=== PATIENT | female | born 1975 | race Caucasian/White ===

== ENCOUNTER 2016-04-11 10:39 | Emergency (ER) | payer OTHER ==
[~2016-04-11] VITALS: Ht 162.6 cm; Wt 125.8 kg
[~2016-04-11 10:39] MED LIST: BUSP30TA2 PO; CYM30 PO; CYM60 PO; LRS10 PO; MELO15TA4 PO; MIRT45TA3 PO; RTL10 PO; TPM/50 PO; TPM100 PO
[2016-04-11 10:43] VITALS: TEMP 36.7; Ht 162.6 cm; Wt 125.8 kg
[2016-04-11] MEDS ORDERED: FLUO10CA48 PO (10:52)
[2016-04-11] MEDS ORDERED: FLUO20CA35 PO (10:52)
[2016-04-11] MEDS ORDERED: MIRT30TA2 PO (10:52)
[2016-04-11] MEDS ORDERED: HYDROCODONE/ACETAMOPHEN 5/325MG TAB PO STA (11:03)
[2016-04-11] MEDS ORDERED: KETOROLAC TROMETHAMINE 60 MG/2 ML VIAL IM STA (11:03)
--- NOTE | 2016-04-11 12:01 | EMERGENCY ROOM VISIT NOTE ---
ED Visit Note First contact with patient: 10:48 CHIEF COMPLAINT: Toothache HISTORY OF PRESENT ILLNESS: This 40-year-old female presents the ER with chief complaint of left upper molar tooth pain. She states the pain started to get very severe last evening. She thinks a portion of the tooth broke off. The patient denies any face or neck pain. The patient denies any fever. She has not contacted a dentist yet REVIEW OF SYSTEMS: 6 system review was performed and was negative unless stated otherwise in history of present illness. PMH: The patient is healthy; lithotripsy, panic attacks, kidney stones SOCIAL HISTORY: Patient lives with her son. The patient admits to tobacco use but denies any alcohol use. PHYSICAL EXAM: Vital Signs: Were reviewed Reviewed Nurse's notes. GEN.: 40-year -old white female appears uncomfortable secondary to tooth pain. MENTAL Status : Alert and oriented 3. MOUTH: Left upper molar with a portion of the tooth missing and diffuse decay. This is tender to palpation. Surrounding gingiva without erythema or edema noted. No palpable abscess. FACE: No erythema or edema noted. NECK: No cervical or submandibular lymphadenopathy. EMERGENCY COURSE: The patient was evaluated. The patient was given Toradol 60 mg IM and [place] 5/325 mg 2 tablets by mouth for pain. The patient was also given dental wax to use as directed. The patient is on a no narcotic prescription list from the emergency room therefore I cannot give her a prescription for pain meds. I told her she will have to contact her family physician. The patient verbalized understanding was discharged home in stable condition. DIAGNOSIS: Dentalgia, dental decay DISCHARGE INSTRUCTIONS & TREATMENT:Use dental wax as directed. Take the clindamycin as prescribed. Take naproxen as prescribed. May also take additional Tylenol as needed for pain. Call your dentist on Wednesday for definitive treatment. Also may contact her PCP for stronger prescription pain medication. Problem List Medical Problems: (1) Abdominal pain Status: Resolved (2) Anxiety Status: Chronic (3) Anxiety Status: Chronic (4) Anxiety disorder Status: Chronic (5) Arthritis Status: Chronic (6) Calculus of kidney and ureter Status: Resolved (7) Depression Status: Chronic (8) Fibromyalgia Status: Chronic (9) Heroin abuse Status: Resolved (10) Heroin abuse Status: Resolved (11) Heroin withdrawal Status: Resolved (12) Kidney stones Status: Chronic (13) Left ureteral calculus Status: Resolved (14) Pain, dental Status: Chronic (15) Renal colic Status: Resolved (16) Renal colic Status: Resolved (17) Suicidal ideation Status: Resolved (18) Suicidal ideation Status: Resolved (19) UTI (urinary tract infection) Status: Resolved Current/Historical Medications Scheduled Baclofen (Baclofen), 10 MG PO BID Buspirone Hcl (Buspirone Hcl), 15 MG PO Q6H Clindamycin Hcl (Cleocin), 300 MG PO QID Fluoxetine (Prozac), 10 MG PO DAILY Fluoxetine (Prozac), 20 MG PO DAILY Meloxicam (Meloxicam), 15 MG PO DAILY Methylphenidate HCl (Methylphenidate HCl), 10 MG PO BID Mirtazapine Soltab (Remeron Soltab), 30 MG PO HS Naproxen (Naprosyn), 500 MG PO BID Topiramate (Topamax), 50 MG PO QAM Topiramate (Topiramate), 100 MG PO QPM Allergies Coded Allergies: Penicillins (Verified Allergy, Mild, RASH TO AMOXIL, 04/11/16) Amoxicillin (Verified Allergy, Unknown, ., 04/11/16) Vital Signs Date Time Temp Pulse Resp B/P Pulse Ox O2 Delivery O2 Flow Rate FiO2 04/11/16 10:43 36.7 74 18 130/70 96 Room Air Medications Administered Medications (Trade) Dose Ordered Sig/Scout Route Start Time Stop Time Status Last Admin Dose Admin Ketorolac Tromethamine (Toradol Inj) 60 mg NOW STAT IM 04/11/16 11:03 04/11/16 11:04 DC 04/11/16 11:19 60 MG Acetaminophen/ Hydrocodone Bitart ([place] 5/325 Tab) 2 tab NOW STAT PO 04/11/16 11:03 04/11/16 11:04 DC 04/11/16 11:20 2 TAB Departure Information Prescriptions Clindamycin Hcl (CLEOCIN) 300 Mg Cap 300 MG PO QID for 7 Days, #28 CAP Prov: Kendy Goode PA-C 04/11/16 Naproxen (Naprosyn) 500 Mg Tab 500 MG PO BID, #30 TAB Prov: Kendy Gooed PA-C 04/11/16 Referrals No Doctor, Assigned (PCP) Patient Instructions [facility]
[2016-04-11] MEDS ORDERED: NAPR-1169 PO (12:04)
[2016-04-11] MEDS ORDERED: CLIN300C2 PO (12:04)
[2016-04-11 12:19] VITALS: BP 138/86; PULSE 89; O2SAT 96
== END 2016-04-11 12:10 | disposition home or self-care (01) ==
LOC: C.EDB 10:40 → C.EDD 12:10
DX: K08.89 Other specified disorders of teeth and supporting structures (principal); K02.9 Dental caries, unspecified; M19.90 Unspecified osteoarthritis, unspecified site; F32.9 Major depressive disorder, single episode, unspecified; F41.9 Anxiety disorder, unspecified; F17.200 Nicotine dependence, unspecified, uncomplicated; Z79.899 Other long term (current) drug therapy; Z79.1 Long term (current) use of non-steroidal anti-inflammatories (NSAID)

== ENCOUNTER 2016-08-09 14:52 | Emergency (ER) | payer OTHER ==
[~2016-08-09] VITALS: Ht 162.6 cm; Wt 129.8 kg
[~2016-08-09 14:52] MED LIST changes: -BUSP30TA2 PO; -CYM30 PO; -CYM60 PO; +FLUO10CA48 PO; +FLUO20CA35 PO; -LRS10 PO; -MELO15TA4 PO; +MIRT30TA2 PO; -MIRT45TA3 PO; +NAPR-1169 PO
[2016-08-09 14:55] VITALS: TEMP 36.6; Ht 162.6 cm; Wt 129.8 kg
[2016-08-09] MEDS ORDERED: LORAZEPAM 1 MG TAB PO STA ×2 (15:16→16:52)
[2016-08-09] MEDS ORDERED: SODIUM CHLORIDE 0.9% 1000ML 1,000 ML IV ONE (15:30)
[2016-08-09 15:55] LABS: URINE APPEARANCE CLOUDY (CLEAR); URINE BILIRUBIN NEG (NEG); URINE COLOR YELLOW; URINE EPITHELIAL CELL AUTO 20-30 /lpf (0-5); URINE NITRITE NEG (NEG); URINE SPECIFIC GRAVITY 1.019 (1.000-1.030); UROBILINOGEN NEG (NEG); ZZUR CULT IF INDIC CLEAN CATCH NO
[2016-08-09 15:58] LABS: MANUAL MICROSCOPIC REQUIRED? NO; REVIEW REQ? NO
[2016-08-09 16:21] LABS: BASO % 0.9 %; BASO ABS # 0.06 K/uL (0-0.2); COMPLETE YES; HEMATOCRIT 39.4 % (37-47); IG% 0.3 %; LYMPH % 49.1 %; MEAN CELL VOLUME 85.8 fL (80-100); MEAN CORPUSCULAR HEMOGLOBIN 26.4 pg (25-34); MEAN CORPUSCULAR HGB CONC 30.7 g/dl (32-36); MEAN PLATELET VOLUME 8.4 fL (7.4-10.4); MONO % 6.8 %; NEUT % 38.9 %; PLATELET COUNT 290 K/uL (130-400); RED BLOOD COUNT 4.59 M/uL (4.2-5.4); WHITE BLOOD COUNT 6.92 K/uL (4.8-10.8)
[2016-08-09 16:23] LABS: BENZODIAZEPINE, URINE NEG (NEG); COCAINE,URINE NEG (NEG); PHENCYCLIDINE, URINE NEG (NEG)
[2016-08-09 16:39] LABS: BUN/CREATININE RATIO 14.5 (10-20); CALCIUM 8.4 mg/dl (8.5-10.1); CREATININE 0.81 mg/dl (0.60-1.20); POTASSIUM 3.9 mmol/L (3.5-5.1)
[2016-08-09 16:49] LABS: ALB/GLOB RATIO 0.8 (0.9-2); THYROID STIMULATING HORMONE 2.7 uIu/ml (0.300-4.500)
--- NOTE | 2016-08-09 16:50 | DIAGNOSTIC IMAGING REPORT ---
ULTRASOUND VENOUS DOPPLER LWR EXT BILA CLINICAL HISTORY: Leg swelling COMPARISON STUDY: 07/18/2006 FINDINGS: Real-time and color flow Doppler imaging were performed. Flow was seen within the femoral, popliteal and calf veins with no intraluminal thrombus demonstrated. The saphenous vein is patent. IMPRESSION: No evidence of lower extremity DVT. Electronically signed by: Dixon Palacios M.D. 08/09/2016 4:49 PM Dictated Date/Time: 08/09/2016 4:48 PM
[2016-08-09] MEDS ORDERED: VST25HP PO (17:17)
[2016-08-09 17:31] VITALS: BP 138/88; PULSE 80; O2SAT 96
--- NOTE | 2016-08-09 21:48 | EMERGENCY ROOM VISIT NOTE ---
History First contact with patient: 15:06 Chief Complaint: ANXIETY Stated Complaint: NON STOP PANIC ATTACKS, ANXIETY ATTACKS History of Present Illness The patient is a 41 year old female who presents to the Emergency Room with complaints of persistent panic attacks for the past week. The patient states that she has had stress and anxiety are several years. She has an upcoming appointment with her psychiatrist in 4 days, and is requesting medication to help get her to that appointment. She states that she will take hydroxyzine twice daily, but this has not helped her. She has had difficulty sleeping. She is also complaining of swelling to her bilateral legs. She does not have chest pain, chest tightness, shortness of breath, or palpitations. No recent travel history. She is not on control. The patient rates her overall discomfort a 5/10. She is not suicidal or homicidal. Review of Systems More than 10 systems were reviewed and otherwise negative with the exception of history of present illness. Past Medical/Surgical History Medical Problems: (1) Abdominal pain (2) Anxiety (3) Anxiety (4) Anxiety disorder (5) Arthritis (6) Calculus of kidney and ureter (7) Depression (8) Drug overdose, intentional (9) Fibromyalgia (10) Heroin abuse (11) Heroin abuse (12) Heroin withdrawal (13) Kidney stones (14) Left ureteral calculus (15) Pain, dental (16) Renal colic (17) Renal colic (18) Suicidal ideation (19) Suicidal ideation (20) UTI (urinary tract infection) Family History Cancer Diabetes mellitus Gallbladder disease Hypertension Kidney stones Lung disease Social History Smoking Status: Current Every Day Smoker Alcohol Use: none Drug Use: none Marital Status: single Housing Status: lives with family Occupation Status: unemployed Current/Historical Medications Scheduled Baclofen (Baclofen), 10 MG PO BID Buspirone Hcl (Buspirone Hcl), 15 MG PO Q6H Fluoxetine (Prozac), 10 MG PO DAILY Fluoxetine (Prozac), 20 MG PO DAILY Meloxicam (Meloxicam), 15 MG PO DAILY Mirtazapine Soltab (Remeron Soltab), 30 MG PO HS Topiramate (Topamax), 50 MG PO QAM Topiramate (Topiramate), 100 MG PO QPM Scheduled PRN Hydroxyzine HCl (Hydroxyzine Pamoate), 25 MG PO BID PRN for Anxiety Allergies Coded Allergies: Penicillins (Verified Allergy, Mild, RASH TO AMOXIL, 04/11/16) Amoxicillin (Verified Allergy, Unknown, ., 04/11/16) Physical Exam Vital Signs Date Time Temp Pulse Resp B/P (MAP) Pulse Ox O2 Delivery O2 Flow Rate FiO2 08/09/16 17:31 80 16 138/88 96 08/09/16 16:53 81 16 152/90 95 Room Air 08/09/16 14:55 36.6 92 20 163/100 97 Room Air Pain Rating (0-10): 0 Physical Exam VITALS: Vitals are noted on the nurse's note and reviewed by myself. Vital signs with initial hypertension that improved under our care GENERAL: Well-developed, well-nourished, white female, who is in no acute distress and resting comfortably. Patient is cooperative with the examination. HEAD: Normocephalic atraumatic. EARS: External ear normal. External auditory canals clear, tympanic membranes pearly vela without erythema or effusion bilaterally. EYES: Pupils equal round and reactive to light and accommodation. Conjunctivae without injection, sclerae without icterus. Extraocular movements intact. NOSE: Patent, turbinates without inflammation or discharge. MOUTH: Mucous membranes moist. Tonsils are not enlarged. Pharynx without erythema, blood, or exudate. Uvula midline. Airway patent. NECK: Supple without nuchal rigidity. No lymphadenopathy. No thyromegaly. Cervical spine is nontender. HEART: Regular rate and rhythm without murmurs gallops or rubs. LUNGS: Clear to auscultation bilaterally without wheezes, rales or rhonchi. No retractions or accessory muscle use. MUSCULOSKELETAL: Mild bilateral lower extremity swelling, primarily along the anterior tibia and top of the feet. There is some reported tenderness along the posterior calf bilaterally with no palpable cord. NEURO: Patient was alert and oriented to person place and time. CN II through XII grossly intact. Medical Decision & Procedures ER Provider Diagnostic Interpretation: ULTRASOUND VENOUS DOPPLER LWR EXT BILA CLINICAL HISTORY: Leg swelling COMPARISON STUDY: 07/18/2006 FINDINGS: Real-time and color flow Doppler imaging were performed. Flow was seen within the femoral, popliteal and calf veins with no intraluminal thrombus demonstrated. The saphenous vein is patent. IMPRESSION: No evidence of lower extremity DVT. Laboratory Results 08/09/16 16:03 Red Blood Count 4.59, Mean Corpuscular Volume 85.8, Mean Corpuscular Hemoglobin 26.4, Mean Corpuscular Hemoglobin Concent 30.7, Mean Platelet Volume 8.4, Neutrophils (%) (Auto) 38.9, Lymphocytes (%) (Auto) 49.1, Monocytes (%) (Auto) 6.8, Eosinophils (%) (Auto) 4.0, Basophils (%) (Auto) 0.9, Neutrophils # (Auto) 2.69, Lymphocytes # (Auto) 3.40, Monocytes # (Auto) 0.47, Eosinophils # (Auto) 0.28, Basophils # (Auto) 0.06 08/09/16 16:03 Test 08/09/16 15:30 08/09/16 16:03 08/09/16 16:05 Urine Color YELLOW Urine Appearance CLOUDY (CLEAR) Urine pH 8.0 (4.5-7.5) Urine Specific [place] 1.019 (1.000-1.030) Urine Protein NEG (NEG) Urine Glucose (UA) NEG (NEG) Urine Ketones NEG (NEG) Urine Occult Blood NEG (NEG) Urine Nitrite NEG (NEG) Urine Bilirubin NEG (NEG) Urine Urobilinogen NEG (NEG) Urine Leukocyte Esterase NEG (NEG) Urine WBC (Auto) 1-5 /hpf (0-5) Urine RBC (Auto) 0-4 /hpf (0-4) Urine Hyaline Casts (Auto) 0 /lpf (0-5) Urine Epithelial Cells (Auto) 20-30 /lpf (0-5) Urine Bacteria (Auto) NEG (NEG) Urine Test NEG (NEG) Urine Opiates Screen NEG (NEG) Urine Methadone, Qualitative POS (NEG) Urine Barbiturates NEG (NEG) Urine Phencyclidine (PCP) Level NEG (NEG) Ur Amphetamine/Methamphetamine NEG (NEG) MDMA (Ecstasy) Screen NEG (NEG) Urine Benzodiazepines Screen NEG (NEG) Urine Cocaine Metabolite NEG (NEG) Urine Marijuana (THC) NEG (NEG) White Blood Count 6.92 K/uL (4.8-10.8) Red Blood Count 4.59 M/uL (4.2-5.4) Hemoglobin 12.1 g/dL (12.0-16.0) Hematocrit 39.4 % (37-47) Mean Corpuscular Volume 85.8 fL (80-100) Mean Corpuscular Hemoglobin 26.4 pg (25-34) Mean Corpuscular Hemoglobin Concent 30.7 g/dl (32-36) Platelet Count 290 K/uL (130-400) Mean Platelet Volume 8.4 fL (7.4-10.4) Neutrophils (%) (Auto) 38.9 % Lymphocytes (%) (Auto) 49.1 % Monocytes (%) (Auto) 6.8 % Eosinophils (%) (Auto) 4.0 % Basophils (%) (Auto) 0.9 % Neutrophils # (Auto) 2.69 K/uL (1.4-6.5) Lymphocytes # (Auto) 3.40 K/uL (1.2-3.4) Monocytes # (Auto) 0.47 K/uL (0.11-0.59) Eosinophils # (Auto) 0.28 K/uL (0-0.5) Basophils # (Auto) 0.06 K/uL (0-0.2) RDW Standard Deviation 47.0 fL (36.4-46.3) RDW Coefficient of Variation 15.0 % (11.5-14.5) Immature Granulocyte % (Auto) 0.3 % Immature Granulocyte # (Auto) 0.02 K/uL (0.00-0.02) Anion Gap 6.0 mmol/L (3-11) Est Creatinine Clear Calc Drug Dose 122.3 ml/min Estimated GFR () 104.6 Estimated GFR (Non- 90.2 BUN/Creatinine Ratio 14.5 (10-20) Calcium Level 8.4 mg/dl (8.5-10.1) Total Bilirubin 0.2 mg/dl (0.2-1) Aspartate Amino Transf (AST/SGOT) 22 U/L (15-37) Alanine Aminotransferase (ALT/SGPT) 24 U/L (12-78) Alkaline Phosphatase 89 U/L (45-117) Total Protein 7.4 gm/dl (6.4-8.2) Albumin 3.2 gm/dl (3.4-5.0) Globulin 4.2 gm/dl (2.5-4.0) Albumin/Globulin Ratio 0.8 (0.9-2) Thyroid Stimulating Hormone (TSH) 2.700 uIu/ml (0.300-4.500) Bedside Troponin I < 0.030 ng/ml (0-0.045) Medications Administered Medications (Trade) Dose Ordered Sig/Scout Route Start Time Stop Time Status Last Admin Dose Admin Lorazepam (Ativan Tab) 1 mg NOW STAT PO 08/09/16 15:16 08/09/16 15:20 DC 08/09/16 15:25 1 MG Lorazepam (Ativan Tab) 1 mg NOW STAT PO 08/09/16 16:52 08/09/16 16:53 DC 08/09/16 16:57 1 MG ED Course Physical exam and history were performed. Nursing notes and EMR were reviewed. Patient appears to have reports of anxiety and edema. IV access was established and labs were obtained. Ultrasound was ordered. I did medicate the patient here in the department with oral Ativan. The patient's blood work is as above and was reviewed. She does not have a significantly elevated white blood cell count, anemia, bandemia, or gross electrolyte imbalance. EKG was normal sinus rhythm at [address] elevation. The patient's urine is without obvious infection. Drug of abuse screen is positive for methadone, which is concerning as the patient is not prescribed this based on the data from the [place] drug monitoring profile. She certainly could be getting this on a daily basis from a methadone clinic, but she does not report this as one of her medications. The patient's ultrasound does not show evidence of DVT bilaterally. Overall the patient appears stable for discharge home. I do not appreciate an acute life-threatening process to explain her leg swelling. The patient is not having chest pain, chest tightness, shortness of breath, or palpitations, and I feel that a CT scan is not necessary considering that she has a negative ultrasound. The patient is not suicidal or homicidal, and does not wish to have a psychiatric evaluation here in the department. She does have appropriate outpatient resources, most importantly being an appointment with her psychiatrist in 4 days. The patient is to keep this appointment. The patient requested that I provide her a written prescription for Ativan. I explained that the patient was on a no prescription treatment plan at this facility, and I would not be providing her a written prescription for any controlled substances. The patient has hydroxyzine at home, which she should continue as prescribed. The patient was otherwise invited back to the ER with any new, worsening, or concerning symptoms. The chart was completed utilizing Dragon Speech Voice Recognition Software. Grammatical errors, random word insertions, pronoun errors, and incomplete sentences are an occasional consequence of this system due to software limitations, ambient noise, and hardware issues. Any formal questions or concerns about the content, text, or information contained within the body of this dictation should be directly addressed to the provider for clarification. . Medical Decision Differential diagnosis: Etiologies such as mood disorder, infection, hypoglycemia, electrolyte abnormalities, cardiac sources, intracerebral event, toxicologic, neurologic, as well as others were entertained. Impression Primary Impression: Anxiety Additional Impression: Extremity edema Departure Information Dispostion Home / Self-Care Condition GOOD Forms HOME CARE DOCUMENTATION FORM, IMPORTANT VISIT INFORMATION Patient Instructions My [facility] Additional Instructions You were seen and evaluated today on an emergency basis only. This is not a substitute for, or an effort to provide, complete comprehensive medical care. It is not possible to recognize and treat all injuries or illnesses in a single emergency department visit. For this reason it is recommended that you followup with your primary care physician and psychiatrist this week for ongoing care and evaluation. Continue your medications as previously prescribed. Elevate your legs to help reduce swelling. Consider compression stockings as this can also help. Decrease dietary salt. You are welcome to return to the emergency department anytime with new, worsening, or concerning symptoms. Problem Qualifiers
[2016-08-12 10:56] LABS: METHADONE METABOLITE 24600 NG/ML (CUTOFF=100); METHADONE VERIFIC 1410 NG/ML (CUTOFF=100)
[2017-01-21] MEDS ORDERED: HYDR50CA2 PO (16:51)
== END 2016-08-09 17:32 | disposition home or self-care (01) ==
LOC: C.EDB 14:54
DX: F41.9 Anxiety disorder, unspecified (principal); R60.0 Localized edema; M19.90 Unspecified osteoarthritis, unspecified site; N20.0 Calculus of kidney; N23 Unspecified renal colic; Z83.3 Family history of diabetes mellitus; Z82.49 Family history of ischemic heart disease and other diseases of the circulatory system; F17.200 Nicotine dependence, unspecified, uncomplicated

== ENCOUNTER 2016-09-22 16:28 | Emergency (ER) | payer OTHER ==
[~2016-09-22] VITALS: Ht 162.6 cm; Wt 137.8 kg
[~2016-09-22 16:28] MED LIST changes: +BUSP30TA2 PO; +LRS10 PO; +MELO15TA4 PO; -NAPR-1169 PO; -RTL10 PO; +VST25HP PO
[2016-09-22 16:31] VITALS: TEMP 36.9; Ht 162.6 cm; Wt 137.8 kg
[2016-09-22] MEDS ORDERED: ONDANSETRON INJ 2 MG/ML 2 ML VIAL IV STA (16:46)
[2016-09-22] MEDS ORDERED: DiphenhydrAMINE HCL 50 MG/ML VIAL IV STA (16:46)
[2016-09-22] MEDS ORDERED: KETOROLAC TROMETHAMINE 30 MG/ML VIAL IV STA (16:46)
[2016-09-22] MEDS ORDERED: HYDR50CA2 PO (16:51)
[2016-09-22] MEDS ORDERED: PRZ/40 PO (16:51)
[2016-09-22] MEDS ORDERED: PROP20TA67 PO (16:51)
[2016-09-22] MEDS ORDERED: NRN100 PO (16:51)
[2016-09-22] MEDS ORDERED: DEXAMETHASONE SOD INJ 10 MG/ML VIAL IV ONE (17:00)
[2016-09-22 17:12] LABS: HEMATOCRIT 38.3 % (37-47); MEAN CELL VOLUME 85.5 fL (80-100); MEAN CORPUSCULAR HGB CONC 31.6 g/dl (32-36); MEAN PLATELET VOLUME 8.2 fL (7.4-10.4); PLATELET COUNT 280 K/uL (130-400); RED BLOOD COUNT 4.48 M/uL (4.2-5.4); WHITE BLOOD COUNT 6.82 K/uL (4.8-10.8)
--- NOTE | 2016-09-22 17:25 | DIAGNOSTIC IMAGING REPORT ---
CHEST 2 VIEWS ROUTINE CLINICAL HISTORY: 41 years-old Female presenting with peripheral edema. TECHNIQUE: PA and lateral views of the chest were obtained. COMPARISON: 09/18/2015. FINDINGS: Cardiomediastinal silhouette normal. Apparent opacity at the cardiac apex likely represents a prominent pericardial fat pad. Lungs and pleural spaces clear. Osseous structures and upper abdomen normal. IMPRESSION: 1. No acute cardiopulmonary disease. Electronically signed by: John Bellamy M.D. 09/22/2016 5:23 PM Dictated Date/Time: 09/22/2016 5:22 PM
[2016-09-22 17:41] LABS: BUN/CREATININE RATIO 10.4 (10-20); CALCIUM 8.6 mg/dl (8.5-10.1); CREATININE 0.96 mg/dl (0.60-1.20); POTASSIUM 3.7 mmol/L (3.5-5.1)
[2016-09-22] MEDS ORDERED: ACETAMINOPHEN 500 MG TAB PO STA (17:51)
--- NOTE | 2016-09-22 17:57 | EMERGENCY ROOM VISIT NOTE ---
History First contact with patient: 16:35 Chief Complaint: HEADACHE Stated Complaint: SEVERE MIGRAINE - SEVERE KNEE PAIN - SWOLLEN FEET History of Present Illness The patient is a 41 year old female who presents to the Emergency Room with multiple complaints. First complaint is that she started with a headache at 10: 30 this morning. The patient states that the back of her head in both temporal region and in both her jaws. The patient denies any associated visual changes or dizziness. The patient does not have a history of migraine headaches. The patient admits to some nausea but denies any vomiting. The patient denies any recent URI symptoms. The patient denies any seasonal allergies or any chronic sinusitis. The patient took 600 mg of Advil at 1:45 PM without any relief of her headaches. The patient also is complaining of having pain in both knees for the last few days that makes it difficult to walk. The patient states she has had this in the past. She also states that she has swelling of both her feet. She denies any associated redness. The patient states that she has had this one time in the past. She recently had an echocardiogram done which was normal. The patient currently denies any chest pain or shortness of breath. Patient denies any arm pain. Review of Systems 10 system review was performed and was negative unless stated otherwise history of present illness. Past Medical/Surgical History Medical Problems: (1) Abdominal pain (2) Anxiety (3) Anxiety (4) Anxiety disorder (5) Arthritis (6) Calculus of kidney and ureter (7) Depression (8) Drug overdose, intentional (9) Fibromyalgia (10) Heroin abuse (11) Heroin abuse (12) Heroin withdrawal (13) Kidney stones (14) Left ureteral calculus (15) Pain, dental (16) Renal colic (17) Renal colic (18) Suicidal ideation (19) Suicidal ideation (20) UTI (urinary tract infection) Family History Cancer Diabetes mellitus Gallbladder disease Hypertension Kidney stones Lung disease Social History Smoking Status: Current Every Day Smoker Alcohol Use: none Drug Use: none Marital Status: single Housing Status: lives with family Occupation Status: unemployed Current/Historical Medications Scheduled Baclofen (Baclofen), 10 MG PO BID Buspirone Hcl (Buspirone Hcl), 15 MG PO Q6H Fluoxetine Hcl (Prozac), 40 MG PO QAM Gabapentin (Gabapentin), 100 MG PO BID Hydroxyzine Pamoate (Vistaril), 50 MG PO BID Meloxicam (Meloxicam), 15 MG PO DAILY Mirtazapine Soltab (Remeron Soltab), 30 MG PO HS Propranolol (Inderal), 20 MG PO DAILY Topiramate (Topamax), 50 MG PO QAM Topiramate (Topiramate), 100 MG PO QPM Physical Exam Vital Signs Date Time Temp Pulse Resp B/P (MAP) Pulse Ox O2 Delivery O2 Flow Rate FiO2 09/22/16 16:31 36.9 84 20 151/88 97 Room Air Physical Exam GENERAL: Obese 41-year-old female appears in no acute distress. MENTAL Status: Alert and oriented 3. HEAD: Atraumatic, nontender to palpation. EYES: PERRLA. EOMs intact. EARS: Canals clear. TMs without fluid level noted. NOSE: Nasal mucosa with erythema and engorgement. PHARYNX: No erythema or edema noted. Airway is adequate. NECK: Supple, no lymphadenopathy noted. No carotid bruits noted. LUNGS: Patient has scattered rhonchi throughout both lung victor with partial clearing with cough. Good air exchange noted. CARDIAC: Regular rate and rhythm without murmur pulses is full and equal throughout. ABDOMEN: Positive bowel sounds all 4 quadrants. Soft, nontender to palpation without organomegaly or masses. NEURO:Cranial nerves two through 12 intact. Cerebellar function intact with [id number]. Fine motor intact with alternating finger motions. BILATERAL LOWER EXTREMITIES: The patient has 1-2 bilateral pitting edema of the lower leg as well as the dorsal aspect of the feet. There is no erythema. Calves are nontender. Negative Homans bilaterally. BILATERAL KNEES: No gross bony deformity noted. No erythema or edema noted. Full range of motion of both knees. No ligament instability noted bilaterally. Medical Decision & Procedures ER Provider Diagnostic Interpretation: CHEST 2 VIEWS ROUTINE CLINICAL HISTORY: 41 years-old Female presenting with peripheral edema. TECHNIQUE: PA and lateral views of the chest were obtained. COMPARISON: 09/18/2015. FINDINGS: Cardiomediastinal silhouette normal. Apparent opacity at the cardiac apex likely represents a prominent pericardial fat pad. Lungs and pleural spaces clear. Osseous structures and upper abdomen normal. IMPRESSION: 1. No acute cardiopulmonary disease. Electronically signed by: John Bellamy M.D. 09/22/2016 5:23 PM Dictated Date/Time: 09/22/2016 5:22 PM Laboratory Results 09/22/16 16:55 Red Blood Count 4.48, Mean Corpuscular Volume 85.5, Mean Corpuscular Hemoglobin 27.0, Mean Corpuscular Hemoglobin Concent 31.6, Mean Platelet Volume 8.2 09/22/16 16:55 Test 09/22/16 16:55 09/22/16 17:03 White Blood Count 6.82 K/uL (4.8-10.8) Red Blood Count 4.48 M/uL (4.2-5.4) Hemoglobin 12.1 g/dL (12.0-16.0) Hematocrit 38.3 % (37-47) Mean Corpuscular Volume 85.5 fL (80-100) Mean Corpuscular Hemoglobin 27.0 pg (25-34) Mean Corpuscular Hemoglobin Concent 31.6 g/dl (32-36) Platelet Count 280 K/uL (130-400) Mean Platelet Volume 8.2 fL (7.4-10.4) RDW Standard Deviation 47.0 fL (36.4-46.3) RDW Coefficient of Variation 15.0 % (11.5-14.5) Anion Gap 5.0 mmol/L (3-11) Est Creatinine Clear Calc Drug Dose 107.1 ml/min Estimated GFR () 85.1 Estimated GFR (Non- 73.5 BUN/Creatinine Ratio 10.4 (10-20) Calcium Level 8.6 mg/dl (8.5-10.1) GF-Mfg-A-Type Natriuretic Peptide 332 pg/ml (0-450) Medications Administered Medications (Trade) Dose Ordered Sig/Scout Route Start Time Stop Time Status Last Admin Dose Admin Dexamethasone Sodium Phosphate (Decadron Inj) 10 mg NOW ONCE IV 09/22/16 17:00 09/22/16 17:01 DC 09/22/16 16:59 10 MG Diphenhydramine HCl (Benadryl Inj) 25 mg NOW STAT IV 09/22/16 16:46 09/22/16 16:50 DC 09/22/16 16:59 25 MG Ketorolac Tromethamine (Toradol Inj) 30 mg NOW STAT IV 09/22/16 16:46 09/22/16 16:50 DC 09/22/16 16:59 30 MG Ondansetron HCl (Zofran Inj) 4 mg NOW STAT IV 09/22/16 16:46 09/22/16 16:50 DC 09/22/16 16:59 4 MG ED Course The patient was evaluated. IV access was obtained. The patient's EMR medication list were reviewed. I also reviewed her x-rays from January 2016 which revealed mild degenerative arthritis. I will check with the patient to see if she followed up with Dr. Esquivel as instructed. The patient was given Benadryl 25 mg IV, Decadron 10 mg IV, Zofran 4 mg IV push and Toradol 30 mg IV for her headache. Chest x-ray was ordered to evaluate for CHF. CBC and differential renal profile was ordered. BNP was ordered. I spoke with the patient and she never followed up with Dr. Esquivel. She states she followed up with her family doctor and he did not feel was necessary to be referred to orthopedics. I also reviewed the patient's ER noted from 08/09/2016. At that time she did have the peripheral edema which is similar today's findings. She was instructed to wear compression socks and elevate feet and reduce dietary salt intake. It is also concern at that point she had a drug screen and was positive for methadone. The patient when she received her above medications for headaches was questioning the nurse why she was not receiving any narcotics for her headaches. Due to this review of her EMR she will not be obtaining any narcotics in the ER visit today. The patient's chest x-ray was reviewed as above without any acute cardiopulmonary findings. Labs are reviewed and were unremarkable. The patient was informed of all findings. The patient reevaluated was still complaining of a headache. I discussed with the patient and we will no longer be giving narcotics for migraine headaches and the definite not be giving narcotics for atypical headache. The patient verbalized understanding she was given additional 1 g of Tylenol by mouth for her headache. The patient was also instructed to follow with her family doctor for elevated blood pressure reading as well as her peripheral edema and also referral to orthopedics for her bilateral knee pain. The patient was discharged home in stable condition. Medical Decision Differential diagnosis include bronchitis, pneumonia, CHF Differential includes: Acute intracranial bleed, trauma, meningitis, encephalitis, increased intracranial pressure, mass or mass effect, facial or dental infection, temporal arteritis, CVA, TIA, acute hypertensive emergency, sinusitis, carbon monoxide exposure. I do not think that it is necessary to obtain repeat x-rays of the patient's needs at this time. Medication Reconcilliation Current Medication List: was personally reviewed by me Blood Pressure Screening Patient's blood pressure: Elevated blood pressure Blood pressure disposition: Referred to PCP Impression Primary Impression: Headache Additional Impressions: Peripheral edema Knee pain, bilateral Elevated blood pressure reading Departure Information Dispostion Home / Self-Care Condition GOOD Referrals Jhon Erazo M.D. (PCP) Forms HOME CARE DOCUMENTATION FORM, IMPORTANT VISIT INFORMATION Patient Instructions [facility] Additional Instructions For your peripheral edema: Recommend keeping her legs elevated whenever possible. Limit dietary salt intake, compression stockings which may be prescribed by your family physician. Follow with your family physician in 2 days for reevaluation Elevated blood pressure. Follow with family doctor in 2 days for recheck when you're there for recheck of your peripheral edema. Bilateral knee pain. Recommend follow-up with Dr. Esquivel for further evaluation Headaches: Recommend [id number] ibuprofen and Tylenol as needed for headaches. If you're headaches persist recommend follow with your family doctor for further evaluation. Problem Qualifiers Primary Impression: Headache Headache type: unspecified Headache chronicity pattern: acute headache Intractability: intractable Qualified Codes: R51 - Headache Additional Impressions: Knee pain, bilateral Chronicity: chronic Qualified Codes: M25.561 - Pain in right knee; M25.562 - Pain in left knee; G89.29 - Other chronic pain
[2016-09-22 18:00] VITALS: BP 135/65; PULSE 60; O2SAT 96
[2016-09-22 18:03] LABS: BASO % 0.7 %; BASO ABS # 0.05 K/uL (0-0.2); COMPLETE YES; EOS % 2.9 %; IG% 0.1 %; LYMPH % 52.9 %; LYMPH ABS # 3.61 K/uL (1.2-3.4); NEUT % 37.4 %
== END 2016-09-22 18:00 | disposition home or self-care (01) ==
LOC: C.EDB 16:29
DX: R51 Headache (principal); R60.9 Edema, unspecified; M25.561 Pain in right knee; M25.562 Pain in left knee; R03.0 Elevated blood-pressure reading, without diagnosis of hypertension; F41.9 Anxiety disorder, unspecified; F32.9 Major depressive disorder, single episode, unspecified; M79.7 Fibromyalgia; F11.20 Opioid dependence, uncomplicated; Z83.3 Family history of diabetes mellitus; Z82.49 Family history of ischemic heart disease and other diseases of the circulatory system; F17.200 Nicotine dependence, unspecified, uncomplicated

== ENCOUNTER 2017-01-21 17:20 | Emergency (ER) | payer OTHER ==
[~2017-01-21] VITALS: Ht 162.6 cm; Wt 124.5 kg
[~2017-01-21 17:20] MED LIST changes: -BUSP30TA2 PO; -FLUO10CA48 PO; -FLUO20CA35 PO; +HYDR50CA2 PO; -LRS10 PO; -MELO15TA4 PO; +NRN100 PO; +PROP20TA67 PO; +PRZ/40 PO; -VST25HP PO
[2017-01-21 17:27] VITALS: TEMP 36.6; Ht 162.6 cm; Wt 124.5 kg
--- NOTE | 2017-01-21 17:46 | EMERGENCY ROOM VISIT NOTE ---
History First contact with patient: 17:25 Chief Complaint: FLANK PAIN Stated Complaint: ABD PAIN/HEMATURIA History of Present Illness The patient is a 41 year old female who presents to the Emergency Room with complaints of LLQ which began 2 weeks ago and has been getting progressively worse. She rates the pain at 10/10, constant. The pain radiates to her groin and down the back of her leg, which she reports as being constant, and does not think she can weight bear on her left side due to the pain down the back of her leg. She has vomited "several times" today. Also reports one episode of hematuria this morning. No dysuria, no frequency of urination, no suprapubic pain. She has had kidney stones in the past and states this is a similar pain; also reports PMH of ovarian cysts. She reports no trauma and no hx of back pain. Review of Systems Constitutional: + weakness, No fever, No chills, No sweats, No weight loss, No fatigue, No problem reported Respiratory: + shortness of breath, No cough, No sputum, No wheezing, No dyspnea on exertion, No dyspnea at rest, No hemoptysis, No problem reported Cardiovascular: No chest pain, No orthopnea, No PND, No edema, No claudication, No palpitations, No problem reported Abdomen: + pain (LLQ), + nausea, + vomiting, No diarrhea, No constipation, No GI bleeding, No problem reported Musculoskeletal: + joint pain, + muscle pain Genitourinary - Female: + hematuria, No dysuria, No urinary frequency, No urinary urgency, No urinary incontinence, No urinary retention, No dysmenorrhea , No menorrhagia, No metrorrhagia, No rash, No vaginal bleeding, No vaginal discharge, No vaginal itching, No vulvodynia, No , No problem reported Past Medical/Surgical History Medical Problems: (1) Abdominal pain (2) Anxiety (3) Anxiety (4) Anxiety disorder (5) Arthritis (6) Calculus of kidney and ureter (7) Depression (8) Drug overdose, intentional (9) Fibromyalgia (10) Heroin abuse (11) Heroin abuse (12) Heroin withdrawal (13) Kidney stones (14) Left ureteral calculus (15) Pain, dental (16) Renal colic (17) Renal colic (18) Suicidal ideation (19) Suicidal ideation (20) UTI (urinary tract infection) Family History Cancer Diabetes mellitus Gallbladder disease Hypertension Kidney stones Lung disease Social History Smoking Status: Current Every Day Smoker Alcohol Use: none Drug Use: none Marital Status: single Housing Status: lives with family Occupation Status: unemployed Current/Historical Medications Scheduled Buspirone Hcl (Buspirone Hcl), 15 MG PO Q6H Diclofenac (Voltaren), 75 MG PO BID Duloxetine HCl (Cymbalta), 30 MG PO QAM Folic Acid (Folvite), 1 MG PO DAILY Gabapentin (Neurontin), 600 MG PO TID Hydroxyzine Pamoate (Vistaril), 50 MG PO BID Lisinopril (Zestril), 20 MG PO DAILY Meloxicam (Meloxicam), 15 MG PO DAILY Mirtazapine (Remeron), 30 MG PO HS Multivitamins/Minerals (Mvi With Minerals), 1 TAB PO DAILY Scheduled PRN Albuterol (Ventolin Hfa), 2 PUFFS INH Q4H PRN for Wheezing Amitriptyline Hcl (Elavil), 25 MG PO HS PRN for Sleep Baclofen (Baclofen), 10 MG PO BID PRN for Muscle Spasm Clonazepam (Klonopin), 1 MG PO TID PRN for Anxiety Trazodone Hcl (Trazodone), 75 MG PO HS PRN for Sleep Physical Exam Vital Signs Date Time Temp Pulse Resp B/P (MAP) Pulse Ox O2 Delivery O2 Flow Rate FiO2 01/21/17 20:00 88 18 117/67 95 01/21/17 18:54 113 18 116/76 96 Room Air 01/21/17 17:27 36.6 103 18 110/77 96 Room Air Physical Exam General Appearance: WD/WN, no apparent distress Head: normocephalic, atraumatic Eyes: normal inspection, EOMI ENT: hearing grossly normal Neck: supple, thyroid normal, no JVD Respiratory/Chest: chest non-tender, lungs clear, normal breath sounds, no respiratory distress, no accessory muscle use Cardiovascular: regular rate, rhythm, no edema, no gallop, no JVD, no murmur , normal peripheral pulses Abdomen / GI: normal bowel sounds, soft, + tenderness (LLQ and with balotting of kidneys) Back: normal inspection, + left CVA tenderness Extremities: normal inspection, no calf tenderness, no pedal edema, normal range of motion, non-tender, pelvis stable 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, no motor/sensory deficits, alert , normal mood/affect, normal reflexes, oriented x 3 Medical Decision & Procedures Laboratory Results 01/21/17 17:50 Red Blood Count 4.50, Mean Corpuscular Volume 87.1, Mean Corpuscular Hemoglobin 28.7, Mean Corpuscular Hemoglobin Concent 32.9, Mean Platelet Volume 9.0, Neutrophils (%) (Auto) 79.2, Lymphocytes (%) (Auto) 15.5, Monocytes (%) (Auto) 4.9, Eosinophils (%) (Auto) 0.0, Basophils (%) (Auto) 0.1, Neutrophils # (Auto) 15.16, Lymphocytes # (Auto) 2.96, Monocytes # (Auto) 0.93, Eosinophils # (Auto) 0.00, Basophils # (Auto) 0.01 01/21/17 17:50 Test 01/21/17 17:50 01/21/17 19:03 White Blood Count 19.11 K/uL (4.8-10.8) Red Blood Count 4.50 M/uL (4.2-5.4) Hemoglobin 12.9 g/dL (12.0-16.0) Hematocrit 39.2 % (37-47) Mean Corpuscular Volume 87.1 fL (80-100) Mean Corpuscular Hemoglobin 28.7 pg (25-34) Mean Corpuscular Hemoglobin Concent 32.9 g/dl (32-36) Platelet Count 348 K/uL (130-400) Mean Platelet Volume 9.0 fL (7.4-10.4) Neutrophils (%) (Auto) 79.2 % Lymphocytes (%) (Auto) 15.5 % Monocytes (%) (Auto) 4.9 % Eosinophils (%) (Auto) 0.0 % Basophils (%) (Auto) 0.1 % Neutrophils # (Auto) 15.16 K/uL (1.4-6.5) Lymphocytes # (Auto) 2.96 K/uL (1.2-3.4) Monocytes # (Auto) 0.93 K/uL (0.11-0.59) Eosinophils # (Auto) 0.00 K/uL (0-0.5) Basophils # (Auto) 0.01 K/uL (0-0.2) RDW Standard Deviation 52.0 fL (36.4-46.3) RDW Coefficient of Variation 16.3 % (11.5-14.5) Immature Granulocyte % (Auto) 0.3 % Immature Granulocyte # (Auto) 0.05 K/uL (0.00-0.02) Anion Gap 9.0 mmol/L (3-11) Est Creatinine Clear Calc Drug Dose 102.8 ml/min Estimated GFR () 87.3 Estimated GFR (Non- 75.4 BUN/Creatinine Ratio 19.8 (10-20) Calcium Level 9.6 mg/dl (8.5-10.1) Total Bilirubin 0.2 mg/dl (0.2-1) Direct Bilirubin < 0.1 mg/dl (0-0.2) Aspartate Amino Transf (AST/SGOT) 18 U/L (15-37) Alanine Aminotransferase (ALT/SGPT) 37 U/L (12-78) Alkaline Phosphatase 106 U/L (45-117) Total Protein 7.7 gm/dl (6.4-8.2) Albumin 3.5 gm/dl (3.4-5.0) Lipase 229 U/L (73-393) Human Chorionic Gonadotropin, Qual NEG (NEG) Human Chorionic Gonadotropin, Quant < 1 mIU/mL Urine Color YELLOW Urine Appearance CLOUDY (CLEAR) Urine pH 6.0 (4.5-7.5) Urine Specific Delta 1.017 (1.000-1.030) Urine Protein NEG (NEG) Urine Glucose (UA) NEG (NEG) Urine Ketones NEG (NEG) Urine Occult Blood NEG (NEG) Urine Nitrite NEG (NEG) Urine Bilirubin NEG (NEG) Urine Urobilinogen NEG (NEG) Urine Leukocyte Esterase TRACE (NEG) Urine Test NEG (NEG) Medications Administered Medications (Trade) Dose Ordered Sig/Scout Route Start Time Stop Time Status Last Admin Dose Admin Ketorolac Tromethamine (Toradol Inj) 10 mg NOW STAT IV 01/21/17 17:53 01/21/17 17:54 DC 01/21/17 18:01 10 MG Hydromorphone HCl (Dilaudid Inj) 1 mg NOW STAT IV 01/21/17 18:26 11/23/17 18:27 DC 01/21/17 18:32 1 MG ED Course 1720: full h&p obtained 1740: H&P obtained by Dr. Rodriguez; ordered CBC, BMP, UA, UPreg, Lipase, and LFTs. Will send for CTAP non-contrast when upreg is reported negative 184: patient's serum test is negative. Ordered CT non contrast abdo/ pelvis for stone and lumbar spine CT non contrast. 1929: Patient's scans return with normal results. Considering elevated WBC, performed pelvic exam with GC/Chlamydia, trichomonas, genital culture and gram stain 1944: UA returned back clean. Patient reassessed and pain is much improved at 2/ 10. She is amenable to discharge and follow up with PCP Medical Decision Prior records/ancillary studies reviewed. Triage Nursing notes reviewed. Additional history obtained from the patient. The patient's history was concerning for abdominal pain. Differential diagnosis: Etiologies such as appendicitis, diverticulitis, PUD, biliary pathology, UTI, pancreatitis, obstruction, mesenteric ischemia, aortic pathology, infections, inflammatory bowel disease, renal colic, as well as others were entertained. Physical examination findings: As above. ER treatment provided: 10 mg toradol 1 mg dilauded On reassessment the patient felt better. Diagnostics interpreted by me: The labs revealed WBC 19, negative quant bHCG, normal lipase of 227. Imaging studies: CT SCAN OF THE ABDOMEN AND PELVIS WITHOUT CONTRAST CLINICAL HISTORY: Left lower quadrant abdominal pain HISTORY OF KIDNEY STONES COMPARISON STUDY: CT scan dated 09/28/2014 TECHNIQUE: CT scan of the abdomen and pelvis was performed from the lung bases to the proximal femurs. Images are reviewed in the axial, sagittal, and coronal planes. IV contrast was not administered for this examination. A dose lowering technique was utilized adhering to the principles of ALARA. FINDINGS: Lower chest: There are minimal dependent atelectatic changes Liver: There is hepatic steatosis. There is stable 17 mm hypodensity within the lateral aspect of the left lobe. This approaches water attenuation and is in all likelihood benign Gallbladder: Unremarkable. Spleen: Normal in size and attenuation. Pancreas: Unremarkable. Adrenal glands: Unremarkable. Kidneys: No renal, ureteral, or bladder calculi are visualized. Bowel: There are no transition zones indicate bowel obstruction. The appendix appears normal. There is no acute diverticulitis. Peritoneum: There is no intraperitoneal free air or abdominal ascites. A fat-containing ringlike density with in the left lower quadrant adjacent the left ovary remains unchanged from the prior August 2014 study. This likely represents an old focus of fat necrosis Vasculature: The abdominal aorta is normal in course and caliber. Adenopathy: None. Pelvic viscera: The bladder, and pelvic viscera are unremarkable. Skeletal structures: No destructive osseous lesions are seen. IMPRESSION: 1. No acute intra-abdominal or pelvic findings 2. No renal, ureteral, or bladder calculi identified 3. No evidence of bowel obstruction. No evidence of free air 4. No evidence of acute appendicitis. No evidence of acute diverticulitis. CT LUMBAR SPINE WITHOUT CT DOSE: 2218.83 mGy.cm CLINICAL HISTORY: Left lower quadrant pain with left leg radiculopathy TECHNIQUE: Helical images were acquired in transverse plane. Reformatted sagittal and coronal images were reviewed. A dose lowering technique was utilized adhering to the principles of ALARA. CONTRAST: No contrast was administered COMPARISON STUDY: None. FINDINGS: L1-2 level: There is no evidence of significant disc bulge or focal herniation. There is no evidence of spinal or foraminal stenosis. L2-3 level: There is no evidence of significant disc bulge or focal herniation. There is no evidence of spinal or foraminal stenosis. L3-4 level: There is a circumferential disc bulge with mild spinal canal narrowing. There is no significant foraminal stenosis L4-5 level: There is no evidence of significant disc bulge or focal herniation. There is no evidence of spinal or foraminal stenosis. L5-S1 level: There is no evidence of significant disc bulge or focal herniation. There is no evidence of spinal or foraminal stenosis. No fractures or subluxations are visualized. No destructive lesions are evident. IMPRESSION: 1. No fractures or subluxations identified 2. Disc bulge and mild spinal canal narrowing at the L3-4 level. By the evaluation outlined above emergent etiologies such as appendicitis, diverticulitis, PUD, biliary pathology, UTI, pancreatitis, obstruction, mesenteric ischemia, aortic pathology, infections, inflammatory bowel disease, renal colic, as well as others were deemed relatively unlikely. The patient was informed about the findings as listed above. All questions were answered and she is pleased with the treatment. Return instructions were outlined and the patient was discharged in stable condition. Referral: The patient was referred back to their primary care physician for follow-up in 2 to 3 days for a recheck of the current condition. Blood Pressure Screening Patient's blood pressure: Normal blood pressure Impression Primary Impression: Left lower quadrant pain Departure Information Dispostion Home / Self-Care Condition GOOD Referrals John Erazo M.D. (PCP) Patient Instructions ED Flank Pain Uncertain Cause, My Devin Linares, White Cell Count Additional Instructions ABDOMINAL PAIN INSTRUCTIONS: DO NOT drive, drink alcohol, operate machinery, or perform dangerous activities today. You were given medications in the ER that can affect your ability to safely function or operate a vehicle. Ibuprofen(Motrin, Advil) may be used for fever or pain. Use 600mg every six hours as needed. Take with food. Avoid using more than 2400mg in a 24 hour period. Do not use 2400mg per day for more than three consecutive days without physician direction. Prolonged inappropriate use can lead to stomach upset or ulcers. This is available over the counter and typically comes in 200mg tablets. (AND/OR) Acetaminophen(Tylenol) may be used for fever or pain. Use 1000mg every eight hours as needed. Avoid using more than 3000mg in a 24 hour period. This is available over the counter. Read all the package inserts or medication information paperwork provided. If you have any questions or concerns call your primary provider, pharmacist or the ER for assistance. Rest and drink plenty of fluids as tolerated. Slow sips of water or sports drinks are recommended instead of large amounts all at once. Continue current medications. Once your stomach is settled start with a clear liquid diet (jello, soup broth, etc.) and then advance as tolerated. You should avoid full, heavy meals for about 24 hrs from the time your symptoms resolved. Return to the ER immediately for worsening or persistent abdominal pain, vomiting, fevers, chest pains, difficulty breathing, black or bloody stools, worsening of your condition, or as needed. Return to the ER or follow up with your primary provider in 8-12 hours for a recheck of your current condition. Follow up with your primary physician in 1-2 days for a recheck of your current condition. Resident Tracking Resident Involvement: Resident Care Provided Care Provided: Adult ED
[2017-01-21] MEDS ORDERED: MIRT30TA3 PO (17:52)
[2017-01-21] MEDS ORDERED: AMIT25TA9 PO (17:52)
[2017-01-21] MEDS ORDERED: TRAZ50TA35 PO (17:52)
[2017-01-21] MEDS ORDERED: PRVHFAIN INH (17:52)
[2017-01-21] MEDS ORDERED: DICL-201 PO (17:52)
[2017-01-21] MEDS ORDERED: GABA600T PO (17:52)
[2017-01-21] MEDS ORDERED: CLON1TAB3 PO (17:52)
[2017-01-21] MEDS ORDERED: CYM/30 PO (17:52)
[2017-01-21] MEDS ORDERED: FOLI1TAB7 PO (17:52)
[2017-01-21] MEDS ORDERED: MULT-513 PO (17:52)
[2017-01-21] MEDS ORDERED: LISI-725 PO (17:52)
[2017-01-21] MEDS ORDERED: KETOROLAC TROMETHAMINE 30 MG/ML VIAL IV STA (17:53)
[2017-01-21 17:59] LABS: BASO % 0.1 %; BASO ABS # 0.01 K/uL (0-0.2); COMPLETE YES; HEMATOCRIT 39.2 % (37-47); IG% 0.3 %; LYMPH % 15.5 %; LYMPH ABS # 2.96 K/uL (1.2-3.4); MEAN CELL VOLUME 87.1 fL (80-100); MEAN CORPUSCULAR HEMOGLOBIN 28.7 pg (25-34); MEAN CORPUSCULAR HGB CONC 32.9 g/dl (32-36); MONO % 4.9 %; NEUT % 79.2 %; PLATELET COUNT 348 K/uL (130-400); WHITE BLOOD COUNT 19.11 K/uL (4.8-10.8)
[2017-01-21 18:17] LABS: ALT/SGPT 37 U/L (12-78); BLOOD UREA NITROGEN 19 mg/dl (7-18); BUN/CREATININE RATIO 19.8 (10-20); CALCIUM 9.6 mg/dl (8.5-10.1); CARBON DIOXIDE 24 mmol/L (21-32); CHLORIDE 104 mmol/L (98-107); CREATININE 0.94 mg/dl (0.60-1.20); GLUCOSE 154 mg/dl (70-99); POTASSIUM 4.6 mmol/L (3.5-5.1); SODIUM 137 mmol/L (136-145)
[2017-01-21 18:20] LABS: ALKALINE PHOSPHATASE 106 U/L (45-117); AST/SGOT 18 U/L (15-37)
[2017-01-21] MEDS ORDERED: HYDROmorphone INJ 1 MG/ML SYR IV STA (18:26)
[2017-01-21 18:39] LABS: PREG INTERNAL NEGATIVE QC NEG CLEAR BACKGROUND; PREG INTERNAL POSITIVE QC POS CONTROL LINE
--- NOTE | 2017-01-21 19:16 | DIAGNOSTIC IMAGING REPORT ---
CT SCAN OF THE ABDOMEN AND PELVIS WITHOUT CONTRAST CLINICAL HISTORY: Left lower quadrant abdominal pain HISTORY OF KIDNEY STONES COMPARISON STUDY: CT scan dated 09/28/2014 TECHNIQUE: CT scan of the abdomen and pelvis was performed from the lung bases to the proximal femurs. Images are reviewed in the axial, sagittal, and coronal planes. IV contrast was not administered for this examination. A dose lowering technique was utilized adhering to the principles of ALARA. CT DOSE: FINDINGS: Lower chest: There are minimal dependent atelectatic changes Liver: There is hepatic steatosis. There is stable 17 mm hypodensity within the lateral aspect of the left lobe. This approaches water attenuation and is in all likelihood benign Gallbladder: Unremarkable. Spleen: Normal in size and attenuation. Pancreas: Unremarkable. Adrenal glands: Unremarkable. Kidneys: No renal, ureteral, or bladder calculi are visualized. Bowel: There are no transition zones indicate bowel obstruction. The appendix appears normal. There is no acute diverticulitis. Peritoneum: There is no intraperitoneal free air or abdominal ascites. A fat-containing ringlike density with in the left lower quadrant adjacent the left ovary remains unchanged from the prior August 2014 study. This likely represents an old focus of fat necrosis Vasculature: The abdominal aorta is normal in course and caliber. Adenopathy: None. Pelvic viscera: The bladder, and pelvic viscera are unremarkable. Skeletal structures: No destructive osseous lesions are seen. IMPRESSION: 1. No acute intra-abdominal or pelvic findings 2. No renal, ureteral, or bladder calculi identified 3. No evidence of bowel obstruction. No evidence of free air 4. No evidence of acute appendicitis. No evidence of acute diverticulitis. Electronically signed by: Dixon Palacios M.D. 01/21/2017 7:15 PM Dictated Date/Time: 01/21/2017 7:09 PM
--- NOTE | 2017-01-21 19:18 | DIAGNOSTIC IMAGING REPORT ---
CT LUMBAR SPINE WITHOUT CT DOSE: 2218.83 mGy.cm CLINICAL HISTORY: Left lower quadrant pain with left leg radiculopathy TECHNIQUE: Helical images were acquired in transverse plane. Reformatted sagittal and coronal images were reviewed. A dose lowering technique was utilized adhering to the principles of ALARA. CONTRAST: No contrast was administered COMPARISON STUDY: None. FINDINGS: L1-2 level: There is no evidence of significant disc bulge or focal herniation. There is no evidence of spinal or foraminal stenosis. L2-3 level: There is no evidence of significant disc bulge or focal herniation. There is no evidence of spinal or foraminal stenosis. L3-4 level: There is a circumferential disc bulge with mild spinal canal narrowing. There is no significant foraminal stenosis L4-5 level: There is no evidence of significant disc bulge or focal herniation. There is no evidence of spinal or foraminal stenosis. L5-S1 level: There is no evidence of significant disc bulge or focal herniation. There is no evidence of spinal or foraminal stenosis. No fractures or subluxations are visualized. No destructive lesions are evident. IMPRESSION: 1. No fractures or subluxations identified 2. Disc bulge and mild spinal canal narrowing at the L3-4 level. Electronically signed by: Dixon Palacios M.D. 01/21/2017 7:17 PM Dictated Date/Time: 01/21/2017 7:15 PM
[2017-01-21 20:00] VITALS: BP 117/67; PULSE 88; O2SAT 95
[2017-01-21 20:02] LABS: URINE APPEARANCE CLOUDY (CLEAR); URINE BILIRUBIN NEG (NEG); URINE COLOR YELLOW; URINE EPITHELIAL CELL AUTO >30 /lpf (0-5); URINE NITRITE NEG (NEG); URINE SPECIFIC GRAVITY 1.017 (1.000-1.030); UROBILINOGEN NEG (NEG)
[2017-01-21 20:03] LABS: MANUAL MICROSCOPIC REQUIRED? NO; REVIEW REQ? YES
--- NOTE | 2017-01-21 20:08 | EMERGENCY ROOM VISIT NOTE ---
History Report prepared by Patricio: Claudia Mack Under the Supervision of: Dr. Hector Rodriguez M.D. First contact with patient: 17:21 Chief Complaint: FLANK PAIN Stated Complaint: ABD PAIN/HEMATURIA History of Present Illness The patient is a 41 year old female who presents to the Emergency Room with complaints of worsening left lower back pain beginning 2 weeks ago. Presently, the patient rates her pain as a 10/10. She also reports groin pain which shoots down her left leg into her calf. The patient denies any recent trauma or falls. She reports that she vomited this morning. She denies any numbness, weakness, or incontinence. She denies any swelling to the leg. The patient has a history of kidney stones and ovarian cysts. She states that her pain feels like when she had kidney stones. The patient had blood in urine this morning but has since urinated and it has been without blood. The patient's last methadone use was on December 29. She denies any other opioid uses. She did undergo detox. Source of History: patient Onset: 2 weeks ago Position: back Symptom Intensity: 10/10 Quality: sharp Timing: worsening Associated Symptoms: + vomiting, No weakness, No numbness Note: The patient reports groin pain which shoots down her left leg to her calf. Review of Systems See HPI for pertinent positives & negatives. A total of 10 systems reviewed and were otherwise negative. Past Medical & Surgical Medical Problems: (1) Abdominal pain (2) Anxiety (3) Anxiety (4) Anxiety disorder (5) Arthritis (6) Calculus of kidney and ureter (7) Depression (8) Drug overdose, intentional (9) Fibromyalgia (10) Heroin abuse (11) Heroin abuse (12) Heroin withdrawal (13) Kidney stones (14) Left ureteral calculus (15) Pain, dental (16) Renal colic (17) Renal colic (18) Suicidal ideation (19) Suicidal ideation (20) UTI (urinary tract infection) Family History Cancer Diabetes mellitus Gallbladder disease Hypertension Kidney stones Lung disease Social History Smoking Status: Current Every Day Smoker Alcohol Use: none Drug Use: none Marital Status: single Housing Status: lives with family Occupation Status: unemployed Current/Historical Medications Scheduled Buspirone Hcl (Buspirone Hcl), 15 MG PO Q6H Diclofenac (Voltaren), 75 MG PO BID Duloxetine HCl (Cymbalta), 30 MG PO QAM Folic Acid (Folvite), 1 MG PO DAILY Gabapentin (Neurontin), 600 MG PO TID Hydroxyzine Pamoate (Vistaril), 50 MG PO BID Lisinopril (Zestril), 20 MG PO DAILY Meloxicam (Meloxicam), 15 MG PO DAILY Mirtazapine (Remeron), 30 MG PO HS Multivitamins/Minerals (Mvi With Minerals), 1 TAB PO DAILY Scheduled PRN Albuterol (Ventolin Hfa), 2 PUFFS INH Q4H PRN for Wheezing Amitriptyline Hcl (Elavil), 25 MG PO HS PRN for Sleep Baclofen (Baclofen), 10 MG PO BID PRN for Muscle Spasm Clonazepam (Klonopin), 1 MG PO TID PRN for Anxiety Trazodone Hcl (Trazodone), 75 MG PO HS PRN for Sleep Allergies Coded Allergies: Penicillins (Verified Allergy, Mild, RASH TO AMOXIL, 09/22/16) Amoxicillin (Verified Allergy, Unknown, ., 09/22/16) Physical Exam Vital Signs Date Time Temp Pulse Resp B/P (MAP) Pulse Ox O2 Delivery O2 Flow Rate FiO2 01/21/17 20:00 88 18 117/67 95 01/21/17 18:54 113 18 116/76 96 Room Air 01/21/17 17:27 36.6 103 18 110/77 96 Room Air Physical Exam Constitutional: Vital signs reviewed. Eyes: Pupils are equal round reactive to light. Conjunctiva are noninjected. ENT: Pharynx is clear without erythema or exudate. Mucous membranes are moist. Neck supple without meningeal signs. Respiratory: Clear to auscultation bilaterally. Breath sounds are equal bilaterally. Cardiovascular: Regular rate and rhythm. No rubs or gallops. GI: Soft, nondistended and nontender. Bowel sounds are present. Musculoskeletal: No peripheral edema. No lower extremity tenderness. Integumentary: No cyanosis. Neurological: The patient is awake and alert. No focal deficits. Psychiatric: Normal affect. Medical Decision & Procedures ER Provider Diagnostic Interpretation: Radiology results as stated below per my review and the radiologist's interpretation: CT SCAN OF THE ABDOMEN AND PELVIS WITHOUT CONTRAST CLINICAL HISTORY: Left lower quadrant abdominal pain HISTORY OF KIDNEY STONES COMPARISON STUDY: CT scan dated 09/28/2014 TECHNIQUE: CT scan of the abdomen and pelvis was performed from the lung bases to the proximal femurs. Images are reviewed in the axial, sagittal, and coronal planes. IV contrast was not administered for this examination. A dose lowering technique was utilized adhering to the principles of ALARA. CT DOSE: FINDINGS: Lower chest: There are minimal dependent atelectatic changes Liver: There is hepatic steatosis. There is stable 17 mm hypodensity within the lateral aspect of the left lobe. This approaches water attenuation and is in all likelihood benign Gallbladder: Unremarkable. Spleen: Normal in size and attenuation. Pancreas: Unremarkable. Adrenal glands: Unremarkable. Kidneys: No renal, ureteral, or bladder calculi are visualized. Bowel: There are no transition zones indicate bowel obstruction. The appendix appears normal. There is no acute diverticulitis. Peritoneum: There is no intraperitoneal free air or abdominal ascites. A fat-containing ringlike density with in the left lower quadrant adjacent the left ovary remains unchanged from the prior August 2014 study. This likely represents an old focus of fat necrosis Vasculature: The abdominal aorta is normal in course and caliber. Adenopathy: None. Pelvic viscera: The bladder, and pelvic viscera are unremarkable. Skeletal structures: No destructive osseous lesions are seen. IMPRESSION: 1. No acute intra-abdominal or pelvic findings 2. No renal, ureteral, or bladder calculi identified 3. No evidence of bowel obstruction. No evidence of free air 4. No evidence of acute appendicitis. No evidence of acute diverticulitis. Electronically signed by: Dixon Palacios M.D. CT LUMBAR SPINE WITHOUT CT DOSE: 2218.83 mGy.cm CLINICAL HISTORY: Left lower quadrant pain with left leg radiculopathy TECHNIQUE: Helical images were acquired in transverse plane. Reformatted sagittal and coronal images were reviewed. A dose lowering technique was utilized adhering to the principles of ALARA. CONTRAST: No contrast was administered COMPARISON STUDY: None. FINDINGS: L1-2 level: There is no evidence of significant disc bulge or focal herniation. There is no evidence of spinal or foraminal stenosis. L2-3 level: There is no evidence of significant disc bulge or focal herniation. There is no evidence of spinal or foraminal stenosis. L3-4 level: There is a circumferential disc bulge with mild spinal canal narrowing. There is no significant foraminal stenosis L4-5 level: There is no evidence of significant disc bulge or focal herniation. There is no evidence of spinal or foraminal stenosis. L5-S1 level: There is no evidence of significant disc bulge or focal herniation. There is no evidence of spinal or foraminal stenosis. No fractures or subluxations are visualized. No destructive lesions are evident. IMPRESSION: 1. No fractures or subluxations identified 2. Disc bulge and mild spinal canal narrowing at the L3-4 level. Electronically signed by: Dixon Palacios M.D. Laboratory Results 01/21/17 17:50 Red Blood Count 4.50, Mean Corpuscular Volume 87.1, Mean Corpuscular Hemoglobin 28.7, Mean Corpuscular Hemoglobin Concent 32.9, Mean Platelet Volume 9.0, Neutrophils (%) (Auto) 79.2, Lymphocytes (%) (Auto) 15.5, Monocytes (%) (Auto) 4.9, Eosinophils (%) (Auto) 0.0, Basophils (%) (Auto) 0.1, Neutrophils # (Auto) 15.16, Lymphocytes # (Auto) 2.96, Monocytes # (Auto) 0.93, Eosinophils # (Auto) 0.00, Basophils # (Auto) 0.01 01/21/17 17:50 Test 01/21/17 17:50 01/21/17 19:03 White Blood Count 19.11 K/uL (4.8-10.8) Red Blood Count 4.50 M/uL (4.2-5.4) Hemoglobin 12.9 g/dL (12.0-16.0) Hematocrit 39.2 % (37-47) Mean Corpuscular Volume 87.1 fL (80-100) Mean Corpuscular Hemoglobin 28.7 pg (25-34) Mean Corpuscular Hemoglobin Concent 32.9 g/dl (32-36) Platelet Count 348 K/uL (130-400) Mean Platelet Volume 9.0 fL (7.4-10.4) Neutrophils (%) (Auto) 79.2 % Lymphocytes (%) (Auto) 15.5 % Monocytes (%) (Auto) 4.9 % Eosinophils (%) (Auto) 0.0 % Basophils (%) (Auto) 0.1 % Neutrophils # (Auto) 15.16 K/uL (1.4-6.5) Lymphocytes # (Auto) 2.96 K/uL (1.2-3.4) Monocytes # (Auto) 0.93 K/uL (0.11-0.59) Eosinophils # (Auto) 0.00 K/uL (0-0.5) Basophils # (Auto) 0.01 K/uL (0-0.2) RDW Standard Deviation 52.0 fL (36.4-46.3) RDW Coefficient of Variation 16.3 % (11.5-14.5) Immature Granulocyte % (Auto) 0.3 % Immature Granulocyte # (Auto) 0.05 K/uL (0.00-0.02) Anion Gap 9.0 mmol/L (3-11) Est Creatinine Clear Calc Drug Dose 102.8 ml/min Estimated GFR () 87.3 Estimated GFR (Non- 75.4 BUN/Creatinine Ratio 19.8 (10-20) Calcium Level 9.6 mg/dl (8.5-10.1) Total Bilirubin 0.2 mg/dl (0.2-1) Direct Bilirubin < 0.1 mg/dl (0-0.2) Aspartate Amino Transf (AST/SGOT) 18 U/L (15-37) Alanine Aminotransferase (ALT/SGPT) 37 U/L (12-78) Alkaline Phosphatase 106 U/L (45-117) Total Protein 7.7 gm/dl (6.4-8.2) Albumin 3.5 gm/dl (3.4-5.0) Lipase 229 U/L (73-393) Human Chorionic Gonadotropin, Qual NEG (NEG) Human Chorionic Gonadotropin, Quant < 1 mIU/mL Urine Color YELLOW Urine Appearance CLOUDY (CLEAR) Urine pH 6.0 (4.5-7.5) Urine Specific [place] 1.017 (1.000-1.030) Urine Protein NEG (NEG) Urine Glucose (UA) NEG (NEG) Urine Ketones NEG (NEG) Urine Occult Blood NEG (NEG) Urine Nitrite NEG (NEG) Urine Bilirubin NEG (NEG) Urine Urobilinogen NEG (NEG) Urine Leukocyte Esterase TRACE (NEG) Urine Test NEG (NEG) Laboratory results as reviewed by me. Medications Administered Medications (Trade) Dose Ordered Sig/Scout Route Start Time Stop Time Status Last Admin Dose Admin Ketorolac Tromethamine (Toradol Inj) 10 mg NOW STAT IV 01/21/17 17:53 01/21/17 17:54 DC 01/21/17 18:01 10 MG Hydromorphone HCl (Dilaudid Inj) 1 mg NOW STAT IV 01/21/17 18:26 01/21/17 18:27 DC 01/21/17 18:32 1 MG ED Course 173: The patient was evaluated in room C9. A complete history and physical exam was performed. 175: Ordered Toradol 10 mg IV. 1825: Ordered Dilaudid Inj 1 mg IV. 1931: The patients pain is now 2/10. I discussed test results with her and her urine dip is negative. Pelvic exam per resident is unremarkable. 1949: Upon reevaluation, the patient appeared to have improvement of her symptoms. I discussed mauricio's findings with the patient. She verbalized agreement of the treatment plan. The patient was discharged home. Medical Decision This is a 41-year-old female presents with left flank pain. Differential diagnosis includes kidney stone, hydronephrosis, UTI, ectopic , ovarian cyst, lumbar radiculopathy. I did perform a limited focused review of portions of the patient's old chart on the electronic medical record. The patient has had no recent pertinent visits to this hospital. I did provide prehospital medical command report patient. She was given Zofran and morphine prior to arrival. I did evaluate the patient as noted above. She had continued pain and was given IV Toradol. This did not control her pain and she was given IV Dilaudid. I did order and personally review the patient's urinalysis as described above. I did order and review the patient's blood work as noted in the electronic medical record. Her white blood cell count is elevated. I did order a CT of the abdomen and pelvis and lumbosacral spine. I did review the images myself as well as the radiology report as described above. There is no evidence of acute intra-abdominal process. She does have degenerative changes in the lumbar spine. Pelvic examination was performed by the resident. This was unremarkable. Cultures and GC testing were sent. On reevaluation patient is feeling much better. Her test results were discussed with her and she does have an appointment to see her doctor tomorrow. She was discharged in good condition. Resident Physician Supervision Note: I did evaluate and examine this patient myself. I did guide management for the patient. I agree with the resident's (Dr. eTresa Cortez) assessment as discussed. Please see the resident's dictation for further details. [place] Drug Monitoring Program Search Results: patient reviewed within database Drug Monitoring Findings: The patient was Vinnieonopin on January 07 Blood Pressure Screening Patient's blood pressure: Normal blood pressure Impression Primary Impression: Left flank pain Additional Impression: Leukocytosis Scribe Attestation The scribe's documentation has been prepared under my direct and personally reviewed by me in its entirety. I confirm that the note above accurately reflects all work, treatment, procedures, and medical decision making performed by me. Departure Information Dispostion Home / Self-Care Referrals John Erazo M.D. (PCP) Forms HOME CARE DOCUMENTATION FORM, IMPORTANT VISIT INFORMATION Patient Instructions ED Flank Pain Uncertain Cause, My [facility] Additional Instructions You have been examined and treated today on an emergency basis only. This is not a substitute for, or an effort to provide, complete comprehensive medical care. It is impossible to recognize and treat all injuries or illnesses in a single emergency department visit. It is therefore important that you follow up closely with your physician. Call as soon as possible for an appointment. Return for worsening symptoms or if you develop fever, vomiting, loss of control of your bowel or bladder, numbness or weakness to your legs, numbness to your private area, difficulty urinating, or any other concerning symptoms. Problem Qualifiers Additional Impression: Leukocytosis Leukocytosis type: unspecified Qualified Codes: D72.829 - Elevated white blood cell count, unspecified
[2017-01-21] MEDS ORDERED: LRS10 PO (22:26)
[2017-01-21] MEDS ORDERED: MELO15TA4 PO (22:26)
[2017-01-21] MEDS ORDERED: BUSP30TA2 PO (22:33)
== END 2017-01-21 20:00 | disposition home or self-care (01) ==
LOC: EDBD 17:20 → C.EDC 17:21
DX: R10.9 Unspecified abdominal pain (principal); D72.829 Elevated white blood cell count, unspecified; F41.9 Anxiety disorder, unspecified; M19.90 Unspecified osteoarthritis, unspecified site; M79.7 Fibromyalgia; F11.20 Opioid dependence, uncomplicated; Z83.3 Family history of diabetes mellitus; Z82.49 Family history of ischemic heart disease and other diseases of the circulatory system; F17.200 Nicotine dependence, unspecified, uncomplicated

== ENCOUNTER 2017-01-25 14:48 | Emergency (ER) | payer OTHER ==
[~2017-01-25] VITALS: Ht 162.6 cm; Wt 125.1 kg
[~2017-01-25 14:48] MED LIST changes: +AMIT25TA9 PO; +BUSP30TA2 PO; +CLON1TAB3 PO; +CYM/30 PO; +DICL-201 PO; +FOLI1TAB7 PO; +GABA600T PO; +LISI-725 PO; +LRS10 PO; +MELO15TA4 PO; -MIRT30TA2 PO; +MIRT30TA3 PO; +MULT-513 PO; -NRN100 PO; -PROP20TA67 PO; +PRVHFAIN INH; -PRZ/40 PO; -TPM/50 PO; -TPM100 PO; +TRAZ50TA35 PO
[2017-01-25 14:57] VITALS: TEMP 36.4; Ht 162.6 cm; Wt 125.1 kg
[2017-01-25] MEDS ORDERED: KETOROLAC TROMETHAMINE 30 MG/ML VIAL IV PRN (15:30)
[2017-01-25 15:44] LABS: HEMATOCRIT 43.5 % (37-47); MEAN CELL VOLUME 86.8 fL (80-100); MEAN CORPUSCULAR HEMOGLOBIN 29.1 pg (25-34); MEAN CORPUSCULAR HGB CONC 33.6 g/dl (32-36); MEAN PLATELET VOLUME 8.9 fL (7.4-10.4); PLATELET COUNT 394 K/uL (130-400); RED BLOOD COUNT 5.01 M/uL (4.2-5.4)
[2017-01-25 15:44] LABS: URINE APPEARANCE CLOUDY (CLEAR); URINE BILIRUBIN NEG (NEG); URINE COLOR YELLOW; URINE EPITHELIAL CELL AUTO >30 /lpf (0-5); URINE NITRITE NEG (NEG); URINE SPECIFIC GRAVITY 1.016 (1.000-1.030); UROBILINOGEN NEG (NEG); ZZUR CULT IF INDIC CLEAN CATCH YES
[2017-01-25 15:57] LABS: MANUAL MICROSCOPIC REQUIRED? NO; REVIEW REQ? NO
[2017-01-25 16:24] LABS: ALT/SGPT 35 U/L (12-78); CALCIUM 9.6 mg/dl (8.5-10.1); CARBON DIOXIDE 26 mmol/L (21-32); CHLORIDE 103 mmol/L (98-107); CREATININE 0.91 mg/dl (0.60-1.20); GLUCOSE 135 mg/dl (70-99)
[2017-01-25 16:25] LABS: ALKALINE PHOSPHATASE 117 U/L (45-117); AST/SGOT 17 U/L (15-37); BLOOD UREA NITROGEN 24 mg/dl (7-18); BUN/CREATININE RATIO 26.6 (10-20); POTASSIUM 4.2 mmol/L (3.5-5.1); SODIUM 138 mmol/L (136-145)
[2017-01-25 16:40] LABS: COMPLETE YES; EOSINOPHIL % 0.9 %; HYPERSEGMENTED POLYS 1+; LYMPH ABS # 5.89 K/uL (1.2-3.4); LYMPHOCYTE % 44.6 %; NEUTROPHILS % 38.4 %; VACUOLIZATION 1+; VARIANT LYM ABS # 1.89 K/uL; VARIANT LYMPHOCYTE % 14.3 %
--- NOTE | 2017-01-25 17:13 | EMERGENCY ROOM VISIT NOTE ---
History First contact with patient: 15:01 Chief Complaint: ABDOMINAL PAIN Stated Complaint: FLANK PAIN Nursing Triage Summary: Pt presents from home via ALS for left groin pain radiating into her back and leg x1 month. Pt verbalizes that she was seen here in the ED on Thanksgiving and was told that she has a bulging disc at L3/L4, but she does not feel that the pain she is experiencing is related to that. Pt verbalizes hx of ovarian cysts and kidney stones and feels that the pain is similar to that. Pt reports left groing pain 12/08. History of Present Illness The patient is a 41 year old female who presents to the Emergency Room with complaints of left lower abdominal pain for 1 month which radiates around her back. She was here on Thanksgiving (4 days ago) with same issue, was evaluated for kidney stones and lumbar pain, given some pain meds, felt great, and DCd home. She describes the pain as knife-like, stabbing pain which is constant. During her last visit, she stated that it felt exactly like a kidney stone. Today she states it feels exactly like her ovarian cyst did. Has tried nothing but tylenol at home which didn't help her pain. Denies nausea, vomiting, fever, dysuria, constipation or diarrhea. PMHx of ovarian cysts and fibroids, has had atypical cells on pap smear with colposcopy/cone biopsy, for which she was told she would need a hysterectomy, but never went through with it. At her previous visit 4 days ago, she had on CT scan which showed no evidence of a kidney stone, and was found to have mildly bulging L3-4 disc which we did not feel was related to her current pain. Review of Systems See HPI for pertinent positives and negatives. A total of ten systems were reviewed and were otherwise negative. Past Medical/Surgical History Medical Problems: (1) Abdominal pain (2) Anxiety (3) Anxiety (4) Anxiety disorder (5) Arthritis (6) Calculus of kidney and ureter (7) Depression (8) Drug overdose, intentional (9) Fibromyalgia (10) Heroin abuse (11) Heroin abuse (12) Heroin withdrawal (13) Kidney stones (14) Left ureteral calculus (15) Pain, dental (16) Renal colic (17) Renal colic (18) Suicidal ideation (19) Suicidal ideation (20) UTI (urinary tract infection) Family History Cancer Diabetes mellitus Gallbladder disease Hypertension Kidney stones Lung disease Social History Smoking Status: Current Every Day Smoker Alcohol Use: none Drug Use: none Marital Status: single Housing Status: lives with family Occupation Status: unemployed Current/Historical Medications Scheduled Buspirone Hcl (Buspirone Hcl), 15 MG PO Q6H Diclofenac (Voltaren), 75 MG PO BID Duloxetine HCl (Cymbalta), 30 MG PO QAM Folic Acid (Folvite), 1 MG PO DAILY Gabapentin (Neurontin), 600 MG PO TID Hydroxyzine Pamoate (Vistaril), 50 MG PO BID Lisinopril (Zestril), 20 MG PO DAILY Meloxicam (Meloxicam), 15 MG PO DAILY Mirtazapine (Remeron), 30 MG PO HS Multivitamins/Minerals (Mvi With Minerals), 1 TAB PO DAILY Scheduled PRN Albuterol (Ventolin Hfa), 2 PUFFS INH Q4H PRN for Wheezing Amitriptyline Hcl (Elavil), 25 MG PO HS PRN for Sleep Baclofen (Baclofen), 10 MG PO BID PRN for Muscle Spasm Clonazepam (Klonopin), 1 MG PO TID PRN for Anxiety Trazodone Hcl (Trazodone), 75 MG PO HS PRN for Sleep Allergies Coded Allergies: Penicillins (Verified Allergy, Mild, RASH TO AMOXIL, 09/22/16) Amoxicillin (Verified Allergy, Unknown, ., 09/22/16) Physical Exam Vital Signs Date Time Temp Pulse Resp B/P (MAP) Pulse Ox O2 Delivery O2 Flow Rate FiO2 01/25/17 18:41 86 20 111/78 96 01/25/17 17:30 88 20 132/75 99 Room Air 01/25/17 14:57 36.4 93 18 137/89 96 Room Air Pain Rating (0-10): 10 Physical Exam GENERAL: Awake, alert, well-appearing, in mild distress HENT: Normocephalic, atraumatic. Oropharynx unremarkable. EYES: Normal conjunctiva. Sclera non-icteric. NECK: Supple. No nuchal rigidity. FROM. No JVD. RESPIRATORY: Clear to auscultation. CARDIAC: Regular rate, normal rhythm. Extremities warm and well perfused. Pulses equal. ABDOMEN: Soft, non-distended. Tenderness to palpation in LLQ although with distraction pain is not evident. No rebound or guarding. No masses. RECTAL: Deferred. MUSCULOSKELETAL: Chest examination reveals no tenderness. The back is symmetrical on inspection without obvious abnormality. There is no CVA tenderness to palpation. No joint edema. LOWER EXTREMITIES: Calves are equal size bilaterally and non-tender. No edema. No discoloration. NEURO: Normal sensorium. No sensory or motor deficits noted. SKIN: No rash or jaundice noted. Medical Decision & Procedures ER Provider Diagnostic Interpretation: TVUS/Pelvic US IMPRESSION: 1. No evidence of left ovarian torsion. 2. The clinical history suggests a postmenopausal state. Therefore, endometrial thickening measuring 13 mm would be unexpected. This could represent endometrial hyperplasia, however, gynecologic consultation for possible endometrial biopsy suggested given the concern for neoplasm. 3. Subcentimeter cystic change can be seen in the setting of adenomyosis or tamoxifen therapy. Correlate clinically. This is of doubtful clinical significance. The report will be called/faxed according to standard departmental protocol. ABDOMEN AND PELVIS CT WITHOUT CONTRAST CT DOSE: 1775.05 mGy.cm HISTORY: Severe left flank pain. TECHNIQUE: Multiaxial CT images of the abdomen and pelvis were performed without the use of intravenous and oral contrast according to the standard department stone protocol. A dose lowering technique was utilized adhering to the principles of ALARA. COMPARISON STUDY: Abdomen and pelvis CT 01/21/2017. FINDINGS: The lung bases are clear. No fractures within the visualized osseous structures. Stable 17 mm hypodense lesion within the left hepatic lobe. This likely represents a cyst. Mild hepatic steatosis. The unenhanced spleen, adrenal glands, pancreas, and gallbladder are unremarkable. No retroperitoneal lymphadenopathy. A left circumaortic renal vein. No renal or ureteral calculi. No hydronephrosis. Punctate calcifications in the deep pelvis are consistent with phleboliths. The bladder, uterus, and ovaries unremarkable. Suboptimal evaluation for bowel pathology due to the lack of intravenous and oral contrast. However, there is no definite bowel wall thickening or obstruction. Normal appendix. IMPRESSION: 1. No renal or ureteral stones. No hydronephrosis. 2. No bowel wall thickening or obstruction. 3. Normal appendix. Laboratory Results 01/25/17 15:10 Red Blood Count 5.01, Mean Corpuscular Volume 86.8, Mean Corpuscular Hemoglobin 29.1, Mean Corpuscular Hemoglobin Concent 33.6, Mean Platelet Volume 8.9 01/25/17 15:10 Test 01/25/17 15:10 01/25/17 15:14 01/25/17 15:20 White Blood Count 13.20 K/uL (4.8-10.8) Red Blood Count 5.01 M/uL (4.2-5.4) Hemoglobin 14.6 g/dL (12.0-16.0) Hematocrit 43.5 % (37-47) Mean Corpuscular Volume 86.8 fL (80-100) Mean Corpuscular Hemoglobin 29.1 pg (25-34) Mean Corpuscular Hemoglobin Concent 33.6 g/dl (32-36) Platelet Count 394 K/uL (130-400) Mean Platelet Volume 8.9 fL (7.4-10.4) RDW Standard Deviation 51.3 fL (36.4-46.3) RDW Coefficient of Variation 16.1 % (11.5-14.5) Neutrophils % (Manual) 38.4 % Lymphocytes % (Manual) 44.6 % Variant Lymphocytes % (manual) 14.3 % Monocytes % (Manual) 1.8 % Eosinophils % (Manual) 0.9 % Neutrophils # (Manual) 5.07 K/uL (1.4-6.5) Total Absolute Neutrophils 5.07 K/uL (1.4-6.5) Lymphocytes # (Manual) 5.89 K/uL (1.2-3.4) Absolute Variant Lymphocytes 1.89 K/uL Total Absolute Lymphocytes 7.77 K/uL (1.2-3.4) Monocytes # (Manual) 0.24 K/uL (0.11-0.59) Eosinophils # (Manual) 0.12 K/uL (0-0.5) Hypersegmented Polys 1+ Toxic Vacuolation 1+ Anion Gap 8.0 mmol/L (3-11) Est Creatinine Clear Calc Drug Dose 106.4 ml/min Estimated GFR () 90.8 Estimated GFR (Non- 78.4 BUN/Creatinine Ratio 26.6 (10-20) Calcium Level 9.6 mg/dl (8.5-10.1) Total Bilirubin 0.1 mg/dl (0.2-1) Direct Bilirubin < 0.1 mg/dl (0-0.2) Aspartate Amino Transf (AST/SGOT) 17 U/L (15-37) Alanine Aminotransferase (ALT/SGPT) 35 U/L (12-78) Alkaline Phosphatase 117 U/L (45-117) Total Protein 8.1 gm/dl (6.4-8.2) Albumin 3.7 gm/dl (3.4-5.0) Lipase 389 U/L (73-393) Urine Color YELLOW Urine Appearance CLOUDY (CLEAR) Urine pH 6.0 (4.5-7.5) Urine Specific [place] 1.016 (1.000-1.030) Urine Protein NEG (NEG) Urine Glucose (UA) NEG (NEG) Urine Ketones NEG (NEG) Urine Occult Blood NEG (NEG) Urine Nitrite NEG (NEG) Urine Bilirubin NEG (NEG) Urine Urobilinogen NEG (NEG) Urine Leukocyte Esterase NEG (NEG) Urine WBC (Auto) 1-5 /hpf (0-5) Urine RBC (Auto) 5-10 /hpf (0-4) Urine Hyaline Casts (Auto) 1-5 /lpf (0-5) Urine Epithelial Cells (Auto) >30 /lpf (0-5) Urine Bacteria (Auto) 1+ (NEG) Urine Test NEG (NEG) Lactic Acid Level 1.8 mmol/L (0.4-2.0) Medications Administered Medications (Trade) Dose Ordered Sig/Scout Route Start Time Stop Time Status Last Admin Dose Admin Ketorolac Tromethamine (Toradol Inj) 30 mg Q6H PRN IV 01/25/17 15:30 01/25/17 19:08 DC 01/25/17 15:31 30 MG Acetaminophen (Tylenol Tab) 1,000 mg NOW STAT PO 01/25/17 17:35 01/25/17 17:36 DC 01/25/17 17:56 1,000 MG ED Course 1510: full h&p obtained from patient 1520: discussed case w/ Dr. Waters, who obtained full h&p, ordered pelvis US and TVUS. 1530: Ordered Toradol Inj 30 mg IV 1700: patient reassessed after Ultrasound; still complains of pain 12/08 1734: The patient will receive CT scan for evaluation of ?kidney stones. She also notes that she has a history of atypical cervical cells. 1800: Dr. Waters spoke with Dr. Mabry of OBGYN, who recommends having the patient follow up with her as an outpatient. 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 [facility] [place] spoke maker 182: Upon reevaluation, the patient is resting. We discussed findings at length with the patient and she understands and agrees with the treatment plan. Medical Decision Prior records/ancillary studies reviewed. Triage Nursing notes reviewed. Additional history obtained from patient. The patient's history was concerning for abdominal pain. Differential diagnosis: Etiologies such as appendicitis, diverticulitis, PUD, biliary pathology, UTI, pancreatitis, obstruction, mesenteric ischemia, aortic pathology, infections, inflammatory bowel disease, renal colic, as well as others were entertained. Physical examination findings: As above. ER treatment provided: 30 mg toradol On reassessment the patient felt no better, and she expresses wish for stronger medication. Diagnostics interpreted by me: The labs revealed WCC 13, normal UA Imaging studies: As above Consultation: A consultation was placed with the [facility] Dr. Mabry. The case was discussed and diagnostics were reviewed. The patient will be evaluated as an outpatient By the evaluation outlined above emergent etiologies such as appendicitis, diverticulitis, PUD, biliary pathology, UTI, pancreatitis, obstruction, mesenteric ischemia, aortic pathology, infections, inflammatory bowel disease, renal colic, as well as others were deemed relatively unlikely. The patient and family were informed about the findings as listed above. All questions were answered and they were pleased with the treatment. Return instructions were outlined and the patient was discharged in stable condition. Referral: The patient was referred back to their primary care physician for follow-up in 2 to 3 days for a recheck of the current condition. Recommend follow up with Gynecology for thickened endometrial stripe Impression Primary Impression: Left lower quadrant pain Departure Information Dispostion Home / Self-Care Condition FAIR Referrals John Erazo M.D. (PCP) Alexander Callahan ., DO Patient Instructions Abdominal Pain - [facility] Additional Instructions Please call Dr. Sindy Zavaleta, for follow up for endometrial thickening. Resident Tracking Resident Involvement: Resident Care Provided Care Provided: Adult ED
[2017-01-25] MEDS ORDERED: ACETAMINOPHEN 500 MG TAB PO STA (17:35)
--- NOTE | 2017-01-25 17:40 | DIAGNOSTIC IMAGING REPORT ---
PELVIC COMPLETE NON OB, TRANSVAG-FEMALE PELVIS CLINICAL HISTORY: 41 years-old Female presenting with LLQ pain for 1 month, now worsened, hx of ovarian cyst, last menstrual period over 3 years ago, no abnormal bleeding. TECHNIQUE: Real-time grayscale and color and spectral Doppler ultrasound imaging of the pelvis was performed first using a transabdominal probe and subsequently transvaginal for better characterization. COMPARISON: Ultrasound from 09/28/[address] from 01/21/2017. FINDINGS: Uterus: Normal. Anteverted. The uterus measures 7.8 x 4.2 x 5.5 cm. Endometrial stripe measures 13 mm in thickness. Endometrium demonstrates subendometrial cystic change in the lower uterine segment but is otherwise normal in appearance. Cervix likely contains a few nabothian cysts. Right adnexa: Right ovary not visualized. Left adnexa: Left ovary normal. Left ovary measures 2.9 x 2.0 x 2.4 cm. Normal color Doppler flow and arterial and venous waveforms within the ovarian parenchyma. Other: No free fluid. IMPRESSION: 1. No evidence of left ovarian torsion. 2. The clinical history suggests a postmenopausal state. Therefore, endometrial thickening measuring 13 mm would be unexpected. This could represent endometrial hyperplasia, however, gynecologic consultation for possible endometrial biopsy suggested given the concern for neoplasm. 3. Subcentimeter cystic change can be seen in the setting of adenomyosis or tamoxifen therapy. Correlate clinically. This is of doubtful clinical significance. The report will be called/faxed according to standard departmental protocol. Electronically signed by: John Bellamy M.D. 01/25/2017 5:39 PM Dictated Date/Time: 01/25/2017 5:34 PM
--- NOTE | 2017-01-25 18:17 | DIAGNOSTIC IMAGING REPORT ---
ABDOMEN AND PELVIS CT WITHOUT CONTRAST CT DOSE: 1775.05 mGy.cm HISTORY: Severe left flank pain. TECHNIQUE: Multiaxial CT images of the abdomen and pelvis were performed without the use of intravenous and oral contrast according to the standard department stone protocol. A dose lowering technique was utilized adhering to the principles of ALARA. COMPARISON STUDY: Abdomen and pelvis CT 01/21/2017. FINDINGS: The lung bases are clear. No fractures within the visualized osseous structures. Stable 17 mm hypodense lesion within the left hepatic lobe. This likely represents a cyst. Mild hepatic steatosis. The unenhanced spleen, adrenal glands, pancreas, and gallbladder are unremarkable. No retroperitoneal lymphadenopathy. A left circumaortic renal vein. No renal or ureteral calculi. No hydronephrosis. Punctate calcifications in the deep pelvis are consistent with phleboliths. The bladder, uterus, and ovaries unremarkable. Suboptimal evaluation for bowel pathology due to the lack of intravenous and oral contrast. However, there is no definite bowel wall thickening or obstruction. Normal appendix. IMPRESSION: 1. No renal or ureteral stones. No hydronephrosis. 2. No bowel wall thickening or obstruction. 3. Normal appendix. Electronically signed by: Hubert Galicia M.D. 01/25/2017 6:16 PM Dictated Date/Time: 01/25/2017 6:09 PM
[2017-01-25 18:41] VITALS: BP 111/78; PULSE 86; O2SAT 96
--- NOTE | 2017-01-25 18:57 | EMERGENCY ROOM VISIT NOTE ---
History Report prepared by Patricio: Louis Llanes Under the Supervision of: Dr. Felipe Waters D.O. First contact with patient: 15:00 Chief Complaint: ABDOMINAL PAIN Stated Complaint: FLANK PAIN Nursing Triage Summary: Pt presents from home via ALS for left groin pain radiating into her back and leg x1 month. Pt verbalizes that she was seen here in the ED on and was told that she has a bulging disc at L3/L4, but she does not feel that the pain she is experiencing is related to that. Pt verbalizes hx of ovarian cysts and kidney stones and feels that the pain is similar to that. Pt reports left groing pain 12/08. History of Present Illness The patient is a 41 year old female who presents to the Emergency Room via ALS with complaints of severe constant sharp LLQ abdominal pain that began 1 month ago, but worsened recently. She states her pain is radiating into her back and leg as well. She was recently seen in the ED last week for the same symptoms. She was discharged with a bulging disc at her L3/L4. She believes her pain is unrelated to her back pain. She has a history of ovarian cysts and kidney stones which she believes that she may have. She has been experiencing nausea and vomiting. Pt denies headache, change in vision, fevers, chest pain, shortness of breath, diarrhea, pain with urination, vaginal discharge, hematochezia, and melena. She still has all her organs. She states that she does not have menstrual cycles anymore, but is unsure as to why. No weakness or numbness in the legs. Source of History: patient Onset: 1 month ago Position: abdomen (LLQ) Symptom Intensity: severe Quality: sharp Timing: constant Associated Symptoms: + back pain, No fevers, No headache, No cough, No chest pain, No SOB, No nausea, No vomiting, No melena, No hematochezia, No diarrhea, No urinary symptoms Review of Systems See HPI for pertinent positives & negatives. A total of 10 systems reviewed and were otherwise negative. Past Medical & Surgical Medical Problems: (1) Abdominal pain (2) Anxiety (3) Anxiety (4) Anxiety disorder (5) Arthritis (6) Calculus of kidney and ureter (7) Depression (8) Drug overdose, intentional (9) Fibromyalgia (10) Heroin abuse (11) Heroin abuse (12) Heroin withdrawal (13) Kidney stones (14) Left ureteral calculus (15) Pain, dental (16) Renal colic (17) Renal colic (18) Suicidal ideation (19) Suicidal ideation (20) UTI (urinary tract infection) Family History Cancer Diabetes mellitus Gallbladder disease Hypertension Kidney stones Lung disease Social History Smoking Status: Current Every Day Smoker Alcohol Use: none Drug Use: none Marital Status: single Housing Status: lives with family Occupation Status: unemployed Current/Historical Medications Scheduled Buspirone Hcl (Buspirone Hcl), 15 MG PO Q6H Diclofenac (Voltaren), 75 MG PO BID Duloxetine HCl (Cymbalta), 30 MG PO QAM Folic Acid (Folvite), 1 MG PO DAILY Gabapentin (Neurontin), 600 MG PO TID Hydroxyzine Pamoate (Vistaril), 50 MG PO BID Lisinopril (Zestril), 20 MG PO DAILY Meloxicam (Meloxicam), 15 MG PO DAILY Mirtazapine (Remeron), 30 MG PO HS Multivitamins/Minerals (Mvi With Minerals), 1 TAB PO DAILY Scheduled PRN Albuterol (Ventolin Hfa), 2 PUFFS INH Q4H PRN for Wheezing Amitriptyline Hcl (Elavil), 25 MG PO HS PRN for Sleep Baclofen (Baclofen), 10 MG PO BID PRN for Muscle Spasm Clonazepam (Klonopin), 1 MG PO TID PRN for Anxiety Trazodone Hcl (Trazodone), 75 MG PO HS PRN for Sleep Allergies Coded Allergies: Penicillins (Verified Allergy, Mild, RASH TO AMOXIL, 09/22/16) Amoxicillin (Verified Allergy, Unknown, ., 09/22/16) Physical Exam Vital Signs Date Time Temp Pulse Resp B/P (MAP) Pulse Ox O2 Delivery O2 Flow Rate FiO2 01/25/17 18:41 86 20 111/78 96 01/25/17 17:30 88 20 132/75 99 Room Air 01/25/17 14:57 36.4 93 18 137/89 96 Room Air Physical Exam GENERAL: Sitting up in bed holding LLQ, alert, well appearing, well nourished, minimal distress, non-toxic EYE EXAM: normal conjunctiva. OROPHARYNX: no exudate, no erythema, lips, buccal mucosa, and tongue normal and mucous membranes are moist NECK: supple, no nuchal rigidity, no adenopathy, non-tender LUNGS: Clear to auscultation. Normal chest wall mechanics HEART: no murmurs, S1 normal and S2 normal ABDOMEN: abdomen soft, no abdominal pain when distracted, normo-active bowel sounds, no masses, no rebound or guarding. BACK: Back is symmetrical on inspection and there is no deformity, no midline tenderness, no CVA tenderness. SKIN: no rashes and no bruising UPPER EXTREMITIES: upper extremities are grossly normal. LOWER EXTREMITIES: No pitting edema. NEURO EXAM: Normal sensorium, cranial nerves II-XII grossly intact, normal speech, no gross weakness of arms, no gross weakness of legs. Medical Decision & Procedures ER Provider Diagnostic Interpretation: Radiology results as stated below per my review and the radiologist's interpretation: PELVIC COMPLETE NON OB, TRANSVAG-FEMALE PELVIS CLINICAL HISTORY: 41 years-old Female presenting with LLQ pain for 1 month, now worsened, hx of ovarian cyst, last menstrual period over 3 years ago, no abnormal bleeding. TECHNIQUE: Real-time grayscale and color and spectral Doppler ultrasound imaging of the pelvis was performed first using a transabdominal probe and subsequently transvaginal for better characterization. COMPARISON: Ultrasound from 09/28/[address] from 01/21/2017. FINDINGS: Uterus: Normal. Anteverted. The uterus measures 7.8 x 4.2 x 5.5 cm. Endometrial stripe measures 13 mm in thickness. Endometrium demonstrates subendometrial cystic change in the lower uterine segment but is otherwise normal in appearance. Cervix likely contains a few nabothian cysts. Right adnexa: Right ovary not visualized. Left adnexa: Left ovary normal. Left ovary measures 2.9 x 2.0 x 2.4 cm. Normal color Doppler flow and arterial and venous waveforms within the ovarian parenchyma. Other: No free fluid. IMPRESSION: 1. No evidence of left ovarian torsion. 2. The clinical history suggests a postmenopausal state. Therefore, endometrial thickening measuring 13 mm would be unexpected. This could represent endometrial hyperplasia, however, gynecologic consultation for possible endometrial biopsy suggested given the concern for neoplasm. 3. Subcentimeter cystic change can be seen in the setting of adenomyosis or tamoxifen therapy. Correlate clinically. This is of doubtful clinical significance. The report will be called/faxed according to standard departmental protocol. Electronically signed by: John Bellamy M.D. 01/25/2017 5:39 PM Dictated Date/Time: 01/25/2017 5:34 PM PELVIC COMPLETE NON OB, TRANSVAG-FEMALE PELVIS CLINICAL HISTORY: 41 years-old Female presenting with LLQ pain for 1 month, now worsened, hx of ovarian cyst, last menstrual period over 3 years ago, no abnormal bleeding. TECHNIQUE: Real-time grayscale and color and spectral Doppler ultrasound imaging of the pelvis was performed first using a transabdominal probe and subsequently transvaginal for better characterization. COMPARISON: Ultrasound from 09/28/[address] from 01/21/2017. FINDINGS: Uterus: Normal. Anteverted. The uterus measures 7.8 x 4.2 x 5.5 cm. Endometrial stripe measures 13 mm in thickness. Endometrium demonstrates subendometrial cystic change in the lower uterine segment but is otherwise normal in appearance. Cervix likely contains a few nabothian cysts. Right adnexa: Right ovary not visualized. Left adnexa: Left ovary normal. Left ovary measures 2.9 x 2.0 x 2.4 cm. Normal color Doppler flow and arterial and venous waveforms within the ovarian parenchyma. Other: No free fluid. IMPRESSION: 1. No evidence of left ovarian torsion. 2. The clinical history suggests a postmenopausal state. Therefore, endometrial thickening measuring 13 mm would be unexpected. This could represent endometrial hyperplasia, however, gynecologic consultation for possible endometrial biopsy suggested given the concern for neoplasm. 3. Subcentimeter cystic change can be seen in the setting of adenomyosis or tamoxifen therapy. Correlate clinically. This is of doubtful clinical significance. The report will be called/faxed according to standard departmental protocol. Electronically signed by: John Bellamy M.D. 01/25/2017 5:39 PM Dictated Date/Time: 01/25/2017 5:34 PM Laboratory Results 01/25/17 15:10 Red Blood Count 5.01, Mean Corpuscular Volume 86.8, Mean Corpuscular Hemoglobin 29.1, Mean Corpuscular Hemoglobin Concent 33.6, Mean Platelet Volume 8.9 01/25/17 15:10 Test 01/25/17 15:10 01/25/17 15:14 01/25/17 15:20 White Blood Count 13.20 K/uL (4.8-10.8) Red Blood Count 5.01 M/uL (4.2-5.4) Hemoglobin 14.6 g/dL (12.0-16.0) Hematocrit 43.5 % (37-47) Mean Corpuscular Volume 86.8 fL (80-100) Mean Corpuscular Hemoglobin 29.1 pg (25-34) Mean Corpuscular Hemoglobin Concent 33.6 g/dl (32-36) Platelet Count 394 K/uL (130-400) Mean Platelet Volume 8.9 fL (7.4-10.4) RDW Standard Deviation 51.3 fL (36.4-46.3) RDW Coefficient of Variation 16.1 % (11.5-14.5) Neutrophils % (Manual) 38.4 % Lymphocytes % (Manual) 44.6 % Variant Lymphocytes % (manual) 14.3 % Monocytes % (Manual) 1.8 % Eosinophils % (Manual) 0.9 % Neutrophils # (Manual) 5.07 K/uL (1.4-6.5) Total Absolute Neutrophils 5.07 K/uL (1.4-6.5) Lymphocytes # (Manual) 5.89 K/uL (1.2-3.4) Absolute Variant Lymphocytes 1.89 K/uL Total Absolute Lymphocytes 7.77 K/uL (1.2-3.4) Monocytes # (Manual) 0.24 K/uL (0.11-0.59) Eosinophils # (Manual) 0.12 K/uL (0-0.5) Hypersegmented Polys 1+ Toxic Vacuolation 1+ Anion Gap 8.0 mmol/L (3-11) Est Creatinine Clear Calc Drug Dose 106.4 ml/min Estimated GFR () 90.8 Estimated GFR (Non- 78.4 BUN/Creatinine Ratio 26.6 (10-20) Calcium Level 9.6 mg/dl (8.5-10.1) Total Bilirubin 0.1 mg/dl (0.2-1) Direct Bilirubin < 0.1 mg/dl (0-0.2) Aspartate Amino Transf (AST/SGOT) 17 U/L (15-37) Alanine Aminotransferase (ALT/SGPT) 35 U/L (12-78) Alkaline Phosphatase 117 U/L (45-117) Total Protein 8.1 gm/dl (6.4-8.2) Albumin 3.7 gm/dl (3.4-5.0) Lipase 389 U/L (73-393) Urine Color YELLOW Urine Appearance CLOUDY (CLEAR) Urine pH 6.0 (4.5-7.5) Urine Specific Hutchinson 1.016 (1.000-1.030) Urine Protein NEG (NEG) Urine Glucose (UA) NEG (NEG) Urine Ketones NEG (NEG) Urine Occult Blood NEG (NEG) Urine Nitrite NEG (NEG) Urine Bilirubin NEG (NEG) Urine Urobilinogen NEG (NEG) Urine Leukocyte Esterase NEG (NEG) Urine WBC (Auto) 1-5 /hpf (0-5) Urine RBC (Auto) 5-10 /hpf (0-4) Urine Hyaline Casts (Auto) 1-5 /lpf (0-5) Urine Epithelial Cells (Auto) >30 /lpf (0-5) Urine Bacteria (Auto) 1+ (NEG) Urine Test NEG (NEG) Lactic Acid Level 1.8 mmol/L (0.4-2.0) Laboratory results per my review. Medications Administered Medications (Trade) Dose Ordered Sig/Scout Route Start Time Stop Time Status Last Admin Dose Admin Ketorolac Tromethamine (Toradol Inj) 30 mg Q6H PRN IV 01/25/17 15:30 01/30/17 15:29 01/25/17 15:31 30 MG Acetaminophen (Tylenol Tab) 1,000 mg NOW STAT PO 01/25/17 17:35 01/25/17 17:36 DC 01/25/17 17:56 1,000 MG ED Course ED COURSE: Vital signs were reviewed and showed hypertension. The patients medical record was reviewed The above diagnostic studies were performed and reviewed. ED treatments and interventions as stated above. 1500: The patient was evaluated in room A11B. A complete history and physical examination was performed. 1530: Ordered Toradol Inj 30 mg IV 1734: The patient is experiencing increased pain. She will receive a CT scan. I offered her Tylenol, but she refused. She also notes that she has a history of atypical cervical cells. 1800: I spoke with Dr. Mabry of [facility] at this time. She recommends having the patient follow up with her as an outpatient. 1825: Upon reevaluation, the patient is resting. I discussed my findings at length with the patient and she understands and agrees with the treatment plan. Based on the patients age, coexisting illnesses, exam and lab findings the decision to treat as an outpatient was made. The patient remained stable while under my care. The patient appeared well at the time of discharge. Medical Decision Differential diagnoses includes but is not limited to gastritis, peptic ulcer disease, GERD, gallbladder disease, pancreatitis, small bowel obstruction, acute coronary syndrome, pericarditis, ischemic bowel, irritable bowel disease, irritable bowel syndrome, appendicitis, diverticulitis, malignancy, hernia, urinary tract infection, torsion, /ectopic , perforation, trauma, infectious. Patient is a 41-year-old female who presents to ER for left lower quadrant abdominal pain which has been present for the past month. Patient notes that the pain has been worsening but is in the same location and unchanged. No weakness or numbness in the legs. No signs of cauda equina. CBC shows an improving leukocytosis of 13,000. BMP all LFTs, bilirubin and lipase is unremarkable. Lactate was 1.8. UA was negative with exception of epithelial cells from a contaminant. was negative. On reevaluation by nursing staff patient was actually sleeping and when she awoke started crying holding her left lower quadrant requesting additional pain meds/narcotics. Patient was here previously for Thanksgiving and imaging was reviewed and CTs were negative. She continually states that the doctor previously fixed her but today we're not helping her as we are not giving her any narcotics. I felt uncomfortable doing this as she is on no narcotics list and she is resting in the bed comfortably/sleeping when you walk by the room but complaining of severe pain when he went to the room. Repeat CT was performed as she was concerned/complaining of severe pain stating this is a kidney stone. This was again negative. Pain did improve with IV Toradol. She eventually accepted oral Tylenol. Lactate not suggesting ischemic bowel. No signs of kidney stones. No obstruction. No obvious signs of infection. No signs of appendicitis. No signs of diverticulitis. No signs of ovarian torsion on ultrasound of the pelvis. Hypertrophy of the endometrium. Discussed with OB. They recommend follow-up as an outpatient. This does not explain her symptoms. Family member was updated at length at bedside. Patient was updated at bedside and stressed importance of following up on the endometrial thickening. She'll follow-up with her PCP for left lower quadrant abdominal pain. Discussed with Pt concerning signs and symptoms to watch out for. Pt was instructed to follow up with their PCP and discussed with the patient their option to return to the ED at anytime for persistent or worsening symptoms. The appropriate anticipatory guidance and out-patient management, including indications for return to the emergency department, were explained at length to the patient and understood. OB later called back and noted that she has been dismissed from their practice and urology's practice. I notified the patient and she'll have follow-up with [facility]. Medication Reconcilliation Current Medication List: was personally reviewed by me Blood Pressure Screening Patient's blood pressure: Elevated blood pressure Blood pressure disposition: Elevated BP felt to be situational Consults Time Called: 1755 Consulting Physician: Dr. Mabry - [employer] Returned Call: 1800 She recommended having the patient follow up with her as an outpatient. Impression Primary Impression: Left lower quadrant pain Additional Impression: Endometrial thickening on ultra sound Scribe Attestation The scribe's documentation has been prepared under my direction and personally reviewed by me in its entirety. I confirm that the note above accurately reflects all work, treatment, procedures, and medical decision making performed by me. Departure Information Dispostion Home / Self-Care Referrals John Erazo M.D. (PCP) Terra Mabry, D.O. Forms Call Back Authorization, HOME CARE DOCUMENTATION FORM, IMPORTANT VISIT INFORMATION Patient Instructions Abdominal Pain - [facility], [facility] [place] Additional Instructions Please follow up with your primary care doctor with in the next 24 hours. Any worsening of your symptoms, please return to the ED immediately. This includes any fevers greater than 100.4, worsening pain, chest pain, shortness breath, persistent nausea, vomiting, unable to eat or drink, or any other concerning signs or symptoms from your standpoint. Please take Motrin or Tylenol as needed for pain. Please follow up with your OB as you have endometrial thickening. Problem Qualifiers
== END 2017-01-25 18:44 | disposition home or self-care (01) ==
LOC: EDBD 14:48 → C.EDA 14:51
DX: R10.31 Right lower quadrant pain (principal); R93.8 Abnormal findings on diagnostic imaging of other specified body structures; F41.9 Anxiety disorder, unspecified; F32.9 Major depressive disorder, single episode, unspecified; M19.90 Unspecified osteoarthritis, unspecified site; F17.200 Nicotine dependence, unspecified, uncomplicated; Z87.440 Personal history of urinary (tract) infections; Z87.442 Personal history of urinary calculi; Z79.899 Other long term (current) drug therapy; Z88.0 Allergy status to penicillin; Z88.1 Allergy status to other antibiotic agents; Z80.9 Family history of malignant neoplasm, unspecified; Z83.3 Family history of diabetes mellitus; Z83.79 Family history of other diseases of the digestive system; Z82.49 Family history of ischemic heart disease and other diseases of the circulatory system; Z84.1 Family history of disorders of kidney and ureter

== ENCOUNTER → 2017-04-09 | Day surgery (SDC) | payer OTHER ==
[2017-04-02 10:19] VITALS: Ht 162.6 cm; Wt 126.9 kg
--- NOTE | 2017-04-02 10:53 | PAT Medication Instructions ---
Service Date Apr 02, 2017. Current Home Medication List Amitriptyline Hcl (Elavil), 30 MG PO HS Baclofen (Baclofen), 10 MG PO BID Clonazepam (Klonopin), 1 MG PO TID Duloxetine HCl (Cymbalta), 90 MG PO QAM Gabapentin (Neurontin), 800 MG PO TID Lisinopril (Zestril), 20 MG PO QAM Meloxicam (Meloxicam), 15 MG PO QAM Mirtazapine (Remeron), 30 MG PO HS Multivitamins/Minerals (Mvi With Minerals), 1 TAB PO HS [Magnesium], 250 MG PO HS [Potassium], 99 MG PO HS Medication Instructions For Your Scheduled Surgery - Check with surgeon for instructions: Meloxicam (Meloxicam), 15 MG PO QAM - Hold the following medications the morning of surgery: Baclofen (Baclofen), 10 MG PO BID Lisinopril (Zestril), 20 MG PO QAM - Take the following medications the morning of surgery with a sip of water: Duloxetine HCl (Cymbalta), 90 MG PO QAM Gabapentin (Neurontin), 800 MG PO TID Clonazepam (Klonopin), 1 MG PO TID - Take the following medications as scheduled the night before surgery: [Magnesium], 250 MG PO HS [Potassium], 99 MG PO HS Mirtazapine (Remeron), 30 MG PO HS Multivitamins/Minerals (Mvi With Minerals), 1 TAB PO HS Gabapentin (Neurontin), 800 MG PO TID Clonazepam (Klonopin), 1 MG PO TID Amitriptyline Hcl (Elavil), 30 MG PO HS Baclofen (Baclofen), 10 MG PO BID If you have any questions please call us at [phone] or [phone] or [phone]
[2017-04-02 11:31] LABS: BASO % 0.4 %; BASO ABS # 0.04 K/uL (0-0.2); EOS % 0.9 %; EOS ABS # 0.09 K/uL (0-0.5); IG# 0.01 K/uL (0.00-0.02); LYMPH % 44.1 %; LYMPH ABS # 4.42 K/uL (1.2-3.4); MEAN CELL VOLUME 88.2 fL (80-100); MEAN CORPUSCULAR HEMOGLOBIN 29.4 pg (25-34); MEAN CORPUSCULAR HGB CONC 33.3 g/dl (32-36); MEAN PLATELET VOLUME 8.8 fL (7.4-10.4); MONO % 5.2 %; MONO ABS # 0.52 K/uL (0.11-0.59); NEUT % 49.3 %; NEUT ABS # 4.95 K/uL (1.4-6.5); PLATELET COUNT 369 K/uL (130-400); RED CELL DISTRIBUTION WIDTH CV 14.3 % (11.5-14.5); RED CELL DISTRIBUTION WIDTH SD 46.6 fL (36.4-46.3); WHITE BLOOD COUNT 10.03 K/uL (4.8-10.8)
[2017-04-02 11:42] LABS: CALCIUM 9.1 mg/dl (8.5-10.1); CREATININE 0.86 mg/dl (0.60-1.20); POTASSIUM 4.2 mmol/L (3.5-5.1)
[~2017-04-09] VITALS: Ht 162.6 cm; Wt 126.9 kg
[~2017-04-09] MED LIST changes: +ATROPINE SULFATE 0.1 MG/ML 5ML SYR IV PRN; +BUPIVACAINE 0.5 % 5 MG/1 ML MPF 30ML VIAL ONE; +BUPIVACAINE/EPINEPHRINE 0.5% MPF 1:200,000 30 ML VIAL ONE; -BUSP30TA2 PO; +DEXAMETHASONE SOD INJ 4 MG/ML VIAL ONE; -DICL-201 PO; +EpHEDrine SULFATE INJ 50 MG/ML AMP ONE; +FENTANYL CITRATE INJ 50 MCG/1 ML 2 ML VIAL ONE; -FOLI1TAB7 PO; +GLYCOPYRROLATE INJ 0.2 MG/ML VIAL ONE; -HYDR50CA2 PO; +IBUP-1427 PO; +IBUPROFEN 600 MG TAB PO PRN; +KETOROLAC TROMETHAMINE 30 MG/ML VIAL IV. PRN; +LACTATED RINGER'S 1000ML 1,000 ML IV SCH; +LIDOCAINE HCL 2% 2 ML VIAL (20MG/ML) ONE; +MAGNESIUM PO; +MIDAZOLAM HCL 1 MG/ML 2ML VIAL ONE; +NEOSTIGMINE METHYLSULFATE 5 MG/5 ML SYR ONE; +ONDANSETRON INJ 2 MG/ML 2 ML VIAL IV PRN; +ONDANSETRON INJ 2 MG/ML 2 ML VIAL ONE; +OXYCODONE/ACETAMINOPHEN 5-325 TAB PO PRN; +PHENYLEPHRINE HCL INJ 10 MG/ML VIAL ONE; +POTASSIUM PO; +PROMETHAZINE HCL INJ 12.5 MG in SODIUM CHLORIDE 0.9% 50ML 50 ML IV PRN; +PROPOFOL IV EMULSION 10 MG/ML 20 ML VIAL IV ONE; -PRVHFAIN INH; +SODIUM CHLORIDE 0.9% 1000ML 1,000 ML IV SCH; +SUCCINYLCHOLINE CHLORIDE 20 MG/ML 10 ML VIAL IV ONE; +TRAM-10 PO; -TRAZ50TA35 PO
[2017-04-09 05:33] VITALS: BP 183/83; PULSE 102; TEMP 38; O2SAT 98
--- NOTE | 2017-04-09 06:45 | History & Physical Bridge Note ---
H&P Re-Evaluation Bridge Note: I have examined the patient, reviewed the History & Physical and in the interval since the performance of the History & Physical I have noted the following changes of clinical significance: No changes noted
--- NOTE | 2017-04-09 07:52 | Discharge Instructions ---
Discharge Instructions Date of Service Apr 09, 2017. Visit Reason for Visit: Pelvic Pain Discharge Discharge Diagnosis / Problem: Pelvic Pain, s/p Dx Lap Discharge Goals Goal(s): Decrease discomfort Activity Recommendations Activity Limitations: per Instructions/Follow-up section Anesthesia . Post Anesthesia Instructions: If you have had General Anesthesia or IV Sedation: * Do not drive today. * Resume driving when surgeon permits. * Do not make important decisions or sign legal documents today. * Call surgeon for: 1. Temperature elevations greater than 101 degrees F. 2. Uncontrollable pain. 3. Excessive bleeding. 4. Persistent nausea and vomiting. 5. Medication intolerance (nausea, vomiting or rash). * For nausea and vomiting use only clear liquids such as: tea, soda, bouillon until nausea subsides, then gradually increase diet as tolerated. * If you have any concerns or questions, call your surgeon's office. If physician is unavailable and it is an emergency, call 911 or go to the nearest emergency room. . Instructions / Follow-Up Instructions / Follow-Up SPECIAL CARE INSTRUCTIONS: * Check temperature twice daily for one week. Report any elevation over 100.4 degrees Fahrenheit (38.0 degrees Celsius). * Call office in the next few days for return appointment. * You may experience some vaginal spotting and/or bleeding, this is normal for one or two weeks and should not alarm you. * Post-operative discomfort may consist of a sore throat, a "bloated" feeling and pain in the shoulders. These are normal symptoms which usually only last for two or three days. FOLLOW UP VISIT: Keep any scheduled doctor appointments. Diet Recommendations Recommended Home Diet: resume previous diet Procedures Procedures Performed: Diagnostic Laparoscopy Pending Studies Studies pending at discharge: no Medical Emergencies . Who to Call and When: Medical Emergencies: If at any time you feel your situation is an emergency, please call 911 immediately. . Non-Emergent Contact Non-Emergency issues call your: Specialist . . "Provider Documentation" section prepared by Genny Monique. .
--- NOTE | 2017-04-09 07:53 | [facility] Post Operative Brief Note ---
Immediate Operative Summary Operative Date Apr 09, 2017. Pre-Operative Diagnosis Pelivc pain Post-Operative Diagnosis pelvic pain Procedure(s) Performed Diagnostic Laparoscopy Surgeon Dr. Genny Wild [employer] Surgeon(s) Dr. Alexander Callahan and Dr. Jeremiah Castellanos Estimated Blood Loss 5 ml Findings Consistent with Post-Op Diagnosis Fluids (cc crystalloids) 800 ml Specimens No specimens per surgeon Drains None Anesthesia Type General Complication(s) none Disposition Disposition: Recovery Room / PACU
[2017-04-09] MEDS: FENTANYL CITRATE INJ 50 MCG/1 ML 2 ML VIAL IV PRN ×7 (08:06→08:44)
[2017-04-09 09:10] VITALS: BP 153/73; PULSE 95; TEMP 37.3; O2SAT 96
[2017-04-09 09:40] VITALS: BP 163/74; PULSE 95; O2SAT 97
[2017-04-09 10:15] VITALS: BP 168/81; PULSE 88; TEMP 37.1; O2SAT 95
--- NOTE | 2017-04-09 10:48 | Anesthesiology Progress Note ---
Anesthesia Post Op Note Date & Time Apr 09, 2017 at 10:48 Vital Signs Pain Intensity: 3.5 Vital Signs Past 12 Hours Date Time Temp Pulse Resp B/P (MAP) Pulse Ox O2 Delivery O2 Flow Rate FiO2 04/09/17 10:15 37.1 88 18 168/81 95 Room Air 04/09/17 09:40 95 18 163/74 97 Room Air 04/09/17 09:10 37.3 95 18 153/73 96 Room Air 04/09/17 09:02 37.1 04/09/17 09:01 157/95 04/09/17 08:59 96 23 04/09/17 08:59 94 23 95 04/09/17 08:56 134/93 04/09/17 08:54 92 18 04/09/17 08:54 93 18 94 04/09/17 08:53 90 25 94 04/09/17 08:53 90 25 04/09/17 08:48 93 17 04/09/17 08:48 93 17 95 04/09/17 08:47 95 25 04/09/17 08:47 107 25 94 04/09/17 08:46 155/89 04/09/17 08:42 86 21 95 04/09/17 08:42 85 21 04/09/17 08:41 139/93 04/09/17 08:39 99 16 04/09/17 08:39 102 16 94 04/09/17 08:36 162/69 04/09/17 08:34 83 24 04/09/17 08:34 84 24 93 04/09/17 08:31 141/86 04/09/17 08:29 88 16 95 04/09/17 08:29 87 16 04/09/17 08:26 154/91 04/09/17 08:24 85 23 04/09/17 08:24 83 23 94 04/09/17 08:23 94 16 99 04/09/17 08:23 94 16 04/09/17 08:21 149/88 04/09/17 08:18 90 20 99 04/09/17 08:18 91 20 04/09/17 08:16 147/86 04/09/17 08:13 93 18 99 04/09/17 08:13 94 18 04/09/17 08:11 162/94 04/09/17 08:08 95 19 04/09/17 08:08 95 19 100 04/09/17 08:06 160/95 04/09/17 08:04 177/99 04/09/17 08:03 36.0 102 16 177/99 100 Oxymask 10 04/09/17 05:33 38 102 20 183/83 (116) 98 Room Air Notes Mental Status: alert / awake / arousable, participated in evaluation Pt Amnestic to Procedure: Yes Nausea / Vomiting: adequately controlled Pain: adequately controlled Airway Patency, RR, SpO2: stable & adequate BP & HR: stable & adequate Hydration State: stable & adequate Anesthetic Complications: no major complications apparent
--- NOTE | 2017-04-09 11:56 | [facility] Operative Report ---
Operative Report Operative Date Apr 09, 2017. Pre-Operative Diagnosis Pelivc pain Post-Operative Diagnosis pelvic pain Procedure(s) Performed Diagnostic Laparoscopy Surgeon Dr. Genny Wild Spares Scheduler Surgeon(s) Dr. Alexander Callahan and Dr. Jeremiah Castellanos Estimated Blood Loss 5 ml Findings Enlarged boggy anteverted uterus. Normal appearing fallopian tubes. Normal appearing ovaries. Anterior and posterior cul-de sac were free of lesions or endometrial implants. Normal appearing appendix and liver edge. Fluids 800 ml Specimens No specimens per surgeon Drains None Anesthesia Type General Complication(s) none Disposition Recovery Room / PACU Description of Procedure After obtaining informed consent, the patient was taken to the operating room where general endotracheal anesthesia was administered. The patient was placed in the dorsal-lithotomy position and prepped and draped in the usual sterile fashion, an acorn uterine manipulator was applied without difficulty. Attention was then turned to the patient's abdomen. .25% marcaine solution was injected into the umbilicus. A 5-mm incision was made in the inferior portion of the umbilicus. The 5-mm trocar and sleeve were then advanced in to the intraabdominal cavity and access was confirmed with the laparoscope. Pneumoperitoneum was then formed with CO2 gas. An additional 5-mm skin incision was made in the right lower quadrant. The abdomen and pelvis were surveyed with the above-noted findings. No active bleeding was noted. No evidence of endometriosis or lesions were noted. The instruments were removed from the abdomen under good visualization with good hemostasis noted. The acorn uterine manipulator was removed from the vagina. The patient tolerated the procedure well and was taken to the recovery room in stable condition. I attest to the content of the Intraoperative Record and any orders documented therein. Any exceptions are noted below.
== END | disposition home or self-care (01) ==
LOC: C.ACU 04:57
PROVIDERS: ATTEND Obstetrics & Gynecology Obstetrics
DX: R10.2 Pelvic and perineal pain (principal); M79.7 Fibromyalgia; F32.9 Major depressive disorder, single episode, unspecified; Z83.3 Family history of diabetes mellitus; Z82.49 Family history of ischemic heart disease and other diseases of the circulatory system; Z83.6 Family history of other diseases of the respiratory system; Z84.1 Family history of disorders of kidney and ureter

== ENCOUNTER 2017-04-15 10:06 | Emergency (ER) | payer OTHER ==
[~2017-04-15] VITALS: Ht 162.6 cm; Wt 124.9 kg
[~2017-04-15 10:06] MED LIST changes: -ATROPINE SULFATE 0.1 MG/ML 5ML SYR IV PRN; -BUPIVACAINE 0.5 % 5 MG/1 ML MPF 30ML VIAL ONE; -BUPIVACAINE/EPINEPHRINE 0.5% MPF 1:200,000 30 ML VIAL ONE; -DEXAMETHASONE SOD INJ 4 MG/ML VIAL ONE; -EpHEDrine SULFATE INJ 50 MG/ML AMP ONE; -FENTANYL CITRATE INJ 50 MCG/1 ML 2 ML VIAL ONE; -GLYCOPYRROLATE INJ 0.2 MG/ML VIAL ONE; -IBUPROFEN 600 MG TAB PO PRN; -KETOROLAC TROMETHAMINE 30 MG/ML VIAL IV. PRN; -LACTATED RINGER'S 1000ML 1,000 ML IV SCH; -LIDOCAINE HCL 2% 2 ML VIAL (20MG/ML) ONE; +MELO-83 PO; -MELO15TA4 PO; -MIDAZOLAM HCL 1 MG/ML 2ML VIAL ONE; -NEOSTIGMINE METHYLSULFATE 5 MG/5 ML SYR ONE; -ONDANSETRON INJ 2 MG/ML 2 ML VIAL IV PRN; -ONDANSETRON INJ 2 MG/ML 2 ML VIAL ONE; -OXYCODONE/ACETAMINOPHEN 5-325 TAB PO PRN; -PHENYLEPHRINE HCL INJ 10 MG/ML VIAL ONE; -PROMETHAZINE HCL INJ 12.5 MG in SODIUM CHLORIDE 0.9% 50ML 50 ML IV PRN; -PROPOFOL IV EMULSION 10 MG/ML 20 ML VIAL IV ONE; -SODIUM CHLORIDE 0.9% 1000ML 1,000 ML IV SCH; -SUCCINYLCHOLINE CHLORIDE 20 MG/ML 10 ML VIAL IV ONE
[2017-04-15 10:32] VITALS: TEMP 36.9
[2017-04-15 11:19] LABS: BASO % 0.4 %; BASO ABS # 0.03 K/uL (0-0.2); EOS % 1.6 %; EOS ABS # 0.12 K/uL (0-0.5); HEMATOCRIT 39.9 % (37-47); HEMOGLOBIN 13.6 g/dL (12.0-16.0); IG# 0.01 K/uL (0.00-0.02); LYMPH % 23.5 %; LYMPH ABS # 1.73 K/uL (1.2-3.4); MEAN CELL VOLUME 85.1 fL (80-100); MEAN CORPUSCULAR HGB CONC 34.1 g/dl (32-36); MEAN PLATELET VOLUME 8.5 fL (7.4-10.4); MONO % 4.8 %; MONO ABS # 0.35 K/uL (0.11-0.59); NEUT % 69.6 %; NEUT ABS # 5.12 K/uL (1.4-6.5); PLATELET COUNT 367 K/uL (130-400); RED CELL DISTRIBUTION WIDTH CV 14.2 % (11.5-14.5); RED CELL DISTRIBUTION WIDTH SD 43.7 fL (36.4-46.3); WHITE BLOOD COUNT 7.36 K/uL (4.8-10.8)
[2017-04-15 11:35] LABS: ALBUMIN 3.6 gm/dl (3.4-5.0); CALCIUM 9.4 mg/dl (8.5-10.1); CREATININE 0.83 mg/dl (0.60-1.20); POTASSIUM 3.8 mmol/L (3.5-5.1)
[2017-04-15] MEDS ORDERED: KETOROLAC TROMETHAMINE 30 MG/ML VIAL IV STA (11:37)
[2017-04-15] MEDS ORDERED: SODIUM CHLORIDE 0.9% 1000ML 1,000 ML IV STA (11:37)
[2017-04-15] MEDS ORDERED: HYDROmorphone INJ 1 MG/ML SYR IV STA ×2 (11:37→12:23)
[2017-04-15 11:38] LABS: TOTAL PROTEIN 8.3 gm/dl (6.4-8.2)
--- NOTE | 2017-04-15 11:48 | EMERGENCY ROOM VISIT NOTE ---
History Report prepared by Patricio: Zack Simon Under the Supervision of: Dr. Sandro Lemus M.D. First contact with patient: 11:08 Chief Complaint: ABDOMINAL PAIN Stated Complaint: SEVERE ABD PAIN,VAG BLEEDING,WEAKNESS,ANXIETY Nursing Triage Summary: patient had a laperscopic procedures last wednesday to evaluate pelvic pain. states she is having severe abdominal pain and bleeding and has not had a period in 7 years. states her doctor told her to come to the ER for evaluation. states she has been having diarrhea and is seeing stars when she stands up History of Present Illness The patient is a 41 year old female who presents to the Emergency Room with complaints of severe and constant lower abdominal pain that began on Wednesday, 3 days ago. The patient states that her OBGYN performed a laparoscopy procedure 6 days ago for persistent pain in her right lower abdominal quadrant and right flank. Her OBGYN stated that she had an enlarged prostate which may be the source of her pain. On Wednesday she developed significant vaginal bleeding and lower abdominal cramping. Her OBGYN instructed her to come to the ED, but she could not get a ride here until today. She notes that she is now saturating a pad in under an hour. She has not had a period in the past 7 years. 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 A total of 10 systems reviewed and were otherwise negative. Past Medical & Surgical Medical Problems: (1) Abdominal pain (2) Anxiety (3) Anxiety (4) Anxiety disorder (5) Arthritis (6) Calculus of kidney and ureter (7) Depression (8) Drug overdose, intentional (9) Fibromyalgia (10) Heroin abuse (11) Heroin abuse (12) Heroin withdrawal (13) Kidney stones (14) Left ureteral calculus (15) Pain, dental (16) Renal colic (17) Renal colic (18) Suicidal ideation (19) Suicidal ideation (20) UTI (urinary tract infection) Family History Cancer Diabetes mellitus Gallbladder disease Hypertension Kidney stones Lung disease Social History Smoking Status: Current Every Day Smoker Alcohol Use: none Drug Use: none Marital Status: single Housing Status: lives with family Occupation Status: unemployed Current/Historical Medications Scheduled Amitriptyline Hcl (Elavil), 30 MG PO HS Baclofen (Baclofen), 10 MG PO BID Clonazepam (Klonopin), 1 MG PO TID Dicyclomine Hcl (Bentyl), 10 MG PO TID Duloxetine HCl (Cymbalta), 90 MG PO QAM Gabapentin (Neurontin), 800 MG PO TID Lisinopril (Zestril), 20 MG PO QAM Meloxicam (Meloxicam), 15 MG PO QAM Mirtazapine (Remeron), 30 MG PO HS Multivitamins/Minerals (Mvi With Minerals), 1 TAB PO HS [Magnesium], 250 MG PO HS [Potassium], 99 MG PO HS Scheduled PRN Ibuprofen Tab (Motrin), 600 MG PO Q6H PRN for Pain Allergies Coded Allergies: Amoxicillin (Verified Allergy, Intermediate, RASH, 04/15/17) Penicillins (Verified Allergy, Intermediate, RASH TO AMOXIL, 04/15/17) Physical Exam Vital Signs Date Time Temp Pulse Resp B/P (MAP) Pulse Ox O2 Delivery O2 Flow Rate FiO2 04/15/17 14:56 83 16 145/90 97 04/15/17 12:34 87 16 142/86 95 Room Air 04/15/17 10:32 36.9 69 20 139/73 97 Room Air Physical Exam GENERAL: Patient is a healthy-appearing well-nourished female HEAD: Normocephalic atraumatic EYES: Ocular movements intact pupils equal and react to light OROPHARYNX mucous membranes are moist no exudates present no erythema or edema present NECK: Supple no nuchal rigidity CHEST: Good equal expansion LUNGS: Clear and equal to auscultation CARDIAC: Normal S1 and S2 ABDOMEN: Soft nontender no guarding BACK: No CVA tenderness EXTREMITIES: No pain upon palpation normal muscle strength in all groups no clubbing cyanosis or edema NEURO: Patient is following commands and answering questions appropriately. Alert and oriented x3 Cranial Nerves 2-12 grossly intact Medical Decision & Procedures ER Provider Diagnostic Interpretation: Radiology results as stated below per my review and radiologist interpretation: ABD/PELVIS IV CONTRAST ONLY CLINICAL HISTORY: 41 years-old Female presenting with Pt c/o RLQ and LLQ cramping, severe abdominal pain, weakness. TECHNIQUE: Multidetector CT of the abdomen and pelvis was performed after the administration of intravenous contrast. IV contrast: 93 mL of Optiray 320. A dose lowering technique was used consistent with the principles of ALARA (as low as reasonably achievable). COMPARISON: 01/25/2017. CT DOSE (mGy.cm): The estimated cumulative dose is 1719.32 mGy.cm. 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 Lung bases: Minimal basilar opacities, likely atelectasis. Normal heart size. No pericardial or pleural effusion. Liver: Normal morphology. Well-defined hypodensity in the lateral left hepatic lobe indeterminate but likely hepatic cyst. No other focal lesion. Patent hepatic vasculature. Biliary: No intrahepatic or extrahepatic biliary ductal dilatation. Normal gallbladder. Pancreas: Normal. Spleen: Normal. Adrenal glands: Normal. Kidneys and ureters: Normal. No hydronephrosis. Bladder: Incompletely evaluated secondary to underdistention. Pelvic organs: Uterus and ovaries normal. Gas noted in the vagina. No gas in the uterus. Bowel: Normal appendix. No bowel obstruction. No bowel wall thickening or inflammatory change. Peritoneal cavity: No free fluid. Free gas is noted in the anterior superior pelvis (series 3 image 328) as well as in the right lower quadrant. This appears to track to the right fallopian tube and cluster of right lower quadrant small bowel. Lymph nodes: No enlarged lymph nodes in the abdomen or pelvis. Vasculature: Aorta and IVC patent and normal in caliber. Abdominal wall: Small fat-containing umbilical hernia. Focus of gas in the right paramedian abdominal wall superficial to the peritoneum and immediately medial to the right rectus abdominis (series 3 image 314), indeterminant in etiology. Musculoskeletal: Normal. IMPRESSION: 1. Free intraperitoneal gas in the right lower quadrant and minimally in the superior pelvis. The free gas appears to track towards the right fallopian tube and right lower quadrant small bowel. No evidence of small bowel inflammatory change or findings to suggest a perforated hollow viscus. Incidentally, gas is also noted in the vagina. As there is no other evidence to suggest a perforated hollow viscus, findings raise concern for gas via a vaginal route. Electronically signed by: John Bellamy M.D. 04/15/2017 12:25 PM Dictated Date/Time: 04/15/2017 12:16 PM Laboratory Results 04/15/17 11:00 Red Blood Count 4.69, Mean Corpuscular Volume 85.1, Mean Corpuscular Hemoglobin 29.0, Mean Corpuscular Hemoglobin Concent 34.1, Mean Platelet Volume 8.5, Neutrophils (%) (Auto) 69.6, Lymphocytes (%) (Auto) 23.5, Monocytes (%) (Auto) 4.8, Eosinophils (%) (Auto) 1.6, Basophils (%) (Auto) 0.4, Neutrophils # (Auto) 5.12, Lymphocytes # (Auto) 1.73, Monocytes # (Auto) 0.35, Eosinophils # (Auto) 0.12, Basophils # (Auto) 0.03 04/15/17 11:51 Test 04/15/17 11:00 04/15/17 11:51 White Blood Count 7.36 K/uL (4.8-10.8) Red Blood Count 4.69 M/uL (4.2-5.4) Hemoglobin 13.6 g/dL (12.0-16.0) Hematocrit 39.9 % (37-47) Mean Corpuscular Volume 85.1 fL (80-100) Mean Corpuscular Hemoglobin 29.0 pg (25-34) Mean Corpuscular Hemoglobin Concent 34.1 g/dl (32-36) Platelet Count 367 K/uL (130-400) Mean Platelet Volume 8.5 fL (7.4-10.4) Neutrophils (%) (Auto) 69.6 % Lymphocytes (%) (Auto) 23.5 % Monocytes (%) (Auto) 4.8 % Eosinophils (%) (Auto) 1.6 % Basophils (%) (Auto) 0.4 % Neutrophils # (Auto) 5.12 K/uL (1.4-6.5) Lymphocytes # (Auto) 1.73 K/uL (1.2-3.4) Monocytes # (Auto) 0.35 K/uL (0.11-0.59) Eosinophils # (Auto) 0.12 K/uL (0-0.5) Basophils # (Auto) 0.03 K/uL (0-0.2) RDW Standard Deviation 43.7 fL (36.4-46.3) RDW Coefficient of Variation 14.2 % (11.5-14.5) Immature Granulocyte % (Auto) 0.1 % Immature Granulocyte # (Auto) 0.01 K/uL (0.00-0.02) Urine Color ORANGE Urine Appearance TURBID (CLEAR) Urine pH 5.5 (4.5-7.5) Urine Specific [place] 1.025 (1.000-1.030) Urine Protein 2+ (NEG) Urine Glucose (UA) NEG (NEG) Urine Ketones TRACE (NEG) Urine Occult Blood 3+ (NEG) Urine Nitrite NEG (NEG) Urine Bilirubin NEG (NEG) Urine Urobilinogen NEG (NEG) Urine Leukocyte Esterase SMALL (NEG) Urine WBC (Auto) 10-30 /hpf (0-5) Urine RBC (Auto) >30 /hpf (0-4) Urine Hyaline Casts (Auto) 1-5 /lpf (0-5) Urine Epithelial Cells (Auto) >30 /lpf (0-5) Urine Bacteria (Auto) NEG (NEG) Urine Pathogenic Casts /lpf (0) Urine Test NEG (NEG) Total Bilirubin 0.4 mg/dl (0.2-1) Aspartate Amino Transf (AST/SGOT) 25 U/L (15-37) Alanine Aminotransferase (ALT/SGPT) 25 U/L (12-78) Alkaline Phosphatase 101 U/L (45-117) Total Protein 8.3 gm/dl (6.4-8.2) Albumin 3.6 gm/dl (3.4-5.0) Globulin 4.7 gm/dl (2.5-4.0) Albumin/Globulin Ratio 0.8 (0.9-2) Lipase 182 U/L (73-393) Prothrombin Time 9.8 SECONDS (9.0-12.0) Prothromb Time International Ratio 0.9 (0.9-1.1) Activated Partial Thromboplast Time 23.5 SECONDS (21.0-31.0) Partial Thromboplastin Ratio 0.9 Anion Gap 8.0 mmol/L (3-11) Est Creatinine Clear Calc Drug Dose 124.1 ml/min Estimated GFR () 109.4 Estimated GFR (Non- 94.4 BUN/Creatinine Ratio 20.0 (10-20) Calcium Level 9.1 mg/dl (8.5-10.1) Date/Time Source Procedure Growth Status 04/15/17 11:00 Urine , Clean Catch Urine Culture - Final THREE TYPES OF ORGANISMS PRESENT, ALL... Complete Labs reviewed by ED physician. Medications Administered Medications (Trade) Dose Ordered Sig/Scout Route Start Time Stop Time Status Last Admin Dose Admin Sodium Chloride 1,000 ml @ 999 mls/hr Q1H1M STAT IV 04/15/17 11:37 04/15/17 12:37 DC 04/15/17 11:59 999 MLS/HR Ketorolac Tromethamine (Toradol Inj) 30 mg NOW STAT IV 04/15/17 11:37 04/15/17 11:40 DC 04/15/17 11:59 30 MG Hydromorphone HCl (Dilaudid Inj) 1 mg NOW STAT IV 04/15/17 11:37 04/15/17 11:40 DC 04/15/17 11:59 1 MG Hydromorphone HCl (Dilaudid Inj) 1 mg NOW STAT IV 04/15/17 12:23 04/15/17 12:24 DC 04/15/17 12:38 1 MG Metoclopramide HCl (Reglan Inj) 10 mg NOW STAT IV 04/15/17 13:19 04/15/17 13:20 DC 04/15/17 13:36 10 MG ED Course 1135: Past medical records reviewed. The patient was evaluated in room C4. A complete history and physical examination was performed. 1137: Ordered Dilaudid 1 mg IV, Toradol 30 mg IV, Sodium Chloride 1000 mL @ 999 mL/hr IV. 1223: Ordered Dilaudid HCl 1 mg IV. Medical Decision Differential diagnosis: Etiologies such as appendicitis, diverticulitis, PUD, biliary pathology, UTI, pancreatitis, obstruction, mesenteric ischemia, aortic pathology, infections, inflammatory bowel disease, renal colic, as well as others were entertained. This is a 41-year-old female who presents she department complaining of right- sided pelvic pain. The patient recently had a biopsy performed by her toe former stitchdowns. The patient has a benign abdomen on examination. She was sent for CAT scan and pelvis which was concerning for free air consistent with recent instrumentation. Patient was also sent for pelvic ultrasound. I will note that the patient's hemoglobin is x-ray higher than it normally is and I feel that the patient can be safely discharged home for follow-up with the toe former stitchdowns. Patient was in agreement with the treatment plan. Medication Reconcilliation Current Medication List: was personally reviewed by me Blood Pressure Screening Patient's blood pressure: Elevated blood pressure Blood pressure disposition: Referred to PCP Impression Primary Impression: Abdominal pain Scribe Attestation The scribe's documentation has been prepared under my direction and personally reviewed by me in its entirety. I confirm that the note above accurately reflects all work, treatment, procedures, and medical decision making performed by me. Departure Information Dispostion Home / Self-Care Prescriptions Dicyclomine Hcl (BENTYL) 10 Mg Cap 10 MG PO TID, #30 CAP Prov: Snadro Lemus MD 04/15/17 Referrals John Erazo M.D. (PCP) Patient Instructions My [facility]
[2017-04-15] MEDS ORDERED: OPTIRAY 320 IV PRN (12:00)
[2017-04-15 12:02] VITALS: Ht 162.6 cm; Wt 124.9 kg
[2017-04-15 12:13] LABS: INR 0.9 (0.9-1.1); PTT PATIENT 23.5 SECONDS (21.0-31.0)
[2017-04-15 12:24] LABS: CALCIUM 9.1 mg/dl (8.5-10.1); CREATININE 0.78 mg/dl (0.60-1.20); POTASSIUM 3.7 mmol/L (3.5-5.1)
--- NOTE | 2017-04-15 12:26 | DIAGNOSTIC IMAGING REPORT ---
ABD/PELVIS IV CONTRAST ONLY CLINICAL HISTORY: 41 years-old Female presenting with Pt c/o RLQ and LLQ cramping, severe abdominal pain, weakness. TECHNIQUE: Multidetector CT of the abdomen and pelvis was performed after the administration of intravenous contrast. IV contrast: 93 mL of Optiray 320. A dose lowering technique was used consistent with the principles of ALARA (as low as reasonably achievable). COMPARISON: 01/25/2017. CT DOSE (mGy.cm): The estimated cumulative dose is 1719.32 mGy.cm. 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 Lung bases: Minimal basilar opacities, likely atelectasis. Normal heart size. No pericardial or pleural effusion. Liver: Normal morphology. Well-defined hypodensity in the lateral left hepatic lobe indeterminate but likely hepatic cyst. No other focal lesion. Patent hepatic vasculature. Biliary: No intrahepatic or extrahepatic biliary ductal dilatation. Normal gallbladder. Pancreas: Normal. Spleen: Normal. Adrenal glands: Normal. Kidneys and ureters: Normal. No hydronephrosis. Bladder: Incompletely evaluated secondary to underdistention. Pelvic organs: Uterus and ovaries normal. Gas noted in the vagina. No gas in the uterus. Bowel: Normal appendix. No bowel obstruction. No bowel wall thickening or inflammatory change. Peritoneal cavity: No free fluid. Free gas is noted in the anterior superior pelvis (series 3 image 328) as well as in the right lower quadrant. This appears to track to the right fallopian tube and cluster of right lower quadrant small bowel. Lymph nodes: No enlarged lymph nodes in the abdomen or pelvis. Vasculature: Aorta and IVC patent and normal in caliber. Abdominal wall: Small fat-containing umbilical hernia. Focus of gas in the right paramedian abdominal wall superficial to the peritoneum and immediately medial to the right rectus abdominis (series 3 image 314), indeterminant in etiology. Musculoskeletal: Normal. IMPRESSION: 1. Free intraperitoneal gas in the right lower quadrant and minimally in the superior pelvis. The free gas appears to track towards the right fallopian tube and right lower quadrant small bowel. No evidence of small bowel inflammatory change or findings to suggest a perforated hollow viscus. Incidentally, gas is also noted in the vagina. As there is no other evidence to suggest a perforated hollow viscus, findings raise concern for gas via a vaginal route. Electronically signed by: John Bellamy M.D. 04/15/2017 12:25 PM Dictated Date/Time: 04/15/2017 12:16 PM
[2017-04-15] MEDS ORDERED: METOCLOPRAMIDE HCL INJ 5 MG/ML 2 ML VIAL IV STA (13:19)
--- NOTE | 2017-04-15 14:32 | DIAGNOSTIC IMAGING REPORT ---
PELVIC COMPLETE NON OB CLINICAL HISTORY: 41 years-old Female presenting with Pt c/o heavy vag bleeding, last menstrual period 7 years ago, bleeding started on 04/11/2017, history of laparoscopic surgery on 04/09/2017, severe pelvic pain and vaginal bleeding. TECHNIQUE: Real-time grayscale and color and spectral Doppler ultrasound imaging of the pelvis was performed using a transabdominal probe. The patient declined transvaginal exam. COMPARISON: Ultrasound from 01/25/[address] from 04/15/2017. FINDINGS: Uterus: Normal. Anteverted. The uterus measures 8.1 x 4.9 x 3.5 cm. Endometrial stripe measures 6 mm in thickness. Endometrium poorly visualized. Cervix poorly visualized. Right adnexa: Right ovary not visualized. Left adnexa: Left ovary not visualized. Other: No free fluid. IMPRESSION: 1. As mentioned on prior ultrasound from 01/25/2017, abnormal endometrial thickening. Gynecologic consultation recommended for endometrial biopsy if not yet performed. This could represent endometrial hyperplasia, however, the primary differential consideration is endometrial neoplasm. 2. Given clinical history of laparoscopic surgery recently, the previously described free intraperitoneal gas likely is postsurgical. The report will be called/faxed according to standard departmental protocol. Electronically signed by: John Bellamy M.D. 04/15/2017 2:30 PM Dictated Date/Time: 04/15/2017 2:24 PM
[2017-04-15] MEDS ORDERED: DICY10CA55 PO (14:49)
[2017-04-15 14:56] VITALS: BP 145/90; PULSE 83; O2SAT 97
== END 2017-04-15 15:20 | disposition home or self-care (01) ==
LOC: C.EDB 10:08 → C.EDC 15:20
DX: R10.31 Right lower quadrant pain (principal); N93.9 Abnormal uterine and vaginal bleeding, unspecified; Z98.890 Other specified postprocedural states; F32.9 Major depressive disorder, single episode, unspecified; F41.9 Anxiety disorder, unspecified; M79.7 Fibromyalgia; F17.200 Nicotine dependence, unspecified, uncomplicated; Z79.1 Long term (current) use of non-steroidal anti-inflammatories (NSAID); Z88.0 Allergy status to penicillin; Z80.9 Family history of malignant neoplasm, unspecified; Z83.3 Family history of diabetes mellitus; Z83.79 Family history of other diseases of the digestive system; Z82.49 Family history of ischemic heart disease and other diseases of the circulatory system; Z84.1 Family history of disorders of kidney and ureter

== ENCOUNTER 2020-09-07 08:10 | Inpatient (IN) ==
[2020-09-07] MEDS ORDERED: NALOXONE HCL 0.4 MG/1 ML VIAL/CARP ONE (08:14)
[2020-09-07] MEDS ORDERED: RAPID SEQUENCE INDUCTION BAG ONE (08:20)
[2020-09-07] MEDS ORDERED: SODIUM CHLORIDE 0.9% 1000ML 1,000 ML IV ONE ×2 (08:29→08:35)
[2020-09-07] MEDS ORDERED: NALOXONE HCL 0.4 MG/1 ML VIAL/CARP IV STA ×2 (08:30→14:19)
[2020-09-07] MEDS ORDERED: ALBUT/IPRATROP 3MG/0.5MG NEB 3 ML VIAL NEB STA (08:32)
[2020-09-07] MEDS ORDERED: ROCURONIUM BROMIDE 10 MG/ML 5 ML VIAL IV STA (08:32)
[2020-09-07 08:37] LABS: iSTAT Creatinine 3.2 mg/dl (0.6-1.3); iSTAT Hemoglobin 14.6 g/dl (12.0-16.0); iSTAT Ionized Calcium 1.26 mmol/l (1.12-1.32); iSTAT Potassium 4.6 mmol/L (3.3-5.0)
--- NOTE | 2020-09-07 08:45 | Emergency Department Note ---
Impression & Plan Unresponsive state, Acidosis, Acute hyperglycemia, DEANGELO (acute kidney injury), Pneumonia, Hypothermia ED Provider Note NAME: PATRICIA JAIMES AGE: 45 SEX: F : 1975 ARRIVES VIA: Ambulance INFORMANT: [ems] ED PROVIDER(S): [Juanito Cabello MD] CHIEF COMPLAINT: Unresponsive HISTORY OF PRESENT ILLNESS: The patient is a 45-year-old female who was found unresponsive this morning on the couch by her family. They could not wake her up. EMS was summoned. The patient had minimal response to a sternal rub. Her O2 saturation was adequate but she had snoring respirations and her pupils were dilated bilaterally. Her blood sugar was around 400. Her blood pressure was low in the 70s to 90s systolic. She was brought for evaluation. No further history is obtainable given her mental state. I was able to review old records. She was seen here 6 days ago for some flank discomfort. She was hyperglycemic at that time. She was thought possibly to have a UTI. She was felt stable for discharge home. REVIEW OF SYSTEMS: Unobtainable given the mental state PMHx/PSHx: See Below SOCIAL HISTORY: See Below. PHYSICAL EXAM: GENERAL: Unresponsive, snoring respirations. HEENT: No acute trauma, normocephalic atraumatic, mucous membranes moist, no nasal congestion, no scleral icterus. Pupils are equal bilaterally at 2 mm and responsive to light. There is no gag reflex. NECK: No stridor, no adenopathy, no meningismus, trachea is midline. LUNGS: Snoring respirations, wheezing bilaterally, decreased respiratory rate. HEART: Without murmurs gallops or rubs, regular rate and rhythm. ABDOMEN: Soft, nontender, bowel sounds positive, no hernias, no peritonitis. EXTREMITIES: No cyanosis or edema, full range of motion of all the joints without pain or difficulty, no signs for acute trauma. NEUROLOGIC: Responds minimally to a sternal rub. She has no gag. She is breathing spontaneously although her rate is low. Pupils equal and reactive to light. SKIN: No rash, no jaundice, no diaphoresis. DIFFERENTIAL DIAGNOSIS: Infection, dehydration, metabolic abnormality, DKA, intracranial bleeding, sepsis, urinary obstruction, medication abuse, drug overdose, hypo/hyperglycemia, electrolyte disturbance, anemia, hypoxia, cardiac sources, intracerebral event, toxicologic issues, stroke, TIA, as well as other pathologies. EMERGENCY DEPARTMENT COURSE/PROCEDURES: ECG: Indication was altered mental state. The ECG shows a normal sinus rhythm with a rate of 65. There is no ST elevation, no PVCs. The QTc is 445. Continuous Cardiac Monitoring: An order was placed for continuous cardiac monitoring. The monitor shows a rate of 78 with normal sinus rhythm. Critical Care Note: I have personally spent 66 minutes of critical care time in the direct management of this patient. This includes bedside care, interpretation of diagnostic studies, and testing, discussion with consultants, patient, and family members, and other required patient management activities. This 66 minutes is in excess of all separately billable procedures. Intubation: This procedure was performed by me. Patient received 70 mg of rocuronium IV. The patient was hyper oxygenated. Using rapid technique, the patient was intubated with a Perez two blade. Some suction was required. No complication. The endotracheal tube was placed at 24 centimeters at the the lips. Good O2 saturation noted afterwards. Good CO2 color change. Breath sounds somewhat diminished on the left. Wheezing was heard. Post intubation chest x-ray demonstrated the tube to be heading into the right mainstem. The tube was pulled back a centimeter and equal breath sounds were heard afterwards. MEDICAL DECISION MAKING: There is no leukocytosis or concerning anemia. There is a normal platelet count. Initial ABG showed an acidosis with a pH of about 7.2. There was no hypoxia. The CO2 was 18. Repeat ABG showed some improvement in the acidosis. Renal panel testing showed acute kidney injury with a creatinine of around 3. The potassium was normal. Sodium somewhat low at 134. Glucose was high at over 400. Lactic acid level was not elevated making sepsis less likely. There was no concerning liver enzyme elevation. Total creatinine kinase was not elevated making rhabdomyolysis unlikely. Patient appeared to be in a euthyroid state. Urinalysis showed glucose, no obvious infection. Urine tox was positive for marijuana. Alcohol level was undetectable. Covid testing returned negative. Brain CT showed no acute bleed or mass-effect. Abdominal and pelvis CT did not show any urinary or ureteral obstruction. A left lower lung pneumonia was suspected. Chest x-ray showed the endotracheal tube to be slightly deep on the right. There was no obvious focal infiltrate. After ET tube adjustment, repeat chest x-ray showed improvement of the endotracheal tube placement. The patient had presented unresponsive. She had a low blood pressure. She had snoring respirations and no gag reflex. She was intubated as noted above for airway protection. No complications with the procedure. The patient received 2 L of IV saline. Given the patients BMI >30, IBW was used to calculate the 30ml/kg fluid bolus. An NG tube and Coe catheter was placed. The patient was placed on an insulin drip. Patient was given a bolus dose of IV sodium bicarbonate. Patient was placed on a propofol drip to help with sedation. We did attempt a dose of IV Narcan prior to intubation, there was no response with the Narcan. Patient was given IV ceftriaxone as empiric antibiotic coverage. She was given a DuoNeb. A rupal hugger was applied because of the hypothermia. The patient has remained basically unresponsive. She is really not becoming more awake or alert despite the above treatment. I did speak with the ICU attending--he recommended increasing the respiratory rate to 24, this was done. I spoke with the on-call hospitalist. Case management has been involved. I spoke with the patient's family. Apparently, last evening, the patient did not feel well and had some nausea and vomiting. The cause of this presentation is unclear but I suspect, multifactorial. She is acidotic and hyperglycemic. She has acute kidney injury. There is a pneumonia present. I am concerned the patient may have taken some of her medications in excess. The patient is clearly in need of a hospital stay, further work-up and care is required. Past Med/Surg History Medical History Anxiety Chronic back pain Depression Diabetes mellitus, type 2 Fibromyalgia Heroin abuse ?? per pt she "tried it once and freaked out and came to the ER" Hyperlipidemia Hypertension Kidney stones Morbid obesity with BMI of 45.0-49.9, adult Narcolepsy Narcolepsy Osteoarthritis Surgical History H/O lithotripsy x3 History of colonoscopy History of laparoscopy History of tooth extraction all teeth removed Family History Father Family history of diabetes mellitus Diabetes Cancer Mother Family hx colonic polyps Hypertension Grandmother Hypertension Other No family history of adverse response to anesthesia Social History Smoking Status: Current every day smoker Tobacco Type: Cigarettes Cigarettes Per Day: 1ppd; Second Hand Exposure: Yes (parents smoked); Hx Alcohol Use: No Hx Substance Use: Yes (was addicted to painkillers but nothing for 2 yrs) Last Used Substance Other:: went to rehab 2 yrs ago on methadone--has not been on anything for 2 yrs Substance Use Type Other:: "tried heroin once and then went to the ER" Preferred Language: Argentine Communication Ability: Effective Fitter Up Required: No Beliefs That Will Affect Care: None marital status: Single Current Living Situation: Parent and Family Current Living Situation Comment: Lives with mom and 11 yr old son Feels Safe at Home: Yes Assistive Devices: Cane, Denture - Upper, Denture - Lower and Glasses Allergies Allergies Allergy/AdvReac Type Severity Reaction Status Date / Time amoxicillin Allergy Intermediate RASH Verified 09/01/20 20:26 Penicillins Allergy Intermediate RASH TO Verified 09/01/20 20:26 AMOXIL Home Meds Home Medications Medication Instructions Recorded Confirmed amitriptyline 50 mg PO HS 12/12/17 09/07/20 buspirone 10 mg PO BID 12/12/17 09/07/20 clonazepam 1 mg PO TID PRN 12/12/17 09/07/20 lisinopril 20 mg PO QAM 12/12/17 09/07/20 magnesium 250 mg PO HS 12/12/17 09/01/20 meloxicam 15 mg PO DAILY PRN 12/12/17 09/07/20 mirtazapine 30 mg PO HS 12/12/17 09/07/20 potassium 99 mg PO QPM 12/12/17 09/01/20 acetaminophen [Tylenol Extra 1,000 mg PO Q6H PRN 09/30/18 09/01/20 Strength] ibuprofen [Advil] 200 - 400 mg PO UD PRN 10/09/18 09/01/20 baclofen 10 mg PO BID PRN 10/15/18 09/07/20 metformin 500 mg PO BID 10/15/18 09/01/20 gabapentin 300 mg capsule 300 mg PO TID 01/19/19 09/07/20 propranolol 10 mg PO TID 01/09/20 09/07/20 albuterol sulfate 2 puff INHALATION Q4 PRN 09/01/20 09/07/20 galcanezumab-gnlm [Emgality Pen] 120 mg SUBCUT MONTHLY 09/01/20 09/07/20 hydroxyzine pamoate 25 mg PO BID PRN 09/01/20 09/07/20 ondansetron 4 mg PO Q8 PRN 09/01/20 09/07/20 vortioxetine [Trintellix] 50 mg PO DAILY 09/01/20 09/01/20 Cbd Medic Active Sport Pain Relief 0 applic TOPICAL UD 09/07/20 09/07/20 Deep Muscle Rub Previous Rx's Medication Instructions Recorded methylphenidate HCl 10 mg tablet 10 mg PO BID #60 tab 08/26/20 sulfamethoxazole-trimethoprim 1 tab PO Q12H 7 Days #14 tab 09/01/20 [Bactrim DS] Results & Data (ED) Vital Signs Vital Signs - 24 hr 09/07/20 08:03 09/07/20 08:14 09/07/20 08:30 Temperature Temperature Source Pulse Rate 98 H 66 Pulse Rate [Apical] Pulse Rate from SpO2 Sensor 67 Respiratory Rate 10 L 11 L Respiratory Effort / Characteristics Non-Labored Respiratory Depth Normal Respiratory Pattern Irregular Blood Pressure 95/43 L 97/41 L Blood Pressure Mean 60 59 Blood Pressure Position Lying Pulse Oximetry 94 94 100 Oxygen Delivery Method Room Air Mechanical Vent Fraction of Inspired Oxygen Sepsis Recent Fever Within 48 Hours No Sepsis New/Unexplained Change in Mental Status No Sepsis Action Taken by Nursing No Action Required End-Tidal CO2 09/07/20 08:31 09/07/20 08:39 09/07/20 08:40 Temperature Temperature Source Pulse Rate 94 H 98 H 96 H Pulse Rate [Apical] Pulse Rate from SpO2 Sensor 94 H 97 H Respiratory Rate 20 Respiratory Effort / Characteristics Respiratory Depth Respiratory Pattern Blood Pressure 128/78 124/87 Blood Pressure Mean 94 99 Blood Pressure Position Pulse Oximetry 100 100 100 Oxygen Delivery Method Fraction of Inspired Oxygen 40 Sepsis Recent Fever Within 48 Hours Sepsis New/Unexplained Change in Mental Status Sepsis Action Taken by Nursing End-Tidal CO2 32 25 09/07/20 08:50 09/07/20 08:56 09/07/20 09:00 Temperature Temperature Source Pulse Rate 90 101 H Pulse Rate [Apical] 98 H Pulse Rate from SpO2 Sensor 91 H 99 H Respiratory Rate 20 Respiratory Effort / Characteristics Spontaneous Respiratory Depth Respiratory Pattern Blood Pressure 136/82 142/80 H Blood Pressure Mean 100 100 Blood Pressure Position Pulse Oximetry 98 100 98 Oxygen Delivery Method Mechanical Vent Fraction of Inspired Oxygen 40 Sepsis Recent Fever Within 48 Hours Sepsis New/Unexplained Change in Mental Status Sepsis Action Taken by Nursing End-Tidal CO2 31 27 09/07/20 09:30 09/07/20 09:40 09/07/20 09:50 Temperature Temperature Source Pulse Rate 85 81 70 Pulse Rate [Apical] Pulse Rate from SpO2 Sensor 87 83 70 Respiratory Rate Respiratory Effort / Characteristics Respiratory Depth Respiratory Pattern Blood Pressure 135/61 Blood Pressure Mean 85 Blood Pressure Position Pulse Oximetry 98 100 100 Oxygen Delivery Method Fraction of Inspired Oxygen Sepsis Recent Fever Within 48 Hours Sepsis New/Unexplained Change in Mental Status Sepsis Action Taken by Nursing End-Tidal CO2 29 26 28 09/07/20 10:01 09/07/20 10:10 09/07/20 10:40 Temperature 35.4 C L Temperature Source Pulse Rate 68 65 94 H Pulse Rate [Apical] Pulse Rate from SpO2 Sensor 68 65 Respiratory Rate 24 Respiratory Effort / Characteristics Respiratory Depth Respiratory Pattern Blood Pressure 132/73 120/64 Blood Pressure Mean 92 82 Blood Pressure Position Pulse Oximetry 100 100 100 Oxygen Delivery Method Fraction of Inspired Oxygen 40 Sepsis Recent Fever Within 48 Hours Sepsis New/Unexplained Change in Mental Status Sepsis Action Taken by Nursing End-Tidal CO2 28 27 26 09/07/20 12:04 Temperature 35.8 C L Temperature Source Temporal Artery Scan Pulse Rate Pulse Rate [Apical] Pulse Rate from SpO2 Sensor Respiratory Rate Respiratory Effort / Characteristics Respiratory Depth Respiratory Pattern Blood Pressure Blood Pressure Mean Blood Pressure Position Pulse Oximetry Oxygen Delivery Method Fraction of Inspired Oxygen Sepsis Recent Fever Within 48 Hours Sepsis New/Unexplained Change in Mental Status Sepsis Action Taken by Nursing End-Tidal CO2 Home Medications Current Medication List: was personally reviewed by me Laboratory Data Attestation: I reviewed the patient's lab results. Result diagrams: 09/07/20 08:20 09/07/20 08:20 Lab Results 09/07/20 09/07/20 09/07/20 Range/Units 08:20 08:20 08:20 WBC 8.26 (4.8-10.8) K/uL RBC 4.77 (4.2-5.4) M/uL Hgb 14.5 (12.0-16.0) g/dL POC Hgb (12.0-16.0) g/dl Hct 43.4 (37-47) % POC Hct (37-47) % MCV 91.0 (80-100) fL MCH 30.4 (25-34) pg MCHC 33.4 (32-36) g/dL RDW Std Deviation 49.6 H (36.4-46.3) fL RDW Coeff of Derrick 14.6 H (11.5-14.5) % Plt Count 282 (130-400) K/uL MPV 10.1 (7.4-10.4) fL Immature Gran % (Auto) 0.2 % Neut % (Auto) 48.6 % Lymph % (Auto) 42.7 % [place] % (Auto) 6.4 % Eos % (Auto) 1.9 % Baso % (Auto) 0.2 % Neut # (Auto) 4.00 (1.4-6.5) K/uL Lymph # (Auto) 3.53 H (1.2-3.4) K/uL [place] # (Auto) 0.53 (0.11-0.59) K/uL Eos # (Auto) 0.16 (0-0.5) K/uL Baso # (Auto) 0.02 (0-0.2) K/uL Immature Gran # (Auto) 0.02 (0.00-0.02) K/uL POC pH (7.35-7.45) POC pCO2 (35-46) mmHg POC pO2 (80-95) mmHg POC HCO3 (19-24) angela/L POC Base Excess (-9-1.8) angela/L POC ABG O2 Sat (90-95) % POC Sodium (135-144) mmol/L Sodium 134 L (136-145) mmol/L POC Potassium (3.3-5.0) mmol/L Potassium 4.5 (3.5-5.1) mmol/L POC Chloride (101-112) mmol/L Chloride 106 (98-107) mmol/L Carbon Dioxide 18 L (21-32) mmol/L POC Total CO2 (24-31) mmol/L Anion Gap 10.0 (3-11) POC Anion Gap (16-25) mmol/L POC BUN (7-18) mg/dl BUN 33 H (7-18) mg/dl Creatinine 2.99 H (0.6-1.2) mg/dl POC Creatinine (0.6-1.3) mg/dl Est Cr Clr Drug Dosing 32.7 ml/min Est GFR ( Amer) 21.0 ml/min Est GFR (Non-Af Amer) 18.1 ml/min BUN/Creatinine Ratio 10.9 (10-20) Glucose 395 H* (70-99) mg/dl POC Glucose (70-99) mg/dl POC Glucose (other) (70-99) mg/dl Osmolality (280-300) mOsm/kg Lactate (0.4-2.0) mmol/L Calcium 9.4 (8.5-10.1) mg/dl POC Ioniz Calcium Mamie (1.12-1.32) mmol/l Magnesium 2.0 (1.8-2.4) mg/dl Total Bilirubin 0.2 (0.2-1) mg/dl AST 17 (15-37) U/L ALT 34 (12-78) U/L Alkaline Phosphatase 106 (45-117) U/L Ammonia (11-32) umol/L Total Creatine Kinase 114 (26-192) U/L Total Protein 7.1 (6.4-8.2) gm/dl Albumin 3.4 (3.4-5.0) gm/dl Globulin 3.7 (2.5-4.0) gm/dl Albumin/Globulin Ratio 0.9 (0.9-2) Beta-Hydroxybutyric Acd (0.2-2.81) mg/dl Procalcitonin < 0.05 (0-0.5) ng/ml TSH 1.540 (0.300-4.500) uIu/ml Specimen Hemolysis Urine Color Urine Appearance (Clear) Urine pH (4.5-7.5) Ur Specific [place] (1.000-1.030) Urine Protein (Negative) Urine Glucose (UA) (Negative) Urine Ketones (Negative) Urine Blood (Negative) Urine Nitrite (Negative) Urine Bilirubin (Negative) Urine Urobilinogen (Negative) Ur Leukocyte Esterase (Negative) Urine WBC (Auto) (0-5) /hpf Urine RBC (Auto) (0-4) /hpf U Hyaline Cast (Auto) (0-5) /lpf U Epithel Cells (Auto) (0-5) /lpf Urine Bacteria (Auto) (Negative) Urine Crystals Calcium Oxalate Crystal (None Prsent) Urine Mucus (None Prsent) Urine Opiates Screen (Neg) Ur Methadone, Qual (Neg) Urine Barbiturates (Neg) Ur Phencyclidine (PCP) (Neg) U Amphetamin/Meth Scrn (Neg) MDMA (Ecstasy) Screen (Neg) U Benzodiazepines Scrn (Neg) Ur Cocaine Metabolite (Neg) U Marijuana (THC) Screen (Neg) Ethyl Alcohol mg/dL (0-3) mg/dl COVID-19 Eval Order SARS-CoV-2 (PCR) (Negative) 09/07/20 09/07/20 09/07/20 Range/Units 08:25 08:40 08:45 WBC (4.8-10.8) K/uL RBC (4.2-5.4) M/uL Hgb (12.0-16.0) g/dL POC Hgb 14.6 (12.0-16.0) g/dl Hct (37-47) % POC Hct 43 (37-47) % MCV (80-100) fL MCH (25-34) pg MCHC (32-36) g/dL RDW Std Deviation (36.4-46.3) fL RDW Coeff of Derrick (11.5-14.5) % Plt Count (130-400) K/uL MPV (7.4-10.4) fL Immature Gran % (Auto) % Neut % (Auto) % Lymph % (Auto) % [place] % (Auto) % Eos % (Auto) % Baso % (Auto) % Neut # (Auto) (1.4-6.5) K/uL Lymph # (Auto) (1.2-3.4) K/uL [place] # (Auto) (0.11-0.59) K/uL Eos # (Auto) (0-0.5) K/uL Baso # (Auto) (0-0.2) K/uL Immature Gran # (Auto) (0.00-0.02) K/uL POC pH 7.20 L (7.35-7.45) POC pCO2 45 (35-46) mmHg POC pO2 222 H (80-95) mmHg POC HCO3 18 L (19-24) angela/L POC Base Excess -11.0 L (-9-1.8) angela/L POC ABG O2 Sat 100.0 H (90-95) % POC Sodium 135 (135-144) mmol/L Sodium (136-145) mmol/L POC Potassium 4.6 (3.3-5.0) mmol/L Potassium (3.5-5.1) mmol/L POC Chloride 106 (101-112) mmol/L Chloride (98-107) mmol/L Carbon Dioxide (21-32) mmol/L POC Total CO2 19 L 19 L (24-31) mmol/L Anion Gap (3-11) POC Anion Gap 16.0 (16-25) mmol/L POC BUN 32 H (7-18) mg/dl BUN (7-18) mg/dl Creatinine (0.6-1.2) mg/dl POC Creatinine 3.2 H (0.6-1.3) mg/dl Est Cr Clr Drug Dosing ml/min Est GFR ( Amer) ml/min Est GFR (Non-Af Amer) ml/min BUN/Creatinine Ratio (10-20) Glucose (70-99) mg/dl POC Glucose (70-99) mg/dl POC Glucose (other) 426 H* (70-99) mg/dl Osmolality (280-300) mOsm/kg Lactate (0.4-2.0) mmol/L Calcium (8.5-10.1) mg/dl POC Ioniz Calcium Mamie 1.26 (1.12-1.32) mmol/l Magnesium (1.8-2.4) mg/dl Total Bilirubin (0.2-1) mg/dl AST (15-37) U/L ALT (12-78) U/L Alkaline Phosphatase (45-117) U/L Ammonia (11-32) umol/L Total Creatine Kinase (26-192) U/L Total Protein (6.4-8.2) gm/dl Albumin (3.4-5.0) gm/dl Globulin (2.5-4.0) gm/dl Albumin/Globulin Ratio (0.9-2) Beta-Hydroxybutyric Acd (0.2-2.81) mg/dl Procalcitonin (0-0.5) ng/ml TSH (0.300-4.500) uIu/ml Specimen Hemolysis Urine Color Dark Yellow Urine Appearance Cloudy A (Clear) Urine pH 5.0 (4.5-7.5) Ur Specific [place] 1.023 (1.000-1.030) Urine Protein 1+ H (Negative) Urine Glucose (UA) 3+ H (Negative) Urine Ketones 1+ H (Negative) Urine Blood Negative (Negative) Urine Nitrite Negative (Negative) Urine Bilirubin 2+ H (Negative) Urine Urobilinogen Negative (Negative) Ur Leukocyte Esterase Negative (Negative) Urine WBC (Auto) 1-5 (0-5) /hpf Urine RBC (Auto) 0-4 (0-4) /hpf U Hyaline Cast (Auto) 5-10 H (0-5) /lpf U Epithel Cells (Auto) >30 H (0-5) /lpf Urine Bacteria (Auto) 1+ H (Negative) Urine Crystals Not Reportable Calcium Oxalate Crystal Present A (None Prsent) Urine Mucus Present A (None Prsent) Urine Opiates Screen (Neg) Ur Methadone, Qual (Neg) Urine Barbiturates (Neg) Ur Phencyclidine (PCP) (Neg) U Amphetamin/Meth Scrn (Neg) MDMA (Ecstasy) Screen (Neg) U Benzodiazepines Scrn (Neg) Ur Cocaine Metabolite (Neg) U Marijuana (THC) Screen (Neg) Ethyl Alcohol mg/dL (0-3) mg/dl COVID-19 Eval Order SARS-CoV-2 (PCR) (Negative) 09/07/20 09/07/20 09/07/20 Range/Units 08:45 09:42 09:47 WBC (4.8-10.8) K/uL RBC (4.2-5.4) M/uL Hgb (12.0-16.0) g/dL POC Hgb (12.0-16.0) g/dl Hct (37-47) % POC Hct (37-47) % MCV (80-100) fL MCH (25-34) pg MCHC (32-36) g/dL RDW Std Deviation (36.4-46.3) fL RDW Coeff of Derrick (11.5-14.5) % Plt Count (130-400) K/uL MPV (7.4-10.4) fL Immature Gran % (Auto) % Neut % (Auto) % Lymph % (Auto) % [place] % (Auto) % Eos % (Auto) % Baso % (Auto) % Neut # (Auto) (1.4-6.5) K/uL Lymph # (Auto) (1.2-3.4) K/uL [place] # (Auto) (0.11-0.59) K/uL Eos # (Auto) (0-0.5) K/uL Baso # (Auto) (0-0.2) K/uL Immature Gran # (Auto) (0.00-0.02) K/uL POC pH (7.35-7.45) POC pCO2 (35-46) mmHg POC pO2 (80-95) mmHg POC HCO3 (19-24) angela/L POC Base Excess (-9-1.8) angela/L POC ABG O2 Sat (90-95) % POC Sodium (135-144) mmol/L Sodium (136-145) mmol/L POC Potassium (3.3-5.0) mmol/L Potassium (3.5-5.1) mmol/L POC Chloride (101-112) mmol/L Chloride (98-107) mmol/L Carbon Dioxide (21-32) mmol/L POC Total CO2 (24-31) mmol/L Anion Gap (3-11) POC Anion Gap (16-25) mmol/L POC BUN (7-18) mg/dl BUN (7-18) mg/dl Creatinine (0.6-1.2) mg/dl POC Creatinine (0.6-1.3) mg/dl Est Cr Clr Drug Dosing ml/min Est GFR ( Amer) ml/min Est GFR (Non-Af Amer) ml/min BUN/Creatinine Ratio (10-20) Glucose (70-99) mg/dl POC Glucose 394 H* (70-99) mg/dl POC Glucose (other) (70-99) mg/dl Osmolality (280-300) mOsm/kg Lactate (0.4-2.0) mmol/L Calcium (8.5-10.1) mg/dl POC Ioniz Calcium Mamie (1.12-1.32) mmol/l Magnesium (1.8-2.4) mg/dl Total Bilirubin (0.2-1) mg/dl AST (15-37) U/L ALT (12-78) U/L Alkaline Phosphatase (45-117) U/L Ammonia 28.0 (11-32) umol/L Total Creatine Kinase (26-192) U/L Total Protein (6.4-8.2) gm/dl Albumin (3.4-5.0) gm/dl Globulin (2.5-4.0) gm/dl Albumin/Globulin Ratio (0.9-2) Beta-Hydroxybutyric Acd (0.2-2.81) mg/dl Procalcitonin (0-0.5) ng/ml TSH (0.300-4.500) uIu/ml Specimen Hemolysis Urine Color Urine Appearance (Clear) Urine pH (4.5-7.5) Ur Specific [place] (1.000-1.030) Urine Protein (Negative) Urine Glucose (UA) (Negative) Urine Ketones (Negative) Urine Blood (Negative) Urine Nitrite (Negative) Urine Bilirubin (Negative) Urine Urobilinogen (Negative) Ur Leukocyte Esterase (Negative) Urine WBC (Auto) (0-5) /hpf Urine RBC (Auto) (0-4) /hpf U Hyaline Cast (Auto) (0-5) /lpf U Epithel Cells (Auto) (0-5) /lpf Urine Bacteria (Auto) (Negative) Urine Crystals Calcium Oxalate Crystal (None Prsent) Urine Mucus (None Prsent) Urine Opiates Screen Neg (Neg) Ur Methadone, Qual Neg (Neg) Urine Barbiturates Neg (Neg) Ur Phencyclidine (PCP) Neg (Neg) U Amphetamin/Meth Scrn Neg (Neg) MDMA (Ecstasy) Screen Neg (Neg) U Benzodiazepines Scrn Neg (Neg) Ur Cocaine Metabolite Neg (Neg) U Marijuana (THC) Screen Pos H (Neg) Ethyl Alcohol mg/dL (0-3) mg/dl COVID-19 Eval Order SARS-CoV-2 (PCR) (Negative) 09/07/20 09/07/20 09/07/20 Range/Units 09:48 09:49 10:09 WBC (4.8-10.8) K/uL RBC (4.2-5.4) M/uL Hgb (12.0-16.0) g/dL POC Hgb (12.0-16.0) g/dl Hct (37-47) % POC Hct (37-47) % MCV (80-100) fL MCH (25-34) pg MCHC (32-36) g/dL RDW Std Deviation (36.4-46.3) fL RDW Coeff of Derrick (11.5-14.5) % Plt Count (130-400) K/uL MPV (7.4-10.4) fL Immature Gran % (Auto) % Neut % (Auto) % Lymph % (Auto) % [place] % (Auto) % Eos % (Auto) % Baso % (Auto) % Neut # (Auto) (1.4-6.5) K/uL Lymph # (Auto) (1.2-3.4) K/uL [place] # (Auto) (0.11-0.59) K/uL Eos # (Auto) (0-0.5) K/uL Baso # (Auto) (0-0.2) K/uL Immature Gran # (Auto) (0.00-0.02) K/uL POC pH (7.35-7.45) POC pCO2 (35-46) mmHg POC pO2 (80-95) mmHg POC HCO3 (19-24) angela/L POC Base Excess (-9-1.8) angela/L POC ABG O2 Sat (90-95) % POC Sodium (135-144) mmol/L Sodium (136-145) mmol/L POC Potassium (3.3-5.0) mmol/L Potassium (3.5-5.1) mmol/L POC Chloride (101-112) mmol/L Chloride (98-107) mmol/L Carbon Dioxide (21-32) mmol/L POC Total CO2 (24-31) mmol/L Anion Gap (3-11) POC Anion Gap (16-25) mmol/L POC BUN (7-18) mg/dl BUN (7-18) mg/dl Creatinine (0.6-1.2) mg/dl POC Creatinine (0.6-1.3) mg/dl Est Cr Clr Drug Dosing ml/min Est GFR ( Amer) ml/min Est GFR (Non-Af Amer) ml/min BUN/Creatinine Ratio (10-20) Glucose (70-99) mg/dl POC Glucose (70-99) mg/dl POC Glucose (other) (70-99) mg/dl Osmolality (280-300) mOsm/kg Lactate 0.3 L (0.4-2.0) mmol/L Calcium (8.5-10.1) mg/dl POC Ioniz Calcium Mamie (1.12-1.32) mmol/l Magnesium (1.8-2.4) mg/dl Total Bilirubin (0.2-1) mg/dl AST (15-37) U/L ALT (12-78) U/L Alkaline Phosphatase (45-117) U/L Ammonia (11-32) umol/L Total Creatine Kinase (26-192) U/L Total Protein (6.4-8.2) gm/dl Albumin (3.4-5.0) gm/dl Globulin (2.5-4.0) gm/dl Albumin/Globulin Ratio (0.9-2) Beta-Hydroxybutyric Acd 10.00 H (0.2-2.81) mg/dl Procalcitonin (0-0.5) ng/ml TSH (0.300-4.500) uIu/ml Specimen Hemolysis Urine Color Urine Appearance (Clear) Urine pH (4.5-7.5) Ur Specific [place] (1.000-1.030) Urine Protein (Negative) Urine Glucose (UA) (Negative) Urine Ketones (Negative) Urine Blood (Negative) Urine Nitrite (Negative) Urine Bilirubin (Negative) Urine Urobilinogen (Negative) Ur Leukocyte Esterase (Negative) Urine WBC (Auto) (0-5) /hpf Urine RBC (Auto) (0-4) /hpf U Hyaline Cast (Auto) (0-5) /lpf U Epithel Cells (Auto) (0-5) /lpf Urine Bacteria (Auto) (Negative) Urine Crystals Calcium Oxalate Crystal (None Prsent) Urine Mucus (None Prsent) Urine Opiates Screen (Neg) Ur Methadone, Qual (Neg) Urine Barbiturates (Neg) Ur Phencyclidine (PCP) (Neg) U Amphetamin/Meth Scrn (Neg) MDMA (Ecstasy) Screen (Neg) U Benzodiazepines Scrn (Neg) Ur Cocaine Metabolite (Neg) U Marijuana (THC) Screen (Neg) Ethyl Alcohol mg/dL < 3.0 (0-3) mg/dl COVID-19 Eval Order SARS-CoV-2 (PCR) (Negative) 0709/07/20 09/07/20 Range/Units 10:10 10:33 10:46 WBC (4.8-10.8) K/uL RBC (4.2-5.4) M/uL Hgb (12.0-16.0) g/dL POC Hgb (12.0-16.0) g/dl Hct (37-47) % POC Hct (37-47) % MCV (80-100) fL MCH (25-34) pg MCHC (32-36) g/dL RDW Std Deviation (36.4-46.3) fL RDW Coeff of Derrick (11.5-14.5) % Plt Count (130-400) K/uL MPV (7.4-10.4) fL Immature Gran % (Auto) % Neut % (Auto) % Lymph % (Auto) % [place] % (Auto) % Eos % (Auto) % Baso % (Auto) % Neut # (Auto) (1.4-6.5) K/uL Lymph # (Auto) (1.2-3.4) K/uL [place] # (Auto) (0.11-0.59) K/uL Eos # (Auto) (0-0.5) K/uL Baso # (Auto) (0-0.2) K/uL Immature Gran # (Auto) (0.00-0.02) K/uL POC pH 7.23 L (7.35-7.45) POC pCO2 33 L (35-46) mmHg POC pO2 101 H (80-95) mmHg POC HCO3 14 L (19-24) angela/L POC Base Excess -14.0 L (-9-1.8) angela/L POC ABG O2 Sat 97.0 H (90-95) % POC Sodium (135-144) mmol/L Sodium (136-145) mmol/L POC Potassium (3.3-5.0) mmol/L Potassium (3.5-5.1) mmol/L POC Chloride (101-112) mmol/L Chloride (98-107) mmol/L Carbon Dioxide (21-32) mmol/L POC Total CO2 15 L (24-31) mmol/L Anion Gap (3-11) POC Anion Gap (16-25) mmol/L POC BUN (7-18) mg/dl BUN (7-18) mg/dl Creatinine (0.6-1.2) mg/dl POC Creatinine (0.6-1.3) mg/dl Est Cr Clr Drug Dosing ml/min Est GFR ( Amer) ml/min Est GFR (Non-Af Amer) ml/min BUN/Creatinine Ratio (10-20) Glucose (70-99) mg/dl POC Glucose 329 H* (70-99) mg/dl POC Glucose (other) (70-99) mg/dl Osmolality 311 H (280-300) mOsm/kg Lactate (0.4-2.0) mmol/L Calcium (8.5-10.1) mg/dl POC Ioniz Calcium Mamie (1.12-1.32) mmol/l Magnesium (1.8-2.4) mg/dl Total Bilirubin (0.2-1) mg/dl AST (15-37) U/L ALT (12-78) U/L Alkaline Phosphatase (45-117) U/L Ammonia (11-32) umol/L Total Creatine Kinase (26-192) U/L Total Protein (6.4-8.2) gm/dl Albumin (3.4-5.0) gm/dl Globulin (2.5-4.0) gm/dl Albumin/Globulin Ratio (0.9-2) Beta-Hydroxybutyric Acd (0.2-2.81) mg/dl Procalcitonin (0-0.5) ng/ml TSH (0.300-4.500) uIu/ml Specimen Hemolysis Urine Color Urine Appearance (Clear) Urine pH (4.5-7.5) Ur Specific [place] (1.000-1.030) Urine Protein (Negative) Urine Glucose (UA) (Negative) Urine Ketones (Negative) Urine Blood (Negative) Urine Nitrite (Negative) Urine Bilirubin (Negative) Urine Urobilinogen (Negative) Ur Leukocyte Esterase (Negative) Urine WBC (Auto) (0-5) /hpf Urine RBC (Auto) (0-4) /hpf U Hyaline Cast (Auto) (0-5) /lpf U Epithel Cells (Auto) (0-5) /lpf Urine Bacteria (Auto) (Negative) Urine Crystals Calcium Oxalate Crystal (None Prsent) Urine Mucus (None Prsent) Urine Opiates Screen (Neg) Ur Methadone, Qual (Neg) Urine Barbiturates (Neg) Ur Phencyclidine (PCP) (Neg) U Amphetamin/Meth Scrn (Neg) MDMA (Ecstasy) Screen (Neg) U Benzodiazepines Scrn (Neg) Ur Cocaine Metabolite (Neg) U Marijuana (THC) Screen (Neg) Ethyl Alcohol mg/dL (0-3) mg/dl COVID-19 Eval Order SARS-CoV-2 (PCR) (Negative) 09/07/20 09/07/20 09/07/20 Range/Units 10:55 10:55 11:43 WBC (4.8-10.8) K/uL RBC (4.2-5.4) M/uL Hgb (12.0-16.0) g/dL POC Hgb (12.0-16.0) g/dl Hct (37-47) % POC Hct (37-47) % MCV (80-100) fL MCH (25-34) pg MCHC (32-36) g/dL RDW Std Deviation (36.4-46.3) fL RDW Coeff of Derrick (11.5-14.5) % Plt Count (130-400) K/uL MPV (7.4-10.4) fL Immature Gran % (Auto) % Neut % (Auto) % Lymph % (Auto) % [place] % (Auto) % Eos % (Auto) % Baso % (Auto) % Neut # (Auto) (1.4-6.5) K/uL Lymph # (Auto) (1.2-3.4) K/uL [place] # (Auto) (0.11-0.59) K/uL Eos # (Auto) (0-0.5) K/uL Baso # (Auto) (0-0.2) K/uL Immature Gran # (Auto) (0.00-0.02) K/uL POC pH (7.35-7.45) POC pCO2 (35-46) mmHg POC pO2 (80-95) mmHg POC HCO3 (19-24) angela/L POC Base Excess (-9-1.8) angela/L POC ABG O2 Sat (90-95) % POC Sodium (135-144) mmol/L Sodium (136-145) mmol/L POC Potassium (3.3-5.0) mmol/L Potassium (3.5-5.1) mmol/L POC Chloride (101-112) mmol/L Chloride (98-107) mmol/L Carbon Dioxide (21-32) mmol/L POC Total CO2 (24-31) mmol/L Anion Gap (3-11) POC Anion Gap (16-25) mmol/L POC BUN (7-18) mg/dl BUN (7-18) mg/dl Creatinine (0.6-1.2) mg/dl POC Creatinine (0.6-1.3) mg/dl Est Cr Clr Drug Dosing ml/min Est GFR ( Amer) ml/min Est GFR (Non-Af Amer) ml/min BUN/Creatinine Ratio (10-20) Glucose (70-99) mg/dl POC Glucose 290 H (70-99) mg/dl POC Glucose (other) (70-99) mg/dl Osmolality (280-300) mOsm/kg Lactate (0.4-2.0) mmol/L Calcium (8.5-10.1) mg/dl POC Ioniz Calcium Mamie (1.12-1.32) mmol/l Magnesium (1.8-2.4) mg/dl Total Bilirubin (0.2-1) mg/dl AST (15-37) U/L ALT (12-78) U/L Alkaline Phosphatase (45-117) U/L Ammonia (11-32) umol/L Total Creatine Kinase (26-192) U/L Total Protein (6.4-8.2) gm/dl Albumin (3.4-5.0) gm/dl Globulin (2.5-4.0) gm/dl Albumin/Globulin Ratio (0.9-2) Beta-Hydroxybutyric Acd (0.2-2.81) mg/dl Procalcitonin (0-0.5) ng/ml TSH (0.300-4.500) uIu/ml Specimen Hemolysis Urine Color Urine Appearance (Clear) Urine pH (4.5-7.5) Ur Specific [place] (1.000-1.030) Urine Protein (Negative) Urine Glucose (UA) (Negative) Urine Ketones (Negative) Urine Blood (Negative) Urine Nitrite (Negative) Urine Bilirubin (Negative) Urine Urobilinogen (Negative) Ur Leukocyte Esterase (Negative) Urine WBC (Auto) (0-5) /hpf Urine RBC (Auto) (0-4) /hpf U Hyaline Cast (Auto) (0-5) /lpf U Epithel Cells (Auto) (0-5) /lpf Urine Bacteria (Auto) (Negative) Urine Crystals Calcium Oxalate Crystal (None Prsent) Urine Mucus (None Prsent) Urine Opiates Screen (Neg) Ur Methadone, Qual (Neg) Urine Barbiturates (Neg) Ur Phencyclidine (PCP) (Neg) U Amphetamin/Meth Scrn (Neg) MDMA (Ecstasy) Screen (Neg) U Benzodiazepines Scrn (Neg) Ur Cocaine Metabolite (Neg) U Marijuana (THC) Screen (Neg) Ethyl Alcohol mg/dL (0-3) mg/dl COVID-19 Eval Order Covid19 at [facility] SARS-CoV-2 (PCR) NEGATIVE (Negative) Administered Medications Insulin Human Regular 250 (units/ Sodium Chloride) 250 mls @ 8 mls/hr IV .Q24H [facility]; Protocol Stop: 10/07/20 08:59 Last Titration: 09/07/20 10:44 Dose: 8 units/hr, 8 mls/hr Documented by: [id number] Cosigned by: [id number] Admin: 09/07/20 09:44 Dose: 10 units/hr, 10 mls/hr Documented by: [id number] Cosigned by: [id number] Propofol (Diprivan) 1,000 mg in 100 mls @ 14.676 mls/hr IV .Q6H49M [facility]; Protocol Stop: 09/10/20 09:14 Last Titration: 09/07/20 11:15 Dose: 20 mcg/kg/min, 14.7 mls/hr Documented by: [id number] Titration: 09/07/20 09:50 Dose: 15 mcg/kg/min, 11 mls/hr Documented by: [id number] Titration: 09/07/20 09:35 Dose: 10 mcg/kg/min, 7.3 mls/hr Documented by: [id number] Admin: 09/07/20 09:20 Dose: 5 mcg/kg/min, 3.7 mls/hr Documented by: [id number] Cosigned by: [id number] Discontinued Medications Albuterol (Albut/Ipratrop 3mg/0.5mg Neb 3 Ml Vial) 3 ml NEB NOW STA Stop: 09/07/20 08:33 Last Admin: 09/07/20 08:42 Dose: 3 ml Documented by: [id number] Sodium Chloride (Nss 1000ml) 1,000 mls @ 999 mls/hr IV .Q1H1M ONE Stop: 09/07/20 09:29 Last Infusion: 09/07/20 09:55 Dose: 0 mls/hr Documented by: [id number] Admin: 09/07/20 08:51 Dose: 999 mls/hr Documented by: [id number] Sodium Chloride (Nss 1000ml) 1,000 mls @ 999 mls/hr IV .Q1H1M ONE Stop: 09/07/20 09:35 Last Infusion: 09/07/20 09:55 Dose: 0 mls/hr Documented by: [id number] Admin: 09/07/20 08:51 Dose: 999 mls/hr Documented by: [id number] Ceftriaxone Sodium (Rocephin) 2,000 mg in 70 mls @ 140 mls/hr IV NOW STA Stop: 09/07/20 10:30 Last Infusion: 09/07/20 11:08 Dose: 0 mls/hr Documented by: [id number] Admin: 09/07/20 10:38 Dose: 140 mls/hr Documented by: [id number] Insulin Human Regular (Novolin-R Bolus From Bag) 10 units IV ONE ONE Stop: 09/07/20 09:00 Last Admin: 09/07/20 09:44 Dose: 10 units Documented by: [id number] Cosigned by: [id number] Miscellaneous (Rapid Sequence Induction Bag) Confirm Administered Dose 1 ea .ROUTE .STK-MED ONE Stop: 09/07/20 08:21 Last Admin: 09/07/20 08:53 Dose: 1 ea Documented by: [id number] Naloxone HCl (Naloxone Hcl 0.4 Mg/1 Ml Vial/Carp) Confirm Administered Dose 0.4 mg .ROUTE .STK-MED ONE Stop: 09/07/20 08:15 Last Admin: 09/07/20 08:14 Dose: 0.4 mg Documented by: [id number] Naloxone HCl (Naloxone Hcl 0.4 Mg/1 Ml Vial/Carp) 0.4 mg IV NOW STA Stop: 09/07/20 08:31 Last Admin: 09/07/20 08:52 Dose: Not Given Documented by: [id number] Rocuronium [place] (Rocuronium [place] 10 Mg/Ml 5 Ml Vial) 70 mg IV NOW STA Stop: 09/07/20 08:33 Last Admin: 09/07/20 08:52 Dose: 70 mg Documented by: [id number] Cosigned by: [id number] Sodium Bicarbonate (Sodium Bicarb 8.4% Inj 50 Meq/50 Ml Syr) 50 meq IV NOW STA Stop: 09/07/20 10:37 Last Admin: 09/07/20 11:02 Dose: 50 meq Documented by: [id number] Imaging Data Radiologist's Impression: Chest X-Ray 09/07/20 08:28 XR chest 1V portable CLINICAL HISTORY: intubation COMPARISON STUDY: No previous studies for comparison. FINDINGS: No pneumothorax. No pleural effusion. Lung volumes are decreased with crowded lung markings. No large infiltrates or consolidative lesions are seen. Cardiomediastinal silhouette is prominent. No significant pulmonary vascular congestion.. Osseous structures: Degenerative changes of the spine. Interval placement of endotracheal tube with tip seen at the level of francesco. IMPRESSION: 1. Endotracheal tube tip is at the level of francesco. Pull back approximately 3 cm is recommended. Findings were sent to the patient's unit at the time of this dictation. ACT 112: Negative or not required by law. The above report was generated using voice recognition software. It may contain grammatical, syntax or spelling errors. Electronically signed by: Maria De Jesus Anderson DO 09/07/2020 8:[address] 09/07/20 08:30 CT head/brain wo con CLINICAL HISTORY: altered COMPARISON STUDY: February 05, 2018. TECHNIQUE: Axial CT of the brain is performed from the vertex to the skull base. IV contrast was not administered for this examination. A dose lowering technique was utilized adhering to the principles of ALARA. CT DOSE: FINDINGS: No acute intracranial hemorrhage, no midline shift or space occupying lesions. Munoz-white matter differentiation is preserved. Stable focal lacunar infarct is seen within the right basal ganglia which is unchanged since prior study in 2018. Ventricles are midline, of normal size and configuration. No acute depressed skull fracture seen. Visualized paranasal sinuses and mastoid air cells are patent and well-aerated. IMPRESSION: 1. No acute intracranial hemorrhage, no midline shift or space occupying lesions. 2. Stable old lacunar infarct within the right basal ganglia. ACT 112: Negative or not required by law. The above report was generated using voice recognition software. It may contain grammatical, syntax or spelling errors. Electronically signed by: Maria De Jesus Anderson DO 09/07/2020 9:45 AM Abdomen/Pelvis CT 09/07/20 08:33 CT SCAN OF THE ABDOMEN AND PELVIS WITHOUT CONTRAST CLINICAL HISTORY: poss hydro COMPARISON STUDY: September 01, 2020 TECHNIQUE: CT scan of the abdomen and pelvis was performed from the lung bases to the proximal femurs. Images are reviewed in the axial, sagittal, and coronal planes. IV contrast was not administered for this examination. A dose lowering technique was utilized adhering to the principles of ALARA. CT DOSE: 2730.30 mGy.cm FINDINGS: Lower chest: Interval worsening of atelectasis at dependent portions of bilateral lower lobe. Possible new infiltrates /pneumonia within left lower lobe. Liver: Diffuse decrease in attenuation of liver parenchyma is seen without evidence of focal lesions or intrahepatic biliary dilatation. Previously seen hypoattenuating lesion within left lobe of the liver is not visualized on current exam likely due to lack of IV contrast. Overall evaluation is limited due to beam hardening artifact from overlying patient's arm and patient body habitus. Gallbladder: Unremarkable. Spleen: Normal in size and attenuation. Pancreas: Unremarkable. Adrenal glands: Unremarkable. Kidneys: The unenhanced kidneys are normal in size without hydronephrosis. Stable small left renal cyst is unchanged since prior study performed 2 days ago. No renal calculi are identified. Bowel: The small bowel and colon are normal in course and caliber. Gastric tube is seen with tip terminating within stomach lumen. Appendix is not well seen. Collapsed distal large bowel. There is minimal fat stranding is seen surrounding colonic loop within splenic flexure (5/125) which might represent developing colitis. Peritoneum: There is no intraperitoneal free air or abdominal ascites. Vasculature: The abdominal aorta is normal in course and caliber. Adenopathy: None. Pelvic viscera: Urinary bladder is partially decompressed with Coe balloon within its lumen. Uterus is normal in size with mild fluid prominence of its cavity. Skeletal structures: Minimal degenerative changes of the spine. IMPRESSION: 1. Possible new infiltrate within left lower lobe which might represent pneumonia. Please correlate above-mentioned findings with clinical presentation of pulmonary infectious process. Findings were called to patient's unit at the time of this dictation. 2. Mild fat stranding surrounding focal loop of large bowel within splenic flexure which might represent developing colitis. 3. No hydronephrosis or nephrolithiasis. 4. Hepatic steatosis. ACT 112: Negative or not required by law. The above report was generated using voice recognition software. It may contain grammatical, syntax or spelling errors. Electronically signed by: Maria De Jesus Anderson DO 09/07/2020 9:58 AM Chest X-Ray 09/07/20 08:54 XR chest 1V portable CLINICAL HISTORY: s/p tube adjustment COMPARISON STUDY: September 07, 2020 at 18:15 hours FINDINGS: Tip of endotracheal tube projecting 0.7 cm above francesco. Interval placement of gastric tube, tip and fenestrated side-port is not included in field of view and appear to be below level of the left hemidiaphragm. The rest of findings aren't changed since recent prior. IMPRESSION: 1. Tip of endotracheal tube is projecting 0.7 cm above francesco. Please note that ideal position of ET tube is 3 to 5 cm above francesco. 2. Interval placement of gastric tube, tip and fenestrated side-port are not visualized and appear to be below level of the left hemidiaphragm. 3. The rest of findings aren't changed since recent prior study performed 20 minutes prior. ACT 112: Negative or not required by law. The above report was generated using voice recognition software. It may contain grammatical, syntax or spelling errors. Electronically signed by: Maria De Jesus Anderson DO 09/07/2020 9:09 AM Discharge Plan Visit Data Chief Complaint: Unresponsive Stated Complaint: UNRESPONSIVE ED Provider: Juanito Cabello Discharge Problem: Unresponsive state, Acidosis, Acute hyperglycemia, DEANGELO (acute kidney injury), Pneumonia, Hypothermia Patient Disposition: Admitted As Inpatient Condition: Serious Forms Stand Alone Forms: My Digital [employer] Prescriptions Prescriptions: No Action methylphenidate HCl 10 mg tablet 10 mg PO BID Qty: 60 RF: 0 gabapentin 300 mg capsule 300 mg PO TID RF: 0 clonazepam 1 mg tablet 1 mg PO TID PRN (Reason: Anxiety) RF: 0 amitriptyline 25 mg tablet 50 mg PO HS RF: 0 buspirone 10 mg tablet 10 mg PO BID RF: 0 meloxicam 15 mg tablet 15 mg PO DAILY PRN (Reason: Pain) RF: 0 lisinopril 20 mg tablet 20 mg PO QAM RF: 0 potassium 99 mg Tablet 99 mg PO QPM RF: 0 mirtazapine 30 mg tablet 30 mg PO HS RF: 0 magnesium 250 mg Tablet 250 mg PO HS RF: 0 acetaminophen [Tylenol Extra Strength] 500 mg Tablet 1,000 mg PO Q6H PRN (Reason: Pain) RF: 0 baclofen 10 mg tablet 10 mg PO BID PRN (Reason: Muscle Spasm) RF: 0 propranolol 10 mg tablet 10 mg PO TID RF: 0 ibuprofen [Advil] 200 mg Tablet 200 - 400 mg PO UD PRN (Reason: Pain) RF: 0 metformin 500 mg tablet extended release 24 hr 500 mg PO BID RF: 0 Cbd Medic Active Sport Pain Relief Deep Muscle Rub 0 applic topical UD RF: 0 hydroxyzine pamoate 25 mg capsule 25 mg PO BID PRN (Reason: Anxiety) RF: 0 Emgality Pen 120 mg/mL pen injector 120 mg SUBCUT MONTHLY RF: 0 ondansetron 4 mg tablet,disintegrating 4 mg PO Q8 PRN (Reason: nausea and vomiting) RF: 0 albuterol sulfate 90 mcg/actuation HFA aerosol inhaler 2 puff INHALATION Q4 PRN (Reason: cough/wheeze) RF: 0 Trintellix 20 mg Tablet 50 mg PO DAILY RF: 0 sulfamethoxazole-trimethoprim [Bactrim DS] 800-160 mg tablet 1 tab PO Q12H 7 Days Qty: 14 RF: 0 Referrals Referrals: John Erazo MD [Primary Care Provider] - Discharge Problem: Pneumonia Qualifiers: Pneumonia type: due to unspecified organism Laterality: left Lung location: lower lobe of lung Qualified Code(s): J18.9 - Pneumonia, unspecified organism Hypothermia Qualifiers: Encounter type: initial encounter Qualified Code(s): T68.XXXA - Hypothermia, initial encounter
[2020-09-07 08:47] LABS: Basophils # (auto) 0.02 K/uL (0-0.2); Basophils % (auto) 0.2 %; Eosinophils # (auto) 0.16 K/uL (0-0.5); Eosinophils % (auto) 1.9 %; Hematocrit (blood only) 43.4 % (37-47); Hemoglobin 14.5 g/dL (12.0-16.0); Immature Granulocytes # (auto) 0.02 K/uL (0.00-0.02); Immature Granulocytes % (auto) 0.2 %; Lymphocytes # (auto) 3.53 K/uL (1.2-3.4); Lymphocytes % (auto) 42.7 %; Mean Corpuscular Hemoglobin 30.4 pg (25-34); Mean Corpuscular Hgb Conc 33.4 g/dL (32-36); Mean Platelet Volume 10.1 fL (7.4-10.4); Monocytes # (auto) 0.53 K/uL (0.11-0.59); Monocytes % (auto) 6.4 %; Neutrophils % (auto) 48.6 %; Platelet Count 282 K/uL (130-400); RDW Coefficient of Variation 14.6 % (11.5-14.5); RDW Standard Deviation 49.6 fL (36.4-46.3); Red Blood Count 4.77 M/uL (4.2-5.4); White Blood Count 8.26 K/uL (4.8-10.8)
[2020-09-07] MEDS ORDERED: CARBOHYDRATES FOR HYPOGLYCEMIA PO PRN (08:52)
[2020-09-07] MEDS ORDERED: HHS GOAL RANGE 250-350 mg/dl ONE (08:52)
[2020-09-07] MEDS ORDERED: DEXTROSE 50% 50 ML SYRINGE IV PRN (08:52)
[2020-09-07] MEDS ORDERED: STAT IV Infusion **Titration per Protocol STA ×2 (08:52→20:27)
[2020-09-07] MEDS ORDERED: GLUCAGON FOR INJ 1 MG VIAL SQ PRN (08:52)
[2020-09-07] MEDS ORDERED: GLUCOSE 40% GEL 15 GM TUBE PO PRN (08:52)
[2020-09-07] MEDS ORDERED: GLUCOSE 10 TABS/TUBE PO PRN (08:52)
[2020-09-07 08:55] LABS: iSTAT Arterial Blood Gas HCO3 18 meg/L (19-24); iSTAT Arterial Blood Gas pCO2 45 mmHg (35-46); iSTAT Arterial Blood Gas pO2 222 mmHg (80-95); iSTAT Carbon Dioxide 19 mmol/L (24-31)
[2020-09-07] MEDS ORDERED: NovoLIN-R BOLUS FROM BAG IV ONE (08:59)
[2020-09-07] MEDS ORDERED: INSULIN REGULAR 250 UNITS in SODIUM CHLORIDE 0.9% 247.5 ML IV SCH ×2 (09:00→13:38)
--- NOTE | 2020-09-07 09:10 | XRay Report ---
XR chest 1V portable CLINICAL HISTORY: s/p tube adjustment COMPARISON STUDY: September 07, 2020 at 18:15 hours FINDINGS: Tip of endotracheal tube projecting 0.7 cm above francesco. Interval placement of gastric tube, tip and fenestrated side-port is not included in field of view an d appear to be below level of the left hemidiaphragm. The rest of findings aren't changed since recent prior. IMPRESSION: 1. Tip of endotracheal tube is projecting 0.7 cm above francesco. Please note that ideal position of ET tube is 3 to 5 cm above francesco. 2. Interval placement of gastric tube, tip and fenestrated side-port are not visualized and appear t o be below level of the left hemidiaphragm. 3. The rest of findings aren't changed since recent prior study performed 20 minutes prior. ACT 112: Negative or not required by law. The above report was generated using voice recognition software. It may contain grammatical, syntax o r spelling errors. Electronically signed by: Maria De Jesus Anderson DO 09/07/2020 9:09 AM
[2020-09-07 09:19] LABS: Albumin Level 3.4 gm/dl (3.4-5.0); BUN Creatinine Ratio 10.9 (10-20); Calcium 9.4 mg/dl (8.5-10.1); Creatinine Clr Calc Pharmacy 32.7 ml/min; Est GFR (Non-African American) 18.1 ml/min; Potassium 4.5 mmol/L (3.5-5.1)
[2020-09-07] MEDS: propofoL 1,000 MG/100 ML VIAL IV SCH ×4 (09:20→23:51)
[2020-09-07 09:22] LABS: Appearance Urine Cloudy (Clear); Blood Urine Negative (Negative); Color Urine Dark Yellow; Epithelial Cell Urine Auto >30 /lpf (0-5); Glucose Urine UA 3+ (Negative); Ketones Urine 1+ (Negative); Leukocyte Esterase Urine Negative (Negative); Nitrite Urine Negative (Negative); Protein Urine 1+ (Negative); RBC Urine Automated 0-4 /hpf (0-4); Specific Gravity Urine 1.023 (1.000-1.030); Urobilinogen Urine Negative (Negative)
[2020-09-07 09:34] LABS: Bilirubin Urine 2+ (Negative)
[2020-09-07 09:38] LABS: Albumin Globulin Ratio 0.9 (0.9-2); Bilirubin,Total 0.2 mg/dl (0.2-1); Globulin 3.7 gm/dl (2.5-4.0); Thyroid Stimulating Hormone 1.54 uIu/ml (0.300-4.500); Total Protein 7.1 gm/dl (6.4-8.2)
[2020-09-07 09:39] LABS: Amphetamines+Metham, Urine Neg (Neg); Barbiturates, Urine Neg (Neg); Benzodiazepine, Urine Neg (Neg); Cocaine, Urine Neg (Neg); MDMA (Ecstacy), Urine Neg (Neg); Methadone, Urine Neg (Neg); Opiate, Urine Neg (Neg); Phencyclidine, Urine Neg (Neg)
[2020-09-07 09:42] LABS: Mucus Urine Present (None Prsent)
[2020-09-07 09:43] LABS: Bacteria Urine Automated 1+ (Negative); Calcium Oxalate Crystals Urine Present (None Prsent)
--- NOTE | 2020-09-07 09:46 | CT Scan Report ---
CT head/brain wo con CLINICAL HISTORY: altered COMPARISON STUDY: February 05, 2018. TECHNIQUE: Axial CT of the brain is performed from the vertex to the skull base. IV contrast was not administered for this examination. A dose lowering technique was utilized adhering to the principles of ALARA. CT DOSE: FINDINGS: No acute intracranial hemorrhage, no midline shift or space occupying lesions. Munoz-white matter differentiation is preserved. Stable focal lacunar infarct is seen within the right basal ganglia which is unchanged since prior st udy in 2018. Ventricles are midline, of normal size and configuration. No acute depressed skull fracture seen. Visualized paranasal sinuses and mastoid air cells are patent and well-aerated. IMPRESSION: 1. No acute intracranial hemorrhage, no midline shift or space occupying lesions. 2. Stable old lacunar infarct within the right basal ganglia. ACT 112: Negative or not required by law. The above report was generated using voice recognition software. It may contain grammatical, syntax o r spelling errors. Electronically signed by: Maria De Jesus Anderson DO 09/07/2020 9:45 AM
--- NOTE | 2020-09-07 09:59 | CT Scan Report ---
CT SCAN OF THE ABDOMEN AND PELVIS WITHOUT CONTRAST CLINICAL HISTORY: poss hydro COMPARISON STUDY: September 01, 2020 TECHNIQUE: CT scan of the abdomen and pelvis was performed from the lung bases to the proximal femurs . Images are reviewed in the axial, sagittal, and coronal planes. IV contrast was not administered fo r this examination. A dose lowering technique was utilized adhering to the principles of ALARA. CT DOSE: 2730.30 mGy.cm FINDINGS: Lower chest: Interval worsening of atelectasis at dependent portions of bilateral lower lobe. Possibl e new infiltrates /pneumonia within left lower lobe. Liver: Diffuse decrease in attenuation of liver parenchyma is seen without evidence of focal lesions or intrahepatic biliary dilatation. Previously seen hypoattenuating lesion within left lobe of the liver is not visualized on current exa m likely due to lack of IV contrast. Overall evaluation is limited due to beam hardening artifact from overlying patient's arm and patient body habitus. Gallbladder: Unremarkable. Spleen: Normal in size and attenuation. Pancreas: Unremarkable. Adrenal glands: Unremarkable. Kidneys: The unenhanced kidneys are normal in size without hydronephrosis. Stable small left renal cyst is unchanged since prior study performed 2 days ago. No renal calculi ar e identified. Bowel: The small bowel and colon are normal in course and caliber. Gastric tube is seen with tip term inating within stomach lumen. Appendix is not well seen. Collapsed distal large bowel. There is minim al fat stranding is seen surrounding colonic loop within splenic flexure (5/125) which might represen t developing colitis. Peritoneum: There is no intraperitoneal free air or abdominal ascites. Vasculature: The abdominal aorta is normal in course and caliber. Adenopathy: None. Pelvic viscera: Urinary bladder is partially decompressed with Coe balloon within its lumen. Uterus is normal in size with mild fluid prominence of its cavity. Skeletal structures: Minimal degenerative changes of the spine. IMPRESSION: 1. Possible new infiltrate within left lower lobe which might represent pneumonia. Please correlate above-mentioned findings with clinical presentation of pulmonary infectious process. Findings were ca lled to patient's unit at the time of this dictation. 2. Mild fat stranding surrounding focal loop of large bowel within splenic flexure which might repre sent developing colitis. 3. No hydronephrosis or nephrolithiasis. 4. Hepatic steatosis. ACT 112: Negative or not required by law. The above report was generated using voice recognition software. It may contain grammatical, syntax o r spelling errors. Electronically signed by: Maria De Jesus Anderson DO 09/07/2020 9:58 AM
[2020-09-07] MEDS ORDERED: cefTRIAXone SODIUM 2,000 MG/70 ML BAG IV STA (10:01)
--- NOTE | 2020-09-07 10:26 | History & Physical Report ---
Date of Service September 07, 2020 Assessment & Plan (1) Unresponsive state: (2) DEANGELO (acute kidney injury): (3) Pneumonia: (4) Acute hyperglycemia: (5) Hypothermia: (6) Diabetes mellitus, type 2: (7) Hypertension: (8) Depression: (9) Anxiety: Pt intubated and to ICU See Dr Bradley Addendum for Assessment and Plan History of Present Illness Chief Complaint: unresponsive Primary Care Provider: John Erazo MD Pt is 45 y/o F with PMH DM II, HTN, HLD, depression, anxiety, fibromyalgia, narcolepsy, h/o kidney stone, tobacco use presented to ER as was found unresponsive this morning by mother. Pt lives with mother. History obtained from patient's mother and chart review. Mother reports that patient with underlying anxiety however the past week has been increasingly anxious, worried about her BSG's. Patient with history ER visit 09/01/2020 for polyuria, polydipsia, flank pain. Was found to have hyperglycemia. During the ER visit no leukocytosis, BSG 510 and was started on IV insulin, negative troponin, UA negative, had CTA negative for PE, CT abdomen pelvis without stone or obstruction. Patient was discharged home on Bactrim for possible UTI/pyelonephritis. Patient's mother reports that patient stopped drinking soda. Patient's sister reports that she had noted that she was not eating well because she was worried about raising her blood sugars, however past several days did resume eating. Other reports last night patient reported she was not feeling well and ate dinner and vomited after dinner. She also reports that she had diarrhea. Patient with history of overdose in the past. Mother is concerned that she may have taken too many medications, but is uncertain as patient manages her own medications. Mother is unaware if patient using recreational drugs or alcohol. When EMS arrived patient was found to have dilated pupils, not responding to sternal rub, snoring respirations, oxygen saturations reported okay, SBP 70s- 90s, BSG 400s and patient was transferred to ER. In ER patient was unresponsive with snoring respirations and minimally responsive to sternal rub and patient was intubated. CT abdomen pelvis with possible new infiltrate within left lower lobe and mild fat stranding surrounding focal loop of large bowel within splenic flexure which might represent developing colitis. No leukocytosis, ABG: pH: 7.2, pCO2: 45, pO2: 222, HCO3: 18. Glucose: 395, BUN: 33, Cr: 2.99 urine drug tox positive marijuana. Negative COVID-19 PCR. In ER was given to dudley PEREA, Rocephin 2 g IV, started on insulin drip. Allergies Allergy/AdvReac Type Severity Reaction Status Date / Time amoxicillin Allergy Intermediate RASH Verified 09/01/20 20:26 Penicillins Allergy Intermediate RASH TO Verified 09/01/20 20:26 AMOXIL Home Medications Medication Instructions Recorded Confirmed Type amitriptyline 50 mg PO HS 12/12/17 09/07/20 History buspirone 10 mg PO BID 12/12/17 09/07/20 History clonazepam 1 mg PO TID PRN 12/12/17 09/07/20 History lisinopril 20 mg PO QAM 12/12/17 09/07/20 History magnesium 250 mg PO HS 12/12/17 09/01/20 History meloxicam 15 mg PO DAILY PRN 12/12/17 09/07/20 History mirtazapine 30 mg PO HS 12/12/17 09/07/20 History potassium 99 mg PO QPM 12/12/17 09/01/20 History acetaminophen [Tylenol Extra 1,000 mg PO Q6H PRN 09/30/18 09/01/20 History Strength] ibuprofen [Advil] 200 - 400 mg PO UD PRN 10/09/18 09/01/20 History baclofen 10 mg PO BID PRN 10/15/18 09/07/20 History metformin 500 mg PO BID 10/15/18 09/01/20 History gabapentin 300 mg capsule 300 mg PO TID 01/19/19 09/07/20 History propranolol 10 mg PO TID 01/09/20 09/07/20 History methylphenidate HCl 10 mg tablet 10 mg PO BID #60 tab 08/26/20 09/07/20 Rx albuterol sulfate 2 puff INHALATION Q4 PRN 09/01/20 09/07/20 History galcanezumab-gnlm [Emgality Pen] 120 mg SUBCUT MONTHLY 09/01/20 09/07/20 History hydroxyzine pamoate 25 mg PO BID PRN 09/01/20 09/07/20 History ondansetron 4 mg PO Q8 PRN 09/01/20 09/07/20 History sulfamethoxazole-trimethoprim 1 tab PO Q12H 7 Days #14 tab 09/01/20 09/07/20 Rx [Bactrim DS] vortioxetine [Trintellix] 50 mg PO DAILY 09/01/20 09/01/20 History Cbd Medic Active Sport Pain Relief 0 applic TOPICAL UD 09/07/20 09/07/20 History Deep Muscle Rub Past Med/Surg History Medical History (Updated 09/07/20 @ 12:31 by Torrie Tomlinson PA-C) Anxiety Chronic back pain Depression Diabetes mellitus, type 2 Fibromyalgia Heroin abuse ?? per pt she "tried it once and freaked out and came to the ER" Hyperlipidemia Hypertension Kidney stones Morbid obesity with BMI of 45.0-49.9, adult Narcolepsy Narcolepsy Osteoarthritis Surgical History H/O lithotripsy x3 History of colonoscopy History of laparoscopy History of tooth extraction all teeth removed Family History Father Family history of diabetes mellitus Diabetes Cancer Mother Family hx colonic polyps Hypertension Grandmother Hypertension Other No family history of adverse response to anesthesia Social History Smoking Status: Current every day smoker Tobacco Type: Cigarettes Cigarettes Per Day: 1ppd; Second Hand Exposure: Yes (parents smoked); Hx Alcohol Use: No Hx Substance Use: Yes (was addicted to painkillers but nothing for 2 yrs) Last Used Substance Other:: went to rehab 2 yrs ago on methadone--has not been on anything for 2 yrs Substance Use Type Other:: "tried heroin once and then went to the ER" Preferred Language: Montserratian Communication Ability: Effective First Beater Required: No Beliefs That Will Affect Care: None marital status: Single Current Living Situation: Parent and Family Current Living Situation Comment: Lives with mom and 11 yr old son Feels Safe at Home: Yes Assistive Devices: Cane, Denture - Upper, Denture - Lower and Glasses Review of Systems Review of Systems: Unobtainable due to endotracheal tube Physical Exam Physical Exam: General: +intubated, on propofol, not responsive; obese female Head: normocephalic, atraumatic Eyes: pupils minimally responsive to light, conjunctiva non-injected, anicteric ENT: normal inspection external ears, nose, mucous membranes dry Neck: supple, trachea midline Lungs: +intubated, appears clear to anterior auscultation CV: bradycardia P: 56, regular rhythm no murmur, no pretibial edema Abd: protuberant, normal BS, soft, unable to assess if tenderness to palpation Ext: no cyanosis, no erythema Neuro: Currently intubated and not responsive Skin: warm, dry Results & Data Results & Data ([facility]) Vital Signs (Past 12 Hours) Vital Signs Temp Pulse Pulse Resp BP Pulse Ox 09/07/20 10:10 65 120/64 100 09/07/20 10:01 35.4 C L 68 132/73 100 09/07/20 09:50 70 135/61 100 09/07/20 09:40 81 100 09/07/20 09:30 85 98 09/07/20 09:00 101 H 142/80 H 98 09/07/20 08:56 98 H 20 100 09/07/20 08:50 90 136/82 98 09/07/20 08:40 96 H 124/87 100 09/07/20 08:39 98 H 20 100 09/07/20 08:31 94 H 128/78 100 09/07/20 08:30 100 09/07/20 08:14 66 11 L 97/41 L 94 09/07/20 08:03 98 H 10 L 95/43 L 94 Laboratory Results Short CBC 09/07/20 Range/Units 08:20 WBC 8.26 (4.8-10.8) K/uL Hgb 14.5 (12.0-16.0) g/dL Hct 43.4 (37-47) % Plt Count 282 (130-400) K/uL BMP 09/07/20 08:20 Sodium 134 L Potassium 4.5 Chloride 106 Carbon Dioxide 18 L BUN 33 H Creatinine 2.99 H Glucose 395 H* Calcium 9.4 Cardiac Enzymes 09/07/20 Range/Units 08:20 Total Creatine Kinase 114 (26-192) U/L Liver Function 09/07/20 Range/Units 08:20 Total Bilirubin 0.2 (0.2-1) mg/dl AST 17 (15-37) U/L ALT 34 (12-78) U/L Alkaline Phosphatase 106 (45-117) U/L Albumin 3.4 (3.4-5.0) gm/dl Urine 09/07/20 Range/Units 08:45 Urine Color Dark Yellow Urine Appearance Cloudy A (Clear) Urine pH 5.0 (4.5-7.5) Ur Specific Nelson 1.023 (1.000-1.030) Urine Protein 1+ H (Negative) Urine Glucose (UA) 3+ H (Negative) Diagnostic Findings Chest X-Ray 09/07/20 08:28 XR chest 1V portable CLINICAL HISTORY: intubation COMPARISON STUDY: No previous studies for comparison. FINDINGS: No pneumothorax. No pleural effusion. Lung volumes are decreased with crowded lung markings. No large infiltrates or consolidative lesions are seen. Cardiomediastinal silhouette is prominent. No significant pulmonary vascular congestion.. Osseous structures: Degenerative changes of the spine. Interval placement of endotracheal tube with tip seen at the level of francesco. IMPRESSION: 1. Endotracheal tube tip is at the level of francesco. Pull back approximately 3 cm is recommended. Findings were sent to the patient's unit at the time of this dictation. ACT 112: Negative or not required by law. The above report was generated using voice recognition software. It may contain grammatical, syntax or spelling errors. Electronically signed by: Maria De Jesus Anderson DO 09/07/2020 8:[address] 09/07/20 08:30 CT head/brain wo con CLINICAL HISTORY: altered COMPARISON STUDY: February 05, 2018. TECHNIQUE: Axial CT of the brain is performed from the vertex to the skull base. IV contrast was not administered for this examination. A dose lowering technique was utilized adhering to the principles of ALARA. CT DOSE: FINDINGS: No acute intracranial hemorrhage, no midline shift or space occupying lesions. Munoz-white matter differentiation is preserved. Stable focal lacunar infarct is seen within the right basal ganglia which is unchanged since prior study in 2018. Ventricles are midline, of normal size and configuration. No acute depressed skull fracture seen. Visualized paranasal sinuses and mastoid air cells are patent and well-aerated. IMPRESSION: 1. No acute intracranial hemorrhage, no midline shift or space occupying lesions. 2. Stable old lacunar infarct within the right basal ganglia. ACT 112: Negative or not required by law. The above report was generated using voice recognition software. It may contain grammatical, syntax or spelling errors. Electronically signed by: Maria De Jesus Anderson DO 09/07/2020 9:45 AM Abdomen/Pelvis CT 09/07/20 08:33 CT SCAN OF THE ABDOMEN AND PELVIS WITHOUT CONTRAST CLINICAL HISTORY: poss hydro COMPARISON STUDY: September 01, 2020 TECHNIQUE: CT scan of the abdomen and pelvis was performed from the lung bases to the proximal femurs. Images are reviewed in the axial, sagittal, and coronal planes. IV contrast was not administered for this examination. A dose lowering technique was utilized adhering to the principles of ALARA. CT DOSE: 2730.30 mGy.cm FINDINGS: Lower chest: Interval worsening of atelectasis at dependent portions of bilateral lower lobe. Possible new infiltrates /pneumonia within left lower lobe. Liver: Diffuse decrease in attenuation of liver parenchyma is seen without evidence of focal lesions or intrahepatic biliary dilatation. Previously seen hypoattenuating lesion within left lobe of the liver is not visualized on current exam likely due to lack of IV contrast. Overall evaluation is limited due to beam hardening artifact from overlying patient's arm and patient body habitus. Gallbladder: Unremarkable. Spleen: Normal in size and attenuation. Pancreas: Unremarkable. Adrenal glands: Unremarkable. Kidneys: The unenhanced kidneys are normal in size without hydronephrosis. Stable small left renal cyst is unchanged since prior study performed 2 days ago. No renal calculi are identified. Bowel: The small bowel and colon are normal in course and caliber. Gastric tube is seen with tip terminating within stomach lumen. Appendix is not well seen. Collapsed distal large bowel. There is minimal fat stranding is seen surrounding colonic loop within splenic flexure (5/125) which might represent developing colitis. Peritoneum: There is no intraperitoneal free air or abdominal ascites. Vasculature: The abdominal aorta is normal in course and caliber. Adenopathy: None. Pelvic viscera: Urinary bladder is partially decompressed with Coe balloon within its lumen. Uterus is normal in size with mild fluid prominence of its cavity. Skeletal structures: Minimal degenerative changes of the spine. IMPRESSION: 1. Possible new infiltrate within left lower lobe which might represent pneumonia. Please correlate above-mentioned findings with clinical presentation of pulmonary infectious process. Findings were called to patient's unit at the time of this dictation. 2. Mild fat stranding surrounding focal loop of large bowel within splenic flexure which might represent developing colitis. 3. No hydronephrosis or nephrolithiasis. 4. Hepatic steatosis. ACT 112: Negative or not required by law. The above report was generated using voice recognition software. It may contain grammatical, syntax or spelling errors. Electronically signed by: Maria De Jesus Anderson DO 09/07/2020 9:58 AM Chest X-Ray 09/07/20 08:54 XR chest 1V portable CLINICAL HISTORY: s/p tube adjustment COMPARISON STUDY: September 07, 2020 at 18:15 hours FINDINGS: Tip of endotracheal tube projecting 0.7 cm above francesco. Interval placement of gastric tube, tip and fenestrated side-port is not included in field of view and appear to be below level of the left hemidiaphragm. The rest of findings aren't changed since recent prior. IMPRESSION: 1. Tip of endotracheal tube is projecting 0.7 cm above francesco. Please note that ideal position of ET tube is 3 to 5 cm above francesco. 2. Interval placement of gastric tube, tip and fenestrated side-port are not visualized and appear to be below level of the left hemidiaphragm. 3. The rest of findings aren't changed since recent prior study performed 20 minutes prior. ACT 112: Negative or not required by law. The above report was generated using voice recognition software. It may contain grammatical, syntax or spelling errors. Electronically signed by: Maria De Jesus Anderson DO 09/07/2020 9:09 AM Supervising Physician Co-Signing Physician Notes Date of Service: September 07, 2020 Attending addendum: Patient seen and examined, care coordinated with Isis Tomlinson PA-C This is a 45-year-old female with history of diabetes, anxiety disorder, prior history of substance abuse, history of drug overdose in the past. Was found unresponsive on the couch this morning by her mother, EMS was called,. Per EMS documentation, patient was unresponsive pupils were dilated, had a slow shallow breathing, hypotensive Patient intubated in ER for airway protection. Initial ABG showed metabolic acidosis with pH of 7.2 PO2 222 Bicarb 18 After 2 hours on vent, repeat ABG shows pH of 7.23/bicarb 14/ Suggestive of metabolic acidosis. Patient labs shows hyperglycemia with blood sugar more than 500, with negative anion gap. Normal white count, Acute renal failure with creatinine 2.9 Patient's mother, patient has been reporting increased thirst, polyuria, fatigue, poor appetite for past few days, Was recently seen at [facility] ER on 01 September for UTI, was di scharged home with Bactrim, patient also received contrast for CT chest to rule out PE Yesterday evening her blood sugar was significantly elevated 600?, Patient felt very ill, was nauseous, slept on the couch, this morning her mother try to arouse her to check her blood sugar, found her unresponsive, 9 1 was called Physical exam: General, obese female, intubated, unresponsive on vent HEENT, pupils minimally reactive Lungs: Diminished, with rales at the base Abdomen: Soft Extremity: No lower extremity edema or rash noted. Assessment and plan: Acute hypoxemic respiratory failure: Intubated for airway protection, patient was found comatose sedated, Rule out aspiration, Will be admitted to ICU Poorly controlled type 2 diabetes with hyperglycemia Was on Metformin, has been kept on hold for few days because of the contrast exposure Insulin drip will be continued, order for hemoglobin A1c, ICU glycemic protocol Possible UTI: UA positive Started on Rocephin in ER, patient is allergic to penicillin given rash Will be continued blood and urine culture Metabolic acidosis Multifactorial, hyperglycemia poorly controlled diabetes/dehydration volume depletion Patient was also recently treated with Bactrim, recent contrast exposure on 09/01/2020 For IV fluids, insulin drip Follow BMP closely, Acute renal failure Possible combination to above, recent lab on 09/01/2020 showed creatinine 1.31 Worsening of creatinine today 2.9 Baseline creatinine approximately 0.8 Continue IV fluids, nephrology consult if appropriate by critical care Follow labs, avoid NSAIDs and contrast studies History of drug abuse, urine tox positive for marijuana History of severe depression/anxiety, prior history of overdose Per family, patient's has been dealing with severe anxiety, possible utilizing m levi for that, Once patient's medically stable extubated, Prior to discharge, will have psych consult to address underlying anxiety, and medication adjustment if needed Full code DVT prophylaxis, subcu heparin Disposition patient is getting admitted to ICU Plan of care discussed with patient's family, mother and daughter present at bedside, (1) Hypothermia Encounter type: initial encounter Qualified Code(s): T68.XXXA - Hypothermia, initial encounter (2) Pneumonia Laterality: left Lung location: lower lobe of lung Pneumonia type: due to unspecified organism Qualified Code(s): J18.9 - Pneumonia, unspecified organism
--- NOTE | 2020-09-07 10:27 | Electrocardiogram Report ---
Test Reason : Blood Pressure : / mmHG Vent. Rate : 065 BPM Atrial Rate : 065 BPM P-R Int : 154 ms QRS Dur : 082 ms QT Int : 428 ms P-R-T Axes : 059 031 058 degrees QTc Int : 445 ms Normal sinus rhythm Low voltage QRS Borderline ECG When compared with ECG of 01-SEP-2020 19:44, Vent. rate has decreased BY 35 BPM Confirmed by Chaitanya Brumfield ([id number]) on 09/07/2020 10:26:53 AM Referred By: Confirmed By:Zeb Brumfield
[2020-09-07] MEDS ORDERED: SODIUM BICARB 8.4% INJ 50 MEQ/50 ML SYR IV STA (10:36)
[2020-09-07 10:45] LABS: iSTAT Arterial Blood Gas HCO3 14 meg/L (19-24); iSTAT Arterial Blood Gas pCO2 33 mmHg (35-46); iSTAT Arterial Blood Gas pH 7.23 (7.35-7.45); iSTAT Arterial Blood Gas pO2 101 mmHg (80-95); iSTAT Carbon Dioxide 15 mmol/L (24-31)
[2020-09-07] MEDS ORDERED: ICU PROTOCOL FOR HYPERGLYCEMIA PRN (10:45)
[2020-09-07] MEDS ORDERED: PHARMACY GLYCEMIC MGMT CONSULT STA (10:51)
--- NOTE | 2020-09-07 10:57 | Critical Care Consultation ---
Date of Consultation September 07, 2020 Assessment & Plan (1) Hyperglycemia due to type 2 diabetes mellitus: Reason Critically Ill: Anita is a 45-year-old female with a history of T2DM on Metformin, anxiety, depression, fibromyalgia, HLD, HTN, nephrolithiasis, narcolepsy, osteoarthritis, and reported h/o heroin use who presented to [facility] ER unresponsive, hypotensive, and hyperglycemic. She received emergent intubation in the ED and was subsequently transferred to the ICU for intensive hemodynamic monitoring and support. Neuro - Sedation: Propofol in setting of mechanical ventilation Analgesia: None. Encephalopathy * In setting of hyperglycemia, acidemia, and hypotension. There are no major electrolyte disturbances other than her BSG. Her UDS was notable for THC, otherwise negative. Head CT demonstrating old R BG infarct, but no acute processes. * Suspect etiology is likely metabolic in origin in setting of uncontrolled hyperglycemia, anorexia / decreased PO intake (w/ DEANGELO supportive of this) -- but also possibly contributing: - Possibly metabolic - nongap metabolic acidosis with concomitant respiratory acidosis - Possibly infectious - Splenic flexure stranding on CTAP noted * Continue mechanical ventilation * Consider LP if no improvement despite ongoing glycemic correction, ABX * Continue other treatments as below Cardiac - Hypotension * Apparently patient had SBPs 80-90s when found unresponsive by EMS -- on arrival 90/40s * In setting of DEANGELO, hyperglycemia, ?colitis (no hx available on this other than imaging findings at present) could possibly be due to hypovolemic shock? * Now resolved s/p 2L NSS -- did not require pressors. * Continue IVF in setting of resolving hyperglycemia -- Maintain Mg > 2, Phos > 3, K > 4 Respiratory - Ventilator-Dependent Respiratory Failure * Patient unable to protect airway upon arrival with unresponsive MS, subsequen tly intubated * ABG, lytes suggestive of nongap metabolic acidosis with concomitant respiratory acidosis (on arrival) * Already demonstrating signs of improvement on repeat ABG with increased pH and pCO2 -- by Winter's formula, patient is now within appreciable range for adequate respiratory compensation * Continue mechanical ventilation for now GI - * NG tube in place * Diet: NPO * See endocrine below RENAL/LYTES - Non-anion gap Metabolic Acidosis * On arrival, ABG demonstratin.20 / pCO2 45 / HCO3 18. AG 10. Albumin 3.4. BSG > 500. * This is suggestive of a non-anion gap metabolic acidosis and concomitant respiratory acidosis. * We will test urine lytes for further characterization of renal vs. GI etiology * Test: BHB, acetaminophen, salicylate, methanol, ethylene glycol * Demonstrating compensatory improvement on rABG -- 7.23 / pCO2 33 / HCO3 14 / sat 97% * Continue mechanical ventilation Acute Kidney Injury * Review of patient's chart demonstrating normalcy in kidney function through 2019 * Arrival BUN / Cr at 33 / 2.99 (ratio 10.9) * In setting of hyperglycemia, previous visit for polydipsia/polyuria on 09/01, HoTN on arrival, ?colitis, certainly could be sec to hypovolemia * Urine lytes, as above, for further evaluation of possible intrinsic cause too * No evidence of obstruction of pathology on CT-A/P involving urinary system * Continue IVF * Avoid nephrotoxic medications - * No acute needs at this time ENDO - Hyperglycemia in setting of known Type 2 Diabetes * BSG on arrival at >500, no AG, BHB level pending * Continue insulin gtt with q4h BMP checks * Continue intensive fluid management * A1c pending * Otherwise see renal and neurologic above HEME - * Morales H&H - will monitor ID - Radiologic Colitis * Mild splenic flexure fat stranding noted on CT-A/P, possibly suggestive of developing colitis * Unclear history of present -- will need to gather more information to see if there have been any symptoms over the preceding few days. Does seem to demonstrate +TTP on abdominal exam in L abdominal quadrants * Will cover for intraabdominal infections in the interim -- CFTX + Flagyl given PCN allergy No leukocytosis, fever noted on arrival. UA with +bacteria, but no WBCs, no LE/nitrites. +many epithelial cells. History of polyuria taken into account. Will await BCX. Await BCX Procal negative INTEGUMENTARY - No acute needs LINES/IV ACCESS - PIVs intact. ETT with MV DVT PROPHYLAXIS - Hep SQ Thank you for allowing us to be part of this patient's care. Please refer to Dr. Flores's documentation for any further recommendations. (2) Dehydration: (3) Acute UTI: (4) Acute right flank pain: (5) Degenerative arthritis of knee, bilateral: (6) Depression with anxiety: (7) Encounter for pre-operative examination: (8) Back pain: (9) Drug overdose, intentional: (10) Fibromyalgia: (11) Kidney stones: (12) Anxiety: Supervising Physician Co-Signing Physician Notes Dr. Peralta was the resident-physician during care of patient. I separately evaluated patient for davis portions of the history and the exam. I was present during the critical portion of medical decision making, and I discussed the case with the resident. I generally agree with the findings and plan except for any additions/exceptions noted. 45-year-old female with history of anxiety, depression, diabetes on Metformin, nephrolithiasis, narcolepsy diagnosed 1994, following up with Dr. Hoff.. History of heroin abuse presented to the hospital unresponsive and hypotensive. In the ED patient was found to have dilated pupils not responding to sternal rub, blood pressure systolic in the 70-90s, blood sugar in the 400s. Initial pH 7.2/45/222. Patient was subsequently intubated for airway protection. At the time of examination patient systolic blood pressure was in the 130. She was moving all extremities to pain. No purposeful movement Constitutional: No acute distress HEENT: Pupils dilated 6 mm, sluggish response Respiratory system: Decreased antibiotic, no wheeze, no rhonchi, mild crackles bilateral lower lobe CVS: S1-S2 positive, no murmurs or gallops Abdomen: Soft, nontender, nondistended, positive bowel sounds x4 Extremities: +2 pulses bilaterally radialis/ dorsalis pedis, no cyanosis, no edema Neuro: GCS 6 T, sluggish pupillary and corneal response positive gag Psych: Unable to assess G/U: Positive Coe Bedside Ultrasound: Lung: B-lines appreciated on the right side anteriorly and posteriorly, B-lines appreciated posteriorly on the left side. No pleural effusion Heart: Poor view, good EF, RVOT normal in size, no pericardial effusion. Abdomen: No ascites --Prophylaxis VTE: Heparin GI: Pepcid Lines: Peripheral Diet: N.p.o. Plan: Add anaerobic coverage with Rocephin given the very fat stranding at the spleen. No leukocytosis Continue with insulin Will give a dose of Narcan Follow-up urine osmolality, urine gap negative. Normal gap metabolic acidosis likely from diarrhea. We will send for stool culture Alcohol level negative Measured serum osmolality 311, calculated serum osmolality 302. No osmolar gap. Avoid nephrotoxic medications. Continue with patient's home methylphenidate for narcolepsy Patient's condition and status was discussed with patient's sister who was at bedside. I have personally spent 68 minutes of critical care time in the direct m anagement of this patient. This is a life/limb threatening event. This includes time spent evaluating patient, direct bedside care, chart review, placing orders, interpretation of diagnostic studies, discussion with consultants, patient, and/or family members regarding treatment decisions, as well as other required patient management activities. This time is exclusive of all separately billable procedures, and teaching time and separate from and in addition to any other critical care service time. History of Present Illness Attending Physician: Dr. Flores History of Present Illness Anita is a 45-year-old female with a history of anxiety, depression, T2DM on Metformin, fibromyalgia, HLD, HTN, nephrolithiasis, narcolepsy, osteoarthritis, and reported h/o heroin use who presented to [facility] unresponsive and hypotensive. Per chart review -- mother reported increased thirst, polyuria, fatigue, anorexia for last few days. Last night, patient felt ill and was nauseous, slept on couch. Unarousable this morning. EMS was called and found her to have snoring respirations, dilated pupils, and minimal response to pain. BSG approx. 400, HoTN 70-90s SBP. On review of her chart, she was here on 09/01 in the ER for +polydipsia and +polyuria. She was found to have BSG > 600. In ER also reported R flank pain and tenderness. Placed on IV insulin and fluids with good response. CT-A/P negative at the time for any sort of infectious source, e.g., pyelo or obstructing stone (patient has h/o nephrolithiasis) and, based on appearance at the time, did not seem to be a leading concern. Symptoms thought to be secondary to poorly controlled Type 2 DM, but was also discharged with short course of Bactrim to cover possible urinary infection, too. In ER: * Patient found to be unresponsive and with BSG 512 on arrival. Minimum T at 35.4C. Initial ABG demonstrating nongap metabolic acidosis w/ concurrent respiratory acidosis -- 7.20 / CO2 45 / HCO3 18. BMP with AG 10, DEANGELO (Cr 3/BUN 33). // No leukocytosis. Lactate 0.3. Procal 0.3. // BHB unobtainable initially d/t hemolysis. // UA with 1+ ketonuria, 1+ bacteria, no WBCs. // UDS +THC, otherwise negative. * CTH neg other than for old lacunar infarct in R BG / CT-A/P demonstrating LLL infiltrate, mild fat stranding around splenic flexure c/f colitis radiologically Therapeutically: * NSS bolus x 2 * naloxone x 1 * CFTX x 1 * Intubated sec to inability to protect airway, poor respiratory effort resulting in resp acidosis * placed on insulin gtt Upon arrival to ICU: Patient is obtunded an unable to respond to questions. She does not arouse to tactile or painful stimuli. HR 70s, BP 130s/70s. SpO2 100% on the vent. Otherwise as below. Allergies Allergy/AdvReac Type Severity Reaction Status Date / Time amoxicillin Allergy Intermediate RASH Verified 09/01/20 20:26 Penicillins Allergy Intermediate RASH TO Verified 09/01/20 20:26 AMOXIL Home Medications Medication Instructions Recorded Confirmed Type amitriptyline 50 mg PO HS 12/12/17 09/07/20 History buspirone 10 mg PO BID 12/12/17 09/07/20 History clonazepam 1 mg PO TID PRN 12/12/17 09/07/20 History lisinopril 20 mg PO QAM 12/12/17 09/07/20 History magnesium 250 mg PO HS 12/12/17 09/01/20 History meloxicam 15 mg PO DAILY PRN 12/12/17 09/07/20 History mirtazapine 30 mg PO HS 12/12/17 09/07/20 History potassium 99 mg PO QPM 12/12/17 09/01/20 History acetaminophen [Tylenol Extra 1,000 mg PO Q6H PRN 09/30/18 09/01/20 History Strength] ibuprofen [Advil] 200 - 400 mg PO UD PRN 10/09/18 09/01/20 History baclofen 10 mg PO BID PRN 10/15/18 09/07/20 History metformin 500 mg PO BID 10/15/18 09/01/20 History gabapentin 300 mg capsule 300 mg PO TID 01/19/19 09/07/20 History propranolol 10 mg PO TID 01/09/20 09/07/20 History methylphenidate HCl 10 mg tablet 10 mg PO BID #60 tab 08/26/20 09/07/20 Rx albuterol sulfate 2 puff INHALATION Q4 PRN 09/01/20 09/07/20 History galcanezumab-gnlm [Emgality Pen] 120 mg SUBCUT MONTHLY 09/01/20 09/07/20 History hydroxyzine pamoate 25 mg PO BID PRN 09/01/20 09/07/20 History ondansetron 4 mg PO Q8 PRN 09/01/20 09/07/20 History sulfamethoxazole-trimethoprim 1 tab PO Q12H 7 Days #14 tab 09/01/20 09/07/20 Rx [Bactrim DS] vortioxetine [Trintellix] 50 mg PO DAILY 09/01/20 09/01/20 History Cbd Medic Active Sport Pain Relief 0 applic TOPICAL UD 09/07/20 09/07/20 History Deep Muscle Rub Patient History Medical History (Updated 09/07/20 @ 12:31 by Torrie Tomlinson PA-C) Anxiety Chronic back pain Depression Diabetes mellitus, type 2 Fibromyalgia Heroin abuse ?? per pt she "tried it once and freaked out and came to the ER" Hyperlipidemia Hypertension Kidney stones Morbid obesity with BMI of 45.0-49.9, adult Narcolepsy Narcolepsy Osteoarthritis Surgical History H/O lithotripsy x3 History of colonoscopy History of laparoscopy History of tooth extraction all teeth removed Family History Father Family history of diabetes mellitus Diabetes Cancer Mother Family hx colonic polyps Hypertension Grandmother Hypertension Other No family history of adverse response to anesthesia Social History Smoking Status: Current every day smoker Tobacco Type: Cigarettes Cigarettes Per Day: 1ppd; Second Hand Exposure: Yes (parents smoked); Hx Alcohol Use: No Hx Substance Use: Yes Last Used Substance Other:: went to rehab 2 yrs ago on methadone--has not been on anything for 2 yrs Substance Use Type Other:: "tried heroin once and then went to the ER" Preferred Language: Palauan Communication Ability: Effective Novelty Dipper Required: Yes Beliefs That Will Affect Care: None marital status: Single Current Living Situation: Family Current Living Situation Comment: Lives with mom and 11 yr old son Feels Safe at Home: Yes Assistive Devices: Cane, Denture - Upper, Denture - Lower and Glasses Review of Systems Review of Systems: Unobtainable due to endotracheal tube and Unobtainable due to reduced consciousness Physical Exam Constitutional: + ill appearing, + diaphoretic and + mechanically ventilated obtunded Eyes: Pupils 6mm and non-reactive to light. Corneal reflex absent. Oculo- cephalic reflex absent. ENMT: Intubated. NG tube in place. Respiratory: Mechanically ventilated. Auscultation to the anterior chest is CTAB. Cardiovascular: NRRR, heart sounds distant. S1 and S2 present without significant m/r/g. Gastrointestinal (Abdomen): NABS. Does seem like patient withdrew to pain when palpating in the LUQ-LLQ, not on the right. No involuntary guarding. Skin: No observable rashes Neurologic: Does seem to respond to painful stimuli in abdomen - as above Absent pupillary, corneal, oculo-cephalic reflex, as above. Intermittent biting on ETT Muscles flaccid Results & Data Results & Data ([facility]) Vital Signs (Past 12 Hours) Vital Signs Temp Pulse Pulse Resp BP Pulse Ox 09/07/20 10:10 65 120/64 100 09/07/20 10:01 35.4 C L 68 132/73 100 09/07/20 09:50 70 135/61 100 09/07/20 09:40 81 100 09/07/20 09:30 85 98 09/07/20 09:00 101 H 142/80 H 98 09/07/20 08:56 98 H 20 100 09/07/20 08:50 90 136/82 98 09/07/20 08:40 96 H 124/87 100 09/07/20 08:39 98 H 20 100 09/07/20 08:31 94 H 128/78 100 09/07/20 08:30 100 09/07/20 08:14 66 11 L 97/41 L 94 09/07/20 08:03 98 H 10 L 95/43 L 94 09/07/20 08:20 Resident Activity Tracking Resident Involvement: Resident Care Provided Care Provided: Adult Hospital Medicine (1) Hyperglycemia due to type 2 diabetes mellitus Diabetes mellitus custodial insulin use: without custodial use Qualified Code(s): E11.65 - Type 2 diabetes mellitus with hyperglycemia
[2020-09-07] MEDS ORDERED: PHARMACY GLYCEMIC MGMT CONSULT SCH (11:15)
--- NOTE | 2020-09-07 11:32 | Communication Note ---
Date of Service: September 07, 2020 Attending addendum: Patient seen and examined, care coordinated with Isis Tomlinson PA-C This is a 45-year-old female with history of diabetes, anxiety disorder, prior history of substance abuse, history of drug overdose in the past. Was found unresponsive on the couch this morning by her mother, EMS was called,. Per EMS documentation, patient was unresponsive pupils were dilated, had a slow shallow breathing, hypotensive Patient intubated in ER for airway protection. Initial ABG showed metabolic acidosis with pH of 7.2 PO2 222 Bicarb 18 After 2 hours on vent, repeat ABG shows pH of 7.23/bicarb 14/ Suggestive of metabolic acidosis. Patient labs shows hyperglycemia with blood sugar more than 500, with negative anion gap. Normal white count, Acute renal failure with creatinine 2.9 Patient's mother, patient has been reporting increased thirst, polyuria, fatigu e, poor appetite for past few days, Was recently seen at [facility] ER on 01 September for UTI, was discharged home with Bactrim, patient also received contrast for CT chest to rule out PE Yesterday evening her blood sugar was significantly elevated 600?, Patient felt very ill, was nauseous, slept on the couch, this morning her mother try to arouse her to check her blood sugar, found her unresponsive, 9 1 was called Physical exam: General, obese female, intubated, unresponsive on vent HEENT, pupils minimally reactive Lungs: Diminished, with rales at the base Abdomen: Soft Extremity: No lower extremity edema or rash noted. Assessment and plan: Acute hypoxemic respiratory failure: Intubated for airway protection, patient was found comatose sedated, Rule out aspiration, Will be admitted to ICU Poorly controlled type 2 diabetes with hyperglycemia Was on Metformin, has been kept on hold for few days because of the contrast exposure Insulin drip will be continued, order for hemoglobin A1c, ICU glycemic protocol Possible UTI: UA positive Started on Rocephin in ER, patient is allergic to penicillin given rash Will be continued blood and urine culture Metabolic acidosis Multifactorial, hyperglycemia poorly controlled diabetes/dehydration volume depletion Patient was also recently treated with Bactrim, recent contrast exposure on 09/01/2020 For IV fluids, insulin drip Follow BMP closely, Acute renal failure Possible combination to above, recent lab on 09/01/2020 showed creatinine 1.31 Worsening of creatinine today 2.9 Baseline creatinine approximately 0.8 Continue IV fluids, nephrology consult if appropriate by critical care Follow labs, avoid NSAIDs and contrast studies History of drug abuse, urine tox positive for marijuana History of severe depression/anxiety, prior history of overdose Per family, patient's has been dealing with severe anxiety, possible utilizing marijuana for that, Once patient's medically stable extubated, Prior to discharge, will have psych consult to address underlying anxiety, and medication adjustment if needed Full code DVT prophylaxis, subcu heparin Disposition patient is getting admitted to ICU Plan of care discussed with patient's family, mother and daughter present at bedside,
[2020-09-07] MEDS ORDERED: PHARMACY GLYCEMIC MGMT CONSULT PRN (13:03)
--- NOTE | 2020-09-07 13:21 | Pharmacy Report ---
Pharmacy Glycemic Short Note 2 - Date of Service September 07, 2020 - Glycemic Short BSG Results (Last 24 hours): 09/07/20 09/07/20 09/07/20 08:20 08:25 09:42 Glucose 395 H* POC Glucose 394 H* POC Glucose (other) 426 H* 09/07/20 09/07/20 10:46 11:43 Glucose POC Glucose 329 H* 290 H POC Glucose (other) OUTPATIENT ANTIDIABETIC REGIMEN: * metformin 500 mg BID * HbA1C- ordered ASSESSMENT: * Ms Manjarrez is a 45 y/o F found unresponsive. * Patient currently critically ill, NPO, and hyperglycemic. * Patient started on insulin infusion in ED; will continue this as inpatient. PLAN FOR INPATIENT GLYCEMIC CONTROL: * Hold outpatient oral diabetes medications * IV insulin infusion * goal range 250- 350 mg/dL (will adjust as appropriate) PLAN FOR DISCHARGE: * TBD
[2020-09-07] MEDS ORDERED: INSULIN PROTOCOL GOAL RANGE ONE (13:38)
[2020-09-07] MEDS ORDERED: INSULIN ASPART 100 UNITS/ML 3 ML PEN SC SCH (13:38)
[2020-09-07] MEDS ORDERED: SEVERE STRESS LEVEL ONE (13:38)
[2020-09-07] MEDS ORDERED: LACTATED RINGER'S 1,000 ML IV SCH (13:38)
[2020-09-07] MEDS: D5W AND 1/2NSS 1,000 ML IV SCH ×2 (13:56→20:46)
[2020-09-07] MEDS: metroNIDAZOLE 500 MG/100 ML BAG IV SCH ×2 (13:57→22:38)
[2020-09-07] MEDS ORDERED: cefTRIAXone SODIUM 2,000 MG in DEXTROSE 5% 50 ML IV SCH (14:00)
--- NOTE | 2020-09-07 14:26 | XRay Report ---
SINGLE VIEW CHEST CLINICAL HISTORY: Endotracheal tube repositioning. FINDINGS: An AP, portable, upright chest radiograph is compared to study dated 09/07/2020 and correlat ed with chest CT dated 09/01/2020. The examination is degraded by portable technique and patient rotati on. An endotracheal tube has been repositioned. The tip projects 3 cm above the francesco. Enteric tube is unchanged in position. The cardiomediastinal silhouette is unremarkable. There is mild elevation o f the right hemidiaphragm and bibasilar atelectasis. No airspace consolidation or large pleural effus ion is identified. No pneumothorax is seen. The skeletal structures are osteopenic. The bony thorax i s grossly intact. IMPRESSION: 1. The endotracheal tube has been repositioned as above. 2. No airspace consolidation or large pleural effusion is identified. ACT 112: Negative or not required by law. Electronically signed by: Juanito Brunner M.D. 09/07/2020 2:24 PM
[2020-09-07 14:40] LABS: Salicylate 4.3 mg/dl (2.8-20)
[2020-09-07 14:42] LABS: BUN Creatinine Ratio 14.9 (10-20); Calcium 9.1 mg/dl (8.5-10.1); Creatinine Clr Calc Pharmacy 56.2 ml/min; Est GFR (African American) 40.3 ml/min; Est GFR (Non-African American) 34.8 ml/min; Magnesium 1.8 mg/dl (1.8-2.4); Phosphorus 1.6 mg/dl (2.5-4.9); Potassium 3.8 mmol/L (3.5-5.1)
[2020-09-07] MEDS: HEPARIN SOD 5,000 UNIT/0.5 ML VIAL SQ SCH ×2 (14:42→20:25)
[2020-09-07] MEDS ORDERED: ROCURONIUM BROMIDE 10 MG/ML 5 ML VIAL IV ONE ×2 (14:58→16:47)
[2020-09-07] MEDS: INSULIN ASPART 100 UNITS/ML 3 ML PEN SC SCH ×3 (15:01→19:48)
[2020-09-07 15:06] LABS: Acetaminophen < 2 ug/ml (10-30)
--- NOTE | 2020-09-07 15:09 | Billing Data ---
Date of Service September 07, 2020 Coding Level of Care Code Critical Care 1st 30-74 mins Time Spent (min) 68
[2020-09-07 15:18] LABS: Lyme Ab IgG w/WB Rflx Negative (Negative)
[2020-09-07 15:28] LABS: Lyme Ab IgM w/WB Rflx Equivocal (Negative)
[2020-09-07 16:18] LABS: Creatinine Urine Random 59.3 mg/dl; Potassium Random Urine 8.4 mmol/L; Uric Acid Urine Random 53.6 mg/dl
[2020-09-07 18:02] LABS: BUN Creatinine Ratio 16.2 (10-20); Calcium 9.1 mg/dl (8.5-10.1); Creatinine Clr Calc Pharmacy 68.3 ml/min; Est GFR (African American) 51.1 ml/min; Est GFR (Non-African American) 44.1 ml/min; Magnesium 1.7 mg/dl (1.8-2.4); Potassium 4.1 mmol/L (3.5-5.1)
[2020-09-07 18:15] LABS: Phosphorus 1.3 mg/dl (2.5-4.9)
[2020-09-07] MEDS ORDERED: POTASSIUM PHOS 3 MMOL/1 ML INFUSION IV STA (19:12)
[2020-09-07] MEDS ORDERED: POTASSIUM PHOSPHATE 15 MMOL in SODIUM CHLORIDE 0.9% 250 ML IV ONE (19:30)
[2020-09-07] MEDS ORDERED: propofoL 1,000 MG/100 ML VIAL IV SCH (20:30)
[2020-09-07] MEDS: METHYLPHENIDATE HCL 10 MG TABLET PO SCH (21:27)
[2020-09-07 22:27] LABS: BUN Creatinine Ratio 17.2 (10-20); Calcium 8.7 mg/dl (8.5-10.1); Creatinine Clr Calc Pharmacy 83.5 ml/min; Est GFR (African American) 65.2 ml/min; Est GFR (Non-African American) 56.2 ml/min; Magnesium 1.5 mg/dl (1.8-2.4); Phosphorus 2.2 mg/dl (2.5-4.9); Potassium 3.7 mmol/L (3.5-5.1)
[2020-09-08] MEDS: propofoL 1,000 MG/100 ML VIAL IV SCH ×5 (02:58→15:27)
[2020-09-08] MEDS: D5W AND 1/2NSS 1,000 ML IV SCH ×3 (03:36→16:28)
[2020-09-08] MEDS: PROPOFOL BOLUS FROM BAG IV PRN ×2 (03:37→04:35)
[2020-09-08 04:30] LABS: Basophils # (auto) 0.02 K/uL (0-0.2); Basophils % (auto) 0.2 %; Eosinophils # (auto) 0.12 K/uL (0-0.5); Eosinophils % (auto) 1.2 %; Hematocrit (blood only) 38.5 % (37-47); Hemoglobin 13.4 g/dL (12.0-16.0); Immature Granulocytes # (auto) 0.02 K/uL (0.00-0.02); Immature Granulocytes % (auto) 0.2 %; Lymphocytes # (auto) 4.74 K/uL (1.2-3.4); Lymphocytes % (auto) 48.7 %; Mean Corpuscular Hemoglobin 30.4 pg (25-34); Mean Corpuscular Hgb Conc 34.8 g/dL (32-36); Mean Corpuscular Volume 87.3 fL (80-100); Mean Platelet Volume 9.7 fL (7.4-10.4); Monocytes # (auto) 0.61 K/uL (0.11-0.59); Monocytes % (auto) 6.3 %; Neutrophils # (auto) 4.23 K/uL (1.4-6.5); Neutrophils % (auto) 43.4 %; Platelet Count 270 K/uL (130-400); RDW Coefficient of Variation 14.7 % (11.5-14.5); RDW Standard Deviation 47.1 fL (36.4-46.3); Red Blood Count 4.41 M/uL (4.2-5.4); White Blood Count 9.74 K/uL (4.8-10.8)
[2020-09-08 05:12] LABS: Albumin Globulin Ratio 0.8 (0.9-2); Albumin Level 2.9 gm/dl (3.4-5.0); BUN Creatinine Ratio 16.7 (10-20); Bilirubin,Total 0.2 mg/dl (0.2-1); Calcium 8.2 mg/dl (8.5-10.1); Creatinine Clr Calc Pharmacy 86.5 ml/min; Est GFR (Non-African American) 58.6 ml/min; Globulin 3.5 gm/dl (2.5-4.0); Magnesium 1.4 mg/dl (1.8-2.4); Phosphorus 2.1 mg/dl (2.5-4.9); Total Protein 6.4 gm/dl (6.4-8.2)
[2020-09-08] MEDS: metroNIDAZOLE 500 MG/100 ML BAG IV SCH ×3 (05:24→21:04)
[2020-09-08 06:06] LABS: iSTAT Allen Test Pass; iSTAT Arterial Blood Gas HCO3 17 meg/L (19-24); iSTAT Arterial Blood Gas pCO2 30 mmHg (35-46); iSTAT Arterial Blood Gas pH 7.37 (7.35-7.45); iSTAT Arterial Blood Gas pO2 82 mmHg (80-95); iSTAT Carbon Dioxide 18 mmol/L (24-31); iSTAT FiO2 30 %; iSTAT Site L Radial
[2020-09-08 06:11] LABS: Potassium 2.9 mmol/L (3.5-5.1)
[2020-09-08] MEDS ORDERED: POTASSIUM PHOS 3 MMOL/1 ML INFUSION IV STA (06:16)
[2020-09-08] MEDS: POTASSIUM CHLORIDE / WTR 10 MEQ/100 ML PLCT IV SCH ×4 (06:41→10:22)
[2020-09-08] MEDS: HEPARIN SOD 5,000 UNIT/0.5 ML VIAL SQ SCH ×3 (06:49→21:04)
[2020-09-08] MEDS ORDERED: INSULIN GLARGINE SOLOSTAR 100 UNITS/ML 3 ML PEN SC ONE (08:00)
[2020-09-08] MEDS ORDERED: POTASSIUM PHOSPHATE 15 MMOL in SODIUM CHLORIDE 0.9% 250 ML IV ONE (09:00)
--- NOTE | 2020-09-08 09:17 | Hospitalist Progress Note ---
Date of Service September 08, 2020 Assessment & Plan (1) Unresponsive state: Patient found unresponsive, at home, was intubated for airway protection/admitted to ICU Successfully extubated today, Appreciate input from critical care Poorly controlled type 2 diabetes with hyperglycemia Diagnosed on type 2 diabetes recently was on Metformin Admitted with metabolic acidosis, hyperglycemia. Patient was started on IV insulin drip, in ICU, appreciate input from pharmacy for glycemic management Blood sugar has improved, none today transition to subcu basal insulin and sliding scale We will follow hemoglobin A1c, ordered for roping tender Diverticulitis of large colon Noted in CT abdomen pelvis Currently on IV Rocephin and Flagyl. Metabolic acidosis Metabolic acidosis has resolved, bicarb 21 Multifactorial, hyperglycemia poorly controlled diabetes/dehydration volume depletion/acute renal failure Acute renal failure Possible combination to above, recent lab on 09/01/2020 showed creatinine 1.31 Worsening of creatinine on admission 2.9 Renal function improved creatinine 1.13 with adequate urine output Continue to monitor avoid NSAIDs Electrolyte derangement: Low potassium: Possible secondary insulin drip, corrected Low mag/low Phos, corrected by ICU team History of drug abuse, urine tox positive for marijuana History of severe depression/anxiety, prior history of overdose Per family, patient's has been dealing with severe anxiety, possible utilizing marijuana for that, As patient is extubated, once out of ICU will have psychiatry consult to assess mental health needs and antidepressant /anxiolytics management Full code DVT prophylaxis, subcu heparin Disposition: Likely doing well, extubated, remains in ICU for observation Update given to mother over phone Admission and Anticipated Discharge Date Admission Date: September 07, 2020 Subjective Follow-up visit for speedy failure recurring for clinical ventilation/hyperglycemia due to type 2 diabetes: Patient seen in ICU room 105 Sedation taking off, patient is alert, following commands, pointing to take ET tube out Did well with weaning trial, extubated today successfully Overnight patient's vitals been stable, remained afebrile Review of Systems Review of Systems: Unobtainable due to endotracheal tube Physical Exam Constitutional: WD/WN, vitals as above + obese Eyes: + anicteric sclerae ENMT: Patient had ET tube this morning during my interview, was extubated later Neck: normal visual inspection Respiratory: Auscultation: + diminished lung sounds; no crackles and no rales Cardiovascular: Rate/Rhythm: regular rate and regular rhythm Extremities: no edema Gastrointestinal (Abdomen): Percussion/Palpation: abdomen soft; abdomen nontender Musculoskeletal: Moving all extremities, Neurologic: awake From sedation, on weaning trial to extubate, following commands squeezes hands when asked, opens eyes, Results & Data Results & Data ([facility]) Vital Signs (Past 12 Hours) Vital Signs Temp Pulse Resp BP Pulse Ox 09/08/20 07:22 113 H 30 H 96 09/08/20 07:15 37.0 C 99 H 137/89 95 09/08/20 06:15 36.9 C 97 H 155/95 H 96 09/08/20 05:15 37.0 C 98 H 151/82 H 95 09/08/20 05:11 98 H 24 96 09/08/20 04:15 36.9 C 97 H 133/83 97 09/08/20 03:15 36.9 C 90 127/78 96 09/08/20 02:15 37.0 C 79 98/61 L 96 09/08/20 01:59 78 24 96 09/08/20 01:15 37.1 C 77 101/67 97 09/08/20 00:15 37.0 C 80 122/71 96 09/08/20 00:00 72 09/07/20 23:15 37.0 C 72 104/69 97 09/07/20 22:58 73 24 98 09/07/20 22:15 37.0 C 71 116/74 99
--- NOTE | 2020-09-08 09:56 | XRay Report ---
XR chest 1V portable CLINICAL HISTORY: f/u COMPARISON STUDY: September 07, 2020 at 1:54 hours FINDINGS: No pneumothorax. No definite pleural effusion is seen however left lung base is poorly evaluated due to overlying wire s. Lung volumes are decreased with crowded lung markings. Possible atelectasis or infiltrate is seen wit hin left retrocardiac region. Cardiomediastinal silhouette is prominent which could be due to low inspiratory effort and portable t echnique. No significant pulmonary vascular congestion.. Osseous structures: unremarkable Tip of endotracheal tube is seen projecting 4.0 cm above francesco. Stable position of gastric tube. IMPRESSION: 1. Tip of endotracheal tube is seen projecting 4.0 cm above francesco. 2. Low lung volumes with crowded lung markings. Atelectasis or infiltrate within left retrocardiac r egion. 3. The rest of findings as detailed above. ACT 112: Negative or not required by law. The above report was generated using voice recognition software. It may contain grammatical, syntax o r spelling errors. Electronically signed by: Maria De Jesus Anderson DO 09/08/2020 9:54 AM
[2020-09-08] MEDS ORDERED: cefTRIAXone SODIUM 2,000 MG in DEXTROSE 5% 50 ML IV SCH (10:00)
[2020-09-08] MEDS: INSULIN ASPART 100 UNITS/ML 3 ML PEN SC SCH ×5 (10:14→20:10)
[2020-09-08] MEDS: METHYLPHENIDATE HCL 10 MG TABLET PO SCH ×2 (10:21→20:11)
[2020-09-08] MEDS: MAGNESIUM SULFATE / D5W 1 GM/100 ML BAG IV SCH ×2 (10:21→11:41)
--- NOTE | 2020-09-08 11:40 | Pharmacy Report ---
Pharmacy Glycemic Short Note 2 - Date of Service September 08, 2020 - Glycemic Short BSG Results (Last 24 hours): 09/07/20 09/07/20 09/07/20 11:43 13:27 14:08 Glucose 197 H POC Glucose 290 H 247 H 09/07/20 09/07/20 09/07/20 14:36 15:29 16:32 Glucose POC Glucose 182 H 230 H 229 H 09/07/20 09/07/20 09/07/20 17:33 17:37 19:34 Glucose 220 H POC Glucose 222 H 205 H 09/07/20 09/07/20 09/07/20 21:29 21:39 23:23 Glucose 217 H POC Glucose 187 H 186 H 09/08/20 09/08/20 09/08/20 03:39 04:12 04:32 Glucose 154 H POC Glucose 144 H 138 H 09/08/20 09/08/20 09/08/20 05:27 06:28 07:33 Glucose POC Glucose 157 H 176 H 215 H 09/08/20 09:39 Glucose POC Glucose 228 H OUTPATIENT ANTIDIABETIC REGIMEN: * metformin 500 mg BID * HbA1C- ordered ASSESSMENT: 09/08/20 * Patient was continued on insulin infusion throughout the night and stabilized at 3 units/hr. * Potassium this morning was 2.8 mEq/L so discontinued insulin infusion as patient stabilizing. * Order Lantus 25 units x 1 (weight-based stress of 3 half dose). Scale for tonight 0-15 units. Weight-based dosing for tomorrow. * Weight-based stress of 3 Novolog as less Lantus given. BACKGROUND * Ms Manjarrez is a 45 y/o F found unresponsive. * Patient currently critically ill, NPO, and hyperglycemic. * Patient started on insulin infusion in ED; will continue this as inpatient. PLAN FOR INPATIENT GLYCEMIC CONTROL: * Oral Agents * Continue to hold outpatient oral diabetes medications. * Basal insulin * Lantus 25 units SQ x 1 * Lantus 0-15 units tonight based upon scale * Lantus 10-25 units tomorrow morning * Bolus insulin * NovoLog per scale ACHS or Q4hrs while NPO * Goal Range: Low 110 mg/dL - High 140 mg/dL * Correction Factor: 15 mg/dL/unit * Nutritional / Prandial insulin per carb ratio of 1 unit per 5 grams CHO consumed * Please note that the plan above was derived based on current level of insulin resistance and hospital stress. These recommendations are appropriate for inpatient admission only. Plan of care upon discharge will need to be reassessed to avoid potential outpatient hypo/hyperglycemia. Thank you.
[2020-09-08] MEDS: busPIRone 5 MG TAB PO SCH ×2 (13:00→20:10)
[2020-09-08] MEDS ORDERED: clonazePAM 1 MG TAB PO PRN (13:37)
--- NOTE | 2020-09-08 13:40 | Critical Care Progress Note ---
Date of Service September 08, 2020 Assessment & Plan (1) Hyperglycemia due to type 2 diabetes mellitus: 45-year-old female with history of anxiety, depression, diabetes on Metformin, nephrolithiasis, narcolepsy diagnosed 1994, following up with Dr. Hoff.. History of heroin abuse presented to the hospital unresponsive and hypotensive. In the ED patient was found to have dilated pupils not responding to sternal rub, blood pressure systolic in the 70-90s, blood sugar in the 400s. Initial pH 7.2/45/222. Patient was subsequently intubated for airway protection. -- VDRF Secondary to metabolic encephalopathy likely combination of DKA plus marijuana use Continue with ventilatory support Keep RASS -1 Daily sedation holidays and SBT's Chlorhexidine mouthwash --Colitis Continue with Rocephin and Flagyl Follow-up stool culture Blood culture negative to date -- S/p NAGMA Likely from diarrhea Urinary gap negative Ketoacidosis improving Measured serum osmolality 311, calculated serum osmolality 302. No osmolar gap. Salicylate and Tylenol level negative --S/p DEANGELO Improving likely prerenal Monitor BUNs/creatinine Medication --History of narcolepsy On methylphenidate Continue with the same --History of anxiety with history of abuse On Klonopin at home As well as buspirone --Prophylaxis VTE: Heparin GI: Pepcid Lines: Peripheral Diet: N.p.o. Plan: In/out: +1.2 L, urine output 4150 Patient is following commands. Trial of extubation today. We will extubate to BiPAP. Hypokalemia, hypomagnesemia as well as hypophosphatemia being replaced I have personally spent 35 minutes of critical care time in the direct management of this patient. This is a life/limb threatening event. This includes time spent evaluating patient, direct bedside care, chart review, placing orders, interpretation of diagnostic studies, discussion with consultants, patient, and/or family members regarding treatment decisions, as well as other required patient management activities. This time is exclusive of all separately billable procedures, and teaching time and separate from and in addition to any other critical care service time. (2) Dehydration: (3) Acute UTI: (4) Acute right flank pain: (5) Degenerative arthritis of knee, bilateral: (6) Depression with anxiety: (7) Encounter for pre-operative examination: (8) Back pain: (9) Drug overdose, intentional: (10) Fibromyalgia: (11) Kidney stones: (12) Anxiety: Admission and Anticipated Discharge Date Admission Date: September 07, 2020 Subjective Patient seen and examined at bedside. No acute distress, no adverse events overnight Overnight patient was starting to get little bit restless her propofol was increased. Patient was on propofol 15 at the time of examination She was following commands. Denied any headache, no chest pain, no blurry vision. Did complain of some abdominal pain. Review of Systems Review of Systems: All systems reviewed & are unremarkable except as noted in Subjective Physical Exam Physical Exam: Constitutional: No acute distress HEENT: Pupils dilated 5 mm, responsive to light Respiratory system: Decreased antibiotic, no wheeze, no rhonchi, mild crackles bilateral lower lobe CVS: S1-S2 positive, no murmurs or gallops Abdomen: Soft, nontender, nondistended, positive bowel sounds x4, obese Extremities: +2 pulses bilaterally radialis/ dorsalis pedis, no cyanosis, no edema Neuro: RASS -1, following simple commands, moving all extremities, breathing over the vent Psych: Unable to assess G/U: Positive Ceo Skin: no rashes, warm and dry Lymphatic: no cervical or axillary lymphadenopathy Results & Data Results & Data ([place]) Vital Signs (Past 12 Hours) Vital Signs Temp Pulse Resp BP Pulse Ox 09/08/20 11:34 106 H 24 98 09/08/20 09:20 109 H 20 99 09/08/20 07:22 113 H 30 H 96 09/08/20 07:15 37.0 C 99 H 137/89 95 09/08/20 06:15 36.9 C 97 H 155/95 H 96 09/08/20 05:15 37.0 C 98 H 151/82 H 95 09/08/20 05:11 98 H 24 96 09/08/20 04:15 36.9 C 97 H 133/83 97 09/08/20 03:15 36.9 C 90 127/78 96 09/08/20 02:15 37.0 C 79 98/61 L 96 09/08/20 01:59 78 24 96 09/08/20 04:12 09/08/20 04:12 Coding Level of Care Code Critical Care 1st 30-74 mins Diagnoses Hyperglycemia due to type 2 diabetes mellitus E11.65 Diabetes mellitus prison insulin use: without prison use Dehydration E86.0 Acute UTI N39.0 Acute right flank pain R10.9 Degenerative arthritis of knee, bilateral M17.0 Depression with anxiety F41.8 Encounter for pre-operative examination Z01.818 Back pain M54.9 Drug overdose, intentional T50.902A Fibromyalgia M79.7 Kidney stones N20.0 Anxiety F41.9 Time Spent (min) 35 (1) Hyperglycemia due to type 2 diabetes mellitus Diabetes mellitus prison insulin use: without prison use Qualified C ode(s): E11.65 - Type 2 diabetes mellitus with hyperglycemia
[2020-09-08] MEDS: clonazePAM 1 MG TAB PO PRN ×2 (13:56→22:04)
[2020-09-08] MEDS ORDERED: ACETAMINOPHEN 1000 MG/100 ML IV IV PRN (15:39)
[2020-09-08] MEDS: ACETAMINOPHEN 1,000 MG/100 ML VIAL IV PRN (15:59)
[2020-09-08] MEDS: MoRPHine SULFATE 2 MG/ML CARP IV PRN ×2 (16:44→21:05)
[2020-09-08] MEDS ORDERED: OPTIRAY 320 100ml IV ONE (17:14)
--- NOTE | 2020-09-08 18:18 | CT Scan Report ---
ABDOMEN AND PELVIS CT WITH IV CONTRAST CT DOSE: 1056.70 mGycm HISTORY: Acute right-sided flank pain Right flank pain. TECHNIQUE: Multiaxial CT images of the abdomen and pelvis were performed following the IV administrat ion of 94 cc of Optiray, A dose lowering technique was utilized adhering to the principles of ALARA. COMPARISON STUDY: CT abdomen and pelvis 09/07/2020, 10/09/2018, CT abdomen 05/22/2007. FINDINGS: The imaged inferior cardiac chambers are unremarkable. Improved aeration of the lung bases with mild subsegmental linear bibasilar atelectasis. No pneumatosis or pneumoperitoneum. Unremarkable spleen, pancreas, gallbladder and adrenal glands. Hepatomegaly with hepatic steatosis. Left lateral hepatic lobe cyst measures 1.7 cm. 1.3 cm right hepatic lobe is redemonstrated which is similar to mi ldly increased in size from 2019. Patency of the hepatic and portal veins. There is a 10 mm lesion of the inferior pole left kidney which is partially exophytic with Hounsfield unit of 73. This lesion measured 6 mm in 2007. Coe catheter noted within a decompressed urinary bl adder. Anteflexed uterus. No adnexal mass lesion. No aortic aneurysm or adenopathy. No bowel obstruction or bowel wall thickening. Normal appendix. No ascites or mesenteric inflammation . Unremarkable soft tissues. There is no acute fracture. Degenerative changes of the spine. IMPRESSION: No bowel obstruction or bowel wall thickening. 2. Improved aeration of the lungs with minimal subsegmental bibasilar atelectasis. 3. Hepatomegaly with hepatic steatosis. 4. Intermediate density 10 mm lesion of the inferior pole left kidney has mildly increased in size fr om 2007. A complex cyst is favored over a solid lesion. This could be correlated with a follow-up rose mary al ultrasound. 5. Normal appendix. ACT 112: Negative or not required by law. The above report was generated using voice recognition software. It may contain grammatical, syntax o r spelling errors. Electronically signed by: Ramiro Vivar M.D. 09/08/2020 6:16 PM
[2020-09-08] MEDS ORDERED: INSULIN GLARGINE SOLOSTAR 100 UNITS/ML 3 ML PEN SC SCH (21:00)
[2020-09-09] MEDS: INSULIN ASPART 100 UNITS/ML 3 ML PEN SC SCH ×6 (00:52→22:06)
[2020-09-09 05:32] LABS: Basophils # (auto) 0.03 K/uL (0-0.2); Basophils % (auto) 0.4 %; Eosinophils # (auto) 0.15 K/uL (0-0.5); Eosinophils % (auto) 2.2 %; Hematocrit (blood only) 34.2 % (37-47); Hemoglobin 11.4 g/dL (12.0-16.0); Immature Granulocytes # (auto) 0.01 K/uL (0.00-0.02); Immature Granulocytes % (auto) 0.1 %; Lymphocytes # (auto) 3.31 K/uL (1.2-3.4); Lymphocytes % (auto) 47.9 %; Mean Corpuscular Hemoglobin 30.1 pg (25-34); Mean Corpuscular Hgb Conc 33.3 g/dL (32-36); Mean Corpuscular Volume 90.2 fL (80-100); Mean Platelet Volume 9.4 fL (7.4-10.4); Monocytes # (auto) 0.54 K/uL (0.11-0.59); Monocytes % (auto) 7.8 %; Neutrophils # (auto) 2.87 K/uL (1.4-6.5); Neutrophils % (auto) 41.6 %; Platelet Count 234 K/uL (130-400); RDW Coefficient of Variation 14.6 % (11.5-14.5); RDW Standard Deviation 48.3 fL (36.4-46.3); Red Blood Count 3.79 M/uL (4.2-5.4); White Blood Count 6.91 K/uL (4.8-10.8)
[2020-09-09 06:00] LABS: Albumin Globulin Ratio 0.8 (0.9-2); Albumin Level 2.6 gm/dl (3.4-5.0); BUN Creatinine Ratio 12.5 (10-20); Bilirubin,Total 0.3 mg/dl (0.2-1); Calcium 7.9 mg/dl (8.5-10.1); Creatinine Clr Calc Pharmacy 114.2 ml/min; Est GFR (African American) 109.8 ml/min; Est GFR (Non-African American) 94.7 ml/min; Globulin 3.1 gm/dl (2.5-4.0); Magnesium 1.3 mg/dl (1.8-2.4); Potassium 3.5 mmol/L (3.5-5.1); Total Protein 5.7 gm/dl (6.4-8.2)
[2020-09-09] MEDS: metroNIDAZOLE 500 MG/100 ML BAG IV SCH (06:02)
[2020-09-09] MEDS: HEPARIN SOD 5,000 UNIT/0.5 ML VIAL SQ SCH ×3 (06:03→20:22)
[2020-09-09] MEDS: ACETAMINOPHEN 1,000 MG/100 ML VIAL IV PRN (06:19)
[2020-09-09] MEDS ORDERED: POTASSIUM PHOS 3 MMOL/1 ML INFUSION IV STA (06:22)
[2020-09-09] MEDS: MAGNESIUM SULFATE / D5W 1 GM/100 ML BAG IV SCH ×3 (06:33→10:41)
[2020-09-09] MEDS ORDERED: POTASSIUM PHOSPHATE 15 MMOL in SODIUM CHLORIDE 0.9% 250 ML IV ONE (06:45)
[2020-09-09 07:07] LABS: Estimated Average Glucose 398 mg/dl; Hemoglobin A1C 15.5 % (4.5-5.6)
--- NOTE | 2020-09-09 07:30 | Critical Care Progress Note ---
Date of Service September 09, 2020 Assessment & Plan (1) Hyperglycemia due to type 2 diabetes mellitus: Reason Critically Ill: Anita is a 45-year-old female with a history of T2DM on Metformin, anxiety with h/o abuse, depression, fibromyalgia, HLD, HTN, nephrolithiasis, narcolepsy - follows with Dr. Hoff, osteoarthritis, and reported h/o heroin use who presented to [facility] unresponsive, hypotensive, and hyperglycemic. She received emergent intubation in the ED and was subsequently transferred to the ICU for intensive hemodynamic monitoring and support. Since that time, she has been weened back to RA and mentation has significantly improved. Her presentation is thought to be due to hypovolemia from dehydration in setting of significant hyperglycemia and mild colitis. Neuro - Sedation: None. Analgesia: PRN Metabolic Encephalopathy - Resolved * Resolved - suspect secondary to NAGMA, hypovolemia from uncontrolled hyperglycemia (BSG>600 on arrival) and colitis/diarrhea, also +THC use * Note -- CT-H significant for old R BG infarct, no other acute processes * Following commands today. Alert and oriented throughout our discussion. Cardiac - Hypotension - Resolved * Patient had SBPs 80-90s when found unresponsive by EMS -- on arrival 90/40s * Was in setting of DEANGELO, hyperglycemia, colitis - suspect this was due to hypovolemia * Did not require pressors throughout course * Demonstrating normotension * Continue to encourage PO intake * Continue to hold BP agents: ACEI, propranolol -- Maintain Mg > 2, Phos > 3, K > 4 Respiratory - Ventilator-Dependent Respiratory Failure - Resolved * Need was sec to metabolic encephalopathy, as above, and failure to protect airway * Now stable on room air, no supplemental oxygen requirement, protecting airway GI - * Carb consisent (DM2) diet * Otherwise, as per endocrine and ID below RENAL/LYTES - Non-anion gap Metabolic Acidosis -- Resolved * On arrival, ABG demonstratin.20 / pCO2 45 / HCO3 18. AG 10. Albumin 3.4. BSG > 500 -- s/o NAGMA with concomitant respiratory acidosis * BHB level elevated to 10 -- s/o mild DKA * Salicylate, acetaminophen levels negative * Urinary gap negative * No osmolar gap * Bicarb and AG within normal limits this AM * Believe NAGMA was likely secondary to GI losses with component of mild DKA too Acute Kidney Injury -- Resolved * Arrival BUN / Cr at 33 / 2.99 (ratio 10.9) * Suspect this was sec to hypovolemia - colitis, hyperglycemia * Resolved on this AM's labs * Continue to encourage PO intake L Kidney Lesion * CT-A/P demonstrating 10mm lesion of inferior pole of L kidney that has increased in size from 2008 -- radiologically appearing more-so as a complex c yst rather than solid lesion * Will order US Kidney for further characterization -- replete lytes Mg, K - * No acute needs at this time ENDO - Hyperglycemia, mild DKA (resolved) - in setting of known T2DM * BSG on arrival at >500, no AG, BHB ~10 * A1c 15.5% on this admission * SSI, Glargine while here * Patient will require intensive outpatient glycemic management going forward, alongside diabetes education * CC diet, as above. HEME - * [facility] H&H - will monitor ID - Colitis * Patient reporting diarrhea, nausea prior to admission * Mild splenic flexure fat stranding noted on admission CT-A/P, possibly suggestive of colitis * Discontinue CFTX, Flagyl * No symptoms this AM or last night. No leukocytosis. T 99.8 noted from last night, none thereafter. * BCX negative to date. INTEGUMENTARY - No acute needs LINES/IV ACCESS - PIVs intact DVT PROPHYLAXIS - Hep SQ Thank you for allowing us to be part of this patient's care. Please refer to Dr. Flores's documentation for any further recommendations. (2) Dehydration: (3) Acute UTI: (4) Acute right flank pain: (5) Degenerative arthritis of knee, bilateral: (6) Depression with anxiety: (7) Encounter for pre-operative examination: (8) Back pain: (9) Drug overdose, intentional: (10) Fibromyalgia: (11) Kidney stones: (12) Anxiety: Admission and Anticipated Discharge Date Admission Date: September 07, 2020 Supervising Physician Co-Signing Physician Notes Dr Peralta was resident physician during care of patient. I separately evaluated patient for davis portions of the history and the exam. I was present during the critical portion of medical decision making, and I discussed the case with the resident. I generally agree with the findings and plan. Glycemic control improved off insulin infusion, obtaining renal ultrasound to further up lesion which is increased will require outpatient follow-up. Stable for downgrade out of ICU to medicine service. Yvette Howard does report having a headache this morning, but otherwise feeling OK. Notes she feels very anxious being here in the ICU, but happy she is getting better. Denies any chest pain, palpitations, shortness of breath. No diarrhea at present. Urinating OK. Eating, drinking OK. Review of Systems Review of Systems: as per HPI Physical Exam Physical Exam: General: Tired-appearing 45 year old female who is lying back in her hospital bed, awake, upon my arrival. She appears with a constricted affect. She is fully alert, oriented throughout our conversation. NAD. HEENT: NCAT. Eyes - Sclera are white, anicteric, and without injection. PERRL. EOMs display full ROM bilaterally. Mouth - MMM with no tonsillar edema or exudates. Cardiac: Normal rate and regular rhythm; S1 and S2 present with no murmurs, rubs, or gallops. Pulmonary: Good respiratory effort with symmetric expansion of the chest. No use of accessory muscles. Lungs were clear to auscultation bilaterally with no crackles or wheezes. Abdominal: Normoactive bowel sounds. Abdomen was soft, nontender, and non-tender to palpation. Extremities: Upper and lower extremities are warm and well perfused. Capillary refill assessed in UE was < 3 sec. Psych: Well-developed, well-nourished, appropriately dressed for occasion. Behavior is cooperative and appropriate. Affect is mildly constricted. Insight about HPI seems limited. Results & Data Results & Data ([facility]) Vital Signs (Past 12 Hours) Vital Signs Temp Pulse Resp BP Pulse Ox 09/09/20 06:21 36.2 C L 73 13 137/73 97 09/09/20 05:21 36.2 C L 71 18 135/83 95 09/09/20 04:21 36.4 C L 80 23 140/72 93 09/09/20 03:21 36.5 C 83 17 115/70 96 09/09/20 02:21 36.5 C 80 24 110/74 95 09/09/20 01:21 36.6 C 82 22 124/86 95 09/09/20 00:21 36.8 C 86 23 128/72 95 09/09/20 00:00 90 09/08/20 23:22 37.2 C 95 H 18 125/69 94 09/08/20 22:22 37.5 C 106 H 14 140/82 97 09/08/20 21:22 37.5 C 89 16 141/81 H 97 09/08/20 20:22 37.4 C 88 16 134/93 98 09/08/20 19:22 37.4 C 82 13 140/81 96 Resident Activity Tracking Resident Involvement: Resident Care Provided Care Provided: Adult Hospital Medicine (1) Hyperglycemia due to type 2 diabetes mellitus Diabetes mellitus fpc insulin use: without supervisor drying use Qualified Code(s): E11.65 - Type 2 diabetes mellitus with hyperglycemia
[2020-09-09] MEDS ORDERED: KETOROLAC TROMETHAMINE 15 MG/ML VIAL IV ONE (07:43)
[2020-09-09] MEDS: busPIRone 5 MG TAB PO SCH ×2 (07:57→20:23)
[2020-09-09] MEDS ORDERED: PROMETHAZINE HCL 25 MG TAB PO STA (08:44)
[2020-09-09] MEDS: METHYLPHENIDATE HCL 10 MG TABLET PO SCH ×2 (08:55→17:11)
[2020-09-09] MEDS ORDERED: INSULIN GLARGINE SOLOSTAR 100 UNITS/ML 3 ML PEN SC SCH (09:00)
--- NOTE | 2020-09-09 09:57 | Billing Data ---
Date of Service September 09, 2020 Coding Level of Care Code 88834 Subseq Hosp Care Lvl 3
[2020-09-09] MEDS ORDERED: ACETAMINOPHEN 500 MG TAB PO PRN (10:17)
[2020-09-09] MEDS ORDERED: PROCHLORPERAZINE 5 MG/ML 2 ML VIAL IV STA (10:25)
[2020-09-09] MEDS ORDERED: PROCHLORPERAZINE 10 MG in SYRINGE 8 ML IV ONE (10:45)
--- NOTE | 2020-09-09 11:59 | Pharmacy Report ---
Pharmacy Glycemic Short Note 2 - Date of Service September 09, 2020 - Glycemic Short BSG Results (Last 24 hours): 09/08/20 09/08/20 09/08/20 12:53 16:05 20:05 Glucose POC Glucose 217 H 221 H 119 H 09/09/20 09/09/20 09/09/20 00:49 03:29 05:13 Glucose 177 H POC Glucose 193 H 166 H 09/09/20 07:22 Glucose POC Glucose 202 H OUTPATIENT ANTIDIABETIC REGIMEN: * metformin 500 mg BID * HbA1C- 15.5% 09/07/20 ASSESSMENT: 09/09 * 54 units SQ insulin administered over last 24 hrs while patient essentially NPO * Fasting BSG 166-202 this AM with 25 units basal on board and after receiving 6 units correctional insulin overnight * Patient has not yet tolerated a diet, despite being ordered. Current Novolog CF/CR seem reasonable to continue 09/08 * Patient was continued on insulin infusion throughout the night and stabilized at 3 units/hr. * Potassium this morning was 2.8 mEq/L so discontinued insulin infusion as patient stabilizing. * Order Lantus 25 units x 1 (weight-based stress of 3 half dose). Scale for tonight 0-15 units. Weight-based dosing for tomorrow. * Weight-based stress of 3 Novolog as less Lantus given. PLAN FOR INPATIENT GLYCEMIC CONTROL: * Oral Agents * Continue to hold outpatient oral diabetes medications. * Basal insulin * Lantus 25 units SQ x 1 this AM * Continue Lantus BID however dose per scale: 0 units if BSG less than 110, 10 units if BSG 110-200, 15 units if BSG greater than 200 (will likely increase dose tomorrow however trial of lower doses this PM due to larger Lantus dose given this AM) * Bolus insulin * NovoLog per scale ACHS or Q4hrs while NPO * Goal Range: Low 110 mg/dL - High 140 mg/dL * Correction Factor: 15 mg/dL/unit * Nutritional / Prandial insulin per carb ratio of 1 unit per 5 grams CHO consumed * Please note that the plan above was derived based on current level of insulin resistance and hospital stress. These recommendations are appropriate for inpatient admission only. Plan of care upon discharge will need to be reassessed to avoid potential outpatient hypo/hyperglycemia. Thank you. DISCHARGE RECOMMENDATIONS: * Given A1c > 10, consideration should be made to place this patient on triple therapy on discharge: Metformin + Basal insulin + (either Prandial insulin or GLP1-RA)
--- NOTE | 2020-09-09 12:06 | Hospitalist Progress Note ---
Date of Service September 09, 2020 Assessment & Plan (1) Unresponsive state: Patient found unresponsive, at home, was intubated for airway protection/admitted to ICU Successfully extubated doing well , no hypoxia or SOB transferred to PCU Poorly controlled type 2 diabetes with hyperglycemia Diagnosed on type 2 diabetes recently was on Metformin Admitted with metabolic acidosis, hyperglycemia. was trested with IV insulin gtt currently on basal lantus and insulin SSI prosthodontist/educator contacted Diverticulitis of large colon Noted in CT abdomen pelvis Currently on IV Rocephin and Flagyl. Metabolic acidosis resolved with iv hydration and correction of hyperglyemia Metabolic acidosis has resolved, bicarb 21 Multifactorial, hyperglycemia poorly controlled diabetes/dehydration volume depletion/acute renal failure Acute renal failure Possible combination to above, recent lab on 09/01/2020 showed creatinine 1.31 Worsening of creatinine on admission 2.9 renal function improved to baseline Low potassium: corrected History of drug abuse, urine tox positive for marijuana History of severe depression/anxiety, prior history of overdose Per family, patient's has been dealing with severe anxiety, possible utilizing marijuana for that, psych consult requested Full code DVT prophylaxis, subcu heparin Disposition: return home with family support when medically stable PT/Ot eval requested Admission and Anticipated Discharge Date Admission Date: September 07, 2020 Subjective pt is awake and alert offers no specific complain except for headahce , and feeling anxious no hypoxia , no cough or SOB \ Review of Systems Review of Systems: All systems reviewed & are unremarkable except as noted in Subjective Physical Exam Constitutional: WD/WN, vitals as above + obese Eyes: + anicteric sclerae Neck: normal visual inspection Respiratory: Auscultation: + diminished lung sounds; no crackles and no rales Cardiovascular: Rate/Rhythm: regular rate and regular rhythm Extremities: no edema Gastrointestinal (Abdomen): Percussion/Palpation: abdomen soft; abdomen nontender Neurologic: awake Results & Data Results & Data ([facility]) Vital Signs (Past 12 Hours) Vital Signs Temp Pulse Resp BP Pulse Ox 09/09/20 09:21 36.4 C L 82 19 141/88 H 96 09/09/20 08:21 36.5 C 75 19 134/79 97 09/09/20 08:00 75 09/09/20 07:21 36.3 C L 73 12 131/91 98 09/09/20 06:21 36.2 C L 73 13 137/73 97 09/09/20 05:21 36.2 C L 71 18 135/83 95 09/09/20 04:21 36.4 C L 80 23 140/72 93 09/09/20 03:21 36.5 C 83 17 115/70 96 09/09/20 02:21 36.5 C 80 24 110/74 95 09/09/20 01:21 36.6 C 82 22 124/86 95 09/09/20 00:21 36.8 C 86 23 128/72 95
--- NOTE | 2020-09-09 12:12 | Ultrasound Report ---
RENAL ULTRASOUND HISTORY: L kidney cyst - inferior pole - increase in size COMPARISON: Abdomen and pelvis CT 09/08/2020. FINDINGS: Right kidney: 11.0 cm. No hydronephrosis. Normal corticomedullary differentiation and cortical thickn ess. Left kidney: 11.6 cm. The lower pole lesion is not clearly identified. No hydronephrosis. Normal yohan icomedullary differentiation and cortical thickness. Bladder: No bladder wall thickening. The bilateral ureteral jets were not identified. IMPRESSION: 1. The patient's 1 cm left lower pole lesion was not clearly identified by this modality. This could be further assessed with follow-up dedicated renal MRI. 2. No hydronephrosis. ACT 112: Negative or not required by law. Electronically signed by: Hubert Galicia M.D. 09/09/2020 12:11 PM
[2020-09-09] MEDS ORDERED: BACLOFEN 10 MG TAB PO PRN (14:23)
[2020-09-09] MEDS ORDERED: hydrOXYzine HCl 25 MG TAB PO PRN (14:23)
[2020-09-09] MEDS: clonazePAM 1 MG TAB PO PRN ×2 (14:44→23:02)
[2020-09-09] MEDS: GABAPENTIN 300 MG CAP PO SCH ×2 (15:36→20:23)
[2020-09-09] MEDS: PROPRANOLOL HCL 10 MG TAB PO SCH ×3 (15:36→20:26)
[2020-09-09] MEDS ORDERED: DOCUSATE SODIUM 100 MG CAP PO PRN (17:30)
[2020-09-09] MEDS: MIRTAZAPINE TAB 15 MG TAB PO SCH (20:23)
[2020-09-09] MEDS: AMITRIPTYLINE HCL 50 MG TAB PO SCH (20:23)
[2020-09-09] MEDS: INSULIN GLARGINE SOLOSTAR 100 UNITS/ML 3 ML PEN SC SCH (22:05)
[2020-09-10] MEDS: INSULIN ASPART 100 UNITS/ML 3 ML PEN SC SCH ×5 (01:47→20:58)
[2020-09-10 02:46] LABS: Marijuana Quant, GCMS Urine 243 ng/mL (<5)
[2020-09-10] MEDS: HEPARIN SOD 5,000 UNIT/0.5 ML VIAL SQ SCH ×3 (05:28→20:52)
[2020-09-10 07:29] LABS: Basophils # (auto) 0.04 K/uL (0-0.2); Basophils % (auto) 0.6 %; Eosinophils # (auto) 0.24 K/uL (0-0.5); Eosinophils % (auto) 3.3 %; Hematocrit (blood only) 37.4 % (37-47); Hemoglobin 12.5 g/dL (12.0-16.0); Immature Granulocytes # (auto) 0.04 K/uL (0.00-0.02); Immature Granulocytes % (auto) 0.6 %; Lymphocytes % (auto) 43.2 %; Mean Corpuscular Hemoglobin 29.8 pg (25-34); Mean Corpuscular Hgb Conc 33.4 g/dL (32-36); Mean Platelet Volume 9.5 fL (7.4-10.4); Monocytes # (auto) 0.45 K/uL (0.11-0.59); Monocytes % (auto) 6.3 %; Neutrophils # (auto) 3.31 K/uL (1.4-6.5); Platelet Count 259 K/uL (130-400); RDW Coefficient of Variation 14.5 % (11.5-14.5); RDW Standard Deviation 47.2 fL (36.4-46.3); White Blood Count 7.18 K/uL (4.8-10.8)
[2020-09-10 07:58] LABS: Albumin Level 2.6 gm/dl (3.4-5.0); BUN Creatinine Ratio 12.8 (10-20); Calcium 8.6 mg/dl (8.5-10.1); Creatinine Clr Calc Pharmacy 140.1 ml/min; Est GFR (African American) 126.2 ml/min; Est GFR (Non-African American) 108.9 ml/min; Potassium 3.7 mmol/L (3.5-5.1)
[2020-09-10 08:00] LABS: Albumin Globulin Ratio 0.7 (0.9-2); Bilirubin,Total 0.4 mg/dl (0.2-1); Globulin 3.7 gm/dl (2.5-4.0); Total Protein 6.3 gm/dl (6.4-8.2)
[2020-09-10] MEDS: INSULIN GLARGINE SOLOSTAR 100 UNITS/ML 3 ML PEN SC SCH ×2 (08:16→20:59)
[2020-09-10] MEDS: METHYLPHENIDATE HCL 10 MG TABLET PO SCH ×2 (08:19→16:22)
[2020-09-10] MEDS: GABAPENTIN 300 MG CAP PO SCH ×3 (08:20→20:51)
[2020-09-10] MEDS: busPIRone 5 MG TAB PO SCH ×2 (08:20→20:51)
[2020-09-10] MEDS: lisinopril 20 MG TAB PO SCH (08:20)
[2020-09-10] MEDS: PROPRANOLOL HCL 10 MG TAB PO SCH ×3 (08:21→20:52)
[2020-09-10] MEDS: clonazePAM 1 MG TAB PO PRN ×2 (08:27→16:24)
[2020-09-10] MEDS ORDERED: CHLORASEPTIC 1.4% SOLN 180 ML BTL MT PRN (09:33)
[2020-09-10] MEDS ORDERED: SUMAtriptan succinate 6 MG/0.5 ML VIAL SQ STA (09:36)
[2020-09-10] MEDS: KETOROLAC TROMETHAMINE 15 MG/ML VIAL IV PRN ×3 (10:10→22:56)
--- NOTE | 2020-09-10 10:31 | Pharmacy Report ---
Pharmacy Glycemic Short Note 2 - Date of Service September 10, 2020 - Glycemic Short BSG Results (Last 24 hours): 09/09/20 09/09/20 09/09/20 12:13 16:03 20:40 Glucose POC Glucose 213 H 180 H 152 H 09/10/20 09/10/20 09/10/20 01:44 07:09 07:20 Glucose 181 H POC Glucose 164 H 193 H OUTPATIENT ANTIDIABETIC REGIMEN: * metformin 500 mg BID * HbA1C- 15.5% 09/07/20 ASSESSMENT: 09/10 * 55 units SQ insulin administered over last 24 hrs while tolerating very little PO intake * Fasting BSG 193 this AM w/ 35 units basal on board and after receiving 6 units correctional insulin overnight - will continue to up-titrate basal * Will continue current Novolog CF/CR given rather low carb intake yesterday - will adjust if needed 09/09 * 54 units SQ insulin administered over last 24 hrs while patient essentially NPO * Fasting BSG 166-202 this AM with 25 units basal on board and after receiving 6 units correctional insulin overnight * Patient has not yet tolerated a diet, despite being ordered. Current Novolog CF/CR seem reasonable to continue 09/08 * Patient was continued on insulin infusion throughout the night and stabilized at 3 units/hr. * Potassium this morning was 2.8 mEq/L so discontinued insulin infusion as patient stabilizing. * Order Lantus 25 units x 1 (weight-based stress of 3 half dose). Scale for tonight 0-15 units. Weight-based dosing for tomorrow. * Weight-based stress of 3 Novolog as less Lantus given. PLAN FOR INPATIENT GLYCEMIC CONTROL: * Oral Agents * Continue to hold outpatient oral diabetes medications (metformin) * Basal insulin: * Lantus BID however dose per scale: 0 units if BSG less than 110, 15 units if BSG 110-180, 20 units if BSG greater than 180 (will likely increase * Bolus insulin * NovoLog per scale ACHS or Q4hrs while NPO * Goal Range: Low 110 mg/dL - High 140 mg/dL * Correction Factor: 15 mg/dL/unit * Nutritional / Prandial insulin per carb ratio of 1 unit per 5 grams CHO consumed * Please note that the plan above was derived based on current level of insulin resistance and hospital stress. These recommendations are appropriate for inpatient admission only. Plan of care upon discharge will need to be reassessed to avoid potential outpatient hypo/hyperglycemia. Thank you. DISCHARGE RECOMMENDATIONS: * Given A1c > 10, consideration should be made to place this patient on triple therapy on discharge: Metformin + Basal insulin + (either Prandial insulin or GLP1-RA)
[2020-09-10] MEDS: BENZONATATE 100 MG CAPSULE PO SCH ×2 (14:07→20:51)
--- NOTE | 2020-09-10 15:19 | Psychiatric Consultation ---
Date of Consultation September 10, 2020 Impression / Recommendations Impression 45-year-old female presented to the hospital after being found down with high blood sugars. Psychiatry was consulted due to patient anxiety. In looking at the patient's regimen, there are multiple controlled substances which are not only directly counteracting each other but are also being prescribed by different providers. Furthermore patient was unwilling to provide ROIs for communication without prior patient providers yesterday, raising suspicion for prescription medication misuse. Thankfully, patient is no longer complaining of an anxiety today and psychiatric intervention is not warranted, although regardless would not be able to be performed given her lack of cooperation. Recommendations: No interventions from psychiatric consult team at this time Follow-up with outpatient psychiatry Risk Factors Assessment Male: No : Yes Mental Health Diagnoses: No Substance Use Disorders: Yes Protective Factors Assessment Protestant Beliefs: No : No Psych History Chief Complaint "I am feeling a lot better". History of Present Illness HPI as per psychiatric liaison "Rounded on patient for initial assessment per consult. She appears anxious. She did confirm outpatient as [place] for medication management only. She at this time is not willing to sign an VISHNU for them, States "I don't want them to take my Klonopin." It was explained to her that the release is for continuation of care, appointment confirmation etc. She was also offered assistance with a therapist, states "I saw one in the past, and it didn't help." She however is willing to consider both VISHNU, and therapy. She reports there is a strong family history of anxiety in her family. She, her siblings and parents are all on medication for anxiety. She does reports 2 past mental health admissions one in 2012 at the [facility], and 3 . She was unable to recall date of [facility] admission. She denies any past suicide attempts, or current SI. She did report that she had SI at one time after starting [employer]. She did mention that she has very little interest in doing anything. She denies any access to weapons. She does have several health issues that do impact her mental health. She denies any D&A history. She would like to obtain a medical marijuana card, but reports its to expensive. She is living with her mother, and 13 year old son. She is currently unemployed applying for disability. She did mention that she would like to discuss things more tomorrow when her mind is less "cloudy". It was explained to her that our service will round on her, and will be seen by our psychiatric provider." Upon evaluation today patient stated that she is feeling much better. She does state that she has some anxiety, however she feels that it might be related to her claustrophobia of being in the hospital as well as the anxiety of having multiple medical problems. Patient denies any homicidal or suicidal ideation. In looking at patient's medication regimen, there are medications which is potentially contributing to her anxiety such as methylphenidate, however after discussion patient is unwilling to come off this medication at this time. Patient also was unwilling to sign ROIs for outpatient collaboration yesterday, limiting the efficacy of psychiatric intervention at this time. Allergies Allergy/AdvReac Type Severity Reaction Status Date / Time amoxicillin Allergy Intermediate RASH Verified 09/01/20 20:26 Penicillins Allergy Intermediate RASH TO Verified 09/01/20 20:26 AMOXIL Home Medications Medication Instructions Recorded Confirmed Type amitriptyline 50 mg PO HS 12/12/17 09/07/20 History buspirone 10 mg PO BID 12/12/17 09/07/20 History clonazepam 1 mg PO TID PRN 12/12/17 09/07/20 History lisinopril 20 mg PO QAM 12/12/17 09/07/20 History magnesium 250 mg PO HS 12/12/17 09/01/20 History meloxicam 15 mg PO DAILY PRN 12/12/17 09/07/20 History mirtazapine 30 mg PO HS 12/12/17 09/07/20 History potassium 99 mg PO QPM 12/12/17 09/01/20 History acetaminophen [Tylenol Extra 1,000 mg PO Q6H PRN 09/30/18 09/01/20 History Strength] ibuprofen [Advil] 200 - 400 mg PO UD PRN 10/09/18 09/01/20 History baclofen 10 mg PO BID PRN 10/15/18 09/07/20 History metformin 500 mg PO BID 10/15/18 09/01/20 History gabapentin 300 mg capsule 300 mg PO TID 01/19/19 09/07/20 History propranolol 10 mg PO TID 01/09/20 09/07/20 History methylphenidate HCl 10 mg tablet 10 mg PO BID #60 tab 08/26/20 09/07/20 Rx albuterol sulfate 2 puff INHALATION Q4 PRN 09/01/20 09/07/20 History galcanezumab-gnlm [Emgality Pen] 120 mg SUBCUT MONTHLY 09/01/20 09/07/20 History hydroxyzine pamoate 25 mg PO BID PRN 09/01/20 09/07/20 History ondansetron 4 mg PO Q8 PRN 09/01/20 09/07/20 History sulfamethoxazole-trimethoprim 1 tab PO Q12H 7 Days #14 tab 09/01/20 09/07/20 Rx [Bactrim DS] vortioxetine [Trintellix] 50 mg PO DAILY 09/01/20 09/01/20 History Cbd Medic Active Sport Pain Relief 0 applic TOPICAL UD 09/07/20 09/07/20 History Deep Muscle Rub Personal History Beliefs That Will Affect Care: None Patient History Medical History (Updated 09/07/20 @ 12:31 by Torrie Tomlinson PA-C) Anxiety Chronic back pain Depression Diabetes mellitus, type 2 Fibromyalgia Heroin abuse ?? per pt she "tried it once and freaked out and came to the ER" Hyperlipidemia Hypertension Kidney stones Morbid obesity with BMI of 45.0-49.9, adult Narcolepsy Narcolepsy Osteoarthritis Surgical History H/O lithotripsy x3 History of colonoscopy History of laparoscopy History of tooth extraction all teeth removed Family History Father Family history of diabetes mellitus Diabetes Cancer Mother Family hx colonic polyps Hypertension Grandmother Hypertension Other No family history of adverse response to anesthesia Social History Smoking Status: Current every day smoker Tobacco Type: Cigarettes Cigarettes Per Day: 1ppd; Second Hand Exposure: Yes (parents smoked); Hx Alcohol Use: No Hx Substance Use: Yes Last Used Substance Other:: went to rehab 2 yrs ago on methadone--has not been on anything for 2 yrs Substance Use Type Other:: "tried heroin once and then went to the ER" Preferred Language: Armenian Communication Ability: Effective Communication Tools: Physical Gestures Patient Clerical Assistant Required: Yes Beliefs That Will Affect Care: None marital status: Single Current Living Situation: Family Current Living Situation Comment: Lives with mom and 11 yr old son How many Children do You have: 1 Feels Safe at Home: Yes Assistive Devices: None Physical Exam Psychiatric: Orientation: alert and oriented x 3 Apperance: appropriately groomed Eye Contact: + fair eye contact Motor Behavior: no abnormal motor movements Speech: normal rate/rhythm/volume of speech Affect: euthymic affect Mood: no depressed mood and no anxious mood Thought Process: goal directed thought process Thought Content: reality based without delusions Suicidal Thoughts: denies suicidal thoughts Homicidal Thoughts: denies homicidal thoughts Hallucinations: no auditory hallucinations and no visual hallucinations Cognition: recent memory grossly intact Estimated Intelligence: consistent with education level Insight: + limited insight Judgement: + limited judgement Vital Signs (Past 24 Hours): Last Vital Signs Temp 37.2 C 09/10/20 13:44 Pulse 75 09/10/20 13:54 Resp 18 09/10/20 13:44 BP 111/70 09/10/20 13:44 Pulse Ox 95 09/10/20 13:44 Review of Systems All systems reviewed & are unremarkable except as noted in HPI & below Results & Data (PSY) Medications Administered Acetaminophen (Acetaminophen 500 Mg Tab) 1,000 mg PO Q8H PRN PRN Reason: Pain Stop: 10/09/20 10:16 Last Admin: 09/10/20 07:38 Dose: 1,000 mg Documented by: [id number] Amitriptyline HCl (Amitriptyline Hcl 50 Mg Tab) 50 mg PO HS [facility] Stop: 10/09/20 20:59 Last Admin: 09/09/20 20:23 Dose: 50 mg Documented by: [id number] Benzonatate (Benzonatate 100 Mg Capsule) 100 mg PO TID MAHESH Stop: 10/10/20 13:59 Last Admin: 09/10/20 14:07 Dose: 100 mg Documented by: [id number] Buspirone HCl (Buspirone 5 Mg Tab) 10 mg PO BID MAHESH Stop: 10/08/20 11:44 Last Admin: 09/10/20 08:20 Dose: 10 mg Documented by: [id number] Admin: 09/09/20 20:23 Dose: 10 mg Documented by: [id number] Admin: 09/09/20 07:57 Dose: 10 mg Documented by: [id number] Admin: 09/08/20 20:10 Dose: 10 mg Documented by: [id number] Admin: 09/08/20 13:00 Dose: 10 mg Documented by: [id number] Clonazepam (Clonazepam 1 Mg Tab) 1 mg PO Q8 PRN PRN Reason: Anxiety Stop: 10/08/20 13:38 Last Admin: 09/10/20 08:27 Dose: 1 mg Documented by: [id number] Admin: 09/09/20 23:02 Dose: 1 mg Documented by: [id number] Admin: 09/09/20 14:44 Dose: 1 mg Documented by: [id number] Admin: 09/08/20 22:04 Dose: 1 mg Documented by: [id number] Admin: 09/08/20 13:56 Dose: 1 mg Documented by: [id number] Gabapentin (Gabapentin 300 Mg Cap) 300 mg PO TID MAHESH Stop: 10/09/20 14:59 Last Admin: 09/10/20 14:07 Dose: 300 mg Documented by: [id number] Admin: 09/10/20 08:20 Dose: 300 mg Documented by: [id number] Admin: 09/09/20 20:23 Dose: 300 mg Documented by: [id number] Admin: 09/09/20 15:36 Dose: 300 mg Documented by: [id number] Heparin Sodium (Porcine) (Heparin Sod 5,000 Unit/0.5 Ml Vial) 7,500 units SQ Q8 MAHESH Stop: 10/07/20 13:59 Last Admin: 09/10/20 14:08 Dose: 7,500 units Documented by: [id number] Admin: 09/10/20 05:28 Dose: 7,500 units Documented by: [id number] Admin: 09/09/20 20:22 Dose: 7,500 units Documented by: [id number] Admin: 09/09/20 14:11 Dose: 7,500 units Documented by: [id number] Admin: 09/09/20 06:03 Dose: 7,500 units Documented by: [id number] Admin: 09/08/20 21:04 Dose: 7,500 units Documented by: [id number] Admin: 09/08/20 13:01 Dose: 7,500 units Documented by: [id number] Admin: 09/08/20 06:49 Dose: 7,500 units Documented by: [id number] Admin: 09/07/20 20:25 Dose: 7,500 units Documented by: [id number] Admin: 09/07/20 14:42 Dose: 7,500 units Documented by: [id number] Insulin Aspart (Insulin Aspart 100 Units/Ml 3 Ml Pen) 0 units SC ACHS [facility] Stop: 10/09/20 11:29 Last Admin: 09/10/20 12:27 Dose: 13 units Documented by: [id number] Cosigned by: [id number] Admin: 09/10/20 08:15 Dose: 13 units Documented by: [id number] Cosigned by: [id number] Admin: 09/09/20 22:06 Dose: 4 units Documented by: [id number] Cosigned by: [id number] Admin: 09/09/20 18:03 Dose: 7 units Documented by: [id number] Cosigned by: [id number] Admin: 09/09/20 14:11 Dose: Not Given Documented by: [id number] Cosigned by: [id number] Insulin Aspart (Insulin Aspart 100 Units/Ml 3 Ml Pen) 0 units SC TODAY@0200 [facility] Stop: 10/10/20 01:59 Last Admin: 09/10/20 01:47 Dose: 2 units Documented by: [id number] Cosigned by: [id number] Insulin Glargine (Insulin Glargine Solostar 100 Units/Ml 3 Ml Pen) 0 units SC BID [facility]; Protocol Stop: 10/09/20 20:59 Last Admin: 09/10/20 08:16 Dose: 20 units Documented by: [id number] Cosigned by: [id number] Admin: 09/09/20 22:05 Dose: 10 units Documented by: [id number] Cosigned by: [id number] Ketorolac Tromethamine (Ketorolac Tromethamine 15 Mg/Ml Vial) 15 mg IV Q6H PRN PRN Reason: Pain Stop: 09/15/20 09:35 Last Admin: 09/10/20 10:10 Dose: 15 mg Documented by: [id number] Lisinopril (Lisinopril 20 Mg Tab) 20 mg PO QAM [facility] Stop: 10/10/20 08:59 Last Admin: 09/10/20 08:20 Dose: 20 mg Documented by: [id number] Methylphenidate HCl (Methylphenidate Hcl 10 Mg Tablet) 10 mg PO BIDM [facility] Stop: 09/23/20 16:59 Last Admin: 09/10/20 08:19 Dose: 10 mg Documented by: [id number] Admin: 09/09/20 17:11 Dose: 10 mg Documented by: [id number] Mirtazapine (Mirtazapine Tab 15 Mg Tab) 30 mg PO HS [facility] Stop: 10/09/20 20:59 Last Admin: 09/09/20 20:23 Dose: 30 mg Documented by: [id number] Phenol (Chloraseptic 1.4% Soln 180 Ml Btl) 2 sprays MT Q2H PRN PRN Reason: Sore Throat Stop: 10/10/20 09:32 Last Admin: 09/10/20 10:08 Dose: 2 sprays Documented by: [id number] Propranolol HCl (Propranolol Hcl 10 Mg Tab) 10 mg PO TID [facility] Stop: 10/09/20 14:59 Last Admin: 09/10/20 14:08 Dose: 10 mg Documented by: [id number] Admin: 09/10/20 08:21 Dose: 10 mg Documented by: [id number] Admin: 09/09/20 20:26 Dose: 10 mg Documented by: [id number] Admin: 09/09/20 15:38 Dose: 10 mg Documented by: [id number] Admin: 09/09/20 15:36 Dose: Not Given Documented by: [id number] Coding Level of Care Code 48187 [facility] Intl Hosp Care Lvl 2
--- NOTE | 2020-09-10 18:01 | Hospitalist Progress Note ---
Date of Service September 10, 2020 Assessment & Plan (1) Diabetes mellitus, type 2: ) Unresponsive state: Patient found unresponsive, at home, was intubated for airway protection/admitted to ICU possible combination of hyperglycemia , poorly controlled DM ( Hba1c > 15 ) , dehydration , marijuana abuse was intubated for airway protection Successfully extubated doing well , no hypoxia or SOB currently mental status at baseline offers no complain Poorly controlled type 2 diabetes with hyperglycemia hb a1c > 15 Diagnosed on type 2 diabetes recently was on Metformin Admitted with metabolic acidosis, hyperglycemia. was treated with IV insulin gtt currently on basal lantus and insulin SSI special educator contacted pt will need to be on insulin on discharge and follow up at [facility] /diabetic clinic Diverticulitis of large colon no GI symptoms repeat CT abdomen pelvis-shows no colitis dc abx Metabolic acidosis resolved with iv hydration and correction of hyperglyemia Multifactorial, hyperglycemia poorly controlled diabetes/dehydration volume depletion/acute renal failure Acute renal failure resolved Possible combination to above, recent lab on 09/01/2020 showed creatinine 1.31 Worsening of creatinine on admission 2.9 renal function improved to baseline History of drug abuse, urine tox positive for marijuana History of severe depression/anxiety, prior history of overdose Per family, patient's has been dealing with severe anxiety, possible utilizing marijuana for that, psych consult requested -appreciate input Full code Admission and Anticipated Discharge Date Admission Date: September 07, 2020 Subjective pt is awake and alert offers no specific complain except for headahce no fever or chills , hoping to be discharged home tomorrow no hypoxia , no cough or SOB \ Review of Systems Review of Systems: All systems reviewed, negative other than subjective. Physical Exam Constitutional: WD/WN, vitals as above + obese Eyes: + anicteric sclerae Neck: normal visual inspection Respiratory: Auscultation: + diminished lung sounds; no crackles and no rales Cardiovascular: Rate/Rhythm: regular rate and regular rhythm Extremities: no edema Gastrointestinal (Abdomen): Percussion/Palpation: abdomen soft; abdomen nontender Neurologic: awake Results & Data Results & Data ([facility]) Vital Signs (Past 12 Hours) Vital Signs Temp Pulse Pulse Resp BP Pulse Ox 09/10/20 15:51 77 09/10/20 13:54 75 09/10/20 13:44 37.2 C 78 18 111/70 95 09/10/20 12:12 36.7 C 69 19 111/70 96 09/10/20 08:13 36.6 C 78 18 129/85 98 09/10/20 08:00 78
[2020-09-10] MEDS: MIRTAZAPINE TAB 15 MG TAB PO SCH (20:51)
[2020-09-10] MEDS: AMITRIPTYLINE HCL 50 MG TAB PO SCH (20:51)
[2020-09-11] MEDS: INSULIN ASPART 100 UNITS/ML 3 ML PEN SC SCH ×3 (01:31→13:34)
[2020-09-11] MEDS: clonazePAM 1 MG TAB PO PRN (05:19)
[2020-09-11] MEDS: HEPARIN SOD 5,000 UNIT/0.5 ML VIAL SQ SCH ×2 (05:20→13:37)
[2020-09-11 06:00] LABS: Urine Potassium 14.3 mmol/L
[2020-09-11] MEDS: KETOROLAC TROMETHAMINE 15 MG/ML VIAL IV PRN ×2 (06:20→12:43)
[2020-09-11 08:19] LABS: BUN Creatinine Ratio 24.7 (10-20); Calcium 8.4 mg/dl (8.5-10.1); Est GFR (African American) 121.3 ml/min; Est GFR (Non-African American) 104.6 ml/min; Potassium 3.8 mmol/L (3.5-5.1)
[2020-09-11] MEDS: METHYLPHENIDATE HCL 10 MG TABLET PO SCH (08:31)
[2020-09-11] MEDS: INSULIN GLARGINE SOLOSTAR 100 UNITS/ML 3 ML PEN SC SCH (08:44)
[2020-09-11] MEDS: GABAPENTIN 300 MG CAP PO SCH ×2 (08:48→13:37)
[2020-09-11] MEDS: BENZONATATE 100 MG CAPSULE PO SCH ×2 (08:48→13:37)
[2020-09-11] MEDS: busPIRone 5 MG TAB PO SCH (08:48)
[2020-09-11] MEDS: PROPRANOLOL HCL 10 MG TAB PO SCH ×2 (11:03→13:49)
[2020-09-11] MEDS: lisinopril 20 MG TAB PO SCH (11:03)
[2020-09-11] MEDS ORDERED: INSULIN GLARGINE SOLOSTAR 100 UNITS/ML 3 ML PEN SC ONE (12:00)
--- NOTE | 2020-09-11 12:06 | Pharmacy Report ---
Pharmacy Glycemic Short Note 2 - Date of Service September 11, 2020 - Glycemic Short BSG Results (Last 24 hours): 09/10/20 09/10/20 09/11/20 16:56 20:27 01:29 Glucose POC Glucose 132 H 122 H 110 H 09/11/20 09/11/20 07:30 11:43 Glucose 124 H POC Glucose 137 H OUTPATIENT ANTIDIABETIC REGIMEN: * metformin 500 mg BID * HbA1C- 15.5% 09/07/20 ASSESSMENT: 09/11: * Anita received 72 units of insulin yesterday with excellent glycemic control * 35 units of basal * 37 units of bolus * BSGs ranged from 122 - 193 mg/dL * Fasting BSG at goal. Will transition Lantus to once daily dosing for ease of outpatient dosing. * Post prandial BSGs are acceptable and trending downward throughout the day. I will loosen CF/CR. 09/10 * 55 units SQ insulin administered over last 24 hrs while tolerating very little PO intake * Fasting BSG 193 this AM w/ 35 units basal on board and after receiving 6 units correctional insulin overnight - will continue to up-titrate basal * Will continue current Novolog CF/CR given rather low carb intake yesterday - will adjust if needed 09/09 * 54 units SQ insulin administered over last 24 hrs while patient essentially NPO * Fasting BSG 166-202 this AM with 25 units basal on board and after receiving 6 units correctional insulin overnight * Patient has not yet tolerated a diet, despite being ordered. Current Novolog CF/CR seem reasonable to continue 09/08 * Patient was continued on insulin infusion throughout the night and stabilized at 3 units/hr. * Potassium this morning was 2.8 mEq/L so discontinued insulin infusion as patient stabilizing. * Order Lantus 25 units x 1 (weight-based stress of 3 half dose). Scale for tonight 0-15 units. Weight-based dosing for tomorrow. * Weight-based stress of 3 Novolog as less Lantus given. PLAN FOR INPATIENT GLYCEMIC CONTROL: * Oral Agents * Continue to hold outpatient oral diabetes medications (metformin) * Basal insulin: * Lantus 15 units SQ with breakfast, additional 15 units with lunch * Start Lantus 30 units SQ tomorrow * Bolus insulin - loosen * NovoLog per scale ACHS or Q4hrs while NPO * Goal Range: Low 110 mg/dL - High 140 mg/dL * Correction Factor: 20 mg/dL/unit * Nutritional / Prandial insulin per carb ratio of 1 unit per 7 grams CHO consumed DISCHARGE RECOMMENDATIONS: * Given A1c > 10, consideration should be made to place this patient on triple therapy on discharge: Metformin + Basal insulin + (either Prandial insulin or GLP1-RA) * Recommend the following starting doses: * Glargine 30 units SQ daily in the morning * Insulin aspart 8 units SQ three times daily with meals (hold dose if meal is skipped) plus sliding scale for correction - sliding scale provided by CDE * Continue metformin 500 mg BID - may increase dose by 500 mg per week as tolerated to max of 2000 mg BID
--- NOTE | 2020-09-11 14:23 | Hospitalist Progress Note ---
Date of Service September 11, 2020 Assessment & Plan (1) Unresponsive state: Plan: Unresponsive state: ? Secondary to Polypharmacy/Drug abuse -CT head:No acute intracranial hemorrhage, no midline shift or space occupying lesions. Stable old lacunar infarct within the right basal ganglia. Patient was found to be unresponsive at home, was intubated for airway protection/admitted to ICU -Toxicology Screen:Positive for Marijuana -Blood/Urine Cx: Nehative to date S/P extubation Patient refused VISHNU and psychiatry unable to help with medication reconciliation as patient not co-operative as per notes Poorly controlled Type II diabetes with hyperglycemia Diagnosed on type 2 diabetes recently was on Metformin Metabolic acidosis, hyperglycemia. HbA1C: 15.5 Was trested with IV insulin gtt Continue basal lantus, Insulin SSI perinatal educator consulted Renal Lesion: -CT ABD:No bowel obstruction or bowel wall thickening. Improved aeration of the lungs with minimal subsegmental bibasilar atelectasis. Hepatomegaly with hepatic steatosis. Intermediate density 10 mm lesion of the inferior pole left kidney has mildly increased in size from 2007. A complex cyst is favored over a solid lesion. This could be correlated with a follow-up renal ultrasound. Normal appendix -Renal USD:The patient's 1 cm left lower pole lesion was not clearly identified by this modality. This could be further assessed with follow-up dedicated renal MRI. No hydronephrosis. -Follow up with Urology as outpatient Suspected Colitis Ruled out Repeat CT ABD with IV contrast:No bowel obstruction or bowel wall thickening. Empirically received IV Rocephin and Flagyl. Metabolic acidosis resolved Received IV fluids Metabolic acidosis resolved Acute renal failure Cr:2.9>1.74>1.43>0.70 Renal function improved to baseline Monitor Hypokalemia Replace electrolytes as needed H/O Severe depression/anxiety, prior history of overdose Per family, patient's has been dealing with severe anxiety, possible using marijuana Patient refused VISHNU Uncooperative as per Psychiatry Follow up with Psychiatry as outpatient DVT Px: Heparin SQ Code Status Full code Disposition: Home Admission and Anticipated Discharge Date Admission Date: September 07, 2020 Subjective Patient is seen and examined at bedside States having headache which she attributes to chronic migraine Otherwise offers no complaints Denies chest pain, dyspnea, dizziness, nausea, abdominal pain Review of Systems Review of Systems: All systems reviewed, negative other than subjective. Physical Exam Physical Exam: Physical Exam: Vitals signs as noted above General Appearance:Obese, no apparent distress Head: normocephalic, Atraumatic Eyes: normal inspection, EOMI Neck: supple, Trachea midline Respiratory/Chest: Normal breath sounds, CTA, No accessory muscle use Cardiovascular: S1, S2, No murmur Abdomen/GI:Soft, Non tender, Bowel sounds present Extremities/Musculoskeletal:normal inspection, no edema Neurologic/Psych:AAOX3, grossly no focal neurological deficits Skin: normal color, warm Results & Data Results & Data ([facility]) Vital Signs (Past 12 Hours) Vital Signs Temp Pulse Pulse Pulse Resp BP BP 09/11/20 13:48 36.6 C 75 18 111/73 09/11/20 07:44 36.5 C 61 18 93/63 L 09/11/20 07:38 67 09/11/20 04:53 36.4 C L 85 20 92/53 L Pulse Ox 09/11/20 13:48 95 09/11/20 07:44 96 09/11/20 07:38 09/11/20 04:53 96 Laboratory Results BMP 09/11/20 07:30 Sodium 139 Potassium 3.8 Chloride 112 H Carbon Dioxide 22 BUN 17 D Creatinine 0.70 Glucose 124 H Calcium 8.4 L
--- NOTE | 2020-09-11 14:59 | Discharge Summary ---
Date of Service September 11, 2020 Admission HPI Per Admitting Provider Pt is 45 y/o F with PMH DM II, HTN, HLD, depression, anxiety, fibromyalgia, narcolepsy, h/o kidney stone, tobacco use presented to ER as was found unresponsive this morning by mother. Pt lives with mother. History obtained from patient's mother and chart review. Mother reports that patient with underlying anxiety however the past week has been increasingly anxious, worried about her BSG's. Patient with history ER visit 09/01/2020 for polyuria, polydipsia, flank pain. Was found to have hyperglycemia. During the ER visit no leukocytosis, BSG 510 and was started on IV insulin, negative troponin, UA negative, had CTA negative for PE, CT abdomen pelvis without stone or obstruction. Patient was discharged home on Bactrim for possible UTI/pyelonephritis. Patient's mother reports that patient stopped drinking soda. Patient's sister reports that she had noted that she was not eating well because she was worried about raising her blood sugars, however past several days did resume eating. Other reports last night patient reported she was not feeling well and ate dinner and vomited after dinner. She also reports that she had diarrhea. Patient with history of overdose in the past. Mother is concerned that she may have taken too many medications, but is uncertain as patient manages her own medications. Mother is unaware if patient using recreational drugs or alcohol. When EMS arrived patient was found to have dilated pupils, not responding to sternal rub, snoring respirations, oxygen saturations reported okay, SBP 70s- 90s, BSG 400s and patient was transferred to ER. In ER patient was unresponsive with snoring respirations and minimally responsive to sternal rub and patient was intubated. CT abdomen pelvis with possible new infiltrate within left lower lobe and mild fat stranding surrounding focal loop of large bowel within splenic flexure which might represent developing colitis. No leukocytosis, ABG: pH: 7.2, pCO2: 45, pO2: 222, HCO3: 18. Glucose: 395, BUN: 33, Cr: 2.99 urine drug tox positive marijuana. Negative COVID-19 PCR. In ER was given to liters NSS, Rocephin 2 g IV, started on insulin drip. Admission Exam Per Admitting Provider Physical Exam Physical Exam: General: +intubated, on propofol, not responsive; obese female Head: normocephalic, atraumatic Eyes: pupils minimally responsive to light, conjunctiva non-injected, anicteric ENT: normal inspection external ears, nose, mucous membranes dry Neck: supple, trachea midline Lungs: +intubated, appears clear to anterior auscultation CV: bradycardia P: 56, regular rhythm no murmur, no pretibial edema Abd: protuberant, normal BS, soft, unable to assess if tenderness to palpation Ext: no cyanosis, no erythema Neuro: Currently intubated and not responsive Skin: warm, dry Principal Diagnosis Unresponsive Episode Poorly controlled Type II diabetes Renal Lesion Acute renal failure Hypokalemia Discharge Data Allergies Allergy/AdvReac Type Severity Reaction Status Date / Time amoxicillin Allergy Intermediate RASH Verified 09/01/20 20:26 Penicillins Allergy Intermediate RASH TO Verified 09/01/20 20:26 AMOXIL Consultations 09/07/20 10:15 ED Decision to Admit Stat 09/07/20 10:45 Consult Nursing Service Administrator Routine 09/09/20 13:12 Consult Psychiatry Routine Ordered Studies 09/07/20 08:30 CT head/brain wo con Stat 09/07/20 08:33 CT abd pelvis wo con Stat 09/07/20 13:48 US point of care ultrasound Urgent 09/08/20 16:39 CT abd pelvis IV con only Urgent 09/09/20 US renal/blad retro comp Routine Diabetes Follow up Diabetes Follow-up Needed for HgbA1c >9% Hospital Course (1) Unresponsive state: Unresponsive state: ? Secondary to Polypharmacy/Drug abuse -CT head:No acute intracranial hemorrhage, no midline shift or space occupying lesions. Stable old lacunar infarct within the right basal ganglia. Patient was found to be unresponsive at home, was intubated for airway protection/admitted to ICU -Toxicology Screen:Positive for Marijuana -Blood/Urine Cx: Nehative to date S/P extubation Patient refused VISHNU and psychiatry unable to help with medication reconciliation as patient not co-operative as per notes Poorly controlled Type II diabetes with hyperglycemia Diagnosed on type 2 diabetes recently was on Metformin Metabolic acidosis, hyperglycemia. HbA1C: 15.5 Was trested with IV insulin gtt Continue basal lantus, Insulin SSI inhalation therapy aide consulted Renal Lesion: -CT ABD:No bowel obstruction or bowel wall thickening. Improved aeration of the lungs with minimal subsegmental bibasilar atelectasis. Hepatomegaly with hepatic steatosis. Intermediate density 10 mm lesion of the inferior pole left kidney has mildly increased in size from 2008. A complex cyst is favored over a solid lesion. This could be correlated with a follow-up renal ultrasound. Normal appendix -Renal USD:The patient's 1 cm left lower pole lesion was not clearly identified by this modality. This could be further assessed with follow-up dedicated renal MRI. No hydronephrosis. -Follow up with Urology as outpatient Suspected Colitis Ruled out Repeat CT ABD with IV contrast:No bowel obstruction or bowel wall thickening. Empirically received IV Rocephin and Flagyl. Metabolic acidosis resolved Received IV fluids Metabolic acidosis resolved Acute renal failure Cr:2.9>1.74>1.43>0.70 Renal function improved to baseline Monitor Hypokalemia Replace electrolytes as needed H/O Severe depression/anxiety, prior history of overdose Per family, patient's has been dealing with severe anxiety, possible using marijuana Patient refused VISHNU Uncooperative as per Psychiatry Follow up with Psychiatry as outpatient DVT Px: Heparin SQ Code Status Full code Disposition: Home Total Time Total Time Spent Total Time Spent (In Minutes): 43 minutes Discharge Plan Discharge Items Patient Disposition: Home - Self-Care Reason For Visit: UNRESPONSIVE, RESPIRATORY FAILURE, HYPERGLYCEMIA Discharge Diagnosis: Unresponsive Episode Poorly controlled Type II diabetes Renal Lesion Acute renal failure Hypokalemia Condition on Discharge: Serious Activity: Resume your previous activity Exercise/Sports: Gradually increase as tolerated Non-emergency contact: Primary Care Provider and Psychiatrist Call non-emergency contact if: you have any medication questions, your symptoms worsen, your pain is concerning for you and you have a fever Follow-up/Referrals: John Erazo MD [Primary Care Provider] - (Date & Time 09/17/2020 2:40 PM Provider John Erazo MD Department [facility] ) Diet: Carb Consistent or DM2 and Heart Healthy Addtl Attending Provider Instructions: Follow up with your Primary Care physician on 09/17/2020 2:40 PM Follow up with your Urologist for further evaluation of complex cyst noted on the left kidney incidentally noted on CT scan Follow-up with your psychiatrist for further management of anxiety. ---Discuss with your physician for further adjustment of your Insulin dosage for better control of your diabetes. ---Your Ritalin (Methylphenidate) could be contributing to worsening of your anxiety. Discuss with your physician for further recommendations. ---Your blood cultures are pending at the time of discharge. Follow-up with your physician for results. Quit using Marijuana. Seek immediate medical attention if your symptoms reoccur or worsen Please take all medications as instructed on discharge list below. Please call if you have any questions or problems. You can reach a [facility] hospitalist on duty at [facility] 24 hours a day by calling [phone] Pending Studies at Discharge: Yes Studies:: Blood Cultures Stand-Alone Forms: [facility], Smoking Cessation Medications and DC Order Prescriptions: New insulin aspart U-100 [Novolog Flexpen U-100 Insulin] 100 unit/mL (3 mL) Insulin Pen 8 unit SC TIDM 30 Days Qty: 2.4 RF: 1 Lantus Solostar U-100 Insulin 100 unit/mL (3 mL) Insulin Pen 30 unit SC QAM 30 Days Qty: 9 RF: 1 (DME) OneTouch Verio test strips Strip See Rx Instructions .Route Qty: 100 RF: 1 (DME) pen needle, diabetic [Pen Needle] 32 gauge x 5/32" needle See Rx Instructions .Route Qty: 100 RF: 1 Continued methylphenidate HCl 10 mg tablet 10 mg PO BID Qty: 60 RF: 0 gabapentin 300 mg capsule 300 mg PO TID RF: 0 clonazepam 1 mg tablet 1 mg PO TID PRN (Reason: Anxiety) RF: 0 amitriptyline 25 mg tablet 50 mg PO HS RF: 0 buspirone 10 mg tablet 10 mg PO BID RF: 0 meloxicam 15 mg tablet 15 mg PO DAILY PRN (Reason: Pain) RF: 0 lisinopril 20 mg tablet 20 mg PO QAM RF: 0 potassium 99 mg Tablet 99 mg PO QPM RF: 0 mirtazapine 30 mg tablet 30 mg PO HS RF: 0 magnesium 250 mg Tablet 250 mg PO HS RF: 0 acetaminophen [Tylenol Extra Strength] 500 mg Tablet 1,000 mg PO Q6H PRN (Reason: Pain) RF: 0 baclofen 10 mg tablet 10 mg PO BID PRN (Reason: Muscle Spasm) RF: 0 propranolol 10 mg tablet 10 mg PO TID RF: 0 metformin 500 mg tablet extended release 24 hr 500 mg PO BID RF: 0 Cbd Medic Active Sport Pain Relief Deep Muscle Rub 0 applic topical UD RF: 0 hydroxyzine pamoate 25 mg capsule 25 mg PO BID PRN (Reason: Anxiety) RF: 0 Emgality Pen 120 mg/mL pen injector 120 mg SUBCUT MONTHLY RF: 0 ondansetron 4 mg tablet,disintegrating 4 mg PO Q8 PRN (Reason: nausea and vomiting) RF: 0 albuterol sulfate 90 mcg/actuation HFA aerosol inhaler 2 puff INHALATION Q4 PRN (Reason: cough/wheeze) RF: 0 Trintellix 20 mg Tablet 50 mg PO DAILY RF: 0 Discontinued ibuprofen [Advil] 200 mg Tablet 200 - 400 mg PO UD PRN (Reason: Pain) RF: 0 sulfamethoxazole-trimethoprim [Bactrim DS] 800-160 mg tablet 1 tab PO Q12H 7 Days Qty: 14 RF: 0 Discharge Orders: Discharge Order (Routine); Ordered 09/11/20 Ordered By: Jony Hilliard Admission Data Admit Date/Time: 09/07/20 10:45 Attending Provider: Jony Hilliard Admit Provider: Renetta Bradley Primary Care Provider: John Erazo Other Providers: Renetta Bradley ; Elzbieta Flores ; Patricia Butts ; Dr Satish ; Geovanna Dee ; John Preciado Other Interventions: Discharge Summary Assessment (RN) Last Done: 09/11/20 15:23
[2020-09-12 06:35] LABS: 18KDIGG Band NON-REACTIVE; 23KDIGG Band NON-REACTIVE; 23KDIGM Band NON-REACTIVE; 28KDIGG Band NON-REACTIVE; 30KDIGG Band NON-REACTIVE; 39KDIGG Band NON-REACTIVE; 39KDIGM Band REACTIVE; 41KDIGG Band REACTIVE; 41KDIGM Band NON-REACTIVE; 45KDIGG Band NON-REACTIVE; 58KDIGG Band NON-REACTIVE; 66KDIGG Band NON-REACTIVE; 93KDIGG Band NON-REACTIVE; Lyme Antibodies, WB IgG NEGATIVE (NEGATIVE); Lyme Antibodies, WB IgM NEGATIVE (NEGATIVE)
[2020-09-12] MEDS ORDERED: INSULIN GLARGINE SOLOSTAR 100 UNITS/ML 3 ML PEN SC SCH (09:00)
[2020-09-17 10:21] LABS: Methyl Alcohol Comment WHOLE BLOOD; Methyl Alcohol Level NONE DETECTED (NONE DETECTED)
== END 2020-09-11 16:48 | disposition home or self-care (01) | DRG 637 ==
LOC: ED 08:10 → SUATTDRO 10:45 → 1E 10:45 → 2S 09-09 14:33 → 2W 09-10 12:53

== ENCOUNTER 2021-07-18 10:20 | Observation (INO) ==
--- NOTE | 2021-06-17 13:06 | PAT Medication Instructions ---
Medication Instructions Date of Service June 17, 2021 Home Medications Medication Instructions Recorded blood sugar diagnostic (OneTouch #100 ea 09/11/20 Verio test strips) insulin aspart U-100 100 unit/mL 8 unit SC TIDM 30 Days #2.4 ml 09/11/20 (3 mL) subcutaneous pen (Novolog Flexpen U-100 Insulin aspart) insulin glargine 100 unit/mL (3 30 unit SC QAM 30 Days #9 ml 09/11/20 mL) subcutaneous pen (Lantus Solostar U-100 Insulin) pen needle, diabetic 32 gauge x #100 ea 09/11/2032" (Pen Needle) Tres Walker #1 ea 05/19/21 pregabalin 100 mg capsule (Lyrica) 100 mg PO TID #90 cap 05/19/21 methylphenidate HCl 10 mg tablet 10 mg PO BID #60 tab 06/11/21 amitriptyline 25 mg tablet 50 mg PO HS clonazepam 1 mg tablet 1 mg PO TID PRN lisinopril 20 mg tablet 20 mg PO QAM magnesium 250 mg tablet 250 mg PO HS meloxicam 15 mg tablet 15 mg PO QAM mirtazapine 30 mg tablet 30 mg PO HS potassium 99 mg tablet 99 mg PO QPM acetaminophen 500 mg tablet (Tylenol Extra Strength) 1,000 mg PO Q6H PRN baclofen 10 mg tablet 10 mg PO BID PRN metformin 500 mg tablet,extended release 24 hr 500 mg PO BID propranolol 10 mg tablet 10 mg PO TID galcanezumab-gnlm 120 mg/mL subcutaneous pen injector (Emgality Pen) 120 mg S UBCUT MONTHLY ondansetron 4 mg disintegrating tablet 4 mg PO Q8 PRN vortioxetine 20 mg tablet (Trintellix) 20 mg PO HS insulin aspart U-100 100 unit/mL (3 mL) subcutaneous pen (Novolog Flexpen U-100 Insulin aspart) 8 unit SC TIDM insulin glargine 100 unit/mL (3 mL) subcutaneous pen (Lantus Solostar U-100 Insulin) 30 unit SC QAM buspirone 15 mg tablet 15 mg PO TID hydroxyzine HCl 50 mg tablet 100 mg PO HS rosuvastatin 10 mg tablet (Crestor) 10 mg PO QAM pregabalin 100 mg capsule (Lyrica) 100 mg PO TID aripiprazole 10 mg tablet (Abilify) 10 mg PO HS methylphenidate HCl 10 mg tablet 10 mg PO BID ASK your surgeon for instructions meloxicam 15 mg tablet 15 mg PO QAM ASK your prescriber and surgeon galcanezumab-gnlm 120 mg/mL subcutaneous pen injector (Emgality Pen) 120 mg SUBCUT MONTHLY DO NOT take the morning of surgery lisinopril 20 mg tablet 20 mg PO QAM baclofen 10 mg tablet 10 mg PO BID PRN metformin 500 mg tablet,extended release 24 hr 500 mg PO BID insulin aspart U-100 100 unit/mL (3 mL) subcutaneous pen (Novolog Flexpen U-100 Insulin aspart) 8 unit SC TIDM methylphenidate HCl 10 mg tablet 10 mg PO BID Take morning of surgery With a small sip of water, OTHERWISE NOTHING TO EAT OR DRINK AFTER MIDNIGHT: clonazepam 1 mg tablet 1 mg PO TID PRN (if needed) acetaminophen 500 mg tablet (Tylenol Extra Strength) 1,000 mg PO Q6H PRN (okay to take up to 4 hours prior to surgery if needed) propranolol 10 mg tablet 10 mg PO TID ondansetron 4 mg disintegrating tablet 4 mg PO Q8 PRN (if needed) buspirone 15 mg tablet 15 mg PO TID rosuvastatin 10 mg tablet (Crestor) 10 mg PO QAM pregabalin 100 mg capsule (Lyrica) 100 mg PO TID Take evening before surgery amitriptyline 25 mg tablet 50 mg PO HS clonazepam 1 mg tablet 1 mg PO TID PRN (if needed) magnesium 250 mg tablet 250 mg PO HS mirtazapine 30 mg tablet 30 mg PO HS potassium 99 mg tablet 99 mg PO QPM acetaminophen 500 mg tablet (Tylenol Extra Strength) 1,000 mg PO Q6H PRN (if needed) baclofen 10 mg tablet 10 mg PO BID PRN (if needed) metformin 500 mg tablet,extended release 24 hr 500 mg PO BID propranolol 10 mg tablet 10 mg PO TID ondansetron 4 mg disintegrating tablet 4 mg PO Q8 PRN (if needed) vortioxetine 20 mg tablet (Trintellix) 20 mg PO HS insulin aspart U-100 100 unit/mL (3 mL) subcutaneous pen (Novolog Flexpen U-100 Insulin aspart) 8 unit SC TIDM buspirone 15 mg tablet 15 mg PO TID hydroxyzine HCl 50 mg tablet 100 mg PO HS pregabalin 100 mg capsule (Lyrica) 100 mg PO TID aripiprazole 10 mg tablet (Abilify) 10 mg PO HS methylphenidate HCl 10 mg tablet 10 mg PO BID Insulin Dependent Diabetic Patients * Test your blood sugar the morning of surgery * If Blood Sugar is GREATER THAN 150, take HALF of your regular dose of: insulin glargine 100 unit/mL (3 mL) subcutaneous pen (Lantus Solostar U-100 Insulin) take 15 units * If Blood Sugar is LESS THAN 150, DO NOT TAKE ANY: insulin glargine 100 unit/mL (3 mL) subcutaneous pen (Lantus Solostar U-100 Insulin) Other Notes If you have any questions please call us at [phone] or [phone] or [phone] or [phone]
--- NOTE | 2021-06-26 09:00 | Anesthesiology Consultation ---
Date of Service June 26, 2021 Assessment & Plan (1) Encounter for pre-operative examination: - Case discussed with Dr. Garcia who advised PCP clearance given h/o stroke noted on 08/[address] not mentioned to review of follow-up PCP records, pt referred to cardiology after hospitalization given abnormal RCA imaging on chest CTA-no available records. Awaiting PCP pre-op clearance. - check BSG and urine test am DOS. - COVID screening: Per assessment on 06/26/2021: Travel screen negative, no known COVID-19 positive contacts or current COVID-19 related symptoms in past 2 weeks. Patient vaccinated. Surgeon arranging preop COVID testing, scheduled 07/16/2021. Awaiting results. Chart Review Chart Review: Pending: Refer to Additional Notes / Consult section and Patient seen in Pre Admission Testing Teaching & Discussion Pre-Anesthesia Teaching/Discussion Notes: Instructed NPO after midnight before surgery, except medications with 15 cc of water. Medication instructions provided according to the PAT guidelines. History Surgery Operation Date: 07/18/21 10:40 Proposed Procedures p Right Total Knee Arthroplasty - Mk Esquivel MD Height/Weight Height: 5 ft 4 in Weight: 129.1 kg Allergies Allergy/AdvReac Type Severity Reaction Status Date / Time amoxicillin Allergy Mild Rash Verified 06/18/21 11:17 Penicillins Allergy Mild Rash (to Verified 06/18/21 11:17 amoxicillin) Medications Home Medications Medication Instructions Recorded Confirmed Last Taken amitriptyline 25 mg tablet 50 mg PO HS 12/12/17 06/18/21 02/26/21 clonazepam 1 mg tablet 1 mg PO TID PRN 12/12/17 06/18/21 02/27/21 lisinopril 20 mg tablet 20 mg PO QAM 12/12/17 06/18/21 02/27/21 magnesium 250 mg tablet 250 mg PO HS 12/12/17 06/18/21 02/26/21 meloxicam 15 mg tablet 15 mg PO QAM 12/12/17 06/18/21 02/27/21 mirtazapine 30 mg tablet 30 mg PO HS 12/12/17 06/18/21 02/26/21 potassium 99 mg tablet 99 mg PO QPM 12/12/17 06/18/21 02/26/21 acetaminophen 500 mg tablet 1,000 mg PO Q6H PRN 09/30/18 06/18/21 12/17/20 (Tylenol Extra Strength) baclofen 10 mg tablet 10 mg PO BID PRN 10/15/18 06/18/21 02/27/21 metformin 500 mg tablet,extended 500 mg PO BID 10/15/18 06/18/21 02/27/21 release 24 hr propranolol 10 mg tablet 10 mg PO TID 01/09/20 06/18/21 02/27/21 galcanezumab-gnlm 120 mg/mL 120 mg SUBCUT MONTHLY 09/01/20 06/18/21 02/27/21 subcutaneous pen injector (Emgality Pen) ondansetron 4 mg disintegrating 4 mg PO Q8 PRN 09/01/20 06/18/21 02/27/21 tablet vortioxetine 20 mg tablet 20 mg PO HS 09/01/20 06/18/21 02/27/21 (Trintellix) blood sugar diagnostic (OneTouch #100 ea 09/11/20 06/18/21 02/27/21 Verio test strips) insulin aspart U-100 100 unit/mL 8 unit SC TIDM 30 Days #2.4 ml 09/11/20 06/18/21 02/27/21 (3 mL) subcutaneous pen (Novolog Flexpen U-100 Insulin aspart) insulin glargine 100 unit/mL (3 30 unit SC QAM 30 Days #9 ml 09/11/20 06/18/21 02/27/21 mL) subcutaneous pen (Lantus Solostar U-100 Insulin) pen needle, diabetic 32 gauge x #100 ea 09/11/20 06/18/21 02/27/21 5/32" (Pen Needle) buspirone 15 mg tablet 15 mg PO TID 12/17/20 06/18/21 02/27/21 hydroxyzine HCl 50 mg tablet 100 mg PO HS 12/17/20 06/18/21 02/26/21 rosuvastatin 10 mg tablet (Crestor) 10 mg PO QAM 12/17/20 06/18/21 02/27/21 Wheeled Walker #1 ea 05/19/21 06/18/21 Unknown pregabalin 100 mg capsule (Lyrica) 100 mg PO TID #90 cap 05/19/21 06/18/21 Unknown aripiprazole 10 mg tablet (Abilify) 10 mg PO HS 05/21/21 06/18/21 Unknown methylphenidate HCl 10 mg tablet 10 mg PO BID #60 tab 06/11/21 06/18/21 Unknown sulfamethoxazole 800 1 tab PO BID #10 tab 06/18/21 06/18/21 Unknown mg-trimethoprim 160 mg tablet (Bactrim DS) Past Medical History Medical History (Updated 06/26/21 @ 15:02 by Ny Gonzalez PA-C) Anxiety and depression Chronic back pain Diabetes mellitus, type 2 IDDM, A1c 7.5% 06/20 Fibromyalgia Hiatal hernia TUMS prn with control of reflux symptoms History of kidney stones Hx of Lyme disease Hyperlipidemia Hypertension Migraine Narcolepsy Osteoarthritis Peripheral neuropathy Post traumatic stress disorder Pulmonary nodule micronodule in RUL on chest CTA 08/2020 Renal cyst Stroke Stable old lacunar infarct within the right basal ganglia noted on 08/[address] stable since 2017 comparison imaging Patient denies h/o stroke, seizures, heart attack, heart failure, blood clots or blood transfusions. Exercise / Class Metabolic Activity II 4-5 Yardwork/Stairs/Walk up hill (denies CP or SOB with 1 FOS) Past Family History Family History Father Family history of diabetes mellitus Diabetes Cancer Mother Family hx colonic polyps Hypertension Grandmother Hypertension Other No family history of adverse response to anesthesia Past Surgical History Surgical History H/O lithotripsy History of colonoscopy History of esophagogastroduodenoscopy (EGD) History of laparoscopy History of tonsillectomy History of tooth extraction all teeth removed Past Anesthesia History No Hx of Anesthesia Complications and No Family Hx of Anesthesia Complications History of PONV No Hx of PONV and No Hx of Motion Sickness Social History Smoking Status: Current every day smoker tobacco type: cigarettes Smoking cigarettes per day: 10 per day-advised Do You Dip or Chew Tobacco: No Hx Alcohol Use: No Hx Substance Use: No substance use type: former substance user Substance Use Type Other:: "tried heroin once and then went to the ER" Last Used Substance Other:: 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 Patient denies chest pain, shortness of breath, dyspnea on exertion, fever, chills, cough, wheezing, or palpitations. Physical Exam Vital Signs Vitals BP 121/78 P 71 TEMP 98.6 SP02 97% on RA RESP 17 Physical Full cervical extension range of motion without pain TMD 3.5 finger breaths Mallampati Score 3 Dentition: edentulous Lungs: normal respiratory effort. Clear throughout to auscultation, no adventitious breath sounds Cardiac: regular rate and rhythm, no murmurs noted Carotid arteries: negative bruit bilat Lab Results Anesthesia Preop Results Results Anesthesia Widget: WBC 8.34 K/uL (4.8-10.8) 06/26/21 Hgb 14.4 g/dL (12.0-16.0) 06/26/21 Hct 43.6 % (37-47) 06/26/21 Plt 306 K/uL (130-400) 06/26/21 Na 140 mmol/L (136-145) 06/26/21 K 4.5 mmol/L (3.5-5.1) 06/26/21 Cl 104 mmol/L (98-107) 06/26/21 CO2 29 mmol/L (21-32) 06/26/21 BUN 21 mg/dl (6-23) 06/26/21 Creat 0.74 mg/dl (0.6-1.2) 06/26/21 Glucose Level 133 mg/dl (70-99(Fasting)) H 06/26/21 PT 9.9 Seconds (9.0-12.0) 06/26/21 PTT 25.4 Seconds (21.0-31.0) 06/26/21 INR 0.9 (0.9-1.1) 06/26/21 HA1c 7.1 % (4.5-5.6) H 06/26/21 Blood Type AB Positive 06/26/21 Antibody Screen NEGATIVE 06/26/21 Testing Electrocardiogram Date: 06/26/21 NSR, rate 64 bpm Chest X-Ray Date: 06/26/21 Lung volumes are normal. Lungs are clear. There is no pneumothorax or pleural effusion. Cardiac size is normal. Mediastinal contours are normal. There is no evidence for pulmonary edema. Other Testing Abdomen/pelvis CT 12/30/21 No acute intra-abdominal or pelvic abnormality Head CT 09/07/20 1. No acute intracranial hemorrhage, no midline shift or space occupying lesions. 2. Stable old lacunar infarct within the right basal ganglia Chest CTA 09/01/20 1. No evidence of central pulmonary embolus. Evaluation of peripheral branches of pulmonary artery is limited due to respiratory motion artifact and decrease attenuation likely representing flow artifact. No dilatation of the pulmonary artery, no right heart strain. 2. Mild atelectasis at dependent portions of bilateral lower lobes. 3. Pulmonary micronodule within right upper lobe. There is no definite follow- up evaluation for pulmonary nodules measuring less than 6 mm in size in 12 months is optional per Fleischner Society guidelines. 4. Hepatic steatosis. Hepatomegaly. 5. Possible calcification of the right coronary artery, too prominent for patient's age group. Please correlate above-mentioned findings with cardiology evaluation.
--- NOTE | 2021-07-12 11:26 | History and Physical Report ---
DATE OF ADMISSION: 07/18/2021. CHIEF COMPLAINT: Bilateral knee pain and discomfort, right side greater than left. HISTORY OF PRESENT ILLNESS: The patient is a 46-year-old white female referred for treatment of her knees. She has got a long history of bilateral knee pain and discomfort that has gradually gotten wo rse over time. Her knee has been hurting for about 10+ years. She has been through extensive conser vative treatment including oral medicines as well as injections, which helped initially, but become l ess successful over time. She is looking to have a knee replacement. She does have a history of fib romyalgia. Also, intermittent smoking and diabetes. PAST MEDICAL HISTORY: Significant for: 1. Hypertension. 2. Obesity, BMI of 49. 3. Anxiety/depression. 4. Fibromyalgia. 5. Diabetes. 6. Back pain/sciatica. 7. Kidney stones. PAST SURGICAL HISTORY: Includes lithotripsy x3. ALLERGIES: AMOXICILLIN, WHICH CAUSES A RASH. No breathing problems. CURRENT MEDICATIONS: Include: 1. BuSpar. 2. Wellbutrin. 3. Propranolol. 4. Remeron. 5. Amitriptyline. 6. Ritalin. 7. Paxil. 8. . SOCIAL HISTORY: A 46-year-old female. She smokes half pack of cigarettes a day. Does not drink. FAMILY HISTORY: Noncontributory. REVIEW OF SYSTEMS: Significant for diabetes. Denies any chest pain or shortness of breath. She dillard s smoke half pack of cigarettes a day. No history of DVT or PE. PHYSICAL EXAMINATION: GENERAL: Shows a pleasant middle-aged female. Looks older than her stated age. HEENT: Benign. NECK: Supple. No lymphadenopathy. LUNGS: Clear to auscultation. HEART: Regular rate and rhythm. ABDOMEN: Soft, nontender, nondistended. EXTREMITIES: Grossly neurovascularly intact except as follows. Examination of both knees reveal the patient walks with a bit of a waddling gait. Fairly large soft tissue envelope. Examination of the right knee reveals slight varus deformity. Moderate to large so ft tissue envelope. Tender and diffusely to palpate. Small to moderate-sized knee effusion. Range of motion about 5-120. No instability. Examination of the left knee reveals slight varus alignment. She is tender with medial joint line. Small knee effusion. Range of motion 0-125. X-RAYS: X-rays of both knees were reviewed. It shows advanced bilateral knee degenerative joint dis ease. She has got complete loss of medial joint space on the right side and near complete on the lef t. She has got osteophytes medially. She has got subchondral sclerosis. The right side is worse th an the left. ASSESSMENT: A 46-year-old white female with multiple underlying comorbidities including diabetes, hy pertension, obesity, and smoking history with advanced knee degenerative joint disease, right side wo rse than left. She has failed conservative measures and would like to have her knees replaced. PLAN: We are going to proceed with right knee replacement. Risks and benefits of this procedure wer e explained to the patient and include but not limited to DVT, PE, , infection, neurological inj ury, vascular injury, bleeding problem, pain, limited range of motion, stiffness, failure to relieve her symptoms, incomplete relief of symptoms, need for further surgery in the future, etc. The patien t understands and desires to proceed. Informed consent was obtained. I did talk to her that her young age that this may need to be revised in the future. Also, related t o her obesity and smoking. She is at increased risk of infection. Despite this, she is hoping to pr oceed along. We will use a nicotine patch in the hospital. Job ID: [id number]
[~2021-07-18 10:20] MED LIST changes: +ACETAMINOPHEN 500 MG TAB PO SCH; -AMIT25TA9 PO; +BUPIVACAINE 0.5 % 5 MG/1 ML PF 10ML VIAL ONE; +BUPIVACAINE LIPOSOME/PF 266 MG, BUPIVACAINE/EPINEPHRINE 50 ML, SODIUM CHLORIDE 0.9% 30 ... INFIL SCH; -CLON1TAB3 PO; -CYM/30 PO; +FAMOTIDINE 20 MG TAB PO SCH; -GABA600T PO; +GABAPENTIN 900 MG DOSE PO SCH; -IBUP-1427 PO; -LISI-725 PO; +LR 500ML BOLUS, THEN 15ML/HR IV SCH; +LR 60ML/HR IV SCH; -LRS10 PO; -MAGNESIUM PO; -MELO-83 PO; -MIRT30TA3 PO; -MULT-513 PO; -POTASSIUM PO; +ROPIVACAINE 0.5% 5 MG/ML 30 ML VIAL ONE; +Scopolamine 1 MG TDSY TD SCH; -TRAM-10 PO; +TRANEXAMIC ACID 1,000 MG **IV Intra-op IV SCH
--- NOTE | 2021-07-18 11:12 | History & Physical Bridge Note ---
Date of Service July 18, 2021 History & Physical Bridge Note I have examined the patient, reviewed the History & Physical and in the interval since the performance of the History & Physical I have noted the following changes of clinical significance: no changes noted
[2021-07-18 11:28] LABS: Pregnancy Test, Serum Negative (Negative)
[2021-07-18] MEDS ORDERED: ceFAZolin 3000MG/72.5 ML BAG IV ONE (11:29)
[2021-07-18] MEDS ORDERED: MIDAZOLAM HCL 1 MG/ML 2ML VIAL ONE ×3 (11:36→13:29)
[2021-07-18] MEDS ORDERED: fentaNYL citrate 100 MCG/2 ML VIAL ONE (11:36)
[2021-07-18] MEDS ORDERED: ONDANSETRON INJ 2 MG/ML 2 ML VIAL IV PRN ×2 (12:17→16:55)
[2021-07-18] MEDS ORDERED: MEPERIDINE HCL 25 MG/ML CARP/VIAL IV PRN (12:17)
[2021-07-18] MEDS ORDERED: ATROPINE SULFATE 0.1 MG/ML 10ML SYR IV PRN (12:17)
[2021-07-18] MEDS ORDERED: PROMETHAZINE HCL 12.5 MG in SODIUM CHLORIDE 0.9% 50 ML IV PRN (12:17)
[2021-07-18] MEDS ORDERED: fentaNYL citrate 100 MCG/2 ML VIAL IV PRN (12:17)
[2021-07-18] MEDS ORDERED: ePHEDrine sulfate 50 MG/ML AMP IV PRN (12:17)
[2021-07-18] MEDS ORDERED: MoRPHine SULFATE 10 MG/ML CARP/VIAL IV PRN (12:17)
[2021-07-18] MEDS ORDERED: BUPIVACAINE/EPINEPHRINE 0.25% 1:200,000 30 ML VIAL ONE (13:06)
[2021-07-18] MEDS ORDERED: BUPIVACAINE LIPOSOME 1.3% 266 MG/20 ML VIAL ONE (13:06)
[2021-07-18] MEDS ORDERED: SODIUM CHLORIDE 0.9% PF 50 ML VIAL ONE (13:07)
[2021-07-18] MEDS ORDERED: VANCOMYCIN HCL 1000MG/20ML VIAL ONE (13:07)
[2021-07-18] MEDS ORDERED: PROPOFOL IV EMULSION 10 MG/ML 20 ML VIAL IV ONE (13:27)
[2021-07-18] MEDS ORDERED: KETAMINE 50 MG/5 ML SYRINGE ONE (13:28)
[2021-07-18] MEDS ORDERED: ONDANSETRON INJ 2 MG/ML 2 ML VIAL ONE (13:28)
[2021-07-18] MEDS ORDERED: GLYCOPYRROLATE 0.2 MG/ML VIAL ONE ×2 (13:28→13:43)
[2021-07-18] MEDS ORDERED: LABETALOL HCL IV 5 MG/ML 20ML IV ONE (13:47)
--- NOTE | 2021-07-18 15:12 | Post Operative Brief Note ---
PG Immediate Post Op with CF Date of Surgery July 18, 2021 Pre & Post Diagnosis Operation Date: 07/18/21 12:30 Pre-Op Diagnosis: Right knee Osteoarthritis Post-Op Diagnosis: Right knee Osteoarthritis I identified the patient and participated in the time-out.: Yes Procedure Operation Date: 07/18/21 12:30 Actual Procedures p Right Total Knee Replacement(Right) - Mk Esquivel MD Surgeon Mk Esquivel MD Bar Finish Operator Peter Mcelroy PA-C Estimated Blood Loss 50 Findings Consistent with Post-Op Diagnosis Specimens Specimen Description: A) Right knee- bone & tissue Drains Coe Catheter Complications none Disposition Accompanied Patient To Recovery: No
--- NOTE | 2021-07-18 15:17 | Operative Report ---
PG Post Operative Report Pre & Post Diagnosis Operation Date: 07/18/21 12:30 Pre-Op Diagnosis: Right knee Osteoarthritis Post-Op Diagnosis: Right knee Osteoarthritis I identified the patient and participated in the time-out.: Yes Procedure Operation Date: 07/18/21 12:30 Actual Procedures p Right Total Knee Replacement(Right) - Mk Esquivel MD Surgeon Mk Esquivel MD Sexual Assault Social Worker Peter Mcelroy PA-C Estimated Blood Loss 50 Findings Consistent with Post-Op Diagnosis Operative findings revealed grade 4 cartilage loss in both the medial and patellofemoral compartments. She had some focal grade 4 areas in the lateral femoral condyle as well. Moderate-sized joint effusion. Fluids 1300 cc Specimens Right knee sent for pathology Anesthesia Type Spinal MAC Disposition Accompanied Patient To Recovery: No Indications Patient is a 46-year-old female said a long history of bilateral knee pain discomfort right side greater than left. She has been through extensive conservative treatment of years which became less successful over time. X-rays show advanced right knee arthritis. She elected proceed with surgical treatment. Description of Procedure Operative implants consist of: 1 Biomet Vanguard size 65 right posterior stabilized femoral component. 2. Biomet size 67 tibial tray. 3. 10 mm posterior stabilized polyethylene insert. 4. 28 x 8 all polypatella. The patient was taken to the operating, identified, and placed on the operating table supine position. All contact areas were properly padded. IV antibiotics tried by anesthesia team. A spinal anesthetic and abductor canal block had provided in the holding area. Coe catheter was placed in sterile fashion. Right Tetrick was then placed in the right lower extremities then prepped and draped in usual sterile fashion. The right leg was elevated exsanguinated with use of an Esmarch interspaced at 300 mmHg. An anterior approach to the right knee was then performed to longitudinal incision centered over the patella. Sharp dissection Through subcutaneous is down the extensor mechanism. A medial parapatellar arthrotomy incision was made. Some subperiosteal dissection was carried out medially. The fat pad was resected from each patella tendon. Lateral patellofemoral ligament was released. Patella subluxated laterally and the knee was flexed. The osteophyte taken off distal femur. The ACL and PCL were then released from the distal femur and the tibia subluxated anteriorly. The external tibial alignment jig was then placed in the interface the tibia and adjusted 14 mm medially. Proximal tibial cut was made remove about a millimeter or 2 of bone from the most deficient aspect of the medial tibial plateau. The tibia sized to a size 67. Attention drawn the femur. The distal femur examined the sharp drill bit intramedullary canal was suction. A right 5 degree valgus cutting guide was placed. Distal femoral cutting block was pinned in place. Distal femoral cut was made to take an additional 3 mm bone off distal femur. The femur was then sized to a size 65. The AP cutting block was pinned parallel to the epicondylar axis which was 3 degrees of external rotation. The anterior cut, anterior chamfer, posterior cut, posterior chamfer cuts were made. Box cutting guide was placed in just slight laterally. The box cut was made. The knee was flexed. The remnants of the medial lateral menisci were excised. The osteophytes were taken off the posterior aspect of the femur. A trial femoral component was placed. The tibial tray was pinned in maximum external rotation and the drill and stem punch were used to create defect in proximal tibia for the tibial tray. Knee was then trialed and the 10 mm insert fit most appropriately. Attention drawn the patella. Patella was cleaned of all soft tissues. Patella thickness measured 20 mm in thickness was cut down to 13. Was sized to a size 28 patella. The lug holes we re drilled for the 28 patella. The lateral osteophyte was removed. Patella button was placed. Knee was taken through range of motion patella tracked nicely with no thumbs test. Attention drawn to place the permanent components. All trial components were removed. Bone plug was placed in the distal femur limit blood loss. Double batch [place] G cement was mixed. I did add an additional gram of vancomycin due to her diabetes and morbid obesity. A Biomet Vanguard size 65 right posterior stabilized femoral component, size 67 tibial tray, a 10 mm posterior stabilized polyethylene insert, and a 28 x 8 all polyps Were then cemented in place. Knee was brought out in full extension total cement hardened. Final cement check was then performed. Pericapsular tissues were injected with total 100 cc of combination of 20 cc of Exparel, 30 cc normal saline, 50 cc of quarter percent Marcaine with epinephrine. Patient did receive 1 g tranexamic acid. The tourniquet was let down for final turn time of 59 minutes. Hemostasis reduced electrocautery. Extensor mechanism closed with combination 1 PDS suture #1 Vicryl suture in [id number] fashion to extensor mechanism checked found to be intact with subcutaneous tissue then closed 2 Dexon suture in a buried interrupted fashion skin was closed skin janes. Leg was then cleaned and dried and sterile dressed with Xeroform, 4 fours, sterile cast padding, Arnulfo bandage applied. Patient then transferred to the recovery room in stable condition. Patient tolerated procedure well and there were no complications. Peter Mcelroy, my physician assistant financial accountant, was present for the entire procedure. His assistance was essential and required for appropriate patient positioning, prepping and draping, surgical exposure, performing the technical details of the operation, placement the implants, closure of the wound, and placement of the sterile bandage. I attest to the content of the Intraoperative Record and any orders documented therein. Any exceptions are noted below.
--- NOTE | 2021-07-18 15:31 | XRay Report ---
XR knee RT 1 or 2V routine CLINICAL HISTORY: Postoperative evaluation. COMPARISON: Knee radiographs May 19, 2021. FINDINGS: Alignment of the total right knee arthroplasty is anatomic. There is no periprosthetic fra cture or unexpected radiopaque foreign body. There are skin janes. IMPRESSION: Expected findings following total right knee arthroplasty. ACT 112: Negative or not required by law. Electronically signed by: Juan Abarca M.D. 07/18/2021 3:29 PM
[2021-07-18] MEDS ORDERED: ALUMINUM/MAGNESIUM SUSP 30 ML UDC PO PRN (16:55)
[2021-07-18] MEDS ORDERED: NON-FORMULARY MEDICATION (Galcanezumab-Gnlm [Emgality Pen] 120 mg/mL pen injector) SQ SCH (16:55)
[2021-07-18] MEDS ORDERED: METOCLOPRAMIDE HCL INJ 5 MG/ML 2 ML VIAL IV PRN (16:55)
[2021-07-18] MEDS ORDERED: bisacodyL 10 MG SUPP PR PRN (16:55)
[2021-07-18] MEDS ORDERED: HYDROmorphone INJ 0.5 MG/0.5 ML SYR IV PRN (16:55)
[2021-07-18] MEDS ORDERED: NALOXONE HCL 0.4 MG/1 ML VIAL/CARP IV PRN (16:55)
[2021-07-18] MEDS ORDERED: MAGNESIUM HYDROXIDE SUSP 30 ML UDC PO PRN (16:55)
[2021-07-18] MEDS ORDERED: diphenhydrAMINE Capsule 25 MG CAP PO PRN (16:55)
[2021-07-18] MEDS ORDERED: PHARMACY GLYCEMIC MGMT CONSULT PRN (16:55)
[2021-07-18] MEDS ORDERED: BACLOFEN 10 MG TAB PO PRN (16:55)
[2021-07-18] MEDS: SODIUM CHLORIDE 0.9% 1000ML 1,000 ML IV SCH ×2 (17:09→22:43)
[2021-07-18] MEDS: clonazePAM 1 MG TAB PO PRN (17:13)
[2021-07-18] MEDS: ALLERGY Noted to ORDERED Medication SCH ×3 (17:16→22:49)
--- NOTE | 2021-07-18 17:17 | Anesthesiology Progress Note ---
Date of Service July 18, 2021 Anesthesia Post Procedure Vital Signs Vital Signs: Temp Pulse Pulse Resp BP Pulse Ox 07/18/21 16:59 36.3 C L 64 18 148/88 H 94 07/18/21 16:30 65 16 118/88 94 07/18/21 16:15 36.3 C L 63 16 126/83 97 07/18/21 16:00 59 L 16 124/84 97 07/18/21 15:50 63 16 154/93 H 97 07/18/21 15:40 63 16 140/84 95 07/18/21 15:30 36.2 C L 64 16 131/89 94 07/18/21 15:20 68 16 124/81 97 07/18/21 15:10 36.1 C L 72 16 110/74 95 07/18/21 10:51 37.2 C 80 20 145/85 H 99 Transfer of Care Handoff Completed per policy Notes Mental Status: alert / awake / arousable and participated in evaluation Patient Amnestic to Procedure: Yes Nausea / Vomiting: adequately controlled Pain: adequately controlled Airway Patency, RR, SpO2: stable & adequate BP & HR: stable & adequate Hydration State: stable & adequate Neuraxial Anesthesia: was administered and sensory block is resolving Anesthetic Complications: no major complications apparent and Pt Satisfied with anesthetic care
[2021-07-18] MEDS: ASCORBIC ACID 500 MG TAB PO SCH (17:57)
[2021-07-18] MEDS: Scopolamine CHECK PATCH PLACEMENT SCH ×2 (17:57→22:49)
[2021-07-18] MEDS: KETOROLAC 30 MG/ML VIAL IV SCH ×2 (17:57→22:31)
[2021-07-18] MEDS: INSULIN ASPART PER UNIT SC SCH ×2 (18:02→22:23)
[2021-07-18] MEDS ORDERED: DEXTROSE 50% 50 ML SYRINGE IV PRN (19:00)
[2021-07-18] MEDS ORDERED: GLUCOSE 10 TABS/TUBE PO PRN (19:00)
[2021-07-18] MEDS ORDERED: CARBOHYDRATES FOR HYPOGLYCEMIA PO PRN (19:00)
[2021-07-18] MEDS ORDERED: GLUCAGON FOR INJ 1 MG VIAL IM PRN (19:00)
[2021-07-18] MEDS ORDERED: GLUCOSE 40% GEL 15 GM TUBE PO PRN (19:00)
[2021-07-18] MEDS: ASPIRIN 81 MG ECTAB PO SCH (20:20)
[2021-07-18] MEDS: DOCUSATE SODIUM 100 MG CAP PO SCH (20:20)
[2021-07-18] MEDS: ceFAZolin 2000MG 2,000 MG/15 ML SYR IV SCH (20:20)
[2021-07-18] MEDS: busPIRone 15 MG TAB PO SCH (20:20)
[2021-07-18] MEDS: PROPRANOLOL HCL 10 MG TAB PO SCH (20:20)
[2021-07-18] MEDS: TAPENTADOL HCL ER 50 MG TABCR PO SCH (20:27)
[2021-07-18] MEDS ORDERED: ARIPiprazole 10 MG TAB PO SCH (21:00)
[2021-07-18] MEDS ORDERED: SENNA 8.6 MG TAB PO SCH (21:00)
[2021-07-18] MEDS ORDERED: METHYLPHENIDATE HCL 10 MG TABLET PO SCH (21:00)
[2021-07-18] MEDS ORDERED: hydrOXYzine HCl 25 MG TAB PO SCH (21:00)
[2021-07-18] MEDS ORDERED: MIRTAZAPINE TAB 15 MG TAB PO SCH (21:00)
[2021-07-18] MEDS ORDERED: AMITRIPTYLINE HCL 50 MG TAB PO SCH (21:00)
[2021-07-18] MEDS ORDERED: PREGABALIN 100 MG CAP PO SCH (21:00)
[2021-07-18] MEDS ORDERED: TRANEXAMIC ACID / 0.7% NACL 1,000 MG/100 ML BAG IV SCH (21:15)
[2021-07-18] MEDS: ACETAMINOPHEN 500 MG TAB PO SCH (22:31)
[2021-07-18] MEDS: [UNRECOGNIZED DRUG - REMARK] SCH (22:49)
[2021-07-19] MEDS: oxyCODONE HCL IR 5 MG TAB (IMMEDIATE RELEASE) PO PRN ×2 (02:08→09:59)
[2021-07-19] MEDS: KETOROLAC 30 MG/ML VIAL IV SCH ×2 (05:14→10:32)
[2021-07-19] MEDS: ceFAZolin 2000MG 2,000 MG/15 ML SYR IV SCH (05:37)
[2021-07-19] MEDS: clonazePAM 1 MG TAB PO PRN ×2 (05:38→11:02)
[2021-07-19] MEDS: ACETAMINOPHEN 500 MG TAB PO SCH (05:44)
[2021-07-19] MEDS ORDERED: Nursing to Pharmacy Communication SCH (05:45)
[2021-07-19] MEDS ORDERED: METHYLPHENIDATE HCL 10 MG TABLET PO SCH (06:30)
[2021-07-19] MEDS ORDERED: PREGABALIN 100 MG CAP PO SCH (06:30)
[2021-07-19] MEDS: [UNRECOGNIZED DRUG - REMARK] SCH (07:33)
[2021-07-19] MEDS: TAPENTADOL HCL ER 50 MG TABCR PO SCH (07:34)
[2021-07-19] MEDS: Scopolamine CHECK PATCH PLACEMENT SCH (07:38)
[2021-07-19 08:13] LABS: Hematocrit (blood only) 37.1 % (37-47); Hemoglobin 12.2 g/dL (12.0-16.0); Mean Corpuscular Hemoglobin 29.3 pg (25-34); Mean Corpuscular Hgb Conc 32.9 g/dL (32-36); Mean Corpuscular Volume 89.2 fL (80-100); Mean Platelet Volume 8.7 fL (7.4-10.4); Platelet Count 302 K/uL (130-400); RDW Coefficient of Variation 12.8 % (11.5-14.5); RDW Standard Deviation 41.4 fL (36.4-46.3); Red Blood Count 4.16 M/uL (4.2-5.4); White Blood Count 8.83 K/uL (4.8-10.8)
[2021-07-19 08:37] LABS: BUN Creatinine Ratio 23.8 (10-20); Calcium 8.4 mg/dl (8.5-10.1); Creatinine Clr Calc Pharmacy 112.9 ml/min; Est GFR (African American) 96.6 ml/min; Est GFR (Non-African American) 83.3 ml/min; Potassium 4.1 mmol/L (3.5-5.1)
[2021-07-19] MEDS: INSULIN ASPART PER UNIT SC SCH (08:43)
[2021-07-19] MEDS: ASCORBIC ACID 500 MG TAB PO SCH (08:45)
[2021-07-19] MEDS: ASPIRIN 81 MG ECTAB PO SCH (08:45)
[2021-07-19] MEDS: DOCUSATE SODIUM 100 MG CAP PO SCH (08:45)
[2021-07-19] MEDS: busPIRone 15 MG TAB PO SCH (08:45)
[2021-07-19] MEDS: PROPRANOLOL HCL 10 MG TAB PO SCH (08:45)
--- NOTE | 2021-07-19 08:51 | Progress Notes ---
DATE OF NOTE: 07/19/2021. SUBJECTIVE: A 46-year-old white female postoperative day 1 from right knee replacement. She is doin g reasonably well. She is having some moderate pain, but really looks pretty comfortable. No chest pain or shortness of breath. No feeling dizzy or lightheaded. OBJECTIVE: VITAL SIGNS: Temperature 36.4. Vital signs are stable. GENERAL: Shows a pleasant middle-aged female. She is sitting up in bed and eating breakfast. She l ooks comfortable. LUNGS: Clear to auscultation. HEART: Regular rate and rhythm. ABDOMEN: Soft, nontender, nondistended. EXTREMITIES: Grossly neurovascularly intact except as follows. Examination of the right leg reveals the leg to be well aligned. Dressings clean, dry and intact. S he can dorsiflex and plantarflex her foot appropriately. She is neurologically intact. LABORATORY: Hemoglobin is 12.2. Hematocrit 37.1. Electrolytes are pending. ASSESSMENT: A 46-year-old white female postoperative day 1 from a right knee replacement, doing pret ty well. She is having some pain, but nothing out of the ordinary. She is neurologically intact. S he really looks pretty comfortable. PLAN: 1. DVT prophylaxis include thigh-high TEDs, SCDs, and aspirin twice a day. 2. PT, OT, weightbear as tolerated. Right total knee protocol. 3. Pain control, doing well with current pain regimen. 4. Disposition: Plan to discharge to home with some home health and her mom's assistance if she dillard s okay in therapy. Job ID: [id number]
[2021-07-19] MEDS ORDERED: ROSUVASTATIN CALCIUM 10 MG TAB PO SCH (09:00)
[2021-07-19] MEDS ORDERED: DOCUSATE SODIUM/SENNA 50/8.6MG TAB PO SCH (09:00)
[2021-07-19] MEDS ORDERED: INSULIN GLARGINE SOLOSTAR 100 UNITS/ML 3 ML PEN SC SCH (09:00)
[2021-07-19] MEDS ORDERED: MULTIVITAMIN TAB PO SCH (09:00)
[2021-07-19] MEDS ORDERED: lisinopril 20 MG TAB PO SCH (09:00)
--- NOTE | 2021-07-22 06:32 | Discharge Summary ---
Date of Service July 22, 2021 Discharge Data Procedures Performed Operation Date: 07/18/21 12:30 Actual Procedures p Right Total Knee Replacement(Right) - Mk Esquivel MD Hospital Course (1) Status post total right knee replacement: This patient is a 46 year old female admitted on 07/18/21 and underwent total knee arthroplasty. She tolerated the procedure well and there were no complications. Transferred to the PACU post op and later to the orthopedic floor for further care. She was given ancef for antibiotic prophylaxis. She was also given ROM stockings, SCDs, and aspirin for DVT prophylaxis. Hemoglobin, hematocrit, and vital signs were monitored during her hospital stay and remained stable. Did not require any blood transfusions. There were no complications during her hospital stay. By post op day #1 the patient was tolerating a diabetic diet, pain was reasonably controlled with oral pain medicine, and she was participating in physical therapy. On post op day #1 the patient was discharged home and set up with home health care. She was given printed discharge instructions including prescriptions for extra strength tylenol, aspirin, toradol, zofran, and o xycodone. Continue physical therapy, weight bearing as tolerated. Continue ROM stockings. Follow up approximately 2 weeks post op or sooner if there are problems or concerns. Coding Level of Care Code None Diagnoses Status post total right knee replacement Z96.651
== END 2021-07-19 12:24 | disposition home health service (06) ==
LOC: 3E 10:20 → ASU 10:20
DX: Z79.84 Long term (current) use of oral hypoglycemic drugs; M17.11 Unilateral primary osteoarthritis, right knee; Z88.0 Allergy status to penicillin; Z68.42 Body mass index [BMI] 45.0-49.9, adult; Z79.899 Other long term (current) drug therapy; Z88.1 Allergy status to other antibiotic agents; E66.9 Obesity, unspecified; Z79.4 Long term (current) use of insulin

== ENCOUNTER 2023-08-23 16:19 | Inpatient (IN) ==
--- NOTE | 2023-08-23 17:15 | Emergency Department Note ---
Impression & Plan Suicidal ideation, DEANGELO (acute kidney injury), Acute dehydration, Acute UTI (urinary tract infection), Leukocytosis ED Provider Note HISTORY OF PRESENT ILLNESS: Patient is a 48-year-old female presenting with anxiety and suicidal ideation. Patient reports for the last 2 to 3 weeks she has been having "heightened anxiety and a heightened state." Reports that she has not been eating or drinking and she has not been sleeping well. Reports feeling very depressed and is having recurrent thoughts of wanting to end her life. Reports a plan to wreck her car or jump off of a bridge. She has had a previous suicide attempt back in the early . She reports that her medication has been being adjusted by an outpatient psychiatrist in [place] over the last 3 weeks. Reports feeling very tearful and rundown. Denies any chest pain or shortness of breath. Patient sister is present and reports that her sister is not normally like this and they are concerned for her mental health. ROS: as above PHYSICAL EXAM: Constitutional: Patient appears in mild distress. HENT: Head: Normocephalic and atraumatic. Eyes: EOMI, PERRL Mouth/Throat: Mucous membranes moist. Neck: Trachea midline. Neck supple. Musculoskeletal: No edema, tenderness or deformity noted. Skin: Warm and dry. No rash, erythema, pallor or cyanosis Psychiatric: Patient is very anxious appearing. She is tearful. Speech is normal volume and rate. She does keep apologizing. Neurological: Alert and keenly responsive. CN II-XII grossly intact, moving all extremities equally and fully. MDM: - Vitals signs showed tachycardia - History obtained via patient. History as above. - Chronic conditions affecting care: DM-2; HTN; HLD; mood disorder - Differential diagnoses include, but are not limited to: worsening depression; alcohol intoxication; medication side effect; drug intoxication; UTI - External medical records reviewed. Orthopedics office visit note dated 06/14/2023 was reviewed. Patient follows in their clinic for left knee degenerative joint disease - EKG interpreted by myself showed normal sinus rhythm. Rate 98 bpm. QT prolonged at 390. No acute ischemic changes - Laboratory workup interpreted by myself showed leukocytosis (WBC 17.81); hemoconcentrated (WBC 17.81; Hgb 17.3; plt 411) with left shift; normal electrolytes; elevated anion gap (18); DEANGELO (Cr 1.35); elevated TSH with normal T4; negative salicylate/acetaminophen/alcohol - UA showed evidence of infection. Also noted to have significant ketonuria - COVID negative - hCG negative - Patient initially given 5 mg Po zyprexa, nicotine patch and 2 mg PO zofran. - However, on review of patient's laboratory workup, she technically meets sepsis criteria. Given 2 L normal saline and 2 g IV Rocephin for her UTI. Patient sepsis fluid volume resuscitation based on ideal body weight 1636.20 mL. - Blood cultures obtained after antibiotic administered. Lactate and procal added to workup. - Patient again extremely anxious on reassessment. 0.5 mg IV Ativan ordered. - Will admit medically for medical clearance and further IV antibiotics and psychiatric inpatient consultation for future psych inpatient placement - Discussion was had with manager gallery about patient's case and need for admission - Hospitalist, Dr. Berry, consulted for admission - [facility] ASSESSMENT AND PLAN: Diagnosis: suicidal ideation; acute dehydration; DEANGELO; sepsis; acute UTI; leukocytosis Plan: admit Past Med/Surg History Problem List (Updated 08/23/23 @ 21:25 by Carli Almanza MD) Leukocytosis (Acute) Acute UTI (urinary tract infection) (Acute) Acute dehydration (Acute) DEANGELO (acute kidney injury) (Acute) Suicidal ideation (Acute) Sleep apnea 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 Kidney stones (Chronic) Arthritis (Chronic) Anxiety (Chronic) Anxiety (Chronic) Dentalgia (Acute) Dentalgia (Acute) Pain, dental (Chronic) Pain, dental (Acute) Back pain (Acute) Vomiting (Acute) Vomiting (Acute) Strain of left knee (Acute) Low back strain (Acute) Urinary tract infection (Acute) Abdominal pain (Acute) Bronchitis (Acute) Acute bronchitis (Acute) Abdominal pain (Acute) Flank pain (Acute) UTI (urinary tract infection) (Acute) Flank pain (Acute) Abdominal pain (Acute) Abdominal pain (Acute) Fever (Acute) Depression (Acute) Bladder infection (Acute) Fibromyalgia (Acute) Dental caries (Acute) Right flank pain (Acute) RLQ abdominal pain (Acute) Pain, dental (Acute) Pain, dental (Acute) Chest pain (Acute) Dentalgia (Acute) Drug overdose, intentional Knee pain, bilateral (Acute) Mood disorder (Acute) Depression (Acute) Encounter for pre-operative examination Narcolepsy Gross hematuria (Acute) Depression with anxiety (Acute) Degenerative arthritis of knee, bilateral Unresponsive state (Acute) Acute hyperglycemia (Acute) Pneumonia (Acute) Renal lesion Trochanteric bursitis of both hips Lumbar radiculopathy Shingles rash Narcolepsy (Acute) Hyperlipidemia Hypertension Diabetes mellitus, type 2 (Acute) IDDM, A1c 7.5% 06/20 Fibromyalgia (Chronic) Medical History Pulmonary nodule micronodule in RUL on chest CTA 08/2020 Stroke Stable old lacunar infarct within the right basal ganglia noted on 08/[address] stable since 2017 comparison imaging Encounter for pre-operative examination Hiatal hernia TUMS prn with control of reflux symptoms Renal cyst Hx of Lyme disease History of kidney stones Post traumatic stress disorder Peripheral neuropathy Migraine Anxiety and depression Osteoarthritis Chronic back pain Diabetes mellitus, type 2 IDDM, A1c 7.5% 06/20 Hyperlipidemia Hypertension Narcolepsy Fibromyalgia Surgical History History of esophagogastroduodenoscopy (EGD) History of tonsillectomy History of laparoscopy History of colonoscopy History of tooth extraction all teeth removed H/O lithotripsy Family History Father Family history of diabetes mellitus Diabetes Cancer Mother Family hx colonic polyps Hypertension Grandmother Hypertension Other No family history of adverse response to anesthesia Social History Smoking Status: Current every day smoker Tobacco Type: Cigarettes Cigarettes Per Day: 10 per day-advised; Second Hand Exposure: No; Do You Dip or Chew Tobacco: No; Hx Alcohol Use: No Hx Substance Use: No Preferred Language: [place] Communication Ability: Effective Communication Tools: Physical Gestures 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 Required: No Beliefs That Will Affect Care: None marital status: Single Current Living Situation: Family Current Living Situation Comment: Lives with mom and son How many Children do You have: 1 Feels Safe at Home: Yes Assistive Devices: None Allergies Allergies Allergy/AdvReac Type Severity Reaction Status Date / Time amoxicillin Allergy Intermediate Rash Verified 01/13/23 12:55 Penicillins Allergy Intermediate Rash (to Verified 01/13/23 12:55 amoxicillin) Home Meds Home Medications Medication Instructions Recorded Confirmed amitriptyline 25 mg tablet 50 mg PO HS 12/12/17 08/23/23 clonazepam 1 mg tablet 1 mg PO TID PRN Anxiety 12/12/17 08/23/23 mirtazapine 30 mg tablet 30 mg PO HS 12/12/17 08/23/23 baclofen 10 mg tablet 10 mg PO BID PRN Muscle Spasm 10/15/18 08/23/23 metformin 500 mg tablet,extended 500 mg PO BID 10/15/18 08/23/23 release 24 hr propranolol 10 mg tablet 10 mg PO TID 01/09/20 08/23/23 galcanezumab-gnlm 120 mg/mL 120 mg subcut MONTHLY 09/01/20 08/23/23 subcutaneous pen injector (Emgality Pen) buspirone 15 mg tablet 15 mg PO TID 12/17/20 08/23/23 hydroxyzine HCl 50 mg tablet 100 mg PO HS 12/17/20 08/23/23 rosuvastatin 10 mg tablet (Crestor) 10 mg PO QAM 12/17/20 08/23/23 pregabalin 100 mg capsule (Lyrica) 150 mg PO TID 06/17/22 08/23/23 quetiapine 50 mg tablet (Seroquel) 50 mg PO DAILY 01/13/23 08/23/23 clonidine HCl 0.2 mg tablet 0.2 mg PO PM 08/23/23 08/23/23 vortioxetine 20 mg tablet 20 mg PO QAM 08/23/23 08/23/23 (Trintellix) Previous Rx's Medication Instructions Recorded blood sugar diagnostic (OneTouch #100 ea 09/11/20 Verio test strips) insulin aspart U-100 100 unit/mL 8 unit (0.08 mL) SC TIDM 30 days 09/11/20 (3 mL) subcutaneous pen (Novolog #2.4 mL FlexPen U-100 Insulin aspart) insulin glargine 100 unit/mL (3 30 unit (0.3 mL) SC QAM 30 days #9 09/11/20 mL) subcutaneous pen (Lantus mL Solostar U-100 Insulin) pen needle, diabetic 32 gauge x #100 ea 09/11/2032" (Pen Needle) Wheeled Walker #1 ea 05/19/21 acetaminophen 500 mg capsule 1,000 mg (2 x 500 mg) PO TID Pain 07/16/21 #180 caps ondansetron HCl 4 mg tablet 4 mg PO Q6 PRN nausea #30 tabs 07/16/21 ondansetron 4 mg disintegrating 4 mg PO Q8H PRN nausea and 06/27/23 tablet vomiting #30 tabs methylphenidate HCl 10 mg tablet 10 mg PO BID #60 tabs 08/19/23 Results & Data (ED) Vital Signs Vital Signs - 24 hr 08/23/23 16:36 08/23/23 18:35 08/23/23 20:28 Temperature 36.4 C L Temperature Source Temporal Artery Scan Pulse Rate 135 H Pulse Rate [Right Foot] 99 H 78 Pulse Rhythm Regular Pulse Rhythm [Right Foot] Regular Pulse Strength Normal Pulse Strength [Right Foot] Normal Respiratory Rate 22 22 16 Respiratory Effort / Characteristics Non-Labored Spontaneous Non-Labored Non-Labored Respiratory Depth Normal Normal Normal Respiratory Pattern Regular Regular Blood Pressure [Right Arm] 133/60 110/76 Blood Pressure Mean [Right Arm] 84 87 Blood Pressure Position [Right Arm] Sitting Pulse Oximetry 100 100 98 Oxygen Delivery Method Room Air Room Air Room Air Sepsis Recent Fever Within 48 Hours No Sepsis New/Unexplained Change in Mental Status No Sepsis Action Taken by Nursing No Action Required Laboratory Data 08/23/23 17:54 08/23/23 17:54 Lab Results 08/23/23 08/23/23 08/23/23 Range/Units 17:54 20:14 Unknown WBC 17.81 H (4.8-10.8) K/ul RBC 6.17 H (4.20-5.40) M/uL Hgb 17.3 H (12.0-16.0) g/dl Hct 50.9 H (37.0-47.0) % MCV 82.5 (80.0-100.0) fL MCH 28.0 (25.0-34.0) pg MCHC 34.0 (32.0-36.0) g/dL RDW Std Deviation 41.7 (36.4-46.3) fL RDW Coeff of Derrick 14.3 (11.5-14.5) % Plt Count 411 H (130-400) K/uL MPV 9.6 (9.4-12.4) fL Neutrophils % (Manual) 48 % Lymphocytes % (Manual) 22 % Monocytes % (Manual) 4 % Eosinophils % (Manual) 2 % Neutrophils # (Manual) 8.55 H (1.40-6.50) K/uL Total Absolute Neuts 8.55 H (1.4-6.5) K/uL Lymphocytes # (Manual) 3.92 H (1.2-3.4) K/uL Total Abs Lymphocytes 8.19 H (1.2-3.4) K/uL Monocytes # (Manual) 0.71 H (0.11-0.59) K/uL Eosinophils # (Manual) 0.36 (0-0.50) K/uL Large Granular Lymphs 24 % # Lrg Granular Lymphs 4.27 K/uL Sodium 138 (136-145) mmol/L Potassium 3.8 (3.5-5.1) mmol/L Chloride 102 (98-107) mmol/L Carbon Dioxide 18 L (21-32) mmol/L Anion Gap 18 H (3-11) BUN 24 H (6-23) mg/dl Creatinine 1.35 H (0.6-1.2) mg/dl Est Cr Clr Drug Dosing 62.0 ml/min Est GFR ( Amer) 53.7 ml/min Est GFR (Non-Af Amer) 46.3 ml/min BUN/Creatinine Ratio 17.8 (10-20) Glucose 121 H (70-99(Fasting)) mg/dl Calcium 10.6 H (8.6-10.3) mg/dl Total Bilirubin 0.5 (0.2-1.0) mg/dl AST 22 (13-39) U/L ALT 17 (7-52) U/L Alkaline Phosphatase 91 (34-104) U/L Total Protein 8.5 H (6.0-8.3) gm/dl Albumin 5.1 H (3.4-5.0) gm/dl Globulin 3.4 (2.5-4.0) gm/dl Albumin/Globulin Ratio 1.5 (0.9-2) TSH 6.075 H (0.300-4.500) uIu/ml Free T4 1.29 (0.61-1.60) ng/dl Urine Color Dark Yellow Urine Appearance Cloudy A (Clear) Urine pH 5.5 (4.5-7.5) Ur Specific [place] 1.029 (1.000-1.030) Urine Protein 1+ H (Negative) Urine Glucose (UA) Negative (Negative) Urine Ketones 3+ H (Negative) Urine Blood Negative (Negative) Urine Nitrite Negative (Negative) Urine Bilirubin Negative (Negative) Urine Urobilinogen Negative (Negative) Ur Leukocyte Esterase 1+ H (Negative) Urine WBC (Auto) 6-10 H (0-5) /hpf Urine RBC (Auto) 3-5 H (0-2) /hpf U Hyaline Cast (Auto) 11-20 H (0-2) /lpf U Epithel Cells (Auto) 11-20 H (0-2) /hpf Urine Bacteria (Auto) 3+ H (None Seen) Hyaline Casts Present A (None Presnt) /lpf POC Ur Test NEG (NEG) Salicylates < 3.0 L (3.0-30) mg/dl Acetaminophen < 3 L (10-30) ug/ml Ethyl Alcohol mg/dL < 10.0 (<10.0) mg/dl SARS-CoV-2, RNA, NAAT NEGATIVE (NEGATIVE) Administered Medications Nicotine (Nicotine 14 Mg/24 Hr Patch) 1 patch TD QAM MAHESH Stop: 09/22/23 17:14 Last Admin: 08/23/23 17:52 Dose: 1 patch Documented By: NRB Discontinued Medications Sodium Chloride (Nss) 1,000 mls @ 999 mls/hr IV .Q1H1M ONE Stop: 08/23/23 19:50 Last Admin: 08/23/23 20:42 Dose: 999 mls/hr Documented By: KG Sodium Chloride (Nss) 1,000 mls @ 999 mls/hr IV .Q1H1M ONE Stop: 08/23/23 20:35 Last Admin: 08/23/23 20:42 Dose: 999 mls/hr Documented By: KG Lorazepam (Lorazepam 1 Mg/1 Ml Syr Ed Inj Use) 0.5 mg IV ONE STA Stop: 08/23/23 21:17 Last Admin: 08/23/23 21:34 Dose: 0.5 mg Documented By: KG Olanzapine (Olanzapine 5 Mg Tablet) 5 mg PO NOW STA Stop: 08/23/23 17:12 Last Admin: 08/23/23 17:51 Dose: 5 mg Documented By: LIZETTE Ondansetron HCl (Ondansetron 2 Mg Od Tab) 2 mg PO NOW STA Stop: 08/23/23 17:12 Last Admin: 08/23/23 17:52 Dose: 2 mg Documented By: LIZETTE Discharge Plan Visit Data Chief Complaint: Abdominal Pain Stated Complaint: MENTAL HEALTH EVAL ED Provider: Carli Almanza Discharge Problem: Suicidal ideation, DEANGELO (acute kidney injury), Acute dehydration, Acute UTI (urinary tract infection), Leukocytosis Forms Stand Alone Forms: [facility] [employer] Prescriptions Prescriptions: No Action ondansetron HCl 4 mg tablet 4 mg PO Q6 PRN (Reason: nausea) Qty: 30 0RF acetaminophen 500 mg capsule 1,000 mg PO TID Qty: 180 0RF Rx Instructions: Take 3 times per day to lessen pain. methylphenidate HCl 10 mg tablet 10 mg PO BID Qty: 60 0RF (DME) Tres Walker Misc See Rx Instructions .MEDSUPPLY Qty: 1 0RF Rx Instructions: As directed pregabalin [Lyrica] 100 mg capsule 150 mg PO TID quetiapine [Seroquel] 50 mg tablet 50 mg PO DAILY clonazepam 1 mg tablet 1 mg PO TID PRN (Reason: Anxiety) amitriptyline 25 mg tablet 50 mg PO HS mirtazapine 30 mg tablet 30 mg PO HS baclofen 10 mg tablet 10 mg PO BID PRN (Reason: Muscle Spasm) propranolol 10 mg tablet 10 mg PO TID Patient Comments: Only takes for migraines metformin 500 mg tablet extended release 24 hr 500 mg PO BID insulin aspart U-100 [Novolog FlexPen U-100 Insulin] 100 unit/mL (3 mL) Insulin Pen 8 unit SC TIDM 30 Days Qty: 2.4 1RF insulin glargine [Lantus Solostar U-100 Insulin] 100 unit/mL (3 mL) Insulin Pen 30 unit SC QAM 30 Days Qty: 9 1RF (DME) OneTouch Verio test strips Strip See Rx Instructions .Route Qty: 100 1RF Rx Instructions: Check Blood Glucose 3 times a day (DME) pen needle, diabetic [Pen Needle] 32 gauge x 5/32" needle See Rx Instructions .Route Qty: 100 1RF Rx Instructions: As directed (Up to 4 times a day) Emgality Pen 120 mg/mL pen injector 120 mg SUBCUT MONTHLY Rx Instructions: PER PT "THE Wednesday OF THE MONTH". hydroxyzine HCl 50 mg tablet 100 mg PO HS buspirone 15 mg tablet 15 mg PO TID rosuvastatin [Crestor] 10 mg tablet 10 mg PO QAM ondansetron 4 mg tablet,disintegrating 4 mg PO Q8H PRN (Reason: nausea and vomiting) Qty: 30 0RF Trintellix 20 mg Tablet 20 mg PO QAM clonidine HCl 0.2 mg Tablet 0.2 mg PO PM Referrals Referrals: Raymond Perez MD [Outside Practitioners] -
[2023-08-23] MEDS: OLANZapine 5 MG TABLET PO STA (17:51)
[2023-08-23] MEDS: NICOTINE 14 MG/24 HR PATCH TD SCH (17:52)
[2023-08-23] MEDS: ONDANSETRON 2 MG OD TAB PO STA (17:52)
[2023-08-23 18:21] LABS: Hematocrit (blood only) 50.9 % (37.0-47.0); Hemoglobin 17.3 g/dl (12.0-16.0); Mean Corpuscular Volume 82.5 fL (80.0-100.0); Mean Platelet Volume 9.6 fL (9.4-12.4); Platelet Count 411 K/uL (130-400); RDW Coefficient of Variation 14.3 % (11.5-14.5); RDW Standard Deviation 41.7 fL (36.4-46.3); Red Blood Count 6.17 M/uL (4.20-5.40); White Blood Count 17.81 K/ul (4.8-10.8)
[2023-08-23 18:30] LABS: Acetaminophen < 3 ug/ml (10-30); Salicylate < 3.0 mg/dl (3.0-30)
[2023-08-23 18:35] LABS: Albumin Globulin Ratio 1.5 (0.9-2); Albumin Level 5.1 gm/dl (3.4-5.0); BUN Creatinine Ratio 17.8 (10-20); Bilirubin,Total 0.5 mg/dl (0.2-1.0); Calcium 10.6 mg/dl (8.6-10.3); Est GFR (African American) 53.7 ml/min; Est GFR (Non-African American) 46.3 ml/min; Globulin 3.4 gm/dl (2.5-4.0); Potassium 3.8 mmol/L (3.5-5.1); Total Protein 8.5 gm/dl (6.0-8.3)
[2023-08-23 18:50] LABS: Thyroid Stimulating Hormone 6.075 uIu/ml (0.300-4.500)
[2023-08-23 18:55] LABS: ALC (manual) 8.19 K/uL (1.2-3.4); ANC (manual) 8.55 K/uL (1.4-6.5); Eosinophils # (manual) 0.36 K/uL (0-0.50); Eosinophils % (manual) 2 %; Large Granular Lymph # (manua 4.27 K/uL; Large Granular Lymph % (manual) 24 %; Lymphocytes # (manual) 3.92 K/uL (1.2-3.4); Lymphocytes % (manual) 22 %; Monocytes # (manual) 0.71 K/uL (0.11-0.59); Monocytes % (manual) 4 %; Neutrophils # (manual) 8.55 K/uL (1.40-6.50); Neutrophils % (manual) 48 %
[2023-08-23 19:26] LABS: T4 Free Thyroxine 1.29 ng/dl (0.61-1.60)
[2023-08-23] MEDS: SODIUM CHLORIDE 0.9% 1,000 ML IV ONE ×2 (20:42)
--- OUTSIDE RECORDS SUMMARY | 2023-08-23 20:51 | External Medical Summary | Summary of Care ---
Author Name Unknown Organization [facility] Address [address] [place] [address] Phone [phone] Care Team Providers Care Service Loss Control Consultant Name Role Phone John Erazo MD Primary Care Provider + Reason for Visit * Reason Comments eRx-Medication Refill Encounter Details Date Type Department Care Team (Late st Contact Info) Description 07/28/2023 Refill Neurology [facility] [place] [address] [place] [address] Kristen Iqzuierdo PA-C [address] [facility] [place] [address] Allergies Active Allergy Reactions Criticality Noted Date Comments Amoxicillin Medium 10/23/2003 Bad rash Atorvastatin 09/17/2020 RLS symptoms Penicillins 03/07/2018 documented as of this encounter (statuses as of 08/02/2023) Medications Medication Sig Dispensed Refills Start Date End Date Status clonazePAM (KLONOPIN) 1 MG Tablet 2 times a day. 10/20/19 17 Active methylPHENIDATE (RITALIN) 10 MG TabletIndications: Primary narcolepsy with cataplexy Take 1 Tab by mouth 2 times a day. 30 minutes before meal 8 Tab 04/27/19 19 Active busPIRone (BUSPAR) 10 MG Tablet Take 1 Tablet by mouth in the morning and 1 Tablet before bedtime. Active Mirtazapine 30 MG Oral Tablet (REMERON) TAKE 1 TABLET BY MOUTH EVERYDAY AT BEDTIME 30 Tab 5 02/20/20 20 Active Fluticasone Propionate 50 MCG/ACT Nasal SuspensionIndicati ons:Viral URI with cough,Chest congestion Administer 2 Sprays into each nostril daily. 1 mL 2 07/17/19 21 Active Additional Information Patient not taking.Reported on 09/29/2022 Matt Acevedo Plus [id number] Test 4x/day as directed Dx E11.9 400 Each 1 09/05/19 21 Active Lisinopril 20 MG Oral Tablet (Prinivil) TAKE 1 TABLET BY MOUTH EVERY DAY 90 Tab 3 01/03/20 21 Active BD Pen Needle Zenia U/F 32G X 4 MM (Insulin Pen Needle)Indications :Type 2 diabetes mellitus with hemoglobin A1c goal of less than 8.0% ([facility]) Use with lantus daily.. E11.9 100 Each 3 02/28/20 21 Active Magnesium Oxide 400 MG Oral Capsule Take by mouth 1 Capsule in the morning. 30 Capsule 5 04/18/19 22 Active Dicyclomine HCl 10 MG Oral Capsule (Bentyl)Indication s:Irritable bowel syndrome, unspecified type Take by mouth 1 Capsule as needed in the morning AND 1 Capsule as needed at noon AND 1 Capsule as needed in the evening AND 1 Capsule as needed before bedtime (abd pain/spasm). for abdominal pain. 120 Capsule 11 04/18/19 22 Active Insulin Aspart FlexPen 100 UNIT/ML Subcutaneous Solution Pen-injector INJECT 8 UNITS SUBCUTANEOUSLY BEFORE MEALS 30 mL 1 10/23/19 22 Active Ondansetron HCl 4 MG Oral Tablet (Zofran) TAKE BY MOUTH 1 TABLET EVERY 8 HOURS NEEDED FOR NAUSEA. 90 Tablet 1 12/11/19 22 Active Trulicity 0.75 MG/0.5ML Subcutaneous Solution Pen-injector Inject 0.75 mg under the skin once a week. 02/07/20 22 Active cloNIDine HCl 0.1 MG Oral Tablet (Catapres) Take 1 Tablet by mouth at bedtime. 01/31/20 22 Active Benzonatate 100 MG Oral Capsule Take 1 Capsule by mouth 3 times a day as needed for Cough. 30 Capsule 1 03/11/19 23 Active SUMAtriptan Succinate 50 MG Oral Tablet (Imitrex) 1 TAB AT ONSET OF MIGRAINE THEN MAY REPEAT IN 2 HOURS NOT MORE THAN 2 IN 24 HOURS 10 Tablet 5 08/14/19 23 Active Meloxicam 15 MG Oral TabletIndications: Arthritis of both knees,Fibromyalgia Take one daily 90 Tablet 3 09/30/19 Active Rexulti 2 MG Oral Tablet Take 1 Tablet by mouth in the morning. 09/10/19 Active Clotrimazole 1 % External Cream (Lotrimin) APPLY TOPICALLY TWICE A DAY FOR 2 WEEKS 07/26/19 Active hydrOXYzine HCl 50 MG Oral Tablet Take 1 Tablet by mouth 3 times a day as needed. Active Pregabalin 150 MG Oral Capsule (Lyrica) Take 1 Capsule by mouth in the morning and 1 Capsule at noon and 1 Capsule before bedtime. Active DULoxetine HCl 30 MG Oral Capsule Delayed Release Particles (Cymbalta) Take 1 Capsule by mouth in the morning. Active Terbinafine HCl 1 % External Cream (LamISIL AT) Apply topically to affected area daily. To affected area. 12 g 09/30/19 Active Furosemide 20 MG Oral Tablet (Lasix)Indications :Localized swelling of right lower extremity Take 1 Tablet by mouth in the morning. For 3-5 days.. 5 Tablet 1 09/30/19 Active Triamcinolone Acetonide 0.025 % External Cream (Aristocort)Indica tions:Eczema, unspecified type Apply topically to affected area 2 times a day. To elbows. 15 g 1 09/30/19 23 Active OneTouch Verio In Vitro Strip (Glucose Blood)Indications: Type 2 diabetes mellitus with hemoglobin A1c goal of less than 7.0% ([facility]) USE TO TEST 4 TIMES A DAY DIRECTED 400 Strip 1 11/17/19 Active Albuterol Sulfate HFA 108 (90 Base) MCG/ACT Inhalation Aerosol SolutionIndication s:Viral URI with cough,Chest congestion INHALE 2 PUFFS BY MOUTH EVERY 4 HOURS NEEDED (COUGH/WHEEZE). 18 g 1 11/16/19 23 Active Clobetasol Propionate 0.05 % External Ointment (Temovate) APPLY TO ISOLATED SPOTS ON ELBOWS 2X DAILY (CAN WRAP PLASTIC WRAP AROUND AREAS TO INCREASE POTENCY) 60 g 11/17/19 23 Active Rosuvastatin Calcium 10 MG Oral Tablet (Crestor)Indicatio ns:Coronary artery disease involving [place] coronary artery of [place] heart without angina pectoris,Dyslipide jonah, goal LDL below 70 Take 1 Tablet by mouth in the morning. 90 Tablet 3 11/17/19 23 Active Emgality 120 MG/ML Subcutaneous Solution Auto-injector (Galcanezumab-gnlm )Indications:Chron ic daily headache Inject 120 mg (1 pen) under the skin every month. 1 mL 3 01/06/20 23 Active Lantus SoloStar 100 UNIT/ML Subcutaneous Solution Pen-injector INJECT UNDER THE SKIN 30 UNITS DAILY . 30 mL 03/11/19 24 Active Baclofen 10 MG Oral Tablet (Lioresal)Indicati ons:Displacement of cervical intervertebral disc without myelopathy TAKE 1 TAB BY MOUTH 2 TIMES A DAY NEEDED FOR MUSCLE SPASMS. 60 Tablet 2 06/03/19 24 Active Amitriptyline HCl 25 MG Oral Tablet (Elavil)Indication s:Depression with anxiety TAKE 2 TABLETS BY MOUTH AT BEDTIME 180 Tablet 2 06/21/19 24 Active Propranolol HCl 10 MG Oral Tablet (Inderal) TAKE 1 TABLET BY MOUTH THREE TIMES A DAY 270 Tablet 08/02/19 24 Active metFORMIN HCl 500 MG Oral Tablet (Glucophage) TAKE 1 TABLET BY MOUTH TWICE A DAY WITH BREAKFAST AND DINNER 60 Tablet 10/08/19 23 024 Discontinued(Re fill) Propranolol HCl 10 MG Oral Tablet (Inderal) TAKE 1 TABLET BY MOUTH THREE TIMES A DAY 270 Tablet 05/03/19 24 024 Discontinued documented as of this encounter (statuses as of 08/02/2023) Active Problems Problem Noted Date Diagnosed Date Chronic bilateral low back pain 02/18/2022 S/P TKR (total knee replacement), right 02/19/20 22 Left renal mass 12/03/2020 Herpes zoster without complication 12/03/2020 Recurrent major depressive disorder 09/17/2020 Encounter for medication refill 07/03/2020 BMI 45.0-49.9, adult 03/15/2020 Amenorrhea 01/03/2020 Overview: 2020 6 years? Labs ordered/refer obgyn hospitalist physician Headache behind the eyes 08/23/2019 Encephalomalacia on imaging study 08/18/2019 Hyperlipidemia with target LDL less than 100 Morbid obesity, unspecified obesity type 019 Bilateral carpal tunnel syndrome 08/18/2018 Overview: 2018 EMG+ Type 2 diabetes mellitus wit h hemoglobin A1c goal of less than 8.0% 08/18/2018 Overview: 08/17 new dx A1c 8.4 Nasal septal perforation 06/08/2018 Body mass index (BMI) of 50.0 to 59.9 in adult 0 03/14/2018 Overview: Per Obesity protocol #1 Eating disorder 10/16/2015 Overview: bulemia hx TERMINATED MEDICATION USAGE AGREEMENT 03/29/2015 Overview: For pain meds. 05/15 held stimulant for documented narcolepsy as pill counts off @[facility] adult exam 03/29/2015 Overview: NEED Utox. Wann for MDD/JOSE A in past. Now Renata Cummins @[facility] in [place]. For psychiatry. Sleep Dr Clark Hoff [facility] pulm. Amy Chung U [facility] for DM 01/17 EGD gastritis. EUS WNL 02/15 EMG + bl CTS. 12/16 [facility]+ 12/15 [facility]. Declined out patient groups. Hx taking more meds than prescribed. Sees Asmita weekly @[facility]. Dr Petit for meds. , 09/13 Hosp unresponsive. ?Baclofen OD? 03/2015-ER visit ?methadone OD Mom had partial colectomy 62yo?--?cancer patient unsure. Would rec scope @45 Fibromyalgia 05/08/2011 Tobacco use disorder 03/04/2011 BMI 35-39 ISOLATED (SEE ACTUAL BMI) 08/12/2009 Overview: Per Obesity Protocol, #19 Depression with anxiety Anxiety state Allergic rhinitis Narcolepsy without cataplexy Overview: Dr Garcia [facility] sleep ICD-10 update of inactive term Calculus of kidney Displacement of cervical int ervertebral disc without myelopathy Overview: C5-C6 right sided disc herniation, no cord or nerve involvement documented as of this encounter (statuses as of 08/02/2023) Resolved Problems Problem Noted Date Diagnosed Date Resolved Date Morbid obesity, unspecified obesity type 02/14/2018 03/18/2018 Overview: Per Obesity protocol #1 Encounter for other administ rative examinations 11/16/2015 07/24/2016 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 Didn't f/u. Controlled substance agreement signed 07/12/2015 07/24/2016 MEDICATION USE AGREEMENT 03/06/2011 Myalgia and myositis 07/24/2009 017 Shoulder joint pain 03/29/19 16 Overview: No narcotics, tramadol OK INFORMATION 07/12/2015 Overview: No narcotics for this patient - tramadol OK - see OV note 05/27/09 BMI 35.0-35.9,adult 03/29/19 16 documented as of this encounter (statuses as of 08/02/2023) Immunizations Name Administration Dates Next Due COVID-19 mRNA, LNP-s, No Pre serve, 2-Dose Series (Pfizer) 11/12/2020,10/21/2020 Hepatitis B, 20+ yrs 08/31/2018 Pneumococcal Polysaccharide PPV23 (Pneumovax) TDAP (age 10 and older)(Boostrix) 07/12/2015 documented as of this encounter Social History Tobacco Use Types Packs/Day Years Used Date Smoking Tobacco: Light Smoker Cigarettes 0.2 12 Smokeless Tobacco: Never Comments:Pt is trying to gin t, down to 3 a day as of 10/02/19 Alcohol Use Standard Drinks/Week Comments No 0 (1 standard drink = 0.6 oz pur e alcohol) PHQ-2 Answer Date Recorded PHQ Adult Total Score 12 03/15/2020 Hunger Vital Sign Answer Date Recorded Worried About Running Out of Food in the Last Ye ar Never true 08/31/2018 Ran Out of Food in the Last Year Never true 08/31/2018 Sex and Gender Information Value Date Recorded Sex Assigned at Female 01/13/2019 1:05 PM EST Gender Identity Female 01/13/2019 1:05 PM EST Sexual Orientation Straight 01/13/2019 1: 05 PM EST Job Start Date Occupation Industry Not on file Not on file Not on file documented as of this encounter Miscellaneous Notes * Telephone Encounter - Kristen Izquierdo PA-C - 08/02/2023 7:40 AM EDT Signed Prescriptions: Disp Refills Propranolol HCl 10 MG Oral Tablet (Inderal)270 Ta*0 Sig: TAKE 1 TABLET BY MOUTH THREE TIMES A DAY Authorizing Provider: KRISTEN IZQUIERDO * Telephone Encounter - Jayda Jc, MED ASSIST - 07/30/2023 11:11 AM EDTPending Prescriptions: Disp Refills Propranolol HCl 10 MG Oral Tablet [Pharmac*270 Ta*0 Sig: TAKE 1 TABLET BY MOUTH THREE TIMES A DAY * Telephone Encounter - Interface, E-Rx Ss Inbound - 07/30/2023 11:02 AM EDT Pending Prescriptions: Disp Refills Propranolol HCl 10 MG Oral Tablet [Pharmac*270 Ta*0 Sig: TAKE 1 TABLET BY MOUTH THREE TIMES A DAY * Telephone Encounter - Shalonda Valle [facility] - 07/30/2023 10:17 AM EDTPending Prescriptions: Disp Refills Propranolol HCl 10 MG Oral Tablet [Pharmac*270 Ta*0 Sig: TAKE 1 TABLET BY MOUTH THREE TIMES A DAY * Telephone Encounter - Shalonda Valle [facility] - 07/30/2023 10:16 AM EDT Unable to authorize medication refills for pended medication(s) at this time. Part of the protocol criteria used for refill authorization was not satisfied. Patient needs OV on file within past year.Multiple attempts made to advise pt. Please approve if appropriate. Pending Prescriptions: Disp Refills Propranolol HCl 10 MG Oral Tablet (Indera*270 Ta*0 Sig: TAKE 1 TABLET BY MOUTH THREE TIMES A DAY Last Visit: 03/30/2022 (in office), 08/23/2019 (telemedicine) Next Visit: Visit date not found If no future appointments scheduled, and last appointment is greater than a year ago, please schedule patient for a follow-up appointment Last date the medication was ordered: 05/03/2023 Pharmacy: [id number] Is this request for a controlled substance? No Urine Drug Screen: Results for orders placed or performed in visit on 05/03/20 TOXICOLOGY, URINE SCREEN Result Value Amphetamines Screen, U Negative Benzodiazepines Screen, U Positive (A) Cannabinoids Screen, U Positive (A) Cocaine Metabolite Screen, U Negative Hydrocodone Screen, U Negative Methadone Metabolite Screen, U Negative Morphine/Codeine Screen, U Negative Oxycodone Screen, U Negative Narrative Cutoff Concentrations: Drug Level Amphetamines 500 ng/mL Benzodiazepines 100 ng/mL Cannabinoids 50 ng/mL Cocaine Metabolite 150 ng/mL Hydrocodone / Hydromorphone 100 ng/mL Methadone Metabolite 100 ng/mL Morphine / Codeine 300 ng/mL Oxycodone / Oxymorphone 100 ng/mL Screening results are presumptive and can only be used for medical purposes. Confirmatory testing is available upon request. Results for orders placed or performed in visit on 10/26/18 TOX SCREEN, URINE, W/ CONFIRMATION Result Value Amphetamine NEGATIVE Benzodiazepines POSITIVE (A) Cannabinoids POSITIVE (A) Cocaine Metabolite NEGATIVE HYDROCODONE NEGATIVE Morphine / Codeine NEGATIVE METHADONE METABOLITE NEGATIVE OXYCODONE NEGATIVE TOX COMMENT THE ABOVE SCREENING RESULTS ARE PRESUMPTIVE AND CAN ONLY BE USED FOR MEDICAL PURPOSES. POSITIVE RESULTS REFLEX TO CONFIRMATORY TESTING. Cutoff Concentration *Note: Due to a large number of results and/or encounters for the requested time period, some results have not been displayed. A complete set of results can be found in Results Review. Patient Phone Numbers Labs: Lab Results Component Value Date/Time CREAT 0.84 03/03/2021 12:00 AM CREAT 0.8 08/16/2019 10:40 AM POTASSIUM 4.1 03/03/2021 12:00 AM POTASSIUM 4.7 08/16/2019 10:40 AM TSH 2.900 03/03/2021 12:00 AM TSH 1.15 08/16/2019 10:40 AM LDLCALC 69 03/03/2021 12:00 AM LDLCALC UNINTERPRETABLE RESULT 09/30/2018 10:50 AM LDLDIRECT 140 (H) 09/30/2018 10:50 AM ALT 27 11/28/2020 11:53 AM ALT 22 08/16/2019 10:40 AM HGBA1C 7.4 (H) 03/03/2021 12:00 AM HGBA1C 7.1 (H) 08/16/2019 10:40 AM Thank you, Shalonda Valle, PharmD Clinical Pharmacist [facility] ([facility]) (formerly Telepharm[facility]) [phone] 07/30/2023, 10:16 AM documented in this encounter Plan of Treatment Scheduled Procedures Name Priority Associated Diagnoses Date/Ti me COLONOSCOPY FLEXIBLE PROXIMA L DIAGNOSTIC Recall Encounter for screening colonoscopy Health Maintenance Due Date Last Done Comments DISCUSS TOBACCO CESSATION (REFER TO SMARTSET #2152) 1975 Diabetic Eye Exam 05/04/1993 Hepatitis C Screening 05/04/1993 Hepatitis B (2 of 3 - 19+ 3-dose series) 09/28/2018 08/31/2018 Diabetic Foot Exam 09/01/2019 08/31/2018 Pneumococcal Vaccine: Pediatrics (0 to 5 Years) and At-Risk Patients (6 to 64 Years) (2 of 2 - PCV) 09/01/2019 08/31/2018 Depression, Most Recent Score >= 10 (will fire each visit until score < 10) 03/16/2020 03/15/2020 Cologuard 05/04/2020 Fecal Occult Blood Test 05/04/2020 Sigmoidoscopy 05/04/2020 B-12 08/15/2020 08/16/2019, 02/14/2018 Mammogram 12/24/2020 12/25/2019 HbA1c 08/31/2021 03/03/2021, 07/30, 09/30/2018, Additional history exists PAP SMEAR-EVERY 5 YRS,AGES 21-100 02/04/2022 02/04/2017, 05/29/2008 GFR 03/03/2022 03/03/2021, 11/01, 09/17/2020, Additional history exists COVID-19 Vaccine ( - 2022- season) 2022 11/12/2020, 10/21/2020 Albumin/Creatinine Ratio 09/30/2023 09/29/2022 Influenza Vaccine (FLU shot) (Season Ended) 2023 DTaP,Tdap,and Td Vaccines (2 - Td or Tdap) 07/11/2025 07/12/2015 Lipid Panel 03/03/2026 03/03/2021, 11/01, 05/06/2020, Additional history exists Colonoscopy 10/27/2027 10/26/2017 Colorectal Cancer Screening 10/27/2027 Pap Smear Discontinued 02/04/2017, 05/29/2008 GARDASIL-HPV IMMUNIZATION SERIES Aged Out No longer eligible based on patient's age to complete this topic MENINGOCOCCAL (MENACTRA/MENVEO) Aged Out No longer eligible based on patient's age to complete this topic documented as of this encounter Medical Devices Not on filedocumented as of this encounter Advance Directives * Full Code (Latest Code Status on File) Date Activated Date Inactivated Comments 01/04/2019 12:23 PM 01/04/2019 5:40 PM This order reflects the patients wishes and were consensually agreed upon. Question Answer Comments Discussion of Advance Directives occurred with: Not Discussed * Full Code Date Activated Date Inactivated Comments 01/04/2019 11:47 AM 01/04/2019 12:23 PM This order reflects the patients wishes and were consensually agreed upon. Question Answer Comments Discussion of Advance Directives occurred with: Not Discussed Care Teams Service Loss Control Consultant Relationship Specialty Start Date End Date John Erazo MD [address] [facility] [place] [id number] PCP - General Family Medicine 04/02/22 documented as of this encounter
--- OUTSIDE RECORDS SUMMARY | 2023-08-23 20:51 | External Medical Summary | Summary of Care ---
Author Name Unknown Organization [facility] [address] [address] Phone [phone] Care Team Providers Care Registered Account Administrator Name Role Phone John Cavanaugh MD Primary Care Provider + Reason for Visit * Reason Onset Date Comments Medication Refill 07/28/2023 Encounter Details Date Type Department Care Team (Late st Contact Info) Description 07/28/2023 Refill Family Practice [facility] [address] [facility] [facility] [facility] [place] [address] John Cavanaugh MD [address] [facility] [place] [address] Allergies Active Allergy Reactions Criticality Noted Date Comments Amoxicillin Medium 10/23/2003 Bad rash Atorvastatin 09/17/2020 RLS symptoms Penicillins 03/07/2018 documented as of this encounter (statuses as of 07/30/2023) Medications Medication Sig Dispensed Refills Start Date End Date Status clonazePAM (KLONOPIN) 1 MG Tablet 2 times a day. 7 Active methylPHENIDATE (RITALIN) 10 MG TabletIndications:P rimary narcolepsy with cataplexy Take 1 Tab by mouth 2 times a day. 30 minutes before meal 8 Tab 9 Active busPIRone (BUSPAR) 10 MG Tablet Take 1 Tablet by mouth in the morning and 1 Tablet before bedtime. Active Mirtazapine 30 MG Oral Tablet (REMERON) TAKE 1 TABLET BY MOUTH EVERYDAY AT BEDTIME 30 Tab 5 0 Active Fluticasone Propionate 50 MCG/ACT Nasal SuspensionIndicatio ns:Viral URI with cough,Chest congestion Administer 2 Sprays into each nostril daily. 1 mL 2 1 Active Additional Information Patient not taking.Reported on 09/29/2022 OneTouch Delica Plus [id number] Test 4x/day as directed Dx E11.9 400 Each 1 1 Active Lisinopril 20 MG Oral Tablet (Prinivil) TAKE 1 TABLET BY MOUTH EVERY DAY 90 Tab 3 1 Active BD Pen Needle Zenia U/F 32G X 4 MM (Insulin Pen Needle)Indications: Type 2 diabetes mellitus with hemoglobin A1c goal of less than 8.0% ([facility]) Use with lantus daily.. E11.9 100 Each 3 1 Active Magnesium Oxide 400 MG Oral Capsule Take by mouth 1 Capsule in the morning. 30 Capsule 5 2 Active Dicyclomine HCl 10 MG Oral Capsule (Bentyl)Indications :Irritable bowel syndrome, unspecified type Take by mouth 1 Capsule as needed in the morning AND 1 Capsule as needed at noon AND 1 Capsule as needed in the evening AND 1 Capsule as needed before bedtime (abd pain/spasm). for abdominal pain. 120 Capsule 11 2 Active Insulin Aspart FlexPen 100 UNIT/ML Subcutaneous Solution Pen-injector INJECT 8 UNITS SUBCUTANEOUSLY BEFORE MEALS 30 mL 1 2 Active Ondansetron HCl 4 MG Oral Tablet (Zofran) TAKE BY MOUTH 1 TABLET EVERY 8 HOURS NEEDED FOR NAUSEA. 90 Tablet 1 2 Active Trulicity 0.75 MG/0.5ML Subcutaneous Solution Pen-injector Inject 0.75 mg under the skin once a week. 2 Active cloNIDine HCl 0.1 MG Oral Tablet (Catapres) Take 1 Tablet by mouth at bedtime. 2 Active Benzonatate 100 MG Oral Capsule Take 1 Capsule by mouth 3 times a day as needed for Cough. 30 Capsule 1 3 Active SUMAtriptan Succinate 50 MG Oral Tablet (Imitrex) 1 TAB AT ONSET OF MIGRAINE THEN MAY REPEAT IN 2 HOURS NOT MORE THAN 2 IN 24 HOURS 10 Tablet 5 3 Active Meloxicam 15 MG Oral TabletIndications:A rthritis of both knees,Fibromyalgia Take one daily 90 Tablet 3 3 Active Rexulti 2 MG Oral Tablet Take 1 Tablet by mouth in the morning. 3 Active Clotrimazole 1 % External Cream (Lotrimin) APPLY TOPICALLY TWICE A DAY FOR 2 WEEKS 3 Active hydrOXYzine HCl 50 MG Oral Tablet [...] area daily. To affected area. 12 g 1 3 Active Furosemide 20 MG Oral Tablet (Lasix)Indications: Localized swelling of right lower extremity Take 1 Tablet by mouth in the morning. For 3-5 days.. 5 Tablet 1 3 Active Triamcinolone Acetonide 0.025 % External Cream (Aristocort)Indicat ions:Eczema, unspecified type Apply topically to affected area 2 times a day. To elbows. 15 g 1 3 Active OneTouch Verio In Vitro Strip (Glucose Blood)Indications:T ype 2 diabetes mellitus with hemoglobin A1c goal of less than 7.0% ([facility]) USE TO TEST 4 TIMES A DAY DIRECTED 400 Strip 1 3 Active Albuterol Sulfate HFA 108 (90 Base) MCG/ACT Inhalation Aerosol SolutionIndications :Viral URI with cough,Chest congestion INHALE 2 PUFFS BY MOUTH EVERY 4 HOURS NEEDED (COUGH/WHEEZE). 18 g 1 3 Active Clobetasol Propionate 0.05 % External Ointment (Temovate) APPLY TO ISOLATED SPOTS ON ELBOWS 2X DAILY (CAN WRAP PLASTIC WRAP AROUND AREAS TO INCREASE POTENCY) 60 g 3 Active Rosuvastatin Calcium 10 MG Oral Tablet (Crestor)Indication s:Coronary artery disease involving douglas coronary artery of douglas heart without angina pectoris,Dyslipidem ia, goal LDL below 70 Take 1 Tablet by mouth in the morning. 90 Tablet 3 3 Active Emgality 120 MG/ML Subcutaneous Solution Auto-injector (Galcanezumab-gnlm) Indications:Chronic daily headache Inject 120 mg (1 pen) under the skin every month. 1 mL 3 3 Active Lantus SoloStar 100 UNIT/ML Subcutaneous Solution Pen-injector INJECT UNDER THE SKIN 30 UNITS DAILY . 30 mL 4 Active Propranolol HCl 10 MG Oral Tablet (Inderal) TAKE 1 TABLET BY MOUTH THREE TIMES A DAY 270 Tablet 4 Active Baclofen 10 MG Oral Tablet (Lioresal)Indicatio ns:Displacement of cervical intervertebral disc without myelopathy TAKE 1 TAB BY MOUTH 2 TIMES A DAY NEEDED FOR MUSCLE SPASMS. 60 Tablet 2 4 Active Amitriptyline HCl 25 MG Oral Tablet (Elavil)Indications :Depression with anxiety TAKE 2 TABLETS BY MOUTH AT BEDTIME 180 Tablet 2 4 Active metFORMIN HCl 500 MG Oral Tablet (Glucophage) TAKE 1 TABLET BY MOUTH TWICE A DAY WITH BREAKFAST AND DINNER 60 Tablet 4 Active metFORMIN HCl 500 MG Oral Tablet (Glucophage) TAKE 1 TABLET BY MOUTH TWICE A DAY WITH BREAKFAST AND DINNER 60 Tablet 3 07/28/19 24 Discontinu ed(Refill) documented as of this encounter (statuses as of 07/30/2023) Active Problems Problem Noted Date Diagnosed Date Chronic bilateral low back pain 02/18/2022 S/P TKR (total knee replacement), right 02/19/20 22 Left renal mass 12/03/2020 Herpes zoster without complication 12/03/2020 Recurrent major depressive disorder 09/17/2020 Encounter for medication refill 07/03/2020 BMI 45.0-49.9, adult 03/15/2020 Amenorrhea 01/03/2020 Overview: 2019 6 years? Labs ordered/refer date night sitter Headache behind the eyes 08/23/2019 Encephalomalacia on [...] Well adult exam 03/29/2015 Overview: NEED [facility] [place] for MDD/JOSE A in past. Now Ren[facility] Cummins [email or web address] in [place]. For psychiatry. Sleep Dr Clark Hoff [facility] pulm. Amy Chung [facility] for DM 01/17 EGD gastritis. EUS WNL 02/15 EMG + bl CTS. 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 Declined out patient groups. Hx taking more meds than prescribed. Sees Asmita weekly @[facility]. Dr Petit for meds. , 09/13 Hosp unresponsive. ?Baclofen OD? 03/2015-ER visit ?methadone OD Mom had partial colectomy 62yo?--?cancer patient unsure. Would rec scope @45 Fibromyalgia 05/08/2011 Tobacco use disorder 03/04/2011 BMI 35-39 ISOLATED (SEE ACTUAL BMI) 08/12/2009 Overview: Per Obesity Protocol, #19 Depression with anxiety Anxiety state Allergic rhinitis Narcolepsy without cataplexy Overview: Dr Garcia [facility] sleep ICD-10 update of inactive term Calculus of kidney Displacement of cervical int ervertebral disc without myelopathy Overview: C5-C6 right sided disc herniation, no cord or nerve involvement documented as of this encounter (statuses as of 07/30/2023) Resolved Problems Problem Noted Date Diagnosed Date Resolved Date Morbid obesity, unspecified obesity type 02/14/2018 03/18/2018 Overview: Per Obesity protocol #1 Encounter for other administ rative examinations 11/16/2015 07/24/2016 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 Didn't f/u. Controlled substance agreement signed 07/12/2015 07/24/2016 MEDICATION USE AGREEMENT 03/06/2011 Myalgia and myositis 07/24/2009 017 Shoulder joint pain 03/29/19 16 Overview: No narcotics, tramadol OK INFORMATION 07/12/2015 Overview: No narcotics for this patient - tramadol OK - see OV note 05/27/09 BMI 35.0-35.9,adult 03/29/19 16 documented as of this encounter (statuses as of 07/30/2023) Immunizations Name Administration Dates Next Due COVID-19 mRNA, LNP-s, No Pre serve, 2-Dose Series (Proxly) 11/12/2020,10/21/2020 Hepatitis B, 20+ yrs 08/31/2018 Pneumococcal [...] encounter Miscellaneous Notes * Telephone Encounter - John Cavanaugh MD - 07/30/2023 5:03 PM EDTSigned Prescriptions: Disp Refills metFORMIN HCl 500 MG Oral Tablet (Glucopha*60 Tab*0 Sig: TAKE 1 TABLET BY MOUTH TWICE A DAY WITH BREAKFAST AND DINNER Authorizing Provider: JOHN CAVANAUGH * Telephone Encounter - Shawn Heredia, ice maker - 07/30/2023 9:43 AM EDTPending Prescriptions: Disp Refills metFORMIN HCl 500 MG Oral Tablet (Glucopha*60 Tab*0 Sig: TAKE 1 TABLET BY MOUTH TWICE A DAY WITH BREAKFAST AND DINNER * Telephone Encounter - Shawn Heredia, ice maker - 07/30/2023 9:43 AM EDT Received message from [facility] regarding patient needing appointment and labs. Call Placed, Left messageon voicemail advising of required labs and to call back for an appointment. Thank you, Shawn Heredia Ammonia Technician [facility] 07/30/2023, 9:43 AM * Telephone Encounter - Tamy Montelongo [facility] - 07/30/2023 5:21 AM EDTPending Prescriptions: Disp Refills metFORMIN HCl 500 MG Oral Tablet (Glucopha*60 Tab*0 Sig: TAKE 1 TABLET BY MOUTH TWICE A DAY WITH BREAKFAST AND DINNER * Telephone Encounter - Tamy Montelongo [facility] - 07/30/2023 5:20 AM EDT Unable to authorize medication refills for pended medication(s) at this time. Part of the protocol criteria used for refill authorization was not satisfied. Per refill protocol patient should have routine exam and labs on file within past year. Reviewed AMP report, Care Gaps/Health Maintenance, medications list, and for any routine labs typically orderedfor this patient. Lab orders placed. Please contact patient to schedule office visit with PRIMARY CARE and advise of labs ordered for blood draw.. Recommend patient to fast if able for labs. Patient may still have water and regular medications. Advise to obtain labs before her scheduled office visit Visit date not found. Last Visit: 09/29/2022 - ACUTE (in office), 10/31/2019 (telemedicine) Next Visit: Visit date not found After contacting patient, please forward request to John Cavanaugh MD. Thank You, Tamy Montelongo [facility] Clinical Pharmacist [facility] (formerly [facility]) [phone] 07/30/2023, 5:20 AM * Telephone Encounter - Rhonda Watts, ice maker - 07/28/2023 1:54 PM EDT Did you pend patient's preferred pharmacy and medication before forwarding?yes Pharmacy: [id number] [address] [facility] Pending Prescriptions: Disp Refills metFORMIN HCl 500 MG Oral Tablet (Glucoph*60 Tab*0 Sig: TAKE 1 TABLET BY MOUTH TWICE A DAY WITH BREAKFAST AND DINNER Last Visit: 09/29/2022 (in office), 10/31/2019 (telemedicine) Next Visit: Visit date not found If no future appointments scheduled, and last appointment is greater than a year ago, please schedule patient for a follow-up appointment Last date the medication was ordered: 10/07/2022 Is this request for a controlled substance?No Urine Drug Screen: Results for orders placed [...] AM HGBA1C 7.1 (H) 08/16/2019 10:40 AM documented in this encounter Plan of Treatment Scheduled Procedures Name Priority Associated Diagnoses Date/Ti me COLONOSCOPY FLEXIBLE PROXIMA L DIAGNOSTIC Recall Encounter for screening colonoscopy Health Maintenance Due Date Last Done Comments DISCUSS TOBACCO CESSATION (REFER TO SMARTSET #[id number]) 1975 Diabetic Eye Exam 05/04/1993 Hepatitis C [...] 09/17/2020, Additional history exists COVID-19 Vaccine ( season) 2022 11/12/2020, 10/21/2020 Albumin/Creatinine Ratio 09/30/2023 [...] Directives occurred with: Not Discussed Care Teams Registered Account Administrator Relationship Specialty Start Date End Date John Cavanaugh MD [address] [facility] [place] [address] PCP - General Family Medicine 04/02/22 documented as of this encounter
[2023-08-23 21:03] LABS: Appearance Urine Cloudy (Clear); Bacteria Urine Automated 3+ (None Seen); Bilirubin Urine Negative (Negative); Blood Urine Negative (Negative); Color Urine Dark Yellow; Glucose Urine UA Negative (Negative); Hyaline Casts Urine Present /lpf (None Presnt); Ketones Urine 3+ (Negative); Leukocyte Esterase Urine 1+ (Negative); Nitrite Urine Negative (Negative); Protein Urine 1+ (Negative); Specific Gravity Urine 1.029 (1.000-1.030); Urobilinogen Urine Negative (Negative); pH Urine 5.5 (4.5-7.5)
[2023-08-23] MEDS: LORazepam 1 MG/1 ML SYR ED Inj Use IV STA (21:34)
[2023-08-23 21:42] LABS: Amphetamines+Metham, Urine Neg (Neg); Barbiturates, Urine Neg (Neg); Benzodiazepine, Urine Pos (Neg); Cocaine, Urine Neg (Neg); Fentanyl, Urine Neg (Neg); MDMA (Ecstacy), Urine Neg (Neg); Marijuana, Urine Pos (Neg); Methadone, Urine Neg (Neg); Opiate, Urine Neg (Neg); Phencyclidine, Urine Neg (Neg)
[2023-08-23] MEDS ORDERED: SODIUM CHLORIDE 0.9% 1,000 ML IV SCH (23:00)
[2023-08-23] MEDS: cefTRIAXone SODIUM 2,000 MG/50 ML BAG IV STA (23:19)
[2023-08-23] MEDS ORDERED: GLUCAGON FOR INJ 1 MG VIAL SQ PRN (23:40)
[2023-08-23] MEDS ORDERED: POLYETHYLENE (MIRALAX) 17 GM PACK PO PRN (23:40)
[2023-08-23] MEDS ORDERED: DEXTROSE 50% 50 ML SYRINGE IV PRN (23:40)
[2023-08-23] MEDS ORDERED: GLUCOSE 10 TAB/TUBE PO PRN (23:40)
[2023-08-23] MEDS ORDERED: CARBOHYDRATES FOR HYPOGLYCEMIA PO PRN (23:40)
[2023-08-23] MEDS ORDERED: GLUCOSE 40% GEL 15 GM TUBE PO PRN (23:40)
[2023-08-23] MEDS ORDERED: NITROGLYCERIN SL 0.4 MG/TAB TAB SL PRN (23:40)
--- NOTE | 2023-08-23 23:40 | History & Physical Report ---
Date of Service August 23, 2023 Assessment & Plan (1) Acute UTI (urinary tract infection): Plan: 48-year-old female with past medical history significant for type 2 diabetes, hyperlipidemia, allergic rhinitis, obesity, history of left renal mass, fibromyalgia, headache behind the eyes, chronic bilateral low back pain, history of herpes zoster without complication, depression with anxiety, narcolepsy without cataplexy, tobacco use disorder, recurrent major depression, was brought in by her sister because patient was having suicidal thoughts and in ER also found to UTI and possible early sepsis. Patient says since last 2 weeks she is having constant thoughts to hurt herself. Having lot of anxiety. Every morning she is having nausea because of anxiety. Appetite is down. Currently has migraine headaches. No blurred visions. No runny nose or sore throat. Currently no cough. No fevers. No chest pain. When she gets anxiety she gets short of breath. Currently no abdominal pain. Normal bowel and bladder movements. Ambulating okay. Currently hemodynamics are okay. acute UTI possible early sepsis with tachycardia and leukocytosis IV fluids and empiric Rocephin will follow cultures close monitor DEANGELO creatinine 1.35 avoid nephrotoxic agents getting fluids follow repeat labs in a.m. mild hypercalcemia calcium 10.6 possible from dehydration follow repeat labs in a.m. hemoglobin 17.3 possible from dehydration follow repeat labs in a.m. suicidal ideation history of depression and anxiety continue home medications one on one and and suicide precautions psychiatry consult in a.m. type 2 diabetes hold metformin continue home Lantus sliding scale will follow blood sugars and HbA1c levels anion gap metabolic acidosis anion gap 18 and CO2 18 follow repeat labs migraine on emagility and propranolol DVT prophylaxis Lovenox disposition med/telemetry full code History of Present Illness Chief Complaint: suicidal ideation, DEANGELO and UTI Primary Care Provider: John Erazo MD 48-year-old female with past medical history significant for type 2 diabetes, hyperlipidemia, allergic rhinitis, obesity, history of left renal mass, fibromyalgia, headache behind the eyes, chronic bilateral low back pain, history of herpes zoster without complication, depression with anxiety, narcolepsy without cataplexy, tobacco use disorder, recurrent major depression, was brought in by her sister because patient was having suicidal thoughts and in ER also found to UTI and possible early sepsis. Patient says since last 2 weeks she is having constant thoughts to hurt herself. Having lot of anxiety. Every morning she is having nausea because of anxiety. Appetite is down. Currently has migraine headaches. No blurred visions. No runny nose or sore throat. Currently no cough. No fevers. No chest pain. When she gets anxiety she gets short of breath. Currently no abdominal pain. Normal bowel and bladder movements. Ambulating okay. Currently hemodynamics are okay. Past medical history. As mentioned above past surgical history. Lithotripsy. Colonoscopy. Cystoscopy. EGD. EGD with endoscopic ultrasound. Exploration of abdomen. Social history. Smokes 0.2 packs a day for 12 years. No alcohol use. No dr ug use. As per [facility] 12/15 [facility] methadone. family history. Father had lung cancer. Diabetes. Diverticulitis. Kidney stone. Mother had arthritis. Colon cancer suspected. Maternal grandmother had rheumatoid arthritis. Diabetes. Pacemaker. Allergies Allergy/AdvReac Type Severity Reaction Status Date / Time amoxicillin Allergy Intermediate Rash Verified 01/13/23 12:55 Penicillins Allergy Intermediate Rash (to Verified 01/13/23 12:55 amoxicillin) Home Medications Medication Instructions Recorded Confirmed Type amitriptyline 25 mg tablet 50 mg PO HS 12/12/17 08/23/23 History clonazepam 1 mg tablet 1 mg PO TID PRN Anxiety 12/12/17 08/23/23 History mirtazapine 30 mg tablet 30 mg PO HS 12/12/17 08/23/23 History baclofen 10 mg tablet 10 mg PO BID PRN Muscle Spasm 10/15/18 08/23/23 History metformin 500 mg tablet,extended 500 mg PO BID 10/15/18 08/23/23 History release 24 hr propranolol 10 mg tablet 10 mg PO TID 01/09/20 08/23/23 History galcanezumab-gnlm 120 mg/mL 120 mg subcut MONTHLY 09/01/20 08/23/23 History subcutaneous pen injector (Emgality Pen) blood sugar diagnostic (OneTouch #100 ea 09/11/20 08/23/23 Rx Verio test strips) insulin aspart U-100 100 unit/mL 8 unit (0.08 mL) SC TIDM 30 days 09/11/20 08/23/23 Rx (3 mL) subcutaneous pen (Novolog #2.4 mL FlexPen U-100 Insulin aspart) insulin glargine 100 unit/mL (3 30 unit (0.3 mL) SC QAM 30 days #9 09/11/20 0 08/23/23 Rx mL) subcutaneous pen (Lantus mL Solostar U-100 Insulin) pen needle, diabetic 32 gauge x #100 ea 09/11/20 08/23/23 Rx 5/32" (Pen Needle) buspirone 15 mg tablet 15 mg PO TID 12/17/20 08/23/23 History hydroxyzine HCl 50 mg tablet 100 mg PO HS 12/17/20 08/23/23 History rosuvastatin 10 mg tablet (Crestor) 10 mg PO QAM 12/17/20 08/23/23 History Wheeled Walker #1 ea 05/19/21 08/23/23 Rx acetaminophen 500 mg capsule 1,000 mg (2 x 500 mg) PO TID Pain 07/16/21 08/23/23 Rx #180 caps ondansetron HCl 4 mg tablet 4 mg PO Q6 PRN nausea #30 tabs 07/16/21 08/23/23 Rx pregabalin 100 mg capsule (Lyrica) 150 mg PO TID 06/17/22 08/23/23 History quetiapine 50 mg tablet (Seroquel) 50 mg PO DAILY 01/13/23 08/23/23 History ondansetron 4 mg disintegrating 4 mg PO Q8H PRN nausea and 06/27/23 08/23/23 Rx tablet vomiting #30 tabs methylphenidate HCl 10 mg tablet 10 mg PO BID #60 tabs 08/19/23 08/23/23 Rx clonidine HCl 0.2 mg tablet 0.2 mg PO PM 08/23/23 08/23/23 History vortioxetine 20 mg tablet 20 mg PO QAM 08/23/23 08/23/23 History (Trintellix) Past Med/Surg History Problem List (Updated 08/23/23 @ 21:25 by Carli Almanza MD) Leukocytosis (Acute) Acute UTI (urinary tract infection) (Acute) Acute dehydration (Acute) DEANGELO (acute kidney injury) (Acute) Suicidal ideation (Acute) Sleep apnea 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 Kidney stones (Chronic) Arthritis (Chronic) Anxiety (Chronic) Anxiety (Chronic) Dentalgia (Acute) Dentalgia (Acute) Pain, dental (Chronic) Pain, dental (Acute) Back pain (Acute) Vomiting (Acute) Vomiting (Acute) Strain of left knee (Acute) Low back strain (Acute) Urinary tract infection (Acute) Abdominal pain (Acute) Bronchitis (Acute) Acute bronchitis (Acute) Abdominal pain (Acute) Flank pain (Acute) UTI (urinary tract infection) (Acute) Flank pain (Acute) Abdominal pain (Acute) Abdominal pain (Acute) Fever (Acute) Depression (Acute) Bladder infection (Acute) Fibromyalgia (Acute) Dental caries (Acute) Right flank pain (Acute) RLQ abdominal pain (Acute) Pain, dental (Acute) Pain, dental (Acute) Chest pain (Acute) Dentalgia (Acute) Drug overdose, intentional Knee pain, bilateral (Acute) Mood disorder (Acute) Depression (Acute) Encounter for pre-operative examination Narcolepsy Gross hematuria (Acute) Depression with anxiety (Acute) Degenerative arthritis of knee, bilateral Unresponsive state (Acute) Acute hyperglycemia (Acute) Pneumonia (Acute) Renal lesion Trochanteric bursitis of both hips Lumbar radiculopathy Shingles rash Narcolepsy (Acute) Hyperlipidemia Hypertension Diabetes mellitus, type 2 (Acute) IDDM, A1c 7.5% 06/20 Fibromyalgia (Chronic) Medical History Pulmonary nodule micronodule in RUL on chest CTA 08/2020 Stroke Stable old lacunar infarct within the right basal ganglia noted on 08/[address] stable since 2018 comparison imaging Encounter for pre-operative examination Hiatal hernia TUMS prn with control of reflux symptoms Renal cyst Hx of Lyme disease History of kidney stones Post traumatic stress disorder Peripheral neuropathy Migraine Anxiety and depression Osteoarthritis Chronic back pain Diabetes mellitus, type 2 IDDM, A1c 7.5% 06/20 Hyperlipidemia Hypertension Narcolepsy Fibromyalgia Surgical History History of esophagogastroduodenoscopy (EGD) History of tonsillectomy History of laparoscopy History of colonoscopy History of tooth extraction all teeth removed H/O lithotripsy Family History Father Family history of diabetes mellitus Diabetes Cancer Mother Family hx colonic polyps Hypertension Grandmother Hypertension Other No family history of adverse response to anesthesia Social History Smoking Status: Unknown if ever smoked Tobacco Type: Cigarettes Cigarettes Per Day: 10 per day-advised; Second Hand Exposure: No; Do You Dip or Chew Tobacco: No; Hx Alcohol Use: No Hx Substance Use: No Preferred Language: Divehi Communication Ability: Effective Communication Tools: Physical Gestures Safety Investigator/Cause Analyst Required: No Beliefs That Will Affect Care: None marital status: Single Current Living Situation: Family Current Living Situation Comment: Lives with mom and son How many Children do You have: 1 Other Information That Helps Us Care for You: No Feels Safe at Home: Yes Safety Concerns: Feels Safe At This Time Assistive Devices: None Review of Systems Review of Systems: All systems reviewed & are unremarkable except as noted in HPI & below Physical Exam Physical Exam: General- Not in distress Head- atraumatic Eyes- EOMI ENT- oropharynx clear Neck- supple, no JVD. Lungs- clear to auscultation no wheezing or crackles. Heart- regular rate and rhythm; no murmur, no gallop. Abdomen- normal bowel sounds, soft, nontender, no distension. Extremities- no pretibial edema, no erythema seen. Neuro- alert, oriented EOMI; no facial palsy; no dysarthria; obeys simple commands Results & Data Results & Data Vital Signs (Past 12 Hours) Vital Signs Temp Pulse Pulse Resp BP Pulse Ox O2 Del Method 08/23/23 21:45 97 H 08/23/23 20:28 78 16 110/76 98 Room Air 08/23/23 18:35 99 H 22 133/60 100 Room Air 08/23/23 16:36 36.4 C L 135 H 22 100 Room Air Diagnostic Findings Laboratory Results WBC 17.81 K/ul (4.8-10.8) H 08/23/23 17:54 RBC 6.17 M/uL (4.20-5.40) H 08/23/23 17:54 Hgb 17.3 g/dl (12.0-16.0) H 08/23/23 17:54 Hct 50.9 % (37.0-47.0) H 08/23/23 17:54 MCV 82.5 fL (80.0-100.0) 08/23/23 17:54 MCH 28.0 pg (25.0-34.0) 08/23/23 17:54 MCHC 34.0 g/dL (32.0-36.0) 08/23/23 17:54 RDW Std Deviation 41.7 fL (36.4-46.3) 08/23/23 17:54 RDW Coeff of Derrick 14.3 % (11.5-14.5) 08/23/23 17:54 Plt Count 411 K/uL (130-400) H 08/23/23 17:54 MPV 9.6 fL (9.4-12.4) 08/23/23 17:54 Neutrophils % (Manual) 48 % 08/23/23 17:54 Lymphocytes % (Manual) 22 % 08/23/23 17:54 Monocytes % (Manual) 4 % 08/23/23 17:54 Eosinophils % (Manual) 2 % 08/23/23 17:54 Neutrophils # (Manual) 8.55 K/uL (1.40-6.50) H 08/23/23 17:54 Total Absolute Neuts 8.55 K/uL (1.4-6.5) H 08/23/23 17:54 Lymphocytes # (Manual) 3.92 K/uL (1.2-3.4) H 08/23/23 17:54 Total Abs Lymphocytes 8.19 K/uL (1.2-3.4) H 08/23/23 17:54 Monocytes # (Manual) 0.71 K/uL (0.11-0.59) H 08/23/23 17:54 Eosinophils # (Manual) 0.36 K/uL (0-0.50) 08/23/23 17:54 Large Granular Lymphs 24 % 08/23/23 17:54 # Lrg Granular Lymphs 4.27 K/uL 08/23/23 17:54 Sodium 138 mmol/L (136-145) 08/23/23 17:54 Potassium 3.8 mmol/L (3.5-5.1) 08/23/23 17:54 Chloride 102 mmol/L (98-107) 08/23/23 17:54 Carbon Dioxide 18 mmol/L (21-32) L 08/23/23 17:54 Anion Gap 18 (3-11) H 08/23/23 17:54 BUN 24 mg/dl (6-23) H 08/23/23 17:54 Creatinine 1.35 mg/dl (0.6-1.2) H 08/23/23 17:54 Est Cr Clr Drug Dosing 62.0 ml/min 08/23/23 17:54 Est GFR ( Amer) 53.7 ml/min 08/23/23 17:54 Est GFR (Non-Af Amer) 46.3 ml/min 08/23/23 17:54 BUN/Creatinine Ratio 17.8 (10-20) 08/23/23 17:54 Glucose 121 mg/dl (70-99(Fasting)) H 08/23/23 17:54 Calcium 10.6 mg/dl (8.6-10.3) H 08/23/23 17:54 Total Bilirubin 0.5 mg/dl (0.2-1.0) 08/23/23 17:54 AST 22 U/L (13-39) 08/23/23 17:54 ALT 17 U/L (7-52) 08/23/23 17:54 Alkaline Phosphatase 91 U/L (34-104) 08/23/23 17:54 Total Protein 8.5 gm/dl (6.0-8.3) H 08/23/23 17:54 Albumin 5.1 gm/dl (3.4-5.0) H 08/23/23 17:54 Globulin 3.4 gm/dl (2.5-4.0) 08/23/23 17:54 Albumin/Globulin Ratio 1.5 (0.9-2) 08/23/23 17:54 TSH 6.075 uIu/ml (0.300-4.500) H 08/23/23 17:54 Free T4 1.29 ng/dl (0.61-1.60) 08/23/23 17:54 Urine Color Dark Yellow 08/23/23 Unknown Urine Appearance Cloudy (Clear) A 08/23/23 Unknown Urine pH 5.5 (4.5-7.5) 08/23/23 Unknown Ur Specific [place] 1.029 (1.000-1.030) 08/23/23 Unknown Urine Protein 1+ (Negative) H 08/23/23 Unknown Urine Glucose (UA) Negative (Negative) 08/23/23 Unknown Urine Ketones 3+ (Negative) H 08/23/23 Unknown Urine Blood Negative (Negative) 08/23/23 Unknown Urine Nitrite Negative (Negative) 08/23/23 Unknown Urine Bilirubin Negative (Negative) 08/23/23 Unknown Urine Urobilinogen Negative (Negative) 08/23/23 Unknown Ur Leukocyte Esterase 1+ (Negative) H 08/23/23 Unknown Urine WBC (Auto) 6-10 /hpf (0-5) H 08/23/23 Unknown Urine RBC (Auto) 3-5 /hpf (0-2) H 08/23/23 Unknown U Hyaline Cast (Auto) 11-20 /lpf (0-2) H 08/23/23 Unknown U Epithel Cells (Auto) 11-20 /hpf (0-2) H 08/23/23 Unknown Urine Bacteria (Auto) 3+ (None Seen) H 08/23/23 Unknown Hyaline Casts Present /lpf (None Presnt) A 08/23/23 Unknown POC Ur Test NEG (NEG) 08/23/23 20:14 Salicylates < 3.0 mg/dl (3.0-30) L 08/23/23 17:54 Urine Opiates Screen Neg (Neg) 08/23/23 Unknown Ur Methadone, Qual Neg (Neg) 08/23/23 Unknown Urine Fentanyl Screen Neg (Neg) 08/23/23 Unknown Acetaminophen < 3 ug/ml (10-30) L 08/23/23 17:54 Urine Barbiturates Neg (Neg) 08/23/23 Unknown Ur Phencyclidine (PCP) Neg (Neg) 08/23/23 Unknown U Amphetamin/Meth Scrn Neg (Neg) 08/23/23 Unknown MDMA (Ecstasy) Screen Neg (Neg) 08/23/23 Unknown U Benzodiazepines Scrn Pos (Neg) H 08/23/23 Unknown Ur Cocaine Metabolite Neg (Neg) 08/23/23 Unknown U Marijuana (THC) Screen Pos (Neg) H 08/23/23 Unknown Ethyl Alcohol mg/dL < 10.0 mg/dl (<10.0) 08/23/23 17:54 SARS-CoV-2, RNA, NAAT NEGATIVE (NEGATIVE) 08/23/23 Unknown ECG Additional Comments: ECG. Normal sinus rhythm rate of 98. Prolonged QTc at 497. Code Status & VTE Plan VTE Prophylaxis Plan VTE Prophylaxis will be ordered: Yes
[2023-08-24] MEDS: SODIUM CHLORIDE 0.9% 1,000 ML IV SCH (00:28)
[2023-08-24] MEDS: cloNIDine HCL 0.1 MG TAB PO STA (00:28)
[2023-08-24] MEDS: BACLOFEN 10 MG TAB PO PRN (00:28)
[2023-08-24] MEDS: ACETAMINOPHEN 325 MG TAB PO PRN (00:29)
[2023-08-24] MEDS: AMITRIPTYLINE HCL 50 MG TAB PO STA (00:29)
[2023-08-24] MEDS: clonazePAM 1 MG TAB PO STA (00:29)
[2023-08-24] MEDS: PROPRANOLOL HCL 10 MG TAB PO STA (00:30)
[2023-08-24] MEDS: busPIRone 15 MG TAB PO STA (00:30)
[2023-08-24] MEDS: MIRTAZAPINE TAB 15 MG TAB PO STA (00:30)
[2023-08-24] MEDS: METHYLPHENIDATE HCL 10 MG TABLET PO STA (00:32)
[2023-08-24] MEDS: hydrOXYzine HCl 25 MG TAB PO STA (00:48)
[2023-08-24] MEDS: PREGABALIN 150 MG CAP PO STA (00:48)
[2023-08-24] MEDS: KETOROLAC TROMETHAMINE 15 MG/ML VIAL IV STA (00:48)
[2023-08-24] MEDS: NALOXONE HCL 0.4 MG/1 ML VIAL/CARP IV STA (03:36)
[2023-08-24] MEDS: METHYLPHENIDATE HCL 10 MG TABLET PO SCH (06:46)
[2023-08-24 08:07] LABS: BUN Creatinine Ratio 18.6 (10-20); Calcium 8.2 mg/dl (8.6-10.3); Creatinine Clr Calc Pharmacy 97.4 ml/min; Est GFR (African American) 92.6 ml/min; Est GFR (Non-African American) 79.9 ml/min; Magnesium 1.5 mg/dl (1.7-2.4); Potassium 3.4 mmol/L (3.5-5.1)
[2023-08-24 08:09] LABS: Basophils # (auto) 0.08 K/uL (0.00-0.20); Basophils % (auto) 0.9 %; Eosinophils # (auto) 0.34 K/uL (0.00-0.50); Hemoglobin 12.8 g/dl (12.0-16.0); Immature Granulocytes # (auto) 0.02 K/uL (0.01-0.20); Immature Granulocytes % (auto) 0.2 %; Lymphocytes # (auto) 3.73 K/uL (1.20-3.40); Lymphocytes % (auto) 43.6 %; Mean Corpuscular Hemoglobin 27.8 pg (25.0-34.0); Mean Corpuscular Hgb Conc 32.8 g/dL (32.0-36.0); Mean Corpuscular Volume 84.8 fL (80.0-100.0); Mean Platelet Volume 9.9 fL (9.4-12.4); Monocytes # (auto) 0.95 K/uL (0.11-0.59); Monocytes % (auto) 11.1 %; Neutrophils # (auto) 3.44 K/uL (1.40-6.50); Neutrophils % (auto) 40.2 %; Platelet Count 285 K/uL (130-400); RDW Coefficient of Variation 14.2 % (11.5-14.5); RDW Standard Deviation 43.7 fL (36.4-46.3); White Blood Count 8.56 K/ul (4.8-10.8)
[2023-08-24] MEDS: QUEtiapine FUMARATE 25 MG TABLET PO SCH (08:18)
[2023-08-24] MEDS: ROSUVASTATIN CALCIUM 10 MG TAB PO SCH (08:18)
[2023-08-24] MEDS: busPIRone 15 MG TAB PO SCH (08:18)
[2023-08-24] MEDS: ENOXAPARIN INJ 40 MG/0.4 ML SYR SQ SCH (08:19)
[2023-08-24] MEDS: PROPRANOLOL HCL 10 MG TAB PO SCH (08:20)
[2023-08-24] MEDS: PREGABALIN 150 MG CAP PO SCH (08:25)
[2023-08-24] MEDS: MAGNESIUM SULFATE / D5W 1 GM/100 ML BAG IV SCH (08:25)
[2023-08-24] MEDS: POTASSIUM CHLORIDE CRTAB 20 MEQ TABCR PO STA (08:25)
--- NOTE | 2023-08-24 08:27 | Hospitalist Progress Note ---
Date of Service August 24, 2023 Assessment & Plan (1) Acute UTI (urinary tract infection): Plan: 48-year-old female with past medical history significant for type 2 diabetes, hyperlipidemia, allergic rhinitis, obesity, history of left renal mass, fibromyalgia, headache behind the eyes, chronic bilateral low back pain, history of herpes zoster without complication, depression with anxiety, narcolepsy without cataplexy, tobacco use disorder, recurrent major depression, was brought in by her sister because patient was having suicidal thoughts and in ER also found to UTI and possible early sepsis. Patient says since last 2 weeks she is having constant thoughts to hurt herself. Having lot of anxiety. Every morning she is having nausea because of anxiety. Appetite is down. Currently has migraine headaches. No blurred visions. No runny nose or sore throat. Currently no cough. No fevers. No chest pain. When she gets anxiety she gets short of breath. Currently no abdominal pain. Normal bowel and bladder movements. Ambulating okay. Currently hemodynamics are okay. acute UTI possible early sepsis with tachycardia and leukocytosis IV fluids and empiric Rocephin will follow cultures close monitor WBC already improved/ normalized DEANGELO - resolved creatinine 1.35 avoid nephrotoxic agents getting fluids Cr now normalized mild hypercalcemia - resolved calcium 10.6 likely from dehydration repeat Ca improved/ normalized hemoglobin 17.3 possible from dehydration repeat Hgb down to 12.8 this AM Hypokalemia, hypomagnesemia - from poor oral intake - replete and monitor Suicidal ideation history of depression and anxiety continue home medications one on one and and suicide precautions Psychiatry consulted Type 2 diabetes current HbA1c level 6.0% hold metformin continue home Lantus sliding scale will follow blood sugars Anion gap metabolic acidosis - anion gap 18 and CO2 18 on admission - from dehydration and poor appetite - now resolved , AG 10 now Hx of Migraine BURGER on emagility and propranolol DVT prophylaxis - Lovenox disposition- med/telemetry full code Admission and Anticipated Discharge Date Admission Date: August 23, 2023 Subjective Pt seen in follow up of SI, found to be possibly septic from UTI Currently laying in bed in NAD. Reports feeling better, says she was able to get some sleep last night after being medicated in ER No chest pain, shortness of breath, but says she was having some chills/ tremors - reports feeling extremely anxious for past several days Denies abd. pain but reports poor appetite Denies any dysuria Review of Systems Review of Systems: All systems reviewed & are unremarkable except as noted in Subjective Physical Exam Physical Exam: General- obese F in NAD Head- atraumatic Eyes- EOMI Neck- supple, no JVD. Lungs- clear to auscultation no wheezing or crackles. Heart- regular rate and rhythm; no murmur Abdomen- normal bowel sounds, soft, nontender, no distension. Extremities- no pretibial edema, no erythema seen. Neuro- alert, oriented EOMI; no facial palsy; no dysarthria; obeys simple commands Results & Data Results & Data Vital Signs (Past 12 Hours) Vital Signs Pulse Pulse Resp BP Pulse Ox Pulse Ox O2 Del Method 08/24/23 04:42 81 17 96/55 L 97 Room Air 08/24/23 04:00 78 18 98/68 L 98 Room Air 08/24/23 04:00 98 08/24/23 02:00 85 24 94/59 L 97 Room Air 08/24/23 01:43 93 H 08/23/23 21:45 97 H 08/23/23 20:28 78 16 110/76 98 Room Air O2 Del Method 08/24/23 04:42 08/24/23 04:00 08/24/23 04:00 Room Air 08/24/23 02:00 08/24/23 01:43 08/23/23 21:45 08/23/23 20:28 Laboratory Results 08/24/23 08/24/23 08/23/23 Range/Units 06:55 05:50 Unknown WBC 8.56 (4.8-10.8) K/ul RBC 4.60 (4.20-5.40) M/uL Hgb 12.8 D (12.0-16.0) g/dl Hct 39.0 (37.0-47.0) % MCV 84.8 (80.0-100.0) fL MCH 27.8 (25.0-34.0) pg MCHC 32.8 (32.0-36.0) g/dL RDW Std Deviation 43.7 (36.4-46.3) fL RDW Coeff of Derrick 14.2 (11.5-14.5) % Plt Count 285 (130-400) K/uL MPV 9.9 (9.4-12.4) fL Immature Gran % (Auto) 0.2 % Neut % (Auto) 40.2 % Lymph % (Auto) 43.6 % Adams % (Auto) 11.1 % Eos % (Auto) 4.0 % Baso % (Auto) 0.9 % Neut # (Auto) 3.44 (1.40-6.50) K/uL Lymph # (Auto) 3.73 H (1.20-3.40) K/uL Adams # (Auto) 0.95 H (0.11-0.59) K/uL Eos # (Auto) 0.34 (0.00-0.50) K/uL Baso # (Auto) 0.08 (0.00-0.20) K/uL Immature Gran # (Auto) 0.02 (0.01-0.20) K/uL Neutrophils % (Manual) % Lymphocytes % (Manual) % Monocytes % (Manual) % Eosinophils % (Manual) % Neutrophils # (Manual) (1.40-6.50) K/uL Total Absolute Neuts (1.4-6.5) K/uL Lymphocytes # (Manual) (1.2-3.4) K/uL Total Abs Lymphocytes (1.2-3.4) K/uL Monocytes # (Manual) (0.11-0.59) K/uL Eosinophils # (Manual) (0-0.50) K/uL Large Granular Lymphs % # Lrg Granular Lymphs K/uL Sodium 138 (136-145) mmol/L Potassium 3.4 L (3.5-5.1) mmol/L Chloride 110 H (98-107) mmol/L Carbon Dioxide 18 L (21-32) mmol/L Anion Gap 10 (3-11) BUN 16 (6-23) mg/dl Creatinine 0.86 D (0.6-1.2) mg/dl Est Cr Clr Drug Dosing 97.4 ml/min Est GFR ( Amer) 92.6 ml/min Est GFR (Non-Af Amer) 79.9 ml/min BUN/Creatinine Ratio 18.6 (10-20) Glucose 73 (70-99(Fasting)) mg/dl POC Glucose 83 (70-99) mg/dl Estimat Average Glucose Pending Hemoglobin A1c Pending Lactate (0.4-2.0) mmol/L Calcium 8.2 L D (8.6-10.3) mg/dl Magnesium 1.5 L (1.7-2.4) mg/dl Total Bilirubin (0.2-1.0) mg/dl AST (13-39) U/L ALT (7-52) U/L Alkaline Phosphatase (34-104) U/L Total Protein (6.0-8.3) gm/dl Albumin (3.4-5.0) gm/dl Globulin (2.5-4.0) gm/dl Albumin/Globulin Ratio (0.9-2) Procalcitonin (0-0.5) ng/ml TSH (0.300-4.500) uIu/ml Free T4 (0.61-1.60) ng/dl Urine Color Dark Yellow Urine Appearance Cloudy A (Clear) Urine pH 5.5 (4.5-7.5) Ur Specific [place] 1.029 (1.000-1.030) Urine Protein 1+ H (Negative) Urine Glucose (UA) Negative (Negative) Urine Ketones 3+ H (Negative) Urine Blood Negative (Negative) Urine Nitrite Negative (Negative) Urine Bilirubin Negative (Negative) Urine Urobilinogen Negative (Negative) Ur Leukocyte Esterase 1+ H (Negative) Urine WBC (Auto) 6-10 H (0-5) /hpf Urine RBC (Auto) 3-5 H (0-2) /hpf U Hyaline Cast (Auto) 11-20 H (0-2) /lpf U Epithel Cells (Auto) 11-20 H (0-2) /hpf Urine Bacteria (Auto) 3+ H (None Seen) Hyaline Casts Present A (None Presnt) /lpf POC Ur Test (NEG) Salicylates (3.0-30) mg/dl Urine Opiates Screen Neg (Neg) Ur Methadone, Qual Neg (Neg) Urine Fentanyl Screen Neg (Neg) Acetaminophen (10-30) ug/ml Urine Barbiturates Neg (Neg) Ur Phencyclidine (PCP) Neg (Neg) U Amphetamin/Meth Scrn Neg (Neg) MDMA (Ecstasy) Screen Neg (Neg) U OH-Alprazolam Confrm Pending U Benzodiazepines Scrn Pos H (Neg) 7-Amino Clonazepam Pending Ur Nordiazepam Confirm Pending U OH-ethylflurazepam Pending U Lorazepam Cnf GC/MS Pending U Oxazepam Confm GC/MS Pending Ur Temazepam Confirm Pending U OH-Triazolam Confirm Pending U OH-Midazolam Confirm Pending Ur Cocaine Metabolite Neg (Neg) U Marijuana (THC) Screen Pos H (Neg) U Marijuana THC Carboxy Pending Drug Screen Comment Pending Ethyl Alcohol mg/dL (<10.0) mg/dl SARS-CoV-2, RNA, NAAT NEGATIVE (NEGATIVE) 08/23/23 08/23/23 08/23/23 Range/Units 23:34 20:14 17:54 WBC 17.81 H (4.8-10.8) K/ul RBC 6.17 H (4.20-5.40) M/uL Hgb 17.3 H (12.0-16.0) g/dl Hct 50.9 H (37.0-47.0) % MCV 82.5 (80.0-100.0) fL MCH 28.0 (25.0-34.0) pg MCHC 34.0 (32.0-36.0) g/dL RDW Std Deviation 41.7 (36.4-46.3) fL RDW Coeff of Derrick 14.3 (11.5-14.5) % Plt Count 411 H (130-400) K/uL MPV 9.6 (9.4-12.4) fL Immature Gran % (Auto) % Neut % (Auto) % Lymph % (Auto) % Adams % (Auto) % Eos % (Auto) % Baso % (Auto) % Neut # (Auto) (1.40-6.50) K/uL Lymph # (Auto) (1.20-3.40) K/uL Adams # (Auto) (0.11-0.59) K/uL Eos # (Auto) (0.00-0.50) K/uL Baso # (Auto) (0.00-0.20) K/uL Immature Gran # (Auto) (0.01-0.20) K/uL Neutrophils % (Manual) 48 % Lymphocytes % (Manual) 22 % Monocytes % (Manual) 4 % Eosinophils % (Manual) 2 % Neutrophils # (Manual) 8.55 H (1.40-6.50) K/uL Total Absolute Neuts 8.55 H (1.4-6.5) K/uL Lymphocytes # (Manual) 3.92 H (1.2-3.4) K/uL Total Abs Lymphocytes 8.19 H (1.2-3.4) K/uL Monocytes # (Manual) 0.71 H (0.11-0.59) K/uL Eosinophils # (Manual) 0.36 (0-0.50) K/uL Large Granular Lymphs 24 % # Lrg Granular Lymphs 4.27 K/uL Sodium 138 (136-145) mmol/L Potassium 3.8 (3.5-5.1) mmol/L Chloride 102 (98-107) mmol/L Carbon Dioxide 18 L (21-32) mmol/L Anion Gap 18 H (3-11) BUN 24 H (6-23) mg/dl Creatinine 1.35 H (0.6-1.2) mg/dl Est Cr Clr Drug Dosing 62.0 ml/min Est GFR ( Amer) 53.7 ml/min Est GFR (Non-Af Amer) 46.3 ml/min BUN/Creatinine Ratio 17.8 (10-20) Glucose 121 H (70-99(Fasting)) mg/dl POC Glucose (70-99) mg/dl Estimat Average Glucose Hemoglobin A1c Lactate 0.8 (0.4-2.0) mmol/L Calcium 10.6 H (8.6-10.3) mg/dl Magnesium (1.7-2.4) mg/dl Total Bilirubin 0.5 (0.2-1.0) mg/dl AST 22 (13-39) U/L ALT 17 (7-52) U/L Alkaline Phosphatase 91 (34-104) U/L Total Protein 8.5 H (6.0-8.3) gm/dl Albumin 5.1 H (3.4-5.0) gm/dl Globulin 3.4 (2.5-4.0) gm/dl Albumin/Globulin Ratio 1.5 (0.9-2) Procalcitonin < 0.02 (0-0.5) ng/ml TSH 6.075 H (0.300-4.500) uIu/ml Free T4 1.29 (0.61-1.60) ng/dl Urine Color Urine Appearance (Clear) Urine pH (4.5-7.5) Ur Specific [place] (1.000-1.030) Urine Protein (Negative) Urine Glucose (UA) (Negative) Urine Ketones (Negative) Urine Blood (Negative) Urine Nitrite (Negative) Urine Bilirubin (Negative) Urine Urobilinogen (Negative) Ur Leukocyte Esterase (Negative) Urine WBC (Auto) (0-5) /hpf Urine RBC (Auto) (0-2) /hpf U Hyaline Cast (Auto) (0-2) /lpf U Epithel Cells (Auto) (0-2) /hpf Urine Bacteria (Auto) (None Seen) Hyaline Casts (None Presnt) /lpf POC Ur Test NEG (NEG) Salicylates < 3.0 L (3.0-30) mg/dl Urine Opiates Screen (Neg) Ur Methadone, Qual (Neg) Urine Fentanyl Screen (Neg) Acetaminophen < 3 L (10-30) ug/ml Urine Barbiturates (Neg) Ur Phencyclidine (PCP) (Neg) U Amphetamin/Meth Scrn (Neg) MDMA (Ecstasy) Screen (Neg) U OH-Alprazolam Confrm U Benzodiazepines Scrn (Neg) 7-Amino Clonazepam Ur Nordiazepam Confirm U OH-ethylflurazepam U Lorazepam Cnf GC/MS U Oxazepam Confm GC/MS Ur Temazepam Confirm U OH-Triazolam Confirm U OH-Midazolam Confirm Ur Cocaine Metabolite (Neg) U Marijuana (THC) Screen (Neg) U Marijuana THC Carboxy Drug Screen Comment Ethyl Alcohol mg/dL < 10.0 (<10.0) mg/dl SARS-CoV-2, RNA, NAAT (NEGATIVE) Medications Administered Current Inpatient Medications Acetaminophen (Acetaminophen 325 Mg Tab) 650 mg PO Q4H PRN PRN Reason: Pain or Fever Stop: 09/22/23 23:39 Last Admin: 08/24/23 00:29 Dose: 650 mg Amitriptyline HCl (Amitriptyline Hcl 50 Mg Tab) 50 mg PO HS MAHESH Stop: 09/23/23 20:59 Baclofen (Baclofen 10 Mg Tab) 10 mg PO BID PRN PRN Reason: Muscle Spasm Stop: 09/22/23 23:39 Last Admin: 08/24/23 00:28 Dose: 10 mg Buspirone HCl (Buspirone 15 Mg Tab) 15 mg PO TID MAHESH Stop: 09/23/23 08:59 Last Admin: 08/24/23 08:18 Dose: 15 mg Clonazepam (Clonazepam 1 Mg Tab) 1 mg PO TID PRN PRN Reason: Anxiety Stop: 09/22/23 23:39 Last Admin: 08/24/23 08:50 Dose: 1 mg Clonidine HCl (Clonidine Hcl 0.1 Mg Tab) 0.2 mg PO PM MAHESH Stop: 09/23/23 20:59 Dextrose (Dextrose 50% 50 Ml Syringe) 25 - 50 ml IV UD PRN; Protocol PRN Reason: Hypoglycemia Protocol Stop: 09/22/23 23:39 Enoxaparin Sodium (Enoxaparin Inj 40 Mg/0.4 Ml Syr) 40 mg SQ Q24H MAHESH Stop: 09/23/23 08:59 Last Admin: 08/24/23 08:19 Dose: Not Given Glucagon (Glucagon For Inj 1 Mg Vial) 1 mg SQ UD PRN; Protocol PRN Reason: Hypoglycemia Protocol Stop: 09/22/23 23:39 Glucose (Glucose 40% Gel 15 Gm Tube) 15 - 30 gm PO UD PRN; Protocol PRN Reason: Hypoglycemia Protocol Stop: 09/22/23 23:39 Glucose (Glucose 10 Tab/Tube) 4 - 8 tab PO UD PRN; Protocol PRN Reason: Hypoglycemia Treatment Stop: 09/22/23 23:39 Hydroxyzine HCl (Hydroxyzine Hcl 25 Mg Tab) 100 mg PO HS [facility] Stop: 09/23/23 20:59 Sodium Chloride (Nss) 1,000 mls @ 125 mls/hr IV .Q8H MAHESH Stop: 09/22/23 23:39 Last Admin: 08/24/23 08:18 Dose: 125 mls/hr Ceftriaxone Sodium (Rocephin) 2,000 mg in 50 mls @ 100 mls/hr IV Q24H MAHESH Stop: 09/03/23 20:59 Insulin Aspart (Insulin Aspart Per Unit Charge) 0 units SC ACHS MAHESH Stop: 09/23/23 07:29 Last Admin: 08/24/23 08:57 Dose: Not Given Insulin Glargine (Lantus Per Unit Charge) 30 units SC QAM MAHESH Stop: 09/23/23 08:59 Last Admin: 08/24/23 08:52 Dose: 30 units Methylphenidate HCl (Methylphenidate Hcl 10 Mg Tablet) 10 mg PO BID@0700,1400 [facility] Stop: 09/07/23 06:59 Last Admin: 08/24/23 06:46 Dose: 10 mg Mirtazapine (Mirtazapine Tab 15 Mg Tab) 30 mg PO HS [facility] Stop: 09/23/23 20:59 Miscellaneous (Remove Nicoderm Patch) 1 each N/A DAILY@0859 [facility] Stop: 09/23/23 08:58 Last Admin: 08/24/23 08:19 Dose: 1 each Miscellaneous (Trentellix~Order Awaiting Action) 1 each N/A QS [facility] Stop: 09/23/23 07:59 Last Admin: 08/24/23 07:10 Dose: Not Given Miscellaneous (Carbohydrates For Hypoglycemia ) 15 - 30 gm PO UD PRN PRN Reason: Hypoglycemia Protocol Stop: 09/22/23 23:39 Nicotine (Nicotine 14 Mg/24 Hr Patch) [facility] [place] [facility] [place] [place] 09/22/23 17:14 Last Admin: 08/24/23 08:18 Dose: 1 patch Nitroglycerin (Nitroglycerin Sl 0.4 Mg/Tab Tab) 0.4 mg SL Q5M PRN PRN Reason: Chest Pain Stop: 09/22/23 23:39 Polyethylene Glycol (Polyethylene (Miralax) 17 Gm Pack) 17 gm PO DAILY PRN PRN Reason: Constipation Stop: 09/22/23 23:39 Pregabalin (Pregabalin 150 Mg Cap) 150 mg PO TID [facility] Stop: 09/23/23 08:59 Last Admin: 08/24/23 08:25 Dose: 150 mg Propranolol HCl (Propranolol Hcl 10 Mg Tab) 10 mg PO TID [facility] Stop: 09/23/23 08:59 Last Admin: 08/24/23 08:20 Dose: Not Given Quetiapine Fumarate (Quetiapine Fumarate 25 Mg Tablet) 50 mg PO DAILY [facility] Stop: 09/23/23 08:59 Last Admin: 08/24/23 08:18 Dose: 50 mg Rosuvastatin Calcium (Rosuvastatin Calcium 10 Mg Tab) 10 mg PO QAM [facility] Stop: 09/23/23 08:59 Last Admin: 08/24/23 08:18 Dose: 10 mg
[2023-08-24 08:28] LABS: Estimated Average Glucose 126 mg/dl
[2023-08-24] MEDS: clonazePAM 1 MG TAB PO PRN (08:50)
[2023-08-24] MEDS: LANTUS PER UNIT CHARGE SC SCH (08:52)
[2023-08-24] MEDS: INSULIN ASPART PER UNIT CHARGE SC SCH (08:57)
--- NOTE | 2023-08-24 10:45 | Electrocardiogram Report ---
Test Reason : Blood Pressure : / mmHG Vent. Rate : 098 BPM Atrial Rate : 098 BPM P-R Int : 174 ms QRS Dur : 094 ms QT Int : 390 ms P-R-T Axes : 082 058 074 degrees QTc Int : 497 ms Normal sinus rhythm Prolonged QT Abnormal ECG When compared with ECG of 26-JUN-2021 09:15, Vent. rate has increased BY 34 BPM QT has lengthened Confirmed by Neal Perez [id number] on 08/24/2023 10:45:52 AM Referred By: John Erazo Confirmed By:Neal Perez
--- NOTE | 2023-08-24 13:41 | Psychiatric Consultation ---
Date of Consultation August 24, 2023 Impression / Recommendations Impression 48 yo woman with recent worsening of depression and anxiety with subsequent SI admitted medically for UTI and possible early sepsis. Diagnostically consistent with unspecified depression and anxiety, likely a combination of exacerbation of pre-existing MDD and JOSE A with panic attacks in addition to depression and anxiety due to UTI. Her outpatient providers have trialed multiple recent SSRIs/SNRIs so will take some time to determine what benefits these adjustments may offer. In the meantime she found significant relief from dose of prn olanzapine she received yesterday, reviewed option to start this for now for depression augmentation and off-label use for anxiety in exchange of her scheduled seroquel. She consents to this, reviewed side effects including movement (TD, NMS), cardiac (QTc prolongation), and metabolic (stroke, insulin resistance) and necessity for fasting lipid and glucose labwork (she has this done for Seroquel and understands need if she remains on olanzapine) and AIMS assessments. Acute risk of self-harm is low given denial of SI, strong deterrents and some improvement in sleep and mood with treatment of UTI. Chronic risk is low to moderate given few non-modifiable risk factors and multiple protective factors. Attempt to establish outpatient therapy would help modify acute and chronic risk factors and provide non-pharmacologic way to learn more coping skills for managing anxiety and depression. Now with her mood and sleep improving she is not interested in inpatient psychiatric treatment once medically stable and feels she would do well with outpatient level of care. She is interested in outpatient therapy referrals, likes her psychiatric providers. If she continues to have stable mood without re-emergence of SI then this is a reasonable plan. Overall, I spent a total of 60 minutes with this case including review of chart records, review of labwork, review of EKG QTc, direct evaluation of the patient at bedside, counseling the patient, discussion of the patient with the Nurse and with the hospitalist provider, discussion with the psychiatric liason during clinical rounds and documentation in the electronic health record. (1) Anxiety: (2) Depression: (3) Prolonged QT interval: (4) Acute UTI (urinary tract infection): Plan -Does not require 1-on-1. Does not meet 302 criteria. -Agree with psychiatric medications as ordered, would recommend making the following adjustments: * Discontinue Seroquel * Once QTc improves, ideally <470ms then can start olanzapine 2.5mg BID for depression augmentation and off-label use for anxiety for short-term while UTI is treated since she is already on multiple other psychotropic first/second/third line options for anxiety/depression. She can discharge on this and then re-evaluate need for routine use moving forward with her outpatient psychiatric provider at [facility]. * Holding Ritalin until anxiety lessens -If QTc increases to >500ms then multiple psychiatric medications should be held and doses reduced until QTc improves. If this occurs recommend: * Discontinuation of olanzpaine, Buspar and Vistaril (in addition to discontinuation of Ritalin and Seroquel as above) * Dose reduction of amitriptyline to 25mg HS Psych History Identifying Data 48 yo woman with history of multiple medical conditions including WESTLEY, narcolepsy, DM type II, anxiety, major depressive disorder who presented for SI and was found to have UTI with possible early sepsis. Psychiatry consulted for risk assessment and medication recommendations for anxiety. Chief Complaint "I always have anxiety but it was so intense the last few weeks". History of Present Illness Anita reports long history of anxiety and depression but with significant worsening of morning anxiety over the last few weeks causing her to feel unable to even get off the couch or be motivated to do anything until the evening when her symptoms typically lessened. Due to this increased anxiety she started to have thoughts of suicide. She denies having any plans nor any intent but was concerned as these thoughts persisted over the last two weeks. Yesterday she told her family who brought her to the hospital. On arrival was found to have a UTI and possible sepsis. Since starting IV antibiotics last night she reports sleeping all night, for the first time in days, and feels "so much better". She denies any SI today. Still with some anxiety but less than before. In reviewing recent symptoms she describes disrupted sleep, low energy and appetite changes, which she is no wondering may have been due to her UTI. Additionally, she reported increased anxiety possibly from her heart beating faster recently. She's had multiple medication adjustments within the last 3 weeks in an attempt to address her mood symptoms. She is currently seeing providers at [facility] for psychiatry, no current therapist. She expressed interest in therapy but has faced challenges in finding a therapist who accepts her insurance and has availability, does have some upcoming sessions with a counselor via her sister's employee assistance program. No access to guns at home. One prior psychiatric hospitalization in 2013 for SI following her father's . No prior suicide attempts. Feels well supported by her family. States strong deterrents to suicide of her son and family. Allergies Allergy/AdvReac Type Severity Reaction Status Date / Time amoxicillin Allergy Intermediate Rash Verified 01/13/23 12:55 Penicillins Allergy Intermediate Rash (to Verified 01/13/23 12:55 amoxicillin) Home Medications Medication Instructions Recorded Confirmed Type amitriptyline 25 mg tablet 50 mg PO HS 12/12/17 08/23/23 History clonazepam 1 mg tablet 1 mg PO TID PRN Anxiety 12/12/17 08/23/23 History mirtazapine 30 mg tablet 30 mg PO HS 12/12/17 08/23/23 History baclofen 10 mg tablet 10 mg PO BID PRN Muscle Spasm 10/15/18 08/23/23 History metformin 500 mg tablet,extended 500 mg PO BID 10/15/18 08/23/23 History release 24 hr propranolol 10 mg tablet 10 mg PO TID 01/09/20 08/23/23 History galcanezumab-gnlm 120 mg/mL 120 mg subcut MONTHLY 09/01/20 08/23/23 History subcutaneous pen injector (Emgality Pen) blood sugar diagnostic (OneTouch #100 ea 09/11/20 08/23/23 Rx Verio test strips) insulin aspart U-100 100 unit/mL 8 unit (0.08 mL) SC TIDM 30 days 09/11/20 08/23/23 Rx (3 mL) subcutaneous pen (Novolog #2.4 mL FlexPen U-100 Insulin aspart) insulin glargine 100 unit/mL (3 30 unit (0.3 mL) SC QAM 30 days #9 09/11/20 08/23/23 Rx mL) subcutaneous pen (Lantus mL Solostar U-100 Insulin) pen needle, diabetic 32 gauge x #100 ea 09/11/20 08/23/23 Rx 5/32" (Pen Needle) buspirone 15 mg tablet 15 mg PO TID 12/17/20 08/23/23 History hydroxyzine HCl 50 mg tablet 100 mg PO HS 12/17/20 08/23/23 History rosuvastatin 10 mg tablet (Crestor) 10 mg PO QAM 12/17/20 08/23/23 History Wheeled Walker #1 ea 05/19/21 08/23/23 Rx acetaminophen 500 mg capsule 1,000 mg (2 x 500 mg) PO TID Pain 07/16/21 08/23/23 Rx #180 caps ondansetron HCl 4 mg tablet 4 mg PO Q6 PRN nausea #30 tabs 07/16/21 08/23/23 Rx pregabalin 100 mg capsule (Lyrica) 150 mg PO TID 06/17/22 08/23/23 History quetiapine 50 mg tablet (Seroquel) 50 mg PO DAILY 01/13/23 08/23/23 History ondansetron 4 mg disintegrating 4 mg PO Q8H PRN nausea and 06/27/23 08/23/23 Rx tablet vomiting #30 tabs methylphenidate HCl 10 mg tablet 10 mg PO BID #60 tabs 08/19/23 08/23/23 Rx clonidine HCl 0.2 mg tablet 0.2 mg PO PM 08/23/23 08/23/23 History vortioxetine 20 mg tablet 20 mg PO QAM 08/23/23 08/23/23 History (Trintellix) Patient History Medical History Pulmonary nodule micronodule in RUL on chest CTA 08/2020 Stroke Stable old lacunar infarct within the right basal ganglia noted on 08/[address] stable since 2017 comparison imaging Encounter for pre-operative examination Hiatal hernia TUMS prn with control of reflux symptoms Renal cyst Hx of Lyme disease History of kidney stones Post traumatic stress disorder Peripheral neuropathy Migraine Anxiety and depression Osteoarthritis Chronic back pain Diabetes mellitus, type 2 IDDM, A1c 7.5% 06/20 Hyperlipidemia Hypertension Narcolepsy Fibromyalgia Surgical History History of esophagogastroduodenoscopy (EGD) History of tonsillectomy History of laparoscopy History of colonoscopy History of tooth extraction all teeth removed H/O lithotripsy Family History Father Family history of diabetes mellitus Diabetes Cancer Mother Family hx colonic polyps Hypertension Grandmother Hypertension Other No family history of adverse response to anesthesia Social History Smoking Status: Unknown if ever smoked Tobacco Type: Cigarettes Cigarettes Per Day: 10 per day-advised; Second Hand Exposure: No; Do You Dip or Chew Tobacco: No; Hx Alcohol Use: No Hx Substance Use: No Preferred Language: Serbian Communication Ability: Effective Communication Tools: Physical Gestures Power Regulator Required: No Beliefs That Will Affect Care: None marital status: Single Current Living Situation: Family Current Living Situation Comment: Lives with mom and son How many Children do You have: 1 Other Information That Helps Us Care for You: No Feels Safe at Home: Yes Safety Concerns: Feels Safe At This Time Assistive Devices: Walker Physical Exam Psychiatric: Orientation: alert and oriented x 3 Apperance: appropriately dressed and appropriately groomed Eye Contact: good eye contact Motor Behavior: no abnormal motor movements Speech: normal rate/rhythm/volume of speech Affect: + anxious affect Mood: + depressed mood and + anxious mood Thought Process: linear/logical thought process Thought Content: reality based without delusions Suicidal Thoughts: denies suicidal thoughts Homicidal Thoughts: denies homicidal thoughts Hallucinations: no auditory hallucinations and no visual hallucinations Cognition: recent memory grossly intact, remote memory grossly intact, attention grossly intact and language grossly intact Estimated Intelligence: consistent with education level Insight: + fair insight Judgment: + fair judgement Vital Signs (Past 24 Hours): Last Vital Signs Temp 36.4 C L 08/23/23 16:36 Pulse 77 08/24/23 12:30 Resp 19 08/24/23 12:30 BP 113/58 L 08/24/23 12:30 Pulse Ox 96 08/24/23 12:30 O2 Del Method Room Air 08/24/23 12:30 Results & Data (PSY) Medications Administered Acetaminophen (Acetaminophen 325 Mg Tab) 650 mg PO Q4H PRN PRN Reason: Pain or Fever Stop: 09/22/23 23:39 Last Admin: 08/24/23 12:16 Dose: 650 mg Documented By: Admin: 08/24/23 00:29 Dose: 650 mg Documented By: LOPEZ Baclofen (Baclofen 10 Mg Tab) 10 mg PO BID PRN PRN Reason: Muscle Spasm Stop: 09/22/23 23:39 Last Admin: 08/24/23 00:28 Dose: 10 mg Documented By: LOPEZ Buspirone HCl (Buspirone 15 Mg Tab) 15 mg PO TID [facility] Stop: 09/23/23 08:59 Last Admin: 08/24/23 08:18 Dose: 15 mg Documented By: HS Clonazepam (Clonazepam 1 Mg Tab) 1 mg PO TID PRN PRN Reason: Anxiety Stop: 09/22/23 23:39 Last Admin: 08/24/23 08:50 Dose: 1 mg Documented By: HS Enoxaparin Sodium (Enoxaparin Inj 40 Mg/0.4 Ml Syr) 40 mg SQ Q24H [facility] Stop: 09/23/23 08:59 Last Admin: 08/24/23 08:19 Dose: Not Given Documented By: HS Sodium Chloride (Nss) 1,000 mls @ 125 mls/hr IV .Q8H [facility] Stop: 09/22/23 23:39 Last Admin: 08/24/23 08:18 Dose: 125 mls/hr Documented By: Infusion: 08/24/23 08:18 Dose: Infused Documented By: Admin: 08/24/23 00:28 Dose: 125 mls/hr Documented By: LOPEZ Insulin Aspart (Insulin Aspart Per Unit Charge) 0 units SC ACHS [facility] Stop: 09/23/23 07:29 Last Admin: 08/24/23 12:20 Dose: Not Given Documented By: Admin: 08/24/23 08:57 Dose: Not Given Documented By: HS Insulin Glargine (Lantus Per Unit Charge) 30 units SC QAM [facility] Stop: 09/23/23 08:59 Last Admin: 08/24/23 08:52 Dose: 30 units Documented By: HS Co-signed By: SUMMER Methylphenidate HCl (Methylphenidate Hcl 10 Mg Tablet) 10 mg PO BID@0700,1400 [facility] Stop: 09/07/23 06:59 Last Admin: 08/24/23 06:46 Dose: 10 mg Documented By: IDD Miscellaneous (Remove Nicoderm Patch) 1 each N/A DAILY@0859 [facility] Stop: 09/23/23 08:58 Last Admin: 08/24/23 08:19 Dose: 1 each Documented By: SALMA Miscellaneous (Trentellix~Order Awaiting Action) 1 each N/A QS [facility] Stop: 09/23/23 07:59 Last Admin: 08/24/23 07:10 Dose: Not Given Documented By: HS Nicotine (Nicotine 14 Mg/24 Hr Patch) 1 patch TD QAM [facility] Stop: 09/22/23 17:14 Last Admin: 08/24/23 08:18 Dose: 1 patch Documented By: Admin: 08/23/23 17:52 Dose: 1 patch Documented By: LIZETTE Pregabalin (Pregabalin 150 Mg Cap) 150 mg PO TID [facility] Stop: 09/23/23 08:59 Last Admin: 08/24/23 08:25 Dose: 150 mg Documented By: HS Propranolol HCl (Propranolol Hcl 10 Mg Tab) 10 mg PO TID [facility] Stop: 09/23/23 08:59 Last Admin: 08/24/23 08:20 Dose: Not Given Documented By: HS Quetiapine Fumarate (Quetiapine Fumarate 25 Mg Tablet) 50 mg PO DAILY [facility] Stop: 09/23/23 08:59 Last Admin: 08/24/23 08:18 Dose: 50 mg Documented By: SALMA Rosuvastatin Calcium (Rosuvastatin Calcium 10 Mg Tab) 10 mg PO QAM [facility] Stop: 09/23/23 08:59 Last Admin: 08/24/23 08:18 Dose: 10 mg Documented By: SALMA Coding Level of Care Code 35299 IN/OBS CONSULT LVL 4,60M Diagnoses Anxiety F41.9 Depression F32.9 Prolonged QT interval R94.31 Acute UTI (urinary tract infection) N39.0
[2023-08-24] MEDS: KETOROLAC TROMETHAMINE 15 MG/ML VIAL IV ONE (14:44)
[2023-08-24] MEDS: cefTRIAXone SODIUM 2,000 MG/50 ML BAG IV SCH (20:01)
[2023-08-24] MEDS: AMITRIPTYLINE HCL 50 MG TAB PO SCH (20:04)
[2023-08-24] MEDS: cloNIDine HCL 0.1 MG TAB PO SCH (20:05)
[2023-08-24] MEDS: MIRTAZAPINE TAB 15 MG TAB PO SCH (20:05)
[2023-08-24] MEDS: hydrOXYzine HCl 25 MG TAB PO SCH (20:06)
[2023-08-25 07:20] LABS: Hematocrit (blood only) 40.5 % (37.0-47.0); Hemoglobin 13.2 g/dl (12.0-16.0); Mean Corpuscular Hemoglobin 27.8 pg (25.0-34.0); Mean Corpuscular Hgb Conc 32.6 g/dL (32.0-36.0); Mean Corpuscular Volume 85.4 fL (80.0-100.0); Mean Platelet Volume 9.8 fL (9.4-12.4); Platelet Count 272 K/uL (130-400); RDW Coefficient of Variation 14.5 % (11.5-14.5); RDW Standard Deviation 44.9 fL (36.4-46.3); Red Blood Count 4.74 M/uL (4.20-5.40); White Blood Count 6.38 K/ul (4.8-10.8)
[2023-08-25 07:46] LABS: Calcium 8.7 mg/dl (8.6-10.3); Creatinine Clr Calc Pharmacy 108.8 ml/min; Est GFR (African American) 105.8 ml/min; Est GFR (Non-African American) 91.3 ml/min; Magnesium 1.7 mg/dl (1.7-2.4); Phosphorus 3.2 mg/dl (2.5-4.9); Potassium 4.2 mmol/L (3.5-5.1)
[2023-08-25] MEDS: ADVANCED PROBIOTIC 625 MG CAPSULE PO SCH (10:06)
[2023-08-25] MEDS: ceFAZolin 1000MG 1,000 MG/7.5 ML SYR IV SCH (10:06)
[2023-08-25] MEDS: PROPRANOLOL HCL 10 MG TAB PO SCH (10:06)
[2023-08-25] MEDS: IPRATROPIUM BROMIDE NEB SOLN 0.02% 0.5MG/2.5ML VIAL NEB STA (10:36)
[2023-08-25] MEDS: LEVALBUTEROL 1.25 MG/3 ML NEB NEB STA (10:36)
[2023-08-25] MEDS ORDERED: VORTIOXETINE HYDROBROMIDE [PATIENT OWN MED] PO SCH (12:30)
[2023-08-25] MEDS: VORTIOXETINE HYDROBROMIDE [PATIENT OWN MED] PO SCH (13:25)
--- NOTE | 2023-08-25 13:28 | Hospitalist Progress Note ---
Date of Service August 25, 2023 Assessment & Plan (1) Acute UTI (urinary tract infection): Plan: per previous hospitalist notes with addendum: 48-year-old female with past medical history significant for type 2 diabetes, hyperlipidemia, allergic rhinitis, obesity, history of left renal mass, fibromyalgia, headache behind the eyes, chronic bilateral low back pain, history of herpes zoster without complication, depression with anxiety, narcolepsy without cataplexy, tobacco use disorder, recurrent major depression, was brought in by her sister because patient was having suicidal thoughts and in ER also found to UTI and possible early sepsis. Patient says since last 2 weeks she is having constant thoughts to hurt herself. Having lot of anxiety. Every morning she is having nausea because of anxiety. Appetite is down. Currently has migraine headaches. No blurred visions. No runny nose or sore throat. Currently no cough. No fevers. No chest pain. When she gets anxiety she gets short of breath. Currently no abdominal pain. Normal bowel and bladder movements. Ambulating okay. Currently hemodynamics are okay. acute UTI possible early sepsis with tachycardia and leukocytosis IV fluids and empiric Rocephin will follow cultures close monitor WBC already improved/ normalized Urine culture: More than 3 types of organisms present, repeat collection recommended Blood culture: Negative so far Will repeat urine culture Continue IV cefazolin DEANGELO - resolved creatinine 1.35 avoid nephrotoxic agents getting fluids Cr now normalized mild hypercalcemia - resolved calcium 10.6 likely from dehydration repeat Ca improved/ normalized hemoglobin 17.3 possible from dehydration repeat Hgb down to 12.8 this AM Hemoglobin stable at 13.2 Hypokalemia, hypomagnesemia - from poor oral intake - replete and monitor Resolved Suicidal ideation history of depression and anxiety continue home medications one on one and and suicide precautions Psychiatry consulted Psychiatry service following, managing medications Type 2 diabetes current HbA1c level 6.0% hold metformin continue home Lantus sliding scale will follow blood sugars BSG 79-91 Anion gap metabolic acidosis - anion gap 18 and CO2 18 on admission - from dehydration and poor appetite - now resolved , AG 10 now Hx of Migraine BURGER on emagility and propranolol DVT prophylaxis - Lovenox disposition- Anticipate to transition to behavioral unit once medically stable full code plan of care discussed with patient in detail and at length all questions answered she is understanding, agreeable, comfortable with the plan of care Admission and Anticipated Discharge Date Admission Date: August 23, 2023 Subjective Follow-up for UTI, suicidal ideations, etc. Seen sitting up in bed, tearful, states that she has racing thoughts today Requesting for another dose of Zyprexa as it helped her yesterday Patient reassured, informed her that we will be messaging psychiatry service soon as possible Denies fevers or chills, headache, abdominal pain, nausea vomiting, problems with urination No chest pain, palpitations, dizziness No other new symptoms Review of Systems Review of Systems: all noted and negative except for above Physical Exam Physical Exam: General- oriented x 3, not in distress, speaks in sentences with no effort or accessory muscle use Eyes- anicteric Neck- no JVD Lungs- Mild scattered wheeze right greater than left lungs Good air entry bilaterally Heart- normal rate, regular rhythm; no murmurs Abdomen- normal bowel sounds, nondistended, soft, nontender no cva tenderness Extremities- no pretibial edema, no calf tenderness Neuro- alert, oriented x 3; no gross focal neurologic deficits Skin- warm & dry Results & Data Results & Data Vital Signs (Past 12 Hours) Vital Signs Temp Pulse Pulse Resp BP Pulse Ox Pulse Ox 08/25/23 11:33 36.8 C 77 16 104/56 L 94 08/25/23 11:05 08/25/23 10:38 80 18 97 08/25/23 07:45 36.7 C 84 16 110/71 97 08/25/23 07:36 79 08/25/23 04:16 94 08/25/23 03:43 36.3 C L 66 16 94/60 L 97 O2 Del Method O2 Del Method 08/25/23 11:33 Room Air 08/25/23 11:05 Room Air 08/25/23 10:38 Room Air 08/25/23 07:45 Room Air 08/25/23 07:36 08/25/23 04:16 Room Air 08/25/23 03:43 Room Air all noted and reviewed including below
[2023-08-25] MEDS: METHYLPHENIDATE HCL 10 MG TABLET PO SCH (14:36)
[2023-08-25] MEDS: KETOROLAC 30 MG/ML VIAL IV PRN (14:36)
--- NOTE | 2023-08-25 14:37 | Psychiatric Progress Note ---
Date of Service August 25, 2023 Impression / Recommendations Impression 48 yo woman with recent worsening of depression and anxiety with subsequent SI admitted medically for UTI and possible early sepsis. Diagnostically consistent with unspecified depression and anxiety, likely a combination of exacerbation of pre-existing MDD and JOSE A with panic attacks in addition to depression and anxiety due to UTI. Her outpatient providers have trialed multiple recent SSRIs/SNRIs so will take some time to determine what benefits these adjustments may offer. In the meantime she found significant relief from dose of prn olanzapine she received yesterday, reviewed option to start this for now for depression augmentation and off-label use for anxiety in exchange of her scheduled seroquel. She consents to this, reviewed side effects including movement (TD, NMS), cardiac (QTc prolongation), and metabolic (stroke, insulin resistance) and necessity for fasting lipid and glucose labwork (she has this done for Seroquel and understands need if she remains on olanzapine) and AIMS assessments. A: Ongoing anxiety but continues to deny SI. QTc has improved on EKG today, will restart her prior to admission Ritalin for narcolepsy per her request and olanzapine 2.5mg BID as previously discussed. Overall, I spent a total of 35 minutes with this case including review of chart records, review of labwork, review of EKG QTc, direct evaluation of the patient at bedside, counseling the patient, discussion of the patient with the Nurse and with the hospitalist provider, discussion with the psychiatric liason during clinical rounds and documentation in the electronic health record. (1) Anxiety: (2) Depression: (3) Acute UTI (urinary tract infection): Plan -start olanzapine 2.5mg BID for depression augmentation and off-label use for an xiety for short-term while UTI is treated since she is already on multiple other psychotropic first/second/third line options for anxiety/depression. She can discharge on this and then re-evaluate need for routine use moving forward with her outpatient psychiatric provider at [facility]. Interval History Identifying Information 48 yo woman with history of multiple medical conditions including WESTLEY, narcolepsy, DM type II, anxiety, major depressive disorder who presented for SI and was found to have UTI with possible early sepsis. Psychiatry consulted for risk assessment and medication recommendations for anxiety. Chief Complaint "That zyprexa got rid of all the negative thoughts, can I start that today?". Subjective Subjective Patient was seen & assessed and interval progress reviewed. QTc has improved, she is eager to start olanzapine since it helped so much previously. She also asks to restart Ritalin as it helps with her narcolepsy. Denies SI. Physical Exam Psychiatric Orientation: alert and oriented x 3 Apperance: appropriately dressed and appropriately groomed Eye Contact: good eye contact Motor Behavior: no abnormal motor movements Speech: normal rate/rhythm/volume of speech Affect: + anxious affect Mood: + depressed mood and + anxious mood Thought Process: linear/logical thought process Thought Content: reality based without delusions Suicidal Thoughts: denies suicidal thoughts Homicidal Thoughts: denies homicidal thoughts Hallucinations: no auditory hallucinations and no visual hallucinations Cognition: recent memory grossly intact, remote memory grossly intact, attention grossly intact and language grossly intact Estimated Intelligence: consistent with education level Insight: + fair insight Judgment: + fair judgement Vital Signs (Past 24 Hours) Last Vital Signs Temp 36.8 C 08/25/23 11:33 Pulse 77 08/25/23 11:33 Resp 16 08/25/23 11:33 BP 104/56 L 08/25/23 11:33 Pulse Ox 94 08/25/23 11:33 O2 Del Method Room Air 08/25/23 11:33 Results & Data ([facility]) Laboratory Results Laboratory Results - last 24 hr 08/24/23 08/24/23 08/25/23 16:51 21:38 05:53 WBC 6.38 RBC 4.74 Hgb 13.2 Hct 40.5 MCV 85.4 MCH 27.8 MCHC 32.6 RDW Std Deviation 44.9 RDW Coeff of Derrick 14.5 Plt Count 272 MPV 9.8 Sodium 142 Potassium 4.2 D Chloride 112 H Carbon Dioxide 23 Anion Gap 7 BUN 10 Creatinine 0.77 Est Cr Clr Drug Dosing 108.8 Est GFR ( Amer) 105.8 Est GFR (Non-Af Amer) 91.3 BUN/Creatinine Ratio 13.0 Glucose 70 POC Glucose 100 H 85 Calcium 8.7 Phosphorus 3.2 Magnesium 1.7 Nasal Screen MRSA (PCR) 08/25/23 08/25/23 08/25/23 08:08 11:00 11:59 WBC RBC Hgb Hct MCV MCH MCHC RDW Std Deviation RDW Coeff of Derrick Plt Count MPV Sodium Potassium Chloride Carbon Dioxide Anion Gap BUN Creatinine Est Cr Clr Drug Dosing Est GFR ( Amer) Est GFR (Non-Af Amer) BUN/Creatinine Ratio Glucose POC Glucose 79 91 Calcium Phosphorus Magnesium Nasal Screen MRSA (PCR) Negative Current Inpatient Medications Current Inpatient Medications: Current Inpatient Medications Acetaminophen (Acetaminophen 325 Mg Tab) 650 mg PO Q4H PRN PRN Reason: Pain or Fever Stop: 09/22/23 23:39 Last Admin: 08/24/23 12:16 Dose: 650 mg Amitriptyline HCl (Amitriptyline Hcl 50 Mg Tab) 50 mg PO HS MAHESH Stop: 09/23/23 20:59 Last Admin: 08/24/23 20:04 Dose: 50 mg Baclofen (Baclofen 10 Mg Tab) 10 mg PO BID PRN PRN Reason: Muscle Spasm Stop: 09/22/23 23:39 Last Admin: 08/25/23 10:05 Dose: 10 mg Buspirone HCl (Buspirone 15 Mg Tab) 15 mg PO TID MAHESH Stop: 09/23/23 08:59 Last Admin: 08/25/23 13:31 Dose: 15 mg Clonazepam (Clonazepam 1 Mg Tab) 1 mg PO TID PRN PRN Reason: Anxiety Stop: 09/22/23 23:39 Last Admin: 08/25/23 09:15 Dose: 1 mg Clonidine HCl (Clonidine Hcl 0.1 Mg Tab) 0.2 mg PO PM MAHESH Stop: 09/23/23 20:59 Last Admin: 08/24/23 20:05 Dose: 0.2 mg Dextrose (Dextrose 50% 50 Ml Syringe) 25 - 50 ml IV UD PRN; Protocol PRN Reason: Hypoglycemia Protocol Stop: 09/22/23 23:39 Enoxaparin Sodium (Enoxaparin Inj 40 Mg/0.4 Ml Syr) 40 mg SQ Q24H MAHESH Stop: 09/23/23 08:59 Last Admin: 08/25/23 08:29 Dose: 40 mg Glucagon (Glucagon For Inj 1 Mg Vial) 1 mg SQ UD PRN; Protocol PRN Reason: Hypoglycemia Protocol Stop: 09/22/23 23:39 Glucose (Glucose 40% Gel 15 Gm Tube) 15 - 30 gm PO UD PRN; Protocol PRN Reason: Hypoglycemia Protocol Stop: 09/22/23 23:39 Glucose (Glucose 10 Tab/Tube) 4 - 8 tab PO UD PRN; Protocol PRN Reason: Hypoglycemia Treatment Stop: 09/22/23 23:39 Hydroxyzine HCl (Hydroxyzine Hcl 25 Mg Tab) 100 mg PO HS [facility] Stop: 09/23/23 20:59 Last Admin: 08/24/23 20:06 Dose: 100 mg Sodium Chloride (Nss) 1,000 mls @ 125 mls/hr IV .Q8H [facility] Stop: 09/22/23 23:39 Last Admin: 08/25/23 08:12 Dose: 125 mls/hr Cefazolin Sodium (Ancef 1000mg) 1,000 mg in 7.5 mls @ 2.5 mls/min IV Q8H [facility] Stop: 08/30/23 09:59 Last Admin: 08/25/23 10:06 Dose: 2.5 mls/min Insulin Aspart (Insulin Aspart Per Unit Charge) 0 units SC ACHS [facility] Stop: 09/23/23 07:29 Last Admin: 08/25/23 13:25 Dose: Not Given Insulin Glargine (Lantus Per Unit Charge) 30 units SC QAM [facility] Stop: 09/23/23 08:59 Last Admin: 08/25/23 08:29 Dose: 30 units Ketorolac Tromethamine (Ketorolac 30 Mg/Ml Vial) 30 mg IV Q6H PRN PRN Reason: moderate to severe pain Stop: 08/30/23 13:33 Last Admin: 08/25/23 14:36 Dose: 30 mg Lactobacillus Acidophilus (Advanced Probiotic 625 Mg Capsule) 1,250 mg PO DAILY [facility] Stop: 09/24/23 09:14 Last Admin: 08/25/23 10:06 Dose: 1,250 mg Methylphenidate HCl (Methylphenidate Hcl 10 Mg Tablet) 10 mg PO [id number] [facility] Stop: 09/08/23 13:59 Last Admin: 08/25/23 14:36 Dose: 10 mg Mirtazapine (Mirtazapine Tab 15 Mg Tab) 30 mg PO HS [facility] Stop: 09/23/23 20:59 Last Admin: 08/24/23 20:05 Dose: 30 mg Miscellaneous (Remove Nicoderm Patch) 1 each N/A DAILY@0859 [facility] Stop: 09/23/23 08:58 Last Admin: 08/25/23 08:17 Dose: 1 each Miscellaneous (Carbohydrates For Hypoglycemia ) 15 - 30 gm PO UD PRN PRN Reason: Hypoglycemia Protocol Stop: 09/22/23 23:39 Nicotine (Nicotine 14 Mg/24 Hr Patch) [facility] Stop: 09/22/23 17:14 Last Admin: 08/25/23 08:30 Dose: 1 patch Nitroglycerin (Nitroglycerin Sl 0.4 Mg/Tab Tab) 0.4 mg SL Q5M PRN PRN Reason: Chest Pain Stop: 09/22/23 23:39 Olanzapine (Olanzapine 2.5 Mg Tab) 2.5 mg PO BID [facility] Stop: 09/24/23 20:59 Polyethylene Glycol (Polyethylene (Miralax) 17 Gm Pack) 17 gm PO DAILY PRN PRN Reason: Constipation Stop: 09/22/23 23:39 Pregabalin (Pregabalin 150 Mg Cap) 150 mg PO TID [facility] Stop: 09/23/23 08:59 Last Admin: 08/25/23 13:31 Dose: 150 mg Propranolol HCl (Propranolol Hcl 10 Mg Tab) 5 mg PO TID [facility] Stop: 09/24/23 13:59 Last Admin: 08/25/23 10:06 Dose: 5 mg Rosuvastatin Calcium (Rosuvastatin Calcium 10 Mg Tab) 10 mg PO QAM [facility] Stop: 09/23/23 08:59 Last Admin: 08/25/23 08:30 Dose: 10 mg Vortioxetine (Vortioxetine Hydrobromide [Patient Own Med]) 2 each PO DAILY [facility] Stop: 09/24/23 12:29 Last Admin: 08/25/23 13:25 Dose: 2 each
--- NOTE | 2023-08-25 15:03 | Electrocardiogram Report ---
Test Reason : Blood Pressure : / mmHG Vent. Rate : 082 BPM Atrial Rate : 082 BPM P-R Int : 156 ms QRS Dur : 088 ms QT Int : 402 ms P-R-T Axes : 085 009 073 degrees QTc Int : 469 ms Normal sinus rhythm Pulmonary disease pattern Abnormal ECG When compared with ECG of 23-AUG-2023 21:32, No significant change was found Confirmed by Neal Perez ([id number]) on 08/25/2023 3:02:27 PM Referred By: John Erazo Confirmed By:Neal Perez
[2023-08-25] MEDS: OLANZAPINE 2.5 MG TAB PO SCH (21:28)
[2023-08-26 10:14] LABS: Hematocrit (blood only) 37.7 % (37.0-47.0); Hemoglobin 12.7 g/dl (12.0-16.0); Mean Corpuscular Hemoglobin 28.3 pg (25.0-34.0); Mean Corpuscular Hgb Conc 33.7 g/dL (32.0-36.0); Mean Platelet Volume 9.8 fL (9.4-12.4); Platelet Count 279 K/uL (130-400); RDW Coefficient of Variation 14.6 % (11.5-14.5); RDW Standard Deviation 44.2 fL (36.4-46.3); Red Blood Count 4.49 M/uL (4.20-5.40); White Blood Count 6.65 K/ul (4.8-10.8)
[2023-08-26 10:29] LABS: Calcium 8.2 mg/dl (8.6-10.3); Creatinine Clr Calc Pharmacy 118.9 ml/min; Est GFR (African American) 112.9 ml/min; Est GFR (Non-African American) 97.4 ml/min; Potassium 3.4 mmol/L (3.5-5.1)
[2023-08-26 11:14] LABS: Basophils # (auto) 0.08 K/uL (0.00-0.20); Basophils % (auto) 1.2 %; Echinocytes 1+; Eosinophils # (auto) 0.34 K/uL (0.00-0.50); Eosinophils % (auto) 5.1 %; Immature Granulocytes # (auto) 0.01 K/uL (0.01-0.20); Immature Granulocytes % (auto) 0.2 %; Lymphocytes # (auto) 3.39 K/uL (1.20-3.40); Monocytes # (auto) 0.54 K/uL (0.11-0.59); Monocytes % (auto) 8.1 %; Neutrophils # (auto) 2.29 K/uL (1.40-6.50); Neutrophils % (auto) 34.4 %; Ovalocytes 1+
[2023-08-26 14:56] LABS: 7-Aminoclonaz, Confirm 1380 ng/mL (<25); Hydro-Alp Ur, GC/MS NEGATIVE ng/mL (<25); Hydroxyethylflurazepam, Conf NEGATIVE ng/mL (<50); Hydroxymidazolam Ur, GC/MS NEGATIVE ng/mL (<50); Hydroxytriazolam NEGATIVE ng/mL (<50); Lorazepam, Ur GC/MS NEGATIVE ng/mL (<50); Marijuana Quant, GCMS Urine 2612 ng/mL (<5); Nordiazepam, Confirm NEGATIVE ng/mL (<50); Oxazepam Ur, GC/MS NEGATIVE ng/mL (<50); Temazepam, Confirm NEGATIVE ng/mL (<50)
[2023-08-26] MEDS: POTASSIUM CHLORIDE CRTAB 20 MEQ TABCR PO STA (16:40)
--- NOTE | 2023-08-26 19:10 | Hospitalist Progress Note ---
Date of Service August 26, 2023 Assessment & Plan (1) Acute UTI (urinary tract infection): Plan: per previous hospitalist notes with addendum: 48-year-old female with past medical history significant for type 2 diabetes, hyperlipidemia, allergic rhinitis, obesity, history of left renal mass, fibromyalgia, headache behind the eyes, chronic bilateral low back pain, history of herpes zoster without complication, depression with anxiety, narcolepsy without cataplexy, tobacco use disorder, recurrent major depression, was brought in by her sister because patient was having suicidal thoughts and in ER also found to UTI and possible early sepsis. Patient says since last 2 weeks she is having constant thoughts to hurt herself. Having lot of anxiety. Every morning she is having nausea because of anxiety. Appetite is down. Currently has migraine headaches. No blurred visions. No runny nose or sore throat. Currently no cough. No fevers. No chest pain. When she gets anxiety she gets short of breath. Currently no abdominal pain. Normal bowel and bladder movements. Ambulating okay. Currently hemodynamics are okay. acute UTI possible early sepsis with tachycardia and leukocytosis IV fluids and empiric Rocephin will follow cultures close monitor WBC already improved/ normalized Urine culture: More than 3 types of organisms present, repeat collection recommended Blood culture: Negative so far Will repeat urine culture Continue IV cefazolin 08/25 Repeat urine culture pending Blood cultures negative Clinically improving Continue IV cefazolin DEANGELO - resolved creatinine 1.35 avoid nephrotoxic agents getting fluids Cr now normalized mild hypercalcemia - resolved calcium 10.6 likely from dehydration repeat Ca improved/ normalized hemoglobin 17.3 possible from dehydration repeat Hgb down to 12.8 this AM Hemoglobin stable at 13.2 Hypokalemia, hypomagnesemia - from poor oral intake - replete and monitor Resolved Suicidal ideation history of depression and anxiety continue home medications one on one and and suicide precautions Psychiatry consulted Psychiatry service following, managing medications Wound is improving Type 2 diabetes current HbA1c level 6.0% hold metformin continue home Lantus sliding scale will follow blood sugars BSG 79-91 Anion gap metabolic acidosis - anion gap 18 and CO2 18 on admission - from dehydration and poor appetite - now resolved , AG 10 now Hx of Migraine BURGER on emagility and propranolol DVT prophylaxis - Lovenox disposition- Anticipate to transition to behavioral unit once medically stable full code plan of care discussed with patient in detail and at length all questions answered she is understanding, agreeable, comfortable with the plan of care Admission and Anticipated Discharge Date Admission Date: August 23, 2023 Subjective Follow-up for UTI, suicidal ideations, etc. Seen resting in bed, sitting up, comfortable, watching TV In good spirits States she feels much better today Mood is better, thought wheezing resolved Denies abdominal pain, problems with urination, flank pain, back pain, nausea vomiting, fevers or chills No other new symptom Review of Systems Review of Systems: all noted and negative except for above Physical Exam Physical Exam: General- oriented x 3, not in distress, speaks in sentences with no effort or accessory muscle use Eyes- anicteric Neck- no JVD Lungs- clear breath sounds bilaterally, no rales/wheezes Heart- normal rate, regular rhythm; no murmurs Abdomen- normal bowel sounds, nondistended, soft, nontender No CVA tenderness Extremities- no pretibial edema, no calf tenderness Neuro- alert, oriented x 3; no gross focal neurologic deficits Skin- warm & dry Results & Data Results & Data Vital Signs (Past 12 Hours) Vital Signs Temp Pulse Pulse Resp BP BP Pulse Ox 08/26/23 16:32 82 08/26/23 16:06 36.6 C 62 20 173/84 H 97 08/26/23 11:37 36.7 C 65 18 121/74 94 08/26/23 11:17 77 O2 Del Method 08/26/23 16:32 08/26/23 16:06 Room Air 08/26/23 11:37 Room Air 08/26/23 11:17 all noted and reviewed including below
[2023-08-27 08:29] LABS: BUN Creatinine Ratio 12.5 (10-20); Calcium 8.5 mg/dl (8.6-10.3); Creatinine Clr Calc Pharmacy 120.5 ml/min; Est GFR (African American) 114.8 ml/min; Potassium 3.7 mmol/L (3.5-5.1)
--- NOTE | 2023-08-27 10:35 | Hospitalist Progress Note ---
Date of Service August 27, 2023 Assessment & Plan (1) Acute UTI (urinary tract infection): Plan: per previous hospitalist notes with addendum: 48-year-old female with past medical history significant for type 2 diabetes, hyperlipidemia, allergic rhinitis, obesity, history of left renal mass, fibromyalgia, headache behind the eyes, chronic bilateral low back pain, history of herpes zoster without complication, depression with anxiety, narcolepsy without cataplexy, tobacco use disorder, recurrent major depression, was brought in by her sister because patient was having suicidal thoughts and in ER also found to UTI and possible early sepsis. Patient says since last 2 weeks she is having constant thoughts to hurt herself. Having lot of anxiety. Every morning she is having nausea because of anxiety. Appetite is down. Currently has migraine headaches. No blurred visions. No runny nose or sore throat. Currently no cough. No fevers. No chest pain. When she gets anxiety she gets short of breath. Currently no abdominal pain. Normal bowel and bladder movements. Ambulating okay. Currently hemodynamics are okay. Urinary Tract Infection, Presumed possible early sepsis with tachycardia and leukocytosis IV fluids and empiric Rocephin UA: (+) bacteremia, WBCs, leukocyte esterase Urine culture: More than 3 types of organisms present, repeat collection recommended Blood culture: Negative so far repeat urine culture: negative so far given IV Cefazolin 08/26 clinically improved overall afebrile no urinary symptoms d/c on Cefdinir BID x 4 more days to complete 7 day course probiotics daily DEANGELO - resolved creatinine 1.35 avoid nephrotoxic agents getting fluids Cr now normalized mild hypercalcemia - resolved calcium 10.6 likely from dehydration repeat Ca improved/ normalized hemoglobin 17.3 possible from dehydration repeat Hgb down to 12.8 this AM Hemoglobin stable at 13.2 Hypokalemia, hypomagnesemia - from poor oral intake Resolved Suicidal ideation history of depression and anxiety continue home medications one on one and and suicide precautions Psychiatry consulted: started Olanzapine 2.5mg po BID patient significantly improved, mood much better, no suicidal thoughts safety care plan ordered continue Olanzapine 2.5mg BID ff up with outpatient Psychiatrist Cystic structure, Left Ankle Ct scan of ankle ordered Type 2 diabetes current HbA1c level 6.0% resume Metformin Anion gap metabolic acidosis - anion gap 18 and CO2 18 on admission - from dehydration and poor appetite - now resolved , AG 10 now Hx of Migraine BURGER on emagility and propranolol patient states she does not take Propranolol at home DVT prophylaxis - Lovenox disposition- Anticipate to transition to behavioral unit once medically stable full code plan of care discussed with patient in detail and at length all questions answered she is understanding, agreeable, comfortable with the plan of care Admission and Anticipated Discharge Date Admission Date: August 23, 2023 Subjective ff up for UTI, suicidal ideation etc seen resting in bed, comfortable in good spirits states she feels much better overall mood is much better, no suicidal ideation, suicidal thoughts no fever/chills, abdominal pain, nausea/vomiting no chest pain, dyspnea, palpitations, dizziness no other symptoms Review of Systems Review of Systems: all noted and negative except for above Physical Exam Physical Exam: General- oriented x 3, not in distress, speaks in sentences with no effort or accessory muscle use Eyes- anicteric Neck- no JVD Lungs- clear breath sounds bilaterally, no rales/wheezes Heart- normal rate, regular rhythm; no murmurs Abdomen- normal bowel sounds, nondistended, soft, nontender Extremities- no pretibial edema, no calf tenderness Neuro- alert, oriented x 3; no gross focal neurologic deficits Skin- warm & dry Results & Data Results & Data Vital Signs (Past 12 Hours) Vital Signs Temp Pulse Pulse Resp BP Pulse Ox O2 Del Method 08/27/23 08:00 36.5 C 65 18 146/87 H 96 Room Air 08/27/23 07:44 Room Air 08/27/23 05:58 77 08/27/23 03:16 36.7 C 62 16 118/64 90 Room Air 08/26/23 23:19 36.6 C 64 20 119/75 95 Room Air all noted and reviewed including below
[2023-08-27] MEDS: HYDROCODONE/ACETAMOPHEN 5/325MG TAB PO STA (10:44)
--- NOTE | 2023-08-27 11:34 | CT Scan Report ---
CT ankle LT wo con CLINICAL HISTORY: pain, superior, anterior aspect, possible mass TECHNIQUE: Multidetector row helical CT of the left ankle was performed without intravenous contrast. Coronal and sagittal reformations were obtained. Automated dose lowering techniques and/or adjustmen t according to patient size were utilized for this examination. CT DOSE: 451.04 mGy.cm Comparison: Comparison is made to left foot radiograph 10/07/2022 FINDINGS: The osseous structures are without fracture or dislocation. The joint spaces are maintained. No joint effusion is seen. There is a small locule of fluid in the anterior aspect of the distal tibial soft tissues measuring approximately 16 x 8 mm. Minimal fat stranding is seen. IMPRESSION: Locule of fluid in the anterior ankle soft tissues may represent a cyst versus edema. Stability canno t be assessed in this noncontrast exam. ACT 112: Negative or not required by law. Electronically signed by: Herbert Resendez M.D. 08/27/2023 11:32 AM
[2023-08-27] MEDS ORDERED: Nursing to Pharmacy Communication SCH (12:15)
[2023-08-28] MEDS ORDERED: METHYLPHENIDATE HCL 10 MG TABLET PO SCH (07:00)
--- NOTE | 2023-08-29 16:53 | Discharge Summary ---
Discharge Summary Date of Service August 29, 2023 delayed entry date of service 08/27/23 Principal Dx & Hospital Course #1 = Principal Diagnosis (1) Acute UTI (urinary tract infection): (2) Suicidal ideation: (1) Acute UTI (urinary tract infection): Plan: per previous hospitalist notes with addendum: 48-year-old female with past medical history significant for type 2 diabetes, hyperlipidemia, allergic rhinitis, obesity, history of left renal mass, fibromyalgia, headache behind the eyes, chronic bilateral low back pain, history of herpes zoster without complication, depression with anxiety, narcolepsy without cataplexy, tobacco use disorder, recurrent major depression, was brought in by her sister because patient was having suicidal thoughts and in ER also found to UTI and possible early sepsis. Patient says since last 2 weeks she is having constant thoughts to hurt herself. Having lot of anxiety. Every morning she is having nausea because of anxiety. Appetite is down. Currently has migraine headaches. No blurred visions. No runny nose or sore throat. Currently no cough. No fevers. No chest pain. When she gets anxiety she gets short of breath. Currently no abdominal pain. Normal bowel and bladder movements. Ambulating okay. Currently hemodynamics are okay. acute UTI possible early sepsis with tachycardia and leukocytosis IV fluids and empiric Rocephin will follow cultures close monitor WBC already improved/ normalized Urine culture: More than 3 types of organisms present, repeat collection recommended Blood culture: Negative so far Will repeat urine culture Continue IV cefazolin 08/25 Repeat urine culture pending Blood cultures negative Clinically improving Continue IV cefazolin 08/26 Repeat urine culture yeast not Betzaida albicans Blood cultures negative Will treat as presumed UTI with course of cefdinir PCP follow-up in 1 week DEANGELO - resolved creatinine 1.35 avoid nephrotoxic agents getting fluids Cr now normalized mild hypercalcemia - resolved calcium 10.6 likely from dehydration repeat Ca improved/ normalized hemoglobin 17.3 possible from dehydration repeat Hgb down to 12.8 this AM Hemoglobin stable at 13.2 Hypokalemia, hypomagnesemia - from poor oral intake Resolved Suicidal ideation history of depression and anxiety continue home medications one on one and and suicide precautions Psychiatry consulted: Olanzapine 2.5 mg p.o. twice daily started Patient clinically improved, cleared to discharge home Follow-up with psychiatry as an outpatient Ankle cyst CT ankle: Locule of fluid in the anterior ankle soft tissues may represent a cyst versus edema. Stability cannot be assessed in this noncontrast exam. Patient reports pain on the area Further evaluation management as an outpatient Type 2 diabetes current HbA1c level 6.0% Continues on medications Outpatient follow-up Anion gap metabolic acidosis - anion gap 18 and CO2 18 on admission - from dehydration and poor appetite - now resolved , AG 10 now Hx of Migraine BURGER on emagility and propranolol DVT prophylaxis - Lovenox disposition- d/c home PCP follow-up in 1 week Admit psychiatrist follow-up in 1 week Notes For Next Care Provider Medication Changes From Visit Cefdinir- antibiotic for urinary tract infection Take a probiotic daily x 1 month. Renewlife brand recommended. Olanzapine- for mood Admission HPI Per Admitting Provider 48-year-old female with past medical history significant for type 2 diabetes, hyperlipidemia, allergic rhinitis, obesity, history of left renal mass, fibromyalgia, headache behind the eyes, chronic bilateral low back pain, history of herpes zoster without complication, depression with anxiety, narcolepsy without cataplexy, tobacco use disorder, recurrent major depression, was brought in by her sister because patient was having suicidal thoughts and in ER also found to UTI and possible early sepsis. Patient says since last 2 weeks she is having constant thoughts to hurt herself. Having lot of anxiety. Every morning she is having nausea because of anxiety. Appetite is down. Currently has migraine headaches. No blurred visions. No runny nose or sore throat. Currently no cough. No fevers. No chest pain. When she gets anxiety she gets short of breath. Currently no abdominal pain. Normal bowel and bladder movements. Ambulating okay. Currently hemodynamics are okay. Past medical history. As mentioned above past surgical history. Lithotripsy. Colonoscopy. Cystoscopy. EGD. EGD with endoscopic ultrasound. Exploration of abdomen. Social history. Smokes 0.2 packs a day for 12 years. No alcohol use. No drug use. As per [facility] 12/15 [facility] methadone. family history. Father had lung cancer. Diabetes. Diverticulitis. Kidney stone. Mother had arthritis. Colon cancer suspected. Maternal grandmother had rheumatoid arthritis. Diabetes. Pacemaker. Discharge Exam General- oriented x 3, not in distress, speaks in sentences with no effort or accessory muscle use Eyes- anicteric Neck- no JVD Lungs- clear breath sounds bilaterally, no rales/wheezes Heart- normal rate, regular rhythm; no murmurs Abdomen- normal bowel sounds, nondistended, soft, nontender Extremities- no pretibial edema, no calf tenderness Neuro- alert, oriented x 3; no gross focal neurologic deficits Skin- warm & dry Updated Medication List Medication Instructions Recorded Confirmed Type amitriptyline 25 mg tablet 50 mg PO HS 12/12/17 08/23/23 History clonazepam 1 mg tablet 1 mg PO TID PRN Anxiety 12/12/17 08/23/23 History mirtazapine 30 mg tablet 30 mg PO HS 12/12/17 08/23/23 History baclofen 10 mg tablet 10 mg PO BID PRN Muscle Spasm 10/15/18 08/23/23 History metformin 500 mg tablet,extended 500 mg PO BID 10/15/18 08/23/23 History release 24 hr galcanezumab-gnlm 120 mg/mL 120 mg subcut MONTHLY 09/01/20 08/23/23 History subcutaneous pen injector (Emgality Pen) blood sugar diagnostic (OneTouch #100 ea 09/11/20 08/23/23 Rx Verio test strips) insulin aspart U-100 100 unit/mL 8 unit (0.08 mL) SC TIDM 30 days 09/11/20 08/23/23 Rx (3 mL) subcutaneous pen (Novolog #2.4 mL FlexPen U-100 Insulin aspart) insulin glargine 100 unit/mL (3 30 unit (0.3 mL) SC QAM 30 days #9 09/11/20 08/23/23 Rx mL) subcutaneous pen (Lantus mL Solostar U-100 Insulin) pen needle, diabetic 32 gauge x #100 ea 09/11/20 08/23/23 Rx 5/32" (Pen Needle) buspirone 15 mg tablet 15 mg PO TID 12/17/20 08/23/23 History hydroxyzine HCl 50 mg tablet 100 mg PO HS 12/17/20 08/23/23 History rosuvastatin 10 mg tablet (Crestor) 10 mg PO QAM 12/17/20 08/23/23 History Wheeled Walker #1 ea 05/19/21 08/23/23 Rx acetaminophen 500 mg capsule 1,000 mg (2 x 500 mg) PO TID Pain 07/16/21 08/23/23 Rx #180 caps ondansetron HCl 4 mg tablet 4 mg PO Q6 PRN nausea #30 tabs 07/16/21 08/23/23 Rx pregabalin 100 mg capsule (Lyrica) 150 mg PO TID 06/17/22 08/23/23 History ondansetron 4 mg disintegrating 4 mg PO Q8H PRN nausea and 06/27/23 08/23/23 Rx tablet vomiting #30 tabs methylphenidate HCl 10 mg tablet 10 mg PO BID #60 tabs 08/19/23 08/23/23 Rx clonidine HCl 0.2 mg tablet 0.2 mg PO PM 08/23/23 08/23/23 History vortioxetine 20 mg tablet 20 mg PO QAM 08/23/23 08/23/23 History (Trintellix) cefdinir 300 mg capsule 300 mg PO BID 4 days #8 caps 08/27/23 Rx olanzapine 5 mg tablet 2.5 mg (1/2 x 5 mg) PO BID 14 days 08/27/23 Rx #14 tabs Hospital Stay Data Consultations 08/23/23 21:19 ED Decision to Admit Stat 08/24/23 08:00 Consult Psychiatry Routine Diagnostic Imagining Performed 08/27/23 09:55 CT ankle LT wo con Routine CT ankle LT wo con CLINICAL HISTORY: pain, superior, anterior aspect, possible mass TECHNIQUE: Multidetector row helical CT of the left ankle was performed without intravenous contrast. Coronal and sagittal reformations were obtained. Automated dose lowering techniques and/or adjustment according to patient size were utilized for this examination. CT DOSE: 451.04 mGy.cm Comparison: Comparison is made to left foot radiograph 10/07/2022 FINDINGS: The osseous structures are without fracture or dislocation. The joint spaces are maintained. No joint effusion is seen. There is a small locule of fluid in the anterior aspect of the distal tibial soft tissues measuring approximately 16 x 8 mm. Minimal fat stranding is seen. IMPRESSION: Locule of fluid in the anterior ankle soft tissues may represent a cyst versus edema. Stability cannot be assessed in this noncontrast exam. ACT 112: Negative or not required by law. Pending Results Patient Have Any Pending Studies at Discharge: No Discharge Instructions Given to Patient (Per Discharging Provider) PLEASE REFER TO YOUR NEW MEDICATION LIST AND FOLLOW INSTRUCTIONS CAREFULLY. YOUR NEW MEDICATIONS INCLUDE: Cefdinir- antibiotic for urinary tract infection Take a probiotic daily x 1 month. Renewlife brand recommended. Olanzapine- for mood PLEASE FOLLOW SAFETY CARE PLAN OUTLINED BY BEHAVIORAL UNIT SERVICE. PLEASE CALL YOUR PRIMARY CARE PHYSICIAN OR RETURN TO THE ER IF WITH WORSENING OF SYMPTOMS, INCLUDING worsening depression, anxiety, confusion, fever/chills, problems with urination, abdominal pain, etc FOLLOW UP WITH PRIMARY CARE PHYSICIAN OUTLINED ABOVE. FOLLOW UP WITH OUTPATIENT PSYCHIATRIST IN 1 WEEK. Total Time Total Time Spent Total Time Spent (In Minutes): 45 mintues
== END 2023-08-27 14:50 | disposition home or self-care (01) | DRG 872 ==
LOC: ED 16:19 → EDINP 23:24 → SUATTDRO 23:24 → 2N 23:41